=== PATIENT | female | born 1990 | race Caucasian/White ===

== ENCOUNTER 2019-05-23 12:28 | Emergency (ER) | payer OTHER, SELFPAY ==
[2019-05-23 12:31] VITALS: BP 105/66; PULSE 86; RESP 16; TEMP 36.7; O2SAT 98; BMI 24.0
--- NOTE | 2019-05-23 12:47 | ED.DCSUM_ITS ---
- ER Visit Summary Date of Service: 05/23/19 Chief Complaint: Psych eval History of Present Illness: The patient is a 28 F who was referred to the ED by her therapist. She has been having anxiety and depressed symptoms for several months. Her symptoms are primarily triggered by work stressors. Things seem to be getting worse. She has an appointment with a physician to possibly start medication for her mood, but has not been able to be seen so far. She saw her therapist yesterday who referred her to the emergency department if she has continued symptoms. She denies any suicidal or homicidal ideation. She has had thoughts in the past but currently has no thoughts of self-harm. No plans. No attempts. She feels safe at home and her agrees. She lives with her . She drinks 2 beers per day. Denies drug use. Denies any medical history. Denies any medical complaints. Physical Examination: Afebrile and vital signs unremarkable. Patient alert and oriented. No acute distress. Depressed mood. Forward thinking. No suicidal or homicidal thoughts. Heart regular. Lungs clear. Skin normal. Moves all extremities. Normal gait. Test Results: None indicated Emergency Department Course and Treatment: It does not sound like the patient needs inpatient care or involuntary hospitalization. I do not suspect an underlying medical cause. She drinks up to 2 beers a day, but does not use any drugs. I believe she could benefit from outpatient care, but that she needs to have her care expedited. I will have our social media editor evaluate her as well. We will try to arrange outpatient follow-up for her. TSH was normal. Patient was evaluated by social work as well as a behavioral counselor. They agree that she is appropriate for outpatient follow-up. Patient will be discharged. She has follow-up scheduled. She will return right away if she has thoughts of suicide or cannot function or has any other issues. Treatment Plan: As above Disposition: Discharge Impression: 1. Mood disorder NOS This note was generated with Stumpwiseation software. It may contain incorrect words, spelling, and punctuation that were not noted in review of the chart prior to signing ED Disposition - Plan for ED Patient: Referrals: NOT,DEFINED [NON-STAFF] -
--- NOTE | 2019-05-23 13:40 | CM.ED ---
SOCIAL WORK ASSESSMENT INFORMANT: DR. BOURGEOIS REASON FOR REFERRAL: MENTAL HEALTH CONSULT CHIEF COMPLIANT: INCREASED DEPRESSION AND ANXIETY MARITAL STATUS: LIVING SITUATION: HOME WITH INDU. SUPPORT/RESOURCES: PATIENT REPORTS GOOD SUPPORT FROM AND FAMILY. PATIENT STATES CURRENTLY FOLLOWING WITH [facility]. 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 PATIENT ADMITS TO PREVIOUS SUICIDAL IDEATION, HOWEVER, DENIES ANY CURRENT THOUGHTS, PLAN OR INTENT. PATIENT STATES HAS BEEN SELF HARMING BY PUNCHING HERSELF AND BANGING HEAD AGAINST WALL. PATIENT DENIES ANY HISTORY OF ABUSE-PHYSICAL, EMOTIONAL, OR SEXUAL. SUBSTANCE ABUSE HISTORY: PATIENT DENIES ANY SUBSTANCE ABUSE. MENTAL STATUS EXAM: PATIENT ALERT AND ORIENTED X4. MEMORY: GOOD APPEARANCE/GENERAL BEHAVIOR: CLEAN/APPROPRIATE MOOD/AFFECT: DEPRESSED, ANXIOUS COMMUNICATION PATTERN: RESPONDS TO QUESTIONS THOUGHT PROCESS: APPROPRIATE RISK TO SELF/OTHERS: PATIENT DENIES ANY CURRENT SUICIDAL OR HOMICIDAL IDEATION. ASSESSMENT: MET WITH PATIENT IN ROOM. INTRODUCED ROLE AND REASON FOR REFERRAL. PATIENT'S , INDU AT BEDSIDE AND GIVEN PERMISSION TO SPEAK OPENLY WITH PRESENT. PATIENT STATES HAS BEEN HAVING INCREASED ANXIETY AND DEPRESSION OVER THE LAST MONTH. PATIENT STATES HAS HAD THOUGHTS OF SUICIDE, BUT DENIES ANY PLAN OR INTENT. PATIENT DENIES ANY CURRENT SUICIDAL IDEATION. PATIENT FEELS SAFE IN THE HOME. PATIENT STATES IS FOLLOWING WITH [facility] AND WAS ADVISED TO COME TO THE EMERGENCY DEPARTMENT FOR ADDITIONAL SERVICES. DISCUSSED INPATIENT AND OUTPATIENT TREATMENT. PATIENT DOES NOT MEET CRITERIA FOR INPATIENT HOSPITALIZATION. PATIENT AND AGREE. DISCUSSED REFERRAL TO THE [facility]. PATIENT IN AGREEMENT WITH REFERRAL. THIS WORKER TO FOLLOW UP WITH [facility]. DISCUSSED WITH DR. BOURGEOIS WHO IS IN AGREEMENT WITH ASSESSMENT AND REFERRAL FOR OUTPATIENT SERVICES. PLAN: HOME WITH OUTPATIENT MENTAL HEALTH SERVICES REFERRAL. RICKIE HATFIELD, HYPERION ESSBASE DEVELOPER, HEAVY EQUIPMENT TECHNICIAN.
--- NOTE | 2019-05-23 13:50 | CM.ED ---
SOCIAL WORK CALL TO THE [facility]. REFERRAL MADE TO JORDAN. PER JORDAN, SOMEONE WILL BE OVER TO MEET WITH PATIENT TO DISCUSS PROGRAM. PATIENT AND UPDATED ON THE ABOVE. RICKIE HATFIELD MSW, PRINTING ESTIMATOR.
--- NOTE | 2019-05-23 14:10 | CM.ED ---
SOCIAL WORK HELLEN FROM [facility] HERE TO MEET WITH PATIENT.
--- NOTE | 2019-05-23 14:35 | CM.ED ---
SOCIAL WORK UPDATED BY HELLEN FROM [facility]. PATIENT WANTING TO THINK ABOUT OPTIONS AND PROGRAM OVER THE WEEKEND. HELLEN TO FOLLOW UP WITH PATIENT ON 05/26/19. DR. BOURGEOIS UPDATED. RICKIE HATFIELD, POLL CLERK, CLIENT ADVISOR.
[2019-05-23 14:50] LABS: Thyroid Stim Hormone (TSH) 0.93 uIU/mL (0.358-3.74)
--- NOTE | 2019-05-23 14:54 | ED.DEP ---
ED Disposition - Plan for ED Patient: Instructions: Depression Additional Instructions: follow up as directed
[2019-05-23 15:38] VITALS: RESP 16
== END 2019-05-23 15:39 | disposition home or self-care (01) ==
LOC: ED 13:18
PROVIDERS: Emergency Provider Emergency Medicine
DX: F39 Unspecified mood [affective] disorder (principal)
CPT/HCPCS: 84443; 99282

== ENCOUNTER 2019-05-28 09:00 | Outpatient (RCR) | payer OTHER, SELFPAY ==
--- NOTE | 2019-05-28 10:05 | BH.SGPN.GN ---
Behaviors/Verbalizations/Mental Status: [Client alert and oriented, neatly dressed and groomed. Eye contact good. Motor activity appropriate. Speech within normal limits. Affect congruent, mood anxious and euthymic. Thoughts linear, logical, no signs of hallucinations or delusions. ] Client Response/Progress/Benefit: [Client was an active participant in group discussion and activity. Engaged during discussion on the quote, sharing that ?change can be hard because sometimes it means we have to tell people things that may upset them.? Worked with the group to identify benefits to making changes in our lives which included: improving one?s mental health, increasing confidence, personal growth, and reducing unhealthy coping skills. Group identified barriers to change or what keeps us from making changes which included: it is easier to not change, lack of motivation, past negative experiences, lack of awareness as to how to make changes, limited support, negative thinking, and fear. Client participated along with group in activity where they identified and discussed the emotions related to change. Client was attentive during psychoeducation on the change process and provided input regarding different emotions that may be experienced throughout the process. Expressed relating to fear of failure when getting close to successful change. Pt benefited from increased awareness and understating of emotions, benefits, and barriers related to change. Progress noted as shown by client?s report of increased self-confidence and reduction of anxiety. Will continue IOP tx to promote gains and reinforce healthy coping skills] Narrative Note: []
--- NOTE | 2019-05-28 13:06 | BH.COMM_ITS ---
Communication Note - Communication with Client Communication Note: Met with patient to complete intial paperwork. Completed CSSR-screener which indicates moderate risk. She has been evaluated by [facility] ER and outpatient therapist in the past week with no concern for imminent danger. Denies active suicidal ideations, plan, or intent. Admits to thoughts of suicide and methods in the past month however never had any intent or plan. Protective factors. Future-oriented. Does not present as imminent risk or need for pink sli p. Seeking treatment through [facility]. No hx of attempts.
--- NOTE | 2019-05-28 13:21 | PCM.BH.PSYEV ---
Psychiatric Evaluation - Initial Evaluation Initial Evaluation: History of Present Illness: Patient is a 28-year-old female with a history of depression and anxiety who was sent to [facility] emergency room on May 23, 2019 by her counselor. The patient has had worsening mood and anxiety in the past 1 to 2 months. She currently lives in a house with her . They have no children. 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 Overall she likes her job although it is stressful. She states that recently due to all the stress she is under she has been thinking about suicide. She has had plans to drive her car off the road or obtain a gun. She does not have a gun and does not have access to one. She also has had thoughts of and that she wants to if she could do it in a painless way. She currently has been engaging in self-harm to help her deal with her anxiety. She slams her head into a wall and punches herself to get rid of her anxiety. She has been doing this for the past month. She has a history of cutting in high school but has not cut herself since high school. No other self-harm up to home a month ago when she will get in the punching. She has been calling off work due to all her symptoms and has been unable to function well at work. Her current stresses include marital issues for the past 2 years now. Her has been quite depressed in the past and he also did the [facility] IOP program. He improved but and but they twice during the past year. He moved out for the second time in January and then he came back and moved in with her in March. At first marriage was okay but then it got bad again about mid or early April. This has contributed to her symptoms. Her is not working and has not worked for the past 3 years. She feels he also does not do enough at home to help. They are still sexually active with last intercourse was about 1 week ago. She says that they both want to stay . She describes her mood is down and she cries and endorses hopelessness and worthlessness at times. She also has a lack of motivation to get anything done and is not enjoying anything lately. She has gained 5 pounds because she overeats when she is depressed. Her sleep she says is okay overall even though she wakes up at times with a similar feeling to a panic attack in the middle of the night. She calms herself down and is able to get back to sleep. She denies any symptoms of crow, homicidal ideation, hallucinations, OCD, eating disorders, PTSD or trauma. She also describes work as a big stressor and says she worries about work all the time. [] Current Psychiatric Medications: [None] Past Psychiatric History: [Has no psych admits and no suicide attempts ever. She currently has a counselor at [facility] and she has been going there for about 2 months for couples and then individual therapy. She has a history of anxiety occurring since 2012. As noted above she has a history of cutting in high school but none since then. She was first depressed in middle school and saw a counselor for this. She has never taken any psych medications for psychiatric reasons. She has never seen a psychiatric provider. She describes a history of being very worried as a child about her parents dying and about other existential fears.] Substance Use History: Non-smoker and has no marijuana use. She last used marijuana 2 months ago and uses it only sporadically. She denies any other drugs. Her used THC daily up to 3 weeks ago but he is trying to cut down now. She does drink 2 to 3 beers a day about 4 days a week. This is the most alcohol use she is ever done. She has been doing this much for about the past year. [] Allergies: [] No known allergies Current medications: None Past Medical History: [He has no medical problems and has not had any surgeries. She is a 1 para 1 Ab0 and had a baby 10 years ago which they gave up for adoption. It is an open adoption and he is a 10-year-old son and she feels good about this. She is on a Mirena IUD for control.] Family Psychiatric History: Mother is 64 and healthy and father is 75 years old and relatively healthy. There are no psychiatric issues known in the family. No suicides in the family. No history of substance issues known. [] Personal/Social History: Born and raised in [place]. She describes her childhood as good. Her parents were loving and . The patient is the youngest she has a sister 5 years older and as brother 2 years older than her. She is close especially to her sister. She denies any physical verbal or sexual abuse ever. Denies any abuse in her marriage. School was okay for her and she graduated high school and got a bachelor's degree in college in event planning. She has worked at her current job for 18 months and she has all had all event related jobs since college. She at age 22 and has been for 6 years. There has been marital discord for the past 2 years. Her has a history of depression and has not worked for 3 years. is 34 years old and he is supportive of her. They have no children. [] Legal History: [] Negative Review of Systems: Complete review of systems done and negative except as noted in present illness. [] Vital Signs: [] Reviewed in chart and stable. Mental Status Examination: Patient is a 28-year-old female who appears normal for stated age. She is casually dressed and groomed with good hygiene. She has good eye contact and is cooperative during the interview. She has no psychomotor agitation or retardation. Speech is normal rate and rhythm, fluent with no pressure. Mood is depressed. Affect is teary and constricted. Thought process is goal-directed and organized. Thought content: She does have thoughts that she wants to and she does have active suicidal ideation with a plan to drive her car off the road or obtain a gun. She has no evidence of homicidal ideation, hallucinations or delusions. Allergy testing is intact. Intelligence is average or above. Judgment is intact. Insight: Some present. Impulsivity low. Labs and testing [: TSH was normal in the emergency room. Summary: [] Diagnoses: [] [place] I: [] Major depressive disorder recurrent severe without psychosis, generalized anxiety disorder] [place] II: [] Cluster B traits [place] III: [Negative] [place] IV: Primary support (marital) issues and work stress Plan: [Patient will start the IOP program at [facility] as the support, education, structure, group and individual therapy will hopefully benefit the patient and prevent worsening of her symptoms which might require hospitalization. The risks options and possible complications of the medication she is on were discussed with the patient and she understands and accepts these. The patient felt safe during the interview and if it any time she does not feel safe she will call the IOP program or go to the emergency room. She will continue to follow-up with her outpatient providers. In addition the patient will agrees to start Lexapro 5 mg p.o. daily for 3 days and then 10 mg p.o. daily. In addition a vitamin D level will be ordered as it has not been checked yet. She will continue the Vistaril 25 mg 1-2 p.o. as needed for panic attack. She will decrease her caffeine use. I will see the patient in follow-up in 2 weeks.]
--- NOTE | 2019-05-28 13:35 | BH.DR.ITP ---
Initial Treatment Plan - Patient Information Visit Information: ADMISSION DATE: EXPECTED LOS: 4-6 weeks - Problems/Symptoms Problem #1:: Depression Symptom:: Sadness, anhedonia,suicidal ideation Problem #2:: Anxiety Symptom:: Worrying, panic attacks, rumination
--- NOTE | 2019-05-29 09:07 | BH.SGPN.GN ---
Behaviors/Verbalizations/Mental Status: [Eye contact is good. Motor activity is appropriate. Appearance is neat, casual. Speech is Appropriate rate and tone. Mood is anxious, dysthymic. Affect is congruent. Thoughts are linear and logical. No evidence of psychosis. Reviewed daily check in sheet and pt denies any active SI, plan, or intent. ] Client Response/Progress/Benefit: [Pt responded well to session, engaged throughout and open to processing with the group. Pt indicated current emotion as ?anxious? and discussed that this is due to feeling nervous about taking FMLA from work to do the IOP program. Appeared to connect with support from fellow participants and recognized importance of mental health stability in order to make progress professionally. Discussed that although this is a stressor, she is glad to be finally taking time for her own self-care and identified this as a mental health ?win?. Additional win as starting to more actively apply anxiety management skills outside treatment environment and is beginning to recognize sx improvement. Pt appearing to benefit from support and structure of group environment. Expressed connecting with fellow participants. She continues to make progress in practicing internal means for coping and is recommended continued IOP tx to prevent decompensation, decrease depression and anxiety, and promote ongoing application of healthy coping skills.] Narrative Note: []
--- NOTE | 2019-05-29 10:14 | BH.SGPN.GN ---
Behaviors/Verbalizations/Mental Status: []Client alert and oriented, neatly dressed and groomed. Eye contact good. Motor activity restless. Speech within normal limits. Affect congruent, mood anxious. Thoughts linear, logical, no signs of hallucinations or delusions. Client Response/Progress/Benefit: []Client responded well to session, attentive and participating in small group discussion. Group identified the benefits to setting boundaries as well as the consequences of not setting healthy boundaries. Benefits included: improved mental wellness, improved self-worth, self-love, less stress, less resentment, and avoid being taken advantage of. Group discussed the consequences of not setting boundaries which included: worsening mental health, lack of progress, and staying stuck in unhelpful situations. Client attentive during discussion of the different types of boundaries and engaged in the self-assessment activity. Client reported she often says yes to things when she really means no. Client stated this has led to client taking on more than she can handle. Client able to recognize her own mental health suffers when she does not set boundaries. Client seemed to benefit from increased awareness how poor boundaries can negatively impact mental health. Client to continue IOP level of care to reduce anxiety and improve daily functioning.
--- NOTE | 2019-05-30 08:48 | BH.NOTE ---
BH: Inpatient Note - Notes Behavioral Health Inpatient Note: Per written order from Dr. Barbosa, the following prescriptions were called into [facility] pharmacy in [place], [place]: Lexapro 10mg, take 0.5 tab (5mg) daily x3 days, then 1 tab (10mg) PO daily, #30, NO refills Vistaril 25mg, take 1-2 (25-50mg) PO daily PRN for panic/anxiety, #60, NO refills Edel Garcia MSN, RN
--- NOTE | 2019-05-30 11:20 | BH.SGPN.GN ---
Behaviors/Verbalizations/Mental Status: []Client alert and oriented, casual dress, hygiene tended to. Eye contact good. Motor activity appropriate. Speech within normal limits. Affect constricted, mood anxious. Thoughts linear, logical, no signs of hallucinations or delusions. Client Response/Progress/Benefit: []Pt responded well to session, active participant AEB providing input at times and taking notes throughout. Pt worked with group to further process the self-assessment activity. Pt participated in the discussion reviewing different boundary setting styles and reported connecting with the ?porous? boundary setting type with relation to not saying no to others and putting others needs ahead of her own. Pt reported she has rigid boundary setting type with not asking for help from others and avoiding new relationships because doesn't want to open up to others. Pt able to identify how having porous and rigid boundaries can negatively impact her mental health. She appeared to benefit from increasing awareness of personal boundary style and from learning ways to increase healthy boundaries. Pt to continue IOP level of care to decrease anxiety, challenge anxious thought patterns, and prevent decompensation. Narrative Note: []
--- NOTE | 2019-06-02 09:05 | BH.SGPN.GN ---
Behaviors/Verbalizations/Mental Status: [Eye contact is good. Motor activity is appropriate. Appearance is neat and casual. Speech is Appropriate rate and tone. Mood is euthymic. Affect is congruent. Thoughts are linear and logical. No evidence of psychosis. Reviewed daily check in sheet and pt denies any active SI, plan, or intent. ] Client Response/Progress/Benefit: [Pt responded well to session, engaged throughout and open to processing with the group. Pt indicated current emotion as ?optimistic? and discussed that this is due to beginning to see improvements in overall self-confidence and ability to make healthy personal choices. Pt did well to identify mental health wins which included using healthy coping and self-care skills to refrain from drinking alcohol or eating unhealthy foods. Additional win identified spending time outside walking with her dog. Current stressor is ongoing difficulties in her marriage as pt noted her has been struggling with his own mental health needs. Receptive of feedback provided by group and noted knowing she can be a support without trying to solve things for him. Pt appearing to benefit from support and structure of group environment. Pt continues to make progress in practicing more consistent use of coping skills and is recommended continued IOP tx to prevent decompensation, decrease depression/anxiety, and promote ongoing application of healthy coping skills.] Narrative Note: []
--- NOTE | 2019-06-02 10:15 | BH.SGPN.GN ---
Behaviors/Verbalizations/Mental Status: []Client alert and oriented, neatly dressed, hygiene tended to. Eye contact good. Motor activity restless AEB being fidgety with hands. Speech within normal limits. Affect constricted, mood anxious. Thoughts linear, logical, no signs of hallucinations or delusions. Client Response/Progress/Benefit: []Client passive participant as evidenced by client providing limited input throughout discussion, however did appear to listen attentively to others. Client agreed with others that she experiences automatic negative thoughts. Client connected with the discussion about how distorted thought patterns can reinforce mental health symptoms. Client reported that she struggles with creating scenarios in her brain of what might happen, which often is unrealistic and irrational. Client stated she could connect with catastrophizing distortion which she stated increases her anxiety further. Appeared to benefit from increasing awareness of cognitive distortions and how they can impact emotions and behaviors. Client to continue IOP to decrease anxiety, increase healthy coping skills, and prevent decompensation. Narrative Note: []
--- NOTE | 2019-06-02 11:15 | BH.SGPN.GN ---
Behaviors/Verbalizations/Mental Status: []Client alert and oriented, neatly dressed and groomed. Eye contact good. Motor activity appropriate. Speech within normal limits. Affect constricted, mood anxious. Thoughts linear, logical, no signs of hallucinations or delusions. Client Response/Progress/Benefit: []Client?engaged during session AEB client providing contributions throughout group session and engaging in activity. Client worked cooperatively with peers during group activity. Client acknowledged the importance of needing to have awareness and put forth the effort to challenge, reframe, and replace distorted thought patterns. Client reported she has had ?what if thoughts? for many years, so she acknowledges it will take time to change. Client worked cooperatively with group to challenge distorted thoughts and was attentive in learning strategies to combat distortions. Client reported she wants to focus on catching herself when she uses generalizations and jumping to conclusions. Client seemed to benefit from increased awareness of cognitive distortions and practicing reframing distorted thoughts. Client to continue IOP level of care to challenge negative thoughts that reinforce anxiety and difficulty setting boundaries.
== END 2019-06-02 23:59 ==
LOC: BHIOP 09:00
PROVIDERS: Referring Provider Psychiatry & Neurology Psychiatry; Visit Provider Psychiatry & Neurology Psychiatry
DX: F33.2 Major depressive disorder, recurrent severe without psychotic features (principal); F41.1 Generalized anxiety disorder; F12.90 Cannabis use, unspecified, uncomplicated
CPT/HCPCS: H0035; 90853

== ENCOUNTER 2019-06-03 09:00 | Outpatient (RCR) | payer OTHER, SELFPAY ==
--- NOTE | 2019-06-03 10:10 | BH.SGPN.GN ---
Behaviors/Verbalizations/Mental Status: []Client alert and oriented, neatly dressed and groomed. Eye contact good. Motor activity appropriate. Speech within normal limits. Affect congruent, mood anxious. Thoughts linear, logical, no signs of hallucinations or delusions Client Response/Progress/Benefit: []Client active participant in group AEB client contributing thoughts and ideas throughout session and listening attentively to peers. Group worked together to identify barriers to making changes or taking action in their lives which included: fear of the unknown, fear of losing control, the perception of others, fear of leaving one?s comfort zone, fear of success, and lack of motivation. When discussing challenges of taking action client stated she fears making the steps to prepare for change at times. Group also identified the benefits of change which included; improved relationships, improved mental wellness, increased confidence, and feelings of accomplishment. Client identified areas she would like to take back control over to include: racing thoughts, worrying about work, not knowing what she likes or wants, needing to people please, and fear of setting boundaries. Benefited from group through awareness of personal areas want to improve and benefits to taking action towards mental wellness. To continue IOP level of care to reduce anxiety and further improve daily functioning.
--- NOTE | 2019-06-03 11:18 | BH.SGPN.GN ---
Behaviors/Verbalizations/Mental Status: []Client alert and oriented, casual dress, hygiene tended to. Eye contact good. Motor activity appropriate. Speech within normal limits. Affect constricted, mood anxious. Thoughts linear, logical, no signs of hallucinations or delusions. Client Response/Progress/Benefit: []Pt mostly passive participant AEB pt providing limited input throughout session, however appeared to listen attentively to others. Pt worked with peers to identify the impact lack of action has on progress. Pt completed worksheet in which pt identified a problem area to focus on, a SMART goal to help work on problem area, and identify additional supports needed to be successful. Pt identified she wants to work on decreasing ?people pleasing?. Pt identified small goal is to do one thing that she enjoys for herself each day. Pt stated additional supports needed to be successful with goal include: communicating with her plan, making a list of why it?s important to care for herself, make a list of self-care activities, and incorporate self-care activities into her daily routine/schedule. Pt to continue IOP to prevent decompensation, increase healthy coping skills, and decrease anxiety. Narrative Note: []
--- NOTE | 2019-06-04 14:55 | BH.MTP_ITS ---
Master Treatment Plan - Patient Information Program Physician:: Dr. Baptiste Primary Therapist:: Jackie Guzman, [facility] - Psychiatric Diagnoses Psychiatric Diagnoses:: Major depressive disorder recurrent severe without psychosis, generalized anxiety disorder Diagnosis Code(s):: F33.2 - Estimated LOS Estimated LOS (in weeks):: 6 Problem/Goal #1 - Problem/Goal #1 Stated Goal:: Client will reduce depression, feelings of hopelessness, and suicidal ideation due to Major Depressive Disorder through the Intensive Outpatient Program. Description of Barriers: Potential treatment barriers include: negative thoughts, distorted thought patterns, difficulty making decisions, relationship discord, limited social supports and difficulty asking for help. Functional Impact: Pt's mental health symptoms impacting pt's ability to function at work AEB pt struggling with concentrating, having panic attacks at work and calling off work several times due to mental health symptoms. Pt's suicidal ideations have worsened in the past few weeks. Not functioning at baseline. Goal Relevant Strengths/Supports: Pt is intelligent, driven and reports motivation to get better. - Objectives Objective #1 Stated Objective: Client will identify and replace 2-3 negative thinking patterns that reinforce depressive symptoms. Interventions: Assist the client in identifying, challenging, and replacing dysfunctional thoughts with positive self-enhancing thoughts. Discharge Criteria: Client will have achieved this goal when can identify at least 2 negative thinking patterns, replace thoughts with rational thoughts, and combat suicidal ideation. Target Date: 07/09/19 Review Date: 06/25/19 Objective #2 Stated Objective: Pt will decrease depressive symptoms AEB pt?s score on the DSM 5 cross-cutting measure and improve pt?s daily functioning. Interventions: Through groups and individual therapy, pt will be provided with education on cognitive distortions, mistaken beliefs, and identifying and combating negative self-talk. Therapist will assist pt with getting back into the activities she once enjoyed as well as increasing healthy coping strategies. Discharge Criteria: Pt will have met this goal when pt?s score on the DSM 5 cross cutting measure for depression has been decreased and per pt?s report daily functioning has improved. Target Date: 07/09/19 Review Date: 06/25/19 Problem/Goal #2 - Problem/Goal #2 Stated Goal:: Reduce overall frequency, intensity, and duration of the anxiety so that daily functioning is not impaired. Description of Barriers: Potential treatment barriers include: negative thoughts, distorted thought patterns, difficulty making decisions, relationship discord, limited social supports and difficulty asking for help. Functional Impact: Pt's mental health symptoms impacting pt's ability to function at work AEB pt struggling with concentrating, having panic attacks at work and calling off work several times due to mental health symptoms. Pt's suicidal ideations have worsened in the past few weeks. Not functioning at baseline. Goal Relevant Strengths/Supports: Pt is intelligent, driven and reports motivation to get better. - Objectives Objective #1 Stated Objective: Client will identify 2-3 coping strategies to use to help manage anxious symptoms. Interventions: Therapist will help client process triggers to increased symptoms, and then identify ways to manage these feelings and thoughts. Therapist will also assist pt with understanding intrusive thoughts and learn strategies to manage intrusive thoughts. Discharge Criteria: Client will have met this goal when reports consistently applying at least 2 healthy coping strategies that successfully help manage anxious symptoms. Target Date: 07/09/19 Review Date: 06/25/19 Objective #2 Stated Objective: Pt will decrease anxious symptoms AEB pt?s score on the DSM 5 cross-cutting measure improve pt?s daily functioning. Interventions: Through groups and individual therapy, pt will be provided education about anxiety?s impact on body and common physiological reaction to anxiety. Therapist will teach pt appropriate breathing techniques and build healthy coping skills to manage daily anxieties. Discharge Criteria: Pt will have met this goal when pt?s score on the DSM 5 cross cutting measure for anxiety has been decreased and per pt?s report daily functioning has improved. Target Date: 07/09/19 Review Date: 06/25/19
--- NOTE | 2019-06-05 09:05 | BH.SGPN.GN ---
Behaviors/Verbalizations/Mental Status: [] Eye contact is good. Motor activity is appropriate. Appearance is casual. Speech is Appropriate. Mood is depressed. Affect is flat. Thoughts are linear and logical. No evidence of psychosis. Reviewed daily check in sheet and no reports of suicidal ideations or intent. Client Response/Progress/Benefit: [] Pt participated at times during group discussion. Emotion for today is calm. Reports that she struggles with her belief that I need to be doing something at all times. Feels that if she sits and watches TV she feels guilty and feels that she should be completing something more productive. Group challenged her on how nothing can sometimes be self-care and needed to recharge. Pt has difficulty with that perception. She also discussed some relationship conflict and is unsure what the future holds. She and often talk about the future however little action is taken and they often avoid. Benefited from group support, encouragement, and feedback. Will continue in IOP to maintain safety, prevent decompensation, and improve functioning to return to work. Narrative Note: []
--- NOTE | 2019-06-05 10:05 | BH.SGPN.GN ---
Behaviors/Verbalizations/Mental Status: []Client alert and oriented, casual dress, hygiene tended to. Eye contact good. Motor activity restless AEB fidgety with hands. Speech within normal limits. Affect constricted, mood anxious. Thoughts linear, logical, no signs of hallucinations or delusions. Client Response/Progress/Benefit: []Pt engaged in session as evidenced by pt listening to others and providing input throughout. Pt stated I run away from my problems all the time. Pt reported her negative and anxious thoughts can be a barrier to addressing her problems directly. Pt recognized ignoring her problems often makes her situation worse. Pt worked cooperatively with peers during problem solving activity, able to work through problem by using A,B,C,D,E problem solving method. Pt seemed to benefit from learning about problem solving method and rehearsing problem solving skills in the moment. Pt to continue IOP level of care to decrease anxiety, increase utilization of healthy coping, and prevent decompensation. Narrative Note: []
--- NOTE | 2019-06-05 11:05 | BH.SGPN.GN ---
Behaviors/Verbalizations/Mental Status: []Client alert and oriented, neatly dressed and groomed. Eye contact good. Motor activity appropriate. Speech within normal limits. Affect congruent, mood anxious. Thoughts linear, logical, no signs of hallucinations or delusions. Client Response/Progress/Benefit: []Client was an active participant in group activity and discussion. Client processed challenge activity with fellow participants and made connections with the barriers to problem solving encountered. Client completed a problem-solving worksheet in which she identified a current problem impacting mental health as avoiding relationships and developed a [id number] plan to address this problem. Client identified steps such as selecting dates she is free, contacting her son, and challenging expectations. Client identified barriers to include; fear of a real relationship with her son, low motivation, and safety in being alone. Client did well to brainstorm strategies for addressing this and was open to feedback from the group.? Benefited from creating a personalized plan which client identified barriers and steps to work on a mental health problem. Will continue in IOP tx to improve boundaries, reduce anxiety, and challenge distorted thoughts.?
--- NOTE | 2019-06-09 09:00 | BH.SGPN.GN ---
Behaviors/Verbalizations/Mental Status: [] Eye contact is good. Motor activity is appropriate. Appearance is casual. Speech is Appropriate. Mood is depressed. Affect is flat. Thoughts are linear and logical. No evidence of psychosis. Reviewed daily check in sheet and no reports of suicidal thoughts or intent. Client Response/Progress/Benefit: [] Pt was an active participant in group discussion on the benefits of anxiety, boundary setting, and radical acceptance. Emotion for today is complacent. She discussed that her mood has been less anxious and she has started to analyze the reasons. She is wondering if it is due to being off work i guess I didn't realize how much that impacted my anxiety. Shared some examples of how ruminating and obsessive over work tasks and responsibilities impacted her MH. Over the weekend she noticed that she was much improved on managing uncertainty. Gave examples of situations which in the past would have led to panic attacks however over the weekend they resulted in mild to moderate emotional distress. Changing her perspective on events which has improved her anxiety. Progress noted per pt report. Benefited from group support, encouragement, and feedback. Will continue in IOP to maintain safety and improve functioning to return to work. Narrative Note: []
--- NOTE | 2019-06-09 10:10 | BH.SGPN.GN ---
Behaviors/Verbalizations/Mental Status: []Client alert and oriented, casual appearance. Eye contact good. Motor activity appropriate. Speech within normal limits. Affect congruent, mood anxious. Thoughts linear, logical, no signs of hallucinations or delusions. Client Response/Progress/Benefit: []Pt was an active participant in group discussion. Processed quote of the day with peers. Group discussed the MH benefits to having open and clear communication with support and providers. Pt stated when don't use effective communication it often results in increased frustration and anger with the other person. Pt stated she recognizes now that she has used her behavior as a way to communicate to others how she is feeling versus directly communicating her thoughts. Pt reported she recognizes using behavior to communicate is often ineffective because requires the other person to make assumptions on how one feels. Group also discussed the barriers that tend to impact clear and open communication which include: fear, distorted thoughts, predicting the future, misinterpretations, non-verbal communication, and assumptions. Pt was attentive during psycho-education on communications styles (aggressive, passive, passive-aggressive, and assertive). Also provided input on the pros and cons to each communication style. Pt stated she could connect with being a passive communicator because often keeps in how she feels because doesn't want to hurt others. Pt seemed to benefit from increased insight on how the way she communicates impacts her mental health. Pt to continue IOP level of care to increase generalization of healthy coping skills, identify and challenge distorted thoughts and prevent decompensation. Narrative Note: []
--- NOTE | 2019-06-09 11:10 | BH.SGPN.GN ---
Behaviors/Verbalizations/Mental Status: []Client alert and oriented, casually dressed and groomed. Eye contact good. Motor activity appropriate. Speech within normal limits. Affect congruent, mood anxious. Thoughts linear, logical, no signs of hallucinations or delusions Client Response/Progress/Benefit: []Client active participant AEB providing input throughout and engaging in activity. Client reported she is a passive communicator which negatively impacts her mental health and relationships. Client reported being passive means ?other people make decisions for me.? Client stated it has been hard for her to find out who she is because she has been passive ?all my life.? client challenged herself to take an active role in the activity and able to connect how ineffective communication negatively impacts mental health and relationships. Client identified her communication goal which is to focus on asserting her needs more specially. Client seemed to benefit from increased insight into how her communication style impacts her mental health and relationships. Client progressing as shown by her increased engagement in sessions and report of reduced intensity of anxiety symptoms. Will continue IOP tx to promote application of healthy coping skills improve daily functioning.
--- NOTE | 2019-06-11 09:05 | BH.SGPN.GN ---
Behaviors/Verbalizations/Mental Status: [Client alert and oriented, casual and neat dress, hygiene tended to. Eye contact good. Motor activity appropriate. Speech within normal limits. Affect congruent, mood depressed. Thoughts linear, logical, no signs of hallucinations or delusions. Reviewed client?s symptom tracker, no signs of suicidal ideation, plan, or intent as of today. ] Client Response/Progress/Benefit: [Pt was an active participant AEB engagement in group discussion and openly processing with the group. Emotion for today is bland as pt indicated feeling more apathetic lately and has had difficulties in fighting the urge to isolate as a result. She shared spending most of the day in bed yesterday despite knowing the effects this would have on depression. Responded well to group support and appeared to benefit from brainstorming strategies to begin applying small opposite action related self-care skills she may engage in. Pt identified plans to create a daily self-care plan to prevent maintaining depression cycle as well as go home and spend some time coloring as a means of relaxation. Progress limited due to pt self-reported difficulties in applying healthy coping skills outside of tx environment. Continued IOP tx recommended to continue to promote application of healthy coping skills, decrease depression, and prevent decompensation.?] Narrative Note: []
--- NOTE | 2019-06-11 10:18 | BH.SGPN.GN ---
Behaviors/Verbalizations/Mental Status: []Client alert and oriented, neatly dressed and groomed. Eye contact good. Motor activity restless. Speech within normal limits. Affect congruent, mood anxious. Thoughts linear, logical, no signs of hallucinations or delusions. Client Response/Progress/Benefit: []Client active participant AEB client providing input throughout session, engaged in group activity and listened attentively to peers. Client reported some people may be ?more naturally? resilient, but it is possible to learn ways to become more resilient in life. Client discussed connections between activity and barriers/supports to development of a resilient lifestyle. Client benefitted from brainstorming benefits of being resilient which included: stronger than before, improving ability to cope, builds confidence and self-esteem, and being open-minded. Client participated in small group discussion of various factors that contribute to increasing resilience. Client reported one?s thinking impacts resilience as client shared viewing adverse situations as impossible causes inaction. Client progressing as shown by her report of reduced anxiety and application of coping skills outside of group setting. Will continue IOP tx to promote gains and further improve boundaries and daily functioning.
--- NOTE | 2019-06-11 12:23 | BH.NOTE ---
BH: Inpatient Note - Notes Behavioral Health Inpatient Note: This [employer] completed nursing assessment with client, who notes a overall positive response to the Lexapro that Dr. Barbosa started her on two weeks ago. Client has not been taking the Vistaril. Client is informed of her vitamin D level result and that Dr. Barbosa would like her to start supplementing. Client informed of dosing instructions and potential side effects, and she is agreeable to start. Client notes that she will be unable to come in next Sunday to see Dr. Barbosa, but will plan to be here two weeks from today for reevaluation; she may run out of Lexapro before then. Per verbal orders from Dr. Barbosa, the following prescriptions were called into [facility] pharmacy in [place], [place]: Vitamin D2 50,000IU PO weekly, #4, 2 refills Lexapro 10mg PO daily, #30, no refills Edel Garcia, MSN, RN
--- NOTE | 2019-06-11 12:23 | BH.NA ---
Physical Data - Height/Weight Height: 1.63 m Weight:: 68.039 kg Weight in Pounds: 150.0 lbs Current Medication Compliance - Medication Compliance Do you take your medication as prescribed?: Yes Do you need assistance with taking medication?: No Have you had side effects from medication?: No Nutritional History - Appetite Nutritional Instructions:: If client shows signs of a swallowing problem, weight change of 10 pounds or more in the last month, or is on a diabetic diet, the physician will review and request a dietitian consult, as appropriate. All unintentional weight loss will be referred to the physician for decision on need for dietitian consult. Describe your appetite:: Good Have you noticed a change in your eating habits lately?: Yes - increased emotional eating Functional Assessment - Sleep Pattern Describe any problems with sleeping: Client notes difficulty with staying asleep, which she links to back pain. She does have some difficulty with rumination at night as well. - Activities Motor Activity:: Functional Sensory/Communication Assess - Communication Problems Do you have difficulty understanding what people are saying?: No Do you have trouble putting your thoughts into words or expressing what you want to say?: No Do people ever have trouble understanding what you say?: No What is your primary language?: Maced[place] Learning Assessment - Learning Barriers Learning Barriers:: Ready to learn Medical Problems/History - Pain Assessment Do you have acute or chronic pain?: No - Female Reproductive Do you think you may be ?: No Number of pregnancies:: 0 Number of children:: 0 Have you reached menopause?: No Do you have any history of breast disease?: No Surgical History - Surgical History Have you had any surgeries? If so, list type and date:: No Substance Abuse - Substance Abuse Please describe substance abuse in the last 30 days:: Significant for ETOH use/abuse - until last week she was drinking 2-3 daily; last week only had 4 drinks total. Denies tobacco and illicit substance use. Mental Status Summary - Mental Status Significant Findings/Observations on Appearance and Mood:: Constance is A&Ox4, cooperative with interview, and makes good eye contact. Speech is clear and of normal rate and volume. Mild anxiety. Full affect. Logical associations. Normal process. No symptoms of delusions. Denies hallucincations and HI. Intermittent SI without plan or intent. Good attention and concentration. Suicide Assessment - Suicidal Ideation Are you currently or have you been suicidal in the past?: Yes Suicidal Intentional Rating Scale (SIRS): Suicidal thoughts (past), Current suicidal thoughts/No plan/Contracts for safety Physician Notification: If Active suicidal thoughts/Will not contract for safety is checked, contact physician and document in the Physician Notification section below. Assault History/Potential - History of Assault Do you have a history of assaulting someone?: No Physician Notification: If yes, notify physician and document notification date and time below. Past Psychiatric History - MH Treatment Hx ECT Therapy Details:: N/A Fall Risk Assessment - Age Age: Less than 60 - Mental Status Mental Status: Willing & able to ask for assistance when needed - Physical Status Physical Status: No problems - Impairments Impairments: None - Elimination Elimination: Continent AND independent - Gait or Balance Gait or Balance: Walks independently - Hx of Falls History of falls in the past 6 months: No known history - Medications/Substances Psychotropics:: Antidepressants, Anxiolytics (e.g. benzodiazepines) Medications/substances used within the past 24 hours or ordered to administer: 1-2 of the medications/substances listed above - Total Score Total Points:: 1 RN Summary of Impressions - Impressions Recommendations: Include psychiatric and medical issues, treatment planning recommendations, and discharge planning needs. Impressions: Psychiatric Issues: MDD, TREMAYNE, cluster B traits Impression: General Medical Conditions: N/A - Level of Care How do the client's current symptoms and functional deficits support need for this level of care?: Constance notes a decompensation in her mental health for the past 2 months. She endorses decreased concentration and inability to perform job duties, avoidance and isolative behaviors, and daily anxiety. Client is able to identify her job and marriage as major stressor, but there was not a single triggering event. She acknowledges misusing ETOH as a coping mechanism. Client has had intermittent SI without plan or intent. IOP will provide skills training and social support to prevent further decompensation and promote gains.
--- NOTE | 2019-06-12 09:10 | BH.SGPN.GN ---
Behaviors/Verbalizations/Mental Status: [] Eye contact is good. Motor activity is appropriate. Appearance is casual. Speech is Appropriate. Mood is euthymic. Affect is full. Thoughts are linear and logical. No evidence of psychosis. Reviewed daily check in sheet and no reports of suicidal ideations or intent. Client Response/Progress/Benefit: [] Pt was an active participant in group discussion. Emotion for today is happy. Shared that she had a good day yesterday in regards to mental health symptoms. Completed self-care and began to organize and accomplish tasks around the house. Discussed some stressors which in the past would have led to anxiety and panic however currently are mild worry. Not catastrophizing and challenging thoughts. Progress noted per pt report. Benefited from group support, encouragement, and praise. Will continue in IOP to maintain safety, prevent decompensation, and transition back to work. Narrative Note: []
--- NOTE | 2019-06-12 11:15 | BH.SGPN.GN ---
Behaviors/Verbalizations/Mental Status: [Client alert and oriented, casually and neatly dressed and appropriately groomed. Eye contact good. Motor activity appropriate. Speech within normal limits. Affect congruent, mood anxious, euthymic. Thoughts linear, logical, no signs of hallucinations or delusions. ] Client Response/Progress/Benefit: [Pt responded well to session, actively listening and willing participant in both discussion and worksheet activity. Worked with the group to further process the activity and discussion on the importance of self-care in management mental health and preventing burnout. Pt engaged in the discussion and self-assessment of the different areas of self-care, noting she has struggled with profession components of self-care and has previously taken on more responsibilities than she is capable of managing which has resulted in increased anxiety and self-doubt. Pt reports connecting with discussion on the mental health effects of not making self-care a priority. Pt set a goal to improve in the area of professional self-care by improving work/life balance and actually taking a lunch break when scheduled to rather than workig through it. Pt appeared to benefit from increasing awareness of how she can improve self-care balance. Pt progress noted in pt ability to identify impact current lack of self-care activities has had on mental health and maintaining negative self-talk and anxiety. Recommended continued IOP to continue to reduce depression and anxiety, improve boundary setting and self-care skills, and prevent decompensation.] Narrative Note: []
--- NOTE | 2019-06-12 15:23 | BH.MDN_ITS ---
Multi-Disciplinary Note - Note 60-min Individual Time Started:: 10:12 Date: 06/12/19 Purpose of session/treatment goals addressed:: Purpose of session was to assess pt's current symptoms and stressors. Other topics included reviewing treatment progress, increasing awareness of anxious thoughts, education about safety behaviors, and discussing return to work plan. Eye Contact:: Good Motor Activity:: Appropriate, Restless - became restless AEB wringing hands when talking about going back to work. Appearance:: Neat Speech:: Appropriate Mood:: Anxious, Other - tearful Affect:: Congruent Thoughts:: Linear, Logical, No evidence of hallucinations/delusions noted Staff Interventions:: Therapist used open ended questions to elicit pt's current symptoms and stressors. Therapist discussed pt's thoughts about treatment progress since started IOP. Therapist elicited pt's current anxious thoughts about returning to work. Therapist provided psychoeducation about how anxious thoughts result in a physiological response which results in safety behaviors. T herapist assisted pt with identifying the safety behaviors she most often utilizes to make her anxiety go away. Therapist helped pt understand negative impact of engaging in safety behavior. Therapist provided handouts to pt about strategies to help accept anxious thoughts versus avoiding or seeking reassurance. Education provided about diaphramic breathing vs chest breathing and the benefits of diaphramic breathing to decrrease anxiety. Therapist provided homework for pt to read information about strategies to help accept anxious thoughts and to practice provided relaxation skills. Client Response:: Pt reported she has been feeling less anxious over the past week. Pt stated she went away for the weekend with her and she had an enjoyable time. Pt noted progress within herself when she was able to manage her anxiety yesterday when her 's friend needed a place to stay for the night. Pt stated in the past she would fret for hours about needing her house to be spotless, but yesterday was able to be less rigid. Pt reported her is doing better emotionally as well which seems to be helping their relationship. Pt stated she recently bought a calendar to improve her organization and decrease avoidance of certain tasks that she tends to ignore. Pt stated she also has been trying more self-care activities like coloring. Pt reported in the past she wouldn't engage in self-care because felt like I should be doing something more productive right now. Pt stated she now recognizes the value and importance of self-care. Pt reported when she thinks about returning to work on Sunday she immediately starts to feel anxious. Pt stated she is worried she won't be able to get better and is starting to worry that maybe her current job is the problem. Pt admitted she just wants to avoid going back to work, but recognizes it will only make her anxiety worse. Pt open to learning about skills and strategies to help her accept her anxious thoughts versus engage in safety behaviors. Pt stated her most common safety behaviors are avoidance or seeking reassurance. Pt recognized neither safety behavior actually helps her feel less anxious. Pt also agreeable to practice provided relaxation skills. Risks/Concerns:: Pt denies current suicidal ideation, plan or intention to date. future focused. Progress Toward Goals/Plan:: Progress noted with pt reported decrease in anxious symptoms, increased engagement in self-care, and improved awareness of anxious and negative thought patterns. Plan is for pt to return to work next week in addition to attending IOP. Pt to continue IOP level of care to decrease anxiety, improve healthy coping, and prevent decompensation. Time Stopped:: 11:08
--- NOTE | 2019-06-16 09:10 | BH.SGPN.GN ---
Behaviors/Verbalizations/Mental Status: [] Eye contact is good. Motor activity is appropriate. Appearance is casual. Speech is Appropriate. Mood is anxious. Affect is congruent. Thoughts are linear and logical. No evidence of psychosis. Reviewed daily check in sheet and pt reports 3/5 for suicidal thoughts and 1/5 for intent. Therapist will meet with patient for risk assessment. Client Response/Progress/Benefit: [] Pt participated in group discussion. Emotion for today is anxious. Daily symptoms tracker shows 4/5 for anxiety and 3/5 for panic, agitation, and hopelessness. Tearful at times. Very anxious about returning to work this afternoon. Catastrophizing. Group provided support, encouragement, and some feedback. Reports that aside from today her weekend went well. She discussed that her communication with her has improved and she is utilizing some skills learned in IOP to improve their communication. Normalized her anxiety for returning to work. Will continue in IOP to maintain safety, increase healthy coping, and transition back to work. Narrative Note: []
--- NOTE | 2019-06-16 10:07 | BH.SGPN.GN ---
Behaviors/Verbalizations/Mental Status: []Client alert and oriented, neatly dressed and groomed. Eye contact good. Motor activity appropriate. Speech within normal limits. Affect constricted, mood anxious. Thoughts linear, logical, no signs of hallucinations or delusions. Client Response/Progress/Benefit: []Client active participant during group AEB client contributing to discussion and activity. Client reported it is important to have social supports, but one can have unrealistic expectations for their supports which can cause more distress and negative thinking. Client helped group brainstorm potential consequences of not having a support system. Group identified benefits of social support as building trust, less anxiety, less loneliness, different perspective, sense of purpose, resources, hope, and accountability. Client defined a social support as ?someone you also support? and shared it is important to ?not just take.? Client was engaged during the group activity and was providing positive encouragement. Appeared to benefit from gaining awareness of barriers that keep people from seeking social support as well as identifying the benefits of increasing support. Client progressing AEB client?s report of utilizing coping skills, but she continues to report high anxiety, especially regarding work. Will continue IOP tx to promote mood stability and further improve work-related functioning.
--- NOTE | 2019-06-16 11:08 | BH.SGPN.GN ---
Behaviors/Verbalizations/Mental Status: [Pt alert and oriented, eye contact good, casually and neatly dressed, motor activity appropriate, speech normal rate and tone, mood anxious, dysthymic, congruent affect, thoughts linear and intact, no evidence of delusions or hallucinations.] Client Response/Progress/Benefit: [Client active participant AEB client contributing to discussion, listened attentively to others, and taking notes. Client worked with the group to make connections between barriers faced in the challenge activity and strategies for managing these barriers with utilizing social supports in daily life. Client reflected that a personal barrier in using her current supports is willingness to ask for help. Client contributed to discussion about the different types of support and benefits different types of support can provide. Client worked with the group to identify strategies for improving development of new supports and better utilization of current supports. Client identified she would like to improve internal support by finding community gym or workout class to join because she would be able to decrease isolation and improve self-confidence as a result. Client seemed to benefit from identifying a type of support she would like to improve upon and creating actionable steps to promote follow-through. Client to continue IOP level of care to prevent decompensation, increase use of healthy supports and anxiety management skills.] Narrative Note: []
--- NOTE | 2019-06-16 15:56 | BH.MDN_ITS ---
Multi-Disciplinary Note - Note 45-min Individual Time Started:: 12:10 Date: 06/16/19 Purpose of session/treatment goals addressed:: Purpose of session was to assess pt's current symptoms and stressors impacting daily functioning and treatment progress. Other topics included addressing anxiety associated with return to work and discussing potential in the moment distress tolerance skills and self- coaching statements pt may utilize during times of increased stress/anxiety at work. Eye Contact:: Good, Other - tearful throughout Motor Activity:: Restless - rocking, wringing hangs, bouncing legs as she discussed triggers for anxiety Appearance:: Neat, Casual Speech:: Appropriate Mood:: Anxious Affect:: Full Thoughts:: Linear, Logical, Racing, No evidence of hallucinations/delusions noted Staff Interventions:: Therapist asked open-ended and furthering questions to elicit information regarding current symptoms, stressors, and tx goal progress. Provided supportive feedback and empathic responses as client discussed increased anxiety about return to work. Therapist guided pt through mindfulness exercises to reduce anxiety and return to baseline. Applied CO techniques to aide client in identifying strategies for reducing stress in the workplace and reviewed calming skills she may apply in times of increased anxiety. Client Response:: Pt receptive of session and willing to meet with this therapist as usual counselor is out of the office on this date. Pt actively engaged throughout discussion. She shared feeling really anxious and overwhelmed as this is her first day back to work after taking FMLA. Pt became tearful and breathing quickened. She expressed symptoms of panic. Willing to work with therapist on completing a grounding exercise and apply some breathing techniques. After several moments pt was able to return to baseline. Pt and therapist discussed concerns about her return to work and pt indicated fears of experiencing panic while in the workplace or becoming overwhelmed. She did well to work with therapist on identifying strategies for easing herself back into the flow of her work routine and means of preventing from becoming overwhelmed. Pt identified that discussing return to work expectations with her boss and setting a boundary of not taking on any new events would be helpful. Additionally, pt noted not actually taking her break when scheduled and often used to eat through lunch, shared that she could instead begin using those times to destress and engage in mindfulness. Pt and therapist discussed calming skills that she could utilize if she becomes overwhelmed or anxious. Pt indicated that she could take a break and go to the bathroom or an empty room to take a deep breath. Shared plans to use reframing techniques when finding herself in a negative headspace. Shared that she could look at her return to work as more of a trial and that if she finds she does not enjoy it she doesn't have ton stay in the position. Risks/Concerns:: No risks or concerns noted. Pt denies any active SI, plan, or intent as of this date. Progress Toward Goals/Plan:: Some regression as pt entered session in panic due to thoughts of returning to work on this date. She did however display progress in ability to use mindfulness skills to return to baseline and work with therapist on identifying an anxiety management plan for her first day back on the job. Pt shared that setting aside time for self-care at work would prevent burnout and aid in improving overall mood in the workplace. Additionally, pt did well to identify distress tolerance skills she may use which indicates increased insight. Pt recommended continued IOP tx to aid in managing anxiety during transition back to work, reduce anxiety, and prevent decompensation. Time Stopped:: 12:55
--- NOTE | 2019-06-17 10:10 | BH.SGPN.GN ---
Behaviors/Verbalizations/Mental Status: [] Eye contact is good. Motor activity is appropriate. Appearance is casual. Speech is Appropriate. Mood is anxious. Affect is congruent. Thoughts are linear and logical. No evidence of psychosis. Client Response/Progress/Benefit: [] Pt was an active participant in group activity and discussion. Provided insight on the quote of the day. Worked with peers to come up with a definition for coping which was how we deal with problems that we encounter. Group noted that coping skills can be healthy and unhealthy. Group worked together to identify unhealthy coping skills which included; substance abuse, avoiding, isolating, lashing out, self-harm, over-thinking, spending money, eating, and escaping reality through TV/games. Group began to identify ways to break the cycle of unhealthy coping skills which included; awareness, addressing issues, and learning healthy ways to cope. Pt was an active participant in her small group. Narrative Note: []
--- NOTE | 2019-06-17 11:15 | BH.SGPN.GN ---
Behaviors/Verbalizations/Mental Status: []Pt alert and oriented, eye contact good, casually dressed, motor activity appropriate, speech normal rate and tone, mood anxious, congruent affect, thoughts linear and intact, no evidence of delusions or hallucinations. Client Response/Progress/Benefit: []Client listened attentively to peers and contributed thoughts during discussion. Client appeared to connect with the activity from second group and helped the group identify benefits of having a strong foundation of internal and external coping skills. Client helped the group discuss the different categories of coping skills and provided examples. Client reported it's important to have balance of various coping skills because relying on one type of skill can be problematic if that skill stops working. Client created a coping skills ?menu? from the five categories of coping skills. Client selected physical activity, self-love, and thought challenge as her coping skills to try. Client appeared to benefit from increasing her repertoire of healthy coping skills. Progress noted in client?s ability to utilize healthy coping skills and challenge negative thought patterns. Will continue IOP to promote gains, continue use of healthy coping skills and prevent decompensation. Narrative Note: []
--- NOTE | 2019-06-17 15:25 | BH.MDN ---
Multi-Disciplinary Note - Note 45-min Individual Time Started:: 09:18 Date: 06/17/19 Purpose of session/treatment goals addressed:: Purpose of session was to assess pt's current symptoms and stressors. Other topics include: reviewed pt returning to work yesterday and identified positives. Eye Contact:: Fair Motor Activity:: Restless Appearance:: Neat Speech:: Appropriate Mood:: Anxious Affect:: Constricted Thoughts:: Linear, Logical, No evidence of hallucinations/delusions noted Staff Interventions:: Therapist used open ended questions to elicit pt's current symptoms and stressors. Therapist assisted pt with identfiying healthy skills utilized during work yesterday. Therapist reviewed skills that can help pt manage anxiety while at work. THerapist provided support by using active listening and validating emotions. Client Response:: Pt reported yesterday she was extremely anxious all day and had a panic attack on her way into [facility]. Pt stated she had another panic attack while here at [facility] yesterday because was worrying about having to go to work. Pt stated she made it to work and didn't have a panic attack when she went into the building. Pt shared it was nerve racking to go into work, but was okay. Pt stated she was able to get over 150 emails cleared from her inbox. Pt stated she stuck with the boundary set previously to leave work on time. Pt reported when she got home she cooked a meal at home, took her dog for a walk, and completed several things off of her to-do list. Pt stated although she was extremely anxious leading up to going to work she was able to make it through better then she expected. Pt identifying using positive self-talk, focusing on what's in her control, leaving work on time, and having activities to engage in after work are skills that can help her manage anxiety at work better. Risks/Concerns:: Denies suicidal ideation, plan or intention to date. future focused. Progress Toward Goals/Plan:: Progress noted with pt being able to return to work despite experiencing signficiant anxiety and panic attacks. Pt utilized positive self-talk, focusing on what's in her control, setting small goals and self-care to help her get through work day. Pt continuing to have marital problems and significant anxiety about work. Pt recommended to continue IOP to increase healthy coping, decrease panic attacks, and prevent decompensation. Time Stopped:: 09:57
--- NOTE | 2019-06-19 09:10 | BH.SGPN.GN ---
Behaviors/Verbalizations/Mental Status: [] Eye contact is good. Motor activity is appropriate. Appearance is casual. Speech is Appropriate. Mood is depressed. Affect is flat. Thoughts are linear and logical. No evidence of psychosis. Reviewed daily check in sheet and pt reports 1/5 for suicidal thoughts and 0/5 for intent. Client Response/Progress/Benefit: [] Pt participated at times during the group discussion. Emotion for today is nervous. Shared with the group that she made it through the work day yesterday with less anxiety. Noted that she used her lunch break to actually take a break from work. The concept of self-care at work she reports in foreign to her. Discussed the benefits to this and how it could have helped lower her stress and anxiety. She also reports that she joined a gym and discussed how this could help with MH wellness. Progress noted. Benefited from group support, encouragement, and feedback. Will continue in IOP to prevent decompensation, transition back to full-time work, and increase healthy coping skills. Narrative Note: []
--- NOTE | 2019-06-19 10:10 | BH.SGPN.GN ---
Behaviors/Verbalizations/Mental Status: []Client alert and oriented, neatly dressed and groomed. Eye contact good. Motor activity restless. Speech within normal limits. Affect congruent, mood anxious. Thoughts linear, logical, no signs of hallucinations or delusions. Client Response/Progress/Benefit: []Client responded well to session, attentive and contributing to discussion. Client connected with the group topic of crisis and did well to work with group to define crisis. Client identified examples of potential crisis to include emergencies, hardships, and . Connected with discussion on how coping with external crisis by using unhealthy coping skills could lead to personal crisis. Group identified unhealthy coping skills to include; substances, isolation, impulsive behaviors, yelling, and pushing people away. Client shared ?sometimes I throw things, but then I have to clean it up.? Group identified warning signs for crisis which included; increased sleep, irritability, decreased appetite, and negative thoughts. Client completed the personal warning signs worksheet and identified crisis warning signs to include; racing thoughts, uncontrollable worries, and lack of concentration. Benefited from group by increasing awareness of crisis and personal warning signs. Progress noted as client reports improving ability to manage her anxiety. Will continue IOP tx to promote use of healthy coping skills and to further decrease ruminations. Narrative Note: []
--- NOTE | 2019-06-19 11:11 | BH.SGPN.GN ---
Behaviors/Verbalizations/Mental Status: []Client alert and oriented, neatly dressed and groomed. Eye contact good. Motor activity appropriate. Speech within normal limits. Affect congruent, mood anxious. Thoughts linear, logical, no signs of hallucinations or delusions. Client Response/Progress/Benefit: []Client responded well to session as evidenced by client listening attentively to others and sharing when prompted. Client identified her warning signs for crisis and gained further awareness of her earliest warning signs. Client recognized that awareness of these warning signs can prevent further crisis and help client utilize healthy coping skills to break the cycle. Client created a crisis action plan to help client better manage earliest warning signs for crisis of racing thoughts, difficulty making decisions independently, and overeating/unhealthy eating. Client?s personal crisis prevention plan included coping skills such as: don't engage racing thoughts, practice grounding tools, focus on what is in her control, making manageable to-do lists, and prep meals for the week. Client appeared to benefit from creating a crisis action plan and increasing self-awareness. Client to continue IOP level of care to continue use of healthy coping, maintain gains, and prevent decompensation. Narrative Note: []
--- NOTE | 2019-06-24 09:00 | BH.SGPN.GN ---
Behaviors/Verbalizations/Mental Status: [] Eye contact is good. Motor activity is appropriate. Appearance is neat. Speech is Appropriate. Mood is depressed. Affect is flat. Thoughts are linear and logical. No evidence of psychosis. Reviewed daily check in sheet and reports 2/5 for suicidal thoughts and 1/5 for intent. Therapist informed and will complete indv session. Client Response/Progress/Benefit: [] Pt participated at times during group discussion. Emotion for today is worried. Notes increased stress and anxiety at work yesterday. Continues to struggle with obsessive irrational thoughts regarding her work tasks. She will check her emails several times throughout the day to ensure that she did everything correctly. States I know logically that I did it and re-checked it however I can't stop worrying. Discussed how this impacts her MH. Fearful of messing up something at work. Ruminating about why she does this which increases uncertainty and stress. Is completing self-care at times. Regression noted. Benefited from group support and encouragement. Will continue in IOP to maintain safety, prevent decompensation, and transition back to work full-time. Narrative Note: []
--- NOTE | 2019-06-24 10:08 | BH.SGPN.GN ---
Behaviors/Verbalizations/Mental Status: []Client alert and oriented, neatly dressed and groomed. Eye contact good. Motor activity restless. Speech within normal limits. Affect constricted, mood anxious/depressed. Thoughts linear, logical, no signs of hallucinations or delusions. Client Response/Progress/Benefit: []Client was mostly a passive participant during session until the activity. Client appeared to connect with the quote as shown by her nodding. Client listened as the group defined goals and identified the benefits of developing goals which included; improving self-confidence, gaining a sense of accomplishment, gaining a sense of purpose, increased motivated/productivity, and better mental health. Client nodded that she often has all or nothing thinking when it comes to goals, so when she hits a barrier she feels like she failed. Group also identified barriers to setting and accomplishing goals which include; fear, unrealistic expectations, lack of follow through, and not knowing where to start. Attentive during education on developing SMART goals. Benefited from increasing awareness of goal-setting methods and practicing goal setting. Client currently presents with increased anxiety, but she has been demonstrating progress with managing her symptoms. Will continue IOP tx to prevent further decompensation and promote maintenance.?
--- NOTE | 2019-06-24 11:13 | BH.SGPN.GN ---
Behaviors/Verbalizations/Mental Status: [Client alert and oriented, casually dressed and appropriately groomed. Eye contact fair to good. Motor activity appropriate. Speech within normal limits. Affect constricted, mood anxious and depressed. Thoughts linear, logical, no signs of hallucinations or delusions. ] Client Response/Progress/Benefit: [Pt attentive throughout, mostly quiet and at times appearing to be distracted by own thoughts. Pt did well however to redirect herself and remain present, nodded at times throughout discussion. Engaged in creating own mental health SMART goal. Pt identified goal as: ?Do more physical exercise via working out, walking D[place], or hiking 5 times this week?. Pt reported this goal will benefit her by increasing self-care and improving self-esteem. Pt identified potential barriers to accomplishing goal to include: bad weather, thinking that ?I don?t want to go?, lack of motivation, thinking that ?I don?t have the time?. Pt reported she will overcome barriers by ?doing yoga or other physical activities inside on days with bad weather?, ?using supports for encouragement?, ?writing down potential benefits as a reminder?, and setting a 10-30 minute timer for the activity?. Pt seemed to benefit from identifying a SMART goal and coming up with strategies to overcome potential barriers. Progress noted in pt ability to create a small relevant goal aimed at improving mental health symptoms and increasing self-esteem. Pt to continue IOP to increase healthy coping skills, decrease anxiety, and prevent decompensation.] Narrative Note: []
--- NOTE | 2019-06-25 07:04 | BH.COMM_ITS ---
Communication Note - Communication with Client Communication Note: Therapist checked in with client due to her symptom tracker scores for suicidal ideation this AM being higher than client?s baseline. Reports that she is feeling more depressed today due to interpersonal relationship issues. Client stated she is having thoughts that ? with would easier, but I won?t do anything.? Client denies any active suicidal ideations, plan, or intent as of 06/24/19. Client reports ability to maintain safety and was future oriented. Smiling during session and throughout the day in [facility]. Willing to plan for safety and able to identify coping skills she could use tonight such as cooking and creating small goals. Does not present as imminent danger to self-due to no active ideations, plan, or intent. Reports plan to attend [facility] tomorrow 06/25/19.
--- NOTE | 2019-06-25 09:10 | BH.SGPN.GN ---
Behaviors/Verbalizations/Mental Status: [] Eye contact is good. Motor activity is appropriate. Appearance is casual. Speech is Appropriate. Mood is depressed. Affect is flat. Thoughts are linear and logical. No evidence of psychosis. Reviewed daily check in sheet and no reports of suicidal ideations or intent. Client Response/Progress/Benefit: [] Pt participated at times during group discussion. Emotion for today is empowered. Shared with the group that she had discussion with her last night and they are going to get a divorce. Tearful. States that she feels relief from this decision and while sad she feels this will be better for her long-term. States that she gave herself permission to be sad, cry, and isolate yesterday however I'm not going to let it control me for a long time. She woke up this morning and walked the dog and came to group. Is going to try an stay active an engaged outside the house. Group provided support and encouragement which was beneficial. Feedback about grief. Will continue in IOP to maintain safety, provided support, increase healthy skills, and transition back to full-time work. Narrative Note: []
--- NOTE | 2019-06-25 10:20 | BH.SGPN.GN ---
Behaviors/Verbalizations/Mental Status: []Eye contact good. Motor activity is appropriate. Appearance is casual. Speech is appropriate rate and tone. Mood is anxious. Affect is congruent with mood. Thoughts are linear and logical. No evidence of psychosis. Client Response/Progress/Benefit: []Client was an active participant in group activity and discussion, providing insight throughout. Client connected with the topic and worked with group to identify common internal barriers that keep people stuck. Client identified her current reality is her getting over several stressors in her life, progressing forward, but still unsure and anxious about what her future is going to look like. Client shared her realistic, desired reality would be client feeling more connected with others, utilizing her skills, and feeling more confident. Benefited from group as client was able to identify current and desired mental health state. Will continue IOP to prevent decompensation and continue utilization of healthy coping skills. Narrative Note: []
--- NOTE | 2019-06-25 11:15 | BH.SGPN.GN ---
Behaviors/Verbalizations/Mental Status: [] Eye contact is good. Motor activity is appropriate. Appearance is casual. Speech is Appropriate. Mood is anxious. Affect is congruent. Thoughts are linear and logical. No evidence of psychosis. Client Response/Progress/Benefit: [] Pt was an active participant in group discussion and activity. Able to identify obstacles and challenges which are preventing her from achieving her desired reality which included; negative self-talk, low self-worth, and low self-doubt. Active during activity. Pt along with peers identified 7 obstacles during the activity and developed 3 strategies to overcome those 7 obstacles to wellness and desired reality. Group wrote down the strategies and added them to their program binder. Benefited from group by identifying obstacles and solutions to desired reality. Narrative Note: []
--- NOTE | 2019-06-27 09:05 | BH.SGPN.GN ---
Behaviors/Verbalizations/Mental Status: [Client alert and oriented, casual dress, hygiene tended to. Eye contact good. Motor activity appropriate. Speech within normal limits. Affect congruent, mood euthymic and positive. Thoughts linear, logical, no signs of hallucinations or delusions. Reviewed client?s symptom tracker, no signs of suicidal ideation, plan, or intent as of today. ] Client Response/Progress/Benefit: [Pt was receptive of session, actively listening throughout and providing input to the group. Emotion for today is ?happy?. She indicated that this was due to increased ability to challenge negativity and focus on the positives as well as recognize personal progress she has made in self-care and anxiety management since beginning IOP tx. Pt able to identify mental health wins contributing to progress levels. Wins identified as preventing herself from micromanaging at work and sitting with the uncomfortable. Additional win noted as continuing to stick with the SMART goal she set for herself to exercise regularly. Pt appeared to benefit from the supportive feedback and encouragement provided by the group. Pt progress noted in reported application of skills learned outside tx environment as well as self-report of decrease mental health sx. Recommended continued tx to prevent decompensation, continue to increase self-esteem and reduce anxiety, as well as promote healthy change behaviors.] Narrative Note: []
--- NOTE | 2019-06-27 10:30 | BH.SGPN.GN ---
Behaviors/Verbalizations/Mental Status: []Client alert and oriented, neatly dressed, hygiene tended to. Eye contact good. Motor activity appropriate. Speech within normal limits. Affect congruent, mood euthymic. Thoughts linear, logical, no signs of hallucinations or delusions. Client Response/Progress/Benefit: []Pt receptive to session, provided input and remained an active listener throughout discussion on stress. Able to brainstorm with the group positive and negative aspects of stress on physical and mental health. She participated in identifying current stressors impacting mental health. Pt's current stressors include: not being physically fit, lack of direction for her future, limited friendships, getting , financial concerns, and work. Appeared to benefit from gaining awareness of own current stressors and learning about the impact stress has on overall wellbeing. Progress noted in improved ability to identify impact of not dealing with stressors can negatively impact mental health and wellbeing. Recommend continued IOP tx to continue use of healthy coping skills, challenge distorted and negative thought patterns, and prevent decompensation. Narrative Note: []
--- NOTE | 2019-06-27 11:27 | BH.SGPN.GN ---
Behaviors/Verbalizations/Mental Status: []Client alert and oriented, neatly dressed and groomed. Eye contact good. Motor activity appropriate. Speech within normal limits. Affect congruent, mood euthymic. Thoughts linear, logical, no signs of hallucinations or delusions. Client Response/Progress/Benefit: []Client engaged in session as evidenced by client listening attentively to others, participating in activity, and providing some input throughout session. Client worked with the group to complete the challenge activity and did well to remain engaged while being challenged to manage in the moment stressors. Client was able to identify barriers encountered that may also impact managing stress in daily life. Client acknowledged that when she feels stressed, she avoids and client noticed she did this during the activity. Client actively listening during discussion about the 4 A's of managing stress. Expressed wanting to increase awareness of which strategies would be best for improving each of her identified stressors. Client seemed to benefit from increased awareness of the impact of stress on mental health and increasing repertoire of stress management strategies. Progress noted as client reports generalization of coping skills outside of IOP. Client will continue IOP tx as she can further decrease her anxiety symptoms to improve daily functioning. Narrative Note: []
--- NOTE | 2019-06-27 15:27 | BH.MDN ---
Multi-Disciplinary Note - Note 30-min Individual Time Started:: 12:50 Date: 06/27/19 Purpose of session/treatment goals addressed:: Purpose of session was to assess pt's current symptoms and stressors. Other topics included: reviewing returning back to work, increasing supports, and identifying weekend plans. Eye Contact:: Good Motor Activity:: Appropriate Appearance:: Neat Speech:: Appropriate Mood:: Euthymic Affect:: Congruent Thoughts:: Linear, Logical, No evidence of hallucinations/delusions noted Staff Interventions:: Therapist used open ended questions to elicit pt's current symptoms and stressors. Therapist discussed positives and stressors while at work. Problem solved activities pt can engage in after work and discussed ways to increase social connections. Discussed boundaries to set with since decision has been made to divorce. Created tentative plan for weekend. Client Response:: Pt stated she is feeling happy today which she attributed to a sense of relief after deciding to ask for a divorce. Pt reported part of her is sad, but at the same time realizes this is the best decision for her. Pt shared they haven't made decisions on when they will officially file for divorce or when her will move out of the house. Pt stated she knows they will need to make those choices soon, but doesn't want to guerrero into anything. Pt reported she has been doing much better at work the last couple of days. Pt shared there have been several situations at work that in the past would result in her ruminating and double checking her work, but she was able to sit with uncomfortable emotions. Pt reported she has been struggling with finding activities to engage in after she leaves work. Pt open to ideas to look into joining a group activity class that she finds interesting. Pt also open to building her social supports by reaching out to friends she hasn't seen in awhile and connecting with work friends. Pt identified this weekend plans to hand out candy for Halloween and go for a hike. Risks/Concerns:: denies current suicidal ideation, plan or intention to date. future focused. Progress Toward Goals/Plan:: Progress noted with pt reporting improved mood, increased use of coping skills, decreased anxiety at work, and taking decisive action within her marriage. Pt recommended to cotninue IOP to maintain gains, continue to challenge distorted thoughts, and prevent decompensation. Time Stopped:: 13:20
--- NOTE | 2019-06-30 09:02 | BH.SGPN.GN ---
Behaviors/Verbalizations/Mental Status: []Client alert and oriented, neatly dressed and groomed. Eye contact good. Motor activity restless. Speech within normal limits. Affect congruent, mood euthymic. Thoughts linear, logical, no signs of hallucinations or delusions. Reviewed client?s symptom tracker, no risk for suicidal ideation, plan, or intent as of 06/30/19. Client Response/Progress/Benefit: []Client responded well to session, providing encouragement and support to peers. Client reports feeling ?good as hell? today. Client shared she has been feeling more empowered and positive lately. Client?s mental health wins included going to work over the weekend and getting caught up which helps client feel less stressed. Client also shared she has been ?sticking to my smart goals? and she has been running. Client stated she ran yesterday while listening to empowering music. Client reported she continues to feel anxious about the future and the unknowns in life. However, client has a more optimistic perspective and recognizes that ?I?m the only one that can make things positive.? Appeared to benefit from reflecting on progress and connecting with peers. Will continue IOP tx to further promote mood stability and reinforce healthy coping skills to reduce anxiety. Narrative Note: []
--- NOTE | 2019-06-30 10:16 | BH.SGPN.GN ---
Behaviors/Verbalizations/Mental Status: []Client alert and oriented, neatly dressed and groomed. Eye contact good. Motor activity appropriate. Speech within normal limits. Affect congruent to topic being discussed, mood anxious. Thoughts linear, logical, no signs of hallucinations or delusions. Client Response/Progress/Benefit: []Pt responded well to session, attentive and providing input throughout. Pt connected with discussion on different types of anxiety, as well as the difference between ?normal? anxiety and anxiety disorders. Pt shared when face fear and anxiety it can open up opportunities instead of avoid new things. She helped the group identify examples of the various ways anxiety manifests and symptoms associated with thoughts, physical symptoms, and safety behaviors. Pt gained awareness of personal physical symptoms which included: difficulty breathing, muscle tension, biting inside of mouth, and clenching her jaw. Pt also identified eating junk food, drinking alcohol, and seeking reassurance as safety behaviors she has engaged in that provide short term relief but increase anxiety over time. Client appeared to benefit from gaining insight to safety behaviors and how anxiety manifests itself, as well as harmful impact of safety behaviors on mental health. Client appears to be progressing with increasing awareness of her symptoms and ability to use healthy coping skills in those moments. Will continue IOP to promote continued skill application, maintain gains, and prevent decompensation. Narrative Note: []
--- NOTE | 2019-06-30 11:22 | BH.SGPN.GN ---
Behaviors/Verbalizations/Mental Status: [Client alert and oriented, casual in appearance. Eye contact good. Motor activity appropriate. Speech within normal limits. Affect congruent, mood euthymic. Thoughts linear, logical, no signs of hallucinations or delusions.] Client Response/Progress/Benefit: [Pt an active and positive participant during discussion, providing input to discussion and appearing to make connections with feedback provided by peers. Pt able to connect with the discussion reviewing three categories of skills for managing anxiety which included mind-based, body-based, and self-soothing. Pt did well to brainstorm with the group various skills within the different categories. Pt completed worksheet identifying what relaxation skills she currently uses to manage anxiety and identified what skills she would be willing to begin trying to help manage anxious symptoms. Pt identified she is willing to try the following relaxation skills: turning off electronics, positive affirmations, spend time focusing on small positives throughout day, yoga, stretching, and going for a run. Pt seemed to benefit from increased awareness of healthy skills to manage anxious symptoms and identifying skills willing to practice outside treatment environment. Pt continues to make progress with consistent skill application outside tx environment. Recommended to continue IOP level of care to continue to promote use of healthy coping skills, increase self-confidence, and prevent decompensation.] Narrative Note: []
--- NOTE | 2019-07-01 09:00 | BH.SGPN.GN ---
Behaviors/Verbalizations/Mental Status: [] Eye contact is good. Motor activity is appropriate. Appearance is causal. Speech is Appropriate. Mood is depressed. Affect is flat. Thoughts are linear and logical. No evidence of psychosis. Reviewed daily check in sheet and no reports of suicidal ideations or intent. Client Response/Progress/Benefit: [] Pt participated at times during the group discussion. Emotion for today is mediocre Shared some mental health wins and discussed her current stressors. Recent decisions to divorce is primary stressor however she remarks that it has been beneficial to have made that decision. She is trying to stay busy with distractions. She did some yardwork recently however has noticed that she has increased her alcohol intake. She is unsure if this is to self-medication or to simply make things more fun. Insight and awareness of increase in use. Progress noted. Benefited from group support, encouragement, and feedback. Will continue in IOP to prevent decompensation, stabilize mood, and transition back to full-time work. Narrative Note: []
--- NOTE | 2019-07-01 10:02 | BH.SGPN.GN ---
Behaviors/Verbalizations/Mental Status: []Client alert and oriented, neatly dressed and groomed. Eye contact good. Motor activity appropriate. Speech within normal limits. Affect congruent, mood euthymic. Thoughts linear, logical, no signs of hallucinations or delusions. Client Response/Progress/Benefit: []Client was attentive and participating during discussion. Client participated in discussion of the quote and shared belief that people have a choice to change the path they are on in life. Client stated, ?sometimes this means doing what you don?t want to.? The group worked together to identify barriers that keep one from choosing a new and healthier path to mental wellness which included; unhealthy habits, fear of failure, stigma, lack of supports, and negative thinking. Attentive during psychoeducation on the chapters of life. Client was attentive during discussion, providing insight to distinguishing factors in each chapter. Client shared to choose a different path, one needs awareness and to ?not take the easy way out.? Benefited from increased awareness and education on barriers to choosing new wellness paths and chapters of life. Progress noted as client reports reduced anxiety and depressive symptoms, but she continues to struggle with managing anxiety in her relationship and at work. Will continue IOP tx to promote gains and further improve mood stability. Narrative Note: []
--- NOTE | 2019-07-01 11:10 | BH.SGPN.GN ---
Behaviors/Verbalizations/Mental Status: []Client alert and oriented, neatly dressed and groomed. Eye contact good. Motor activity appropriate. Speech within normal limits. Affect congruent to topic being discussed, mood euthymic. Thoughts linear, logical, no signs of hallucinations or delusions. Client Response/Progress/Benefit: []Client was an active participant in group discussion, contributing to discussion and listened attentively to others. Completed worksheet and willing to share with the group. Client reported belief she is between chapters 4 and 5? as client shared she is beginning a new part of her life and is ready to take a new path but hasn't taken the steps yet for a new path. Client reported she got out of the [place] I had been going around in my relationship. Client shared to get to the next chapter she will focus on her fears of living alone by calling or texting a friend at least 3 days a week to decrease isolation. Client stated she also will continue to set SMART goals weekly. Client identified things she is currently doing that will help her get to the next chapter include being aware of old habits, awareness of her stressors and continue to utilize her healthy coping skills. Benefited from group by identifying thoughts and behaviors that have kept her stuck and developing plan to promote progress. Will continue in IOP to promote gains, decrease anxiety and prevent decompensation. Narrative Note: []
--- NOTE | 2019-07-03 09:05 | BH.SGPN.GN ---
Behaviors/Verbalizations/Mental Status: [] Eye contact is good. Motor activity is appropriate. Appearance is neat. Speech is Appropriate. Mood is euthymic. Affect is full. Thoughts are linear and logical. No evidence of psychosis. Reviewed daily check in sheet and no reports of suicidal ideations or intent. Client Response/Progress/Benefit: [] Pt participated at times during group discussion. Emotion for today is positive. Completed goals set by her and her therapist. More active and engaging in yoga on a consistent basis. Assertive communication with her as they transition through divorce. She is voicing her thoughts and concerns rather than being passive and people-pleasing. More optimistic about the separation stating that she is looking forward to the holidays and decorating w/o her . Feels that she is adjusting well. Progress noted. Benefited from group feedback, support, and encouragement. Will continue in IOP to maintain gains and transition back to full-time work. Narrative Note: []
--- NOTE | 2019-07-03 10:10 | BH.SGPN.GN ---
Behaviors/Verbalizations/Mental Status: []Client alert and oriented, casually dressed and groomed. Eye contact fair. Motor activity appropriate. Speech within normal limits. Affect congruent to topic being discussed, mood euthymic, slightly anxious. Thoughts linear, logical, no signs of hallucinations or delusions. Client Response/Progress/Benefit: []Client responded well to session, actively contributing to discussion. Client appeared to connect with the topic of fear of failure. Client stated she defines failure as not accomplishing something. With assistance from therapist pt recognized her definition of failure has the potential for self-sabotage. Group identified the impacts of fear of failure on mental health which included: not trying, depending too much on others, avoidance, self-sabotage, and increased mental health symptoms. Client reported when she fails at something it can me her feel worthless. Client stated fear of failure has impacted her from trying new things. Client seemed to benefit from increased awareness of how fear of failure can impact mental health. Client to continue IOP level of care to challenge distorted thoughts, continue utilization of healthy coping skills, and prevent decompensation. Narrative Note: []
--- NOTE | 2019-07-03 11:14 | BH.SGPN.GN ---
Behaviors/Verbalizations/Mental Status: [Client alert and oriented, casually and neatly dressed and well groomed. Eye contact good. Motor activity appropriate. Speech within normal limits. Affect congruent, mood euthymic, anxious. Thoughts linear, logical, no signs of hallucinations or delusions.] Client Response/Progress/Benefit: [Client responded well to session, active participant. Client further processed the group activity and shared that communication and encouragement helped the group accomplish the activity. Client completed the fear of failure worksheet and reported that fear of failure is keeping her from doing things for herself and moving forward. Client reported her barriers for overcoming her fear of failure are anxiety, distorted thinking patterns,, difficulty communicating, and worrying that she will be judged by others. Client shared she has been able to bounce back from setbacks in the past and the positive thing she has learned from past failures is that failure can help you learn what not to do the next time you are faced with a similar situation. Client selected a goal to help her overcome her fear of failure. Client?s goal is to practice self-awareness strategies, so she can prevent escalating to point of panic. Client appeared to benefit from gaining awareness and setting a goal to reduce fear of failure. Client showing progress in utilizing healthy coping to skills to manage anxiety. Client recommended continued IOP tx to improve communication with supports, decrease anxiety, and prevent decompensation.] Narrative Note: []
--- NOTE | 2019-07-03 14:32 | BH.TPR ---
Treatment Plan Review Date of Admission:: 05/28/19 Date of Treatment Plan Review:: 07/03/19
--- NOTE | 2019-07-03 15:27 | BH.MDN_ITS ---
Multi-Disciplinary Note - Note 45-min Individual Time Started:: 12:13 Date: 07/03/19 Purpose of session/treatment goals addressed:: Purpose of session was to assess pt's current symptoms and stressors. Other topics included: discussing alcohol use and identifying healthy replacement coping skills. Eye Contact:: Good Motor Activity:: Appropriate Appearance:: Casual Speech:: Appropriate Mood:: Euthymic, Anxious Affect:: Congruent Thoughts:: Linear, Logical, No evidence of hallucinations/delusions noted Staff Interventions:: Therapist used open ended questions to elicit pt's current symptoms and stressors. Therapist processed pt's worries about drinking alcohol in excess. Assisted pt with identifying intention behind her drinking and potential consquences. Worked with pt to identify healthy replacement skills to decrease use of alcohol. Provided support by validating emotions. Client Response:: Pt reported she is feeling worried that she is using alcohol in excess. Pt stated about one year ago she started drinking alcohol more frequently. Pt reported over the year her drinking has gone from a couple beers over the weekend to having 2-3 beers every day during the week. Pt reported she has gone into work at least 2-3 times hungover. Pt reported she currently is drinking about 12-18 beers a week at 5-6% ABV. Pt stated she wants to cut back on her drinking, but not totally stop drinking. Pt reported the benefits of drinking alcohol are helping her feel better in the moment and feel relaxed. Pt stated the consequences of her drinking include: not feeling good the next day, weight gain, and scared she won't be able to stop drinking. Pt reported her goal is to not drink alcohol during the week when alone. Pt stated instead of drinking she will go running, yoga, or engage in another relaxing activity. Pt reported she will also not keep beer at her house to decrease the temptation to drink while cooking or doing chores, which pt stated has become habitual for her. 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 Pt agreed to contact her already established outpatient therapist to set an appointment up for when she discharges from [facility]. Risks/Concerns:: denies current suicidal ideation, plan or intention to date. future focused. Progress Toward Goals/Plan:: Progress noted with decreased anxiety throughout day and significant reduction of anxiety while at work. Pt's anxiety no longer impacting her functioning while at work. Regression noted with pt using alcohol as a way to calm down and relax in the evenings. Recommend continued IOP to maintain gains, decrease use of alcohol as a form of coping and prevent decompensation. Time Stopped:: 12:58
== END 2019-07-03 23:59 ==
LOC: BHIOP 09:00
PROVIDERS: Referring Provider Psychiatry & Neurology Psychiatry; Visit Provider Psychiatry & Neurology Psychiatry
DX: F33.2 Major depressive disorder, recurrent severe without psychotic features (principal); F41.1 Generalized anxiety disorder
CPT/HCPCS: H0035; 90832; 90834; 90837; 90853

== ENCOUNTER → 2019-06-05 08:40 | Outpatient (CLI) | payer OTHER, SELFPAY ==
[2019-05-23 12:31] VITALS: BMI 24.0
[2019-06-05 10:32] LABS: Vitamin D,25 Hydroxy 31.4 ng/mL (29.95-100.01)
== END ==
PROVIDERS: Referring Provider Psychiatry & Neurology Psychiatry; Visit Provider Psychiatry & Neurology Psychiatry
DX: E55.9 Vitamin D deficiency, unspecified (principal)
CPT/HCPCS: 36415; 82306

== ENCOUNTER 2019-07-07 09:00 | Outpatient (RCR) | payer OTHER, SELFPAY ==
--- NOTE | 2019-07-07 09:06 | BH.SGPN.GN ---
Behaviors/Verbalizations/Mental Status: [Client alert and oriented, casual dress, hygiene tended to. Eye contact good. Motor activity appropriate. Speech within normal limits. Affect congruent, mood euthymic. Thoughts linear, logical, no signs of hallucinations or delusions. Reviewed client?s symptom tracker, no signs of suicidal ideation, plan, or intent as of today.?] Client Response/Progress/Benefit: [Pt receptive of session, engaged in group discussion and willing to process with the group. Emotion for today is happy, as Pt explained she has been able to see the progress she is making and had a positive conversation with some of her supports. She went on to describe this as a mental health ?win? as she had challenged herself to tel her parents about being in the IOP program despite feeling anxious about doing so. Noted that they were supportive and encouraging. Pt shared additional win as continuing to stick with her SMART goal of spending time exercising daily. Pt reflected that this has had a major impact in improving overall mood. Noted she does not have a current stressor today as she has been taking steps to prevent stressors from escalating to point of negatively impacting mental health. Pt appeared to benefit from the support of the group. Pt recommended continued IOP tx to continue to promote change behaviors and prevent decompensation while finalizing aftercare plans.] Narrative Note: []
--- NOTE | 2019-07-07 10:20 | BH.SGPN.GN ---
Behaviors/Verbalizations/Mental Status: []Client alert and oriented, neatly dressed and groomed. Eye contact good. Motor activity appropriate. Speech within normal limits. Affect congruent, mood euthymic. Thoughts linear, logical, no signs of hallucinations or delusions. Client Response/Progress/Benefit: []Client was an active participant in group discussion and activity. Attentive during psychoeducation and commenting on the quote. Worked with the group to identify benefits to making changes in our lives which included: improving one?s mental health, increasing confidence, breaking out of one?s comfort zone, and reducing unhealthy coping skills. Group then identified barriers to change or what keeps us from making changes which included: it is easier to not change, lack of trust, lack of resources, lack of courage to change, negative thinking, and fear. Client participated along with group in activity where they identified and discussed the emotions related to change. Client was attentive during psychoeducation on the change process. Benefited from increased awareness and understating of emotions, benefits, and barriers related to change. Progress noted as shown by client?s improved mood and reduced avoidance behaviors. Will continue IOP tx this week to promote gains and reinforce coping skills. Narrative Note: []
--- NOTE | 2019-07-07 11:20 | BH.SGPN.GN ---
Behaviors/Verbalizations/Mental Status: []Client alert and oriented, casually dressed and groomed. Eye contact good. Motor activity appropriate. Speech within normal limits. Affect congruent, mood euthymic. Thoughts linear, logical, no signs of hallucinations or delusions. Client Response/Progress/Benefit: []Client engaged and active participant AEB pt listening attentively to others, providing input during discussion and engaging in group activity. Client participated in the activity and processed emotions and barriers associated with making change. Client appeared to connect with discussion on weighing the pros and cons associated with change and benefited from learning to do so through use of decisional balance sheet. Identified she is currently in maintenance stage of change. Pt stated she believes she is in maintenance stage because has made positive changes to improve her mental health and now is focusing on continuing to use her skills so she doesn't revert back to old skills. Progress noted in ability to identify which stage of change she is currently in and is applying skills to help her maintain progress and changes already made. Recommended continued IOP to promote gains, continue to identify and challenge distorted thoughts and prevent decompensation. Narrative Note: []
--- NOTE | 2019-07-08 09:07 | BH.SGPN.GN ---
Behaviors/Verbalizations/Mental Status: []Client alert and oriented, neatly dressed and groomed. Eye contact good. Motor activity appropriate. Speech within normal limits. Affect congruent-smiling and laughing, mood euthymic. Thoughts linear, logical, no signs of hallucinations or delusions. Reviewed client?s symptom tracker, no risk for suicidal ideation, plan, or intent as of 07/08/19. Client Response/Progress/Benefit: []Client responded well to session, attentive and providing encouragement to peers. Client reports feeling ?confident? today. Client shared she set a boundary and ?stood my ground? with her . Client recognized that it would have been easy to break her boundaries to please others, but she reminded herself of the reason she wanted to set the boundary in the first place. Client?s other mental health win today was that she has been doing ?a lot of things I don?t want to do, but need to do.? Client?s stressor today is that she has anxious thoughts about her future. Client reported having a lot of ?what if? thoughts that cause self-doubt about her boundaries and reinforce anxiety. Able to challenge these thoughts during session and client recognized that she has the coping skills to manage future stressors. Appeared to benefit from thought-challenging in the moment. Progress noted as shown by client?s reduced symptoms of depression and anxiety. Will continue IOP tx to reinforce healthy coping skills and promote gains. Narrative Note: []
--- NOTE | 2019-07-08 10:20 | BH.SGPN.GN ---
Behaviors/Verbalizations/Mental Status: []Client alert and oriented, neatly dressed and groomed. Eye contact good. Motor activity appropriate. Speech within normal limits. Affect congruent to topic being discussed, mood euthymic, positive. Thoughts linear, logical, no signs of hallucinations or delusions. Client Response/Progress/Benefit: []Pt engaged participant AEB pt providing input during discussion and listened attentively to peers. Pt appeared to connect with others comments about the negative impact of defining self by mental illness. Group identified social stigma can come from how the media, society, and upbringing portray mental illness. Group identified media and society portray mental health as: dangerous, negative, not good enough, abnormal, and romanticize it. Pt stated she uses humor about her mental illness sometimes which she recognizes reinforces mental health stigma. Pt reported using humor and sarcasm because it's easier for other people to digest. Pt seemed to benefit from increased awareness of how societal and internal mental health stigma can impact functioning. Pt progressing with reporting decreased anxiety, setting boundaries, and improved utilization of healthy coping skills outside treatment environment. Pt to continue IOP level of care to maintain gains and prevent decompensation. Narrative Note: []
--- NOTE | 2019-07-08 11:25 | BH.SGPN.GN ---
Behaviors/Verbalizations/Mental Status: [Client alert and oriented, neat and casually dressed and appropriately groomed. Eye contact good. Motor activity appropriate. Speech within normal limits. Affect congruent, mood euthymic. Thoughts linear, logical, no signs of hallucinations or delusions.] Client Response/Progress/Benefit: [Client responded well to session, engaged in activity, actively listening as well as providing input to discussion. Group identified the benefits of addressing stigma which included; increased self-confidence, decreased feelings of shame or unworthiness, improved relationships, and increased willingness to ask for help. Client helped the group identify thoughts and behaviors people engage in that reinforce stigma. Client discussed that lack of understanding of her own mental health sx as well as hearing how others have referred to mental health in the past have influenced her own opinion and reinforced stigma. Group brainstormed strategies to combat social and perceived stigma which included; changing personal language used, sharing positive mental health related media, communicating with supports, attending therapy, and increasing psychoeducation of self and others to reduce labeling behaviors. Client reported she will practice increasing her use of mental health friendly language rather than labeling or self-shaming tones. Appeared to benefit from increasing awareness of impact of stigma on mental health and identifying strategies for beginning to combat self and social stigma related to mental health. Client has made significant progress and is to discharge from IOP tx at this time. Recommended ongoing outpatient tx to increase consistent use of internal coping mechanisms, maintain gains made, and prevent decompensation.] Narrative Note: []
--- NOTE | 2019-07-09 09:05 | BH.SGPN.GN ---
Behaviors/Verbalizations/Mental Status: []Client alert and oriented, neatly dressed and groomed. Eye contact good. Motor activity appropriate. Speech within normal limits. Affect full, mood euthymic and slightly anxious. Thoughts linear, logical, no signs of hallucinations or delusions. Reviewed client?s symptom tracker, no risk for suicidal ideation, plan, or intent Client Response/Progress/Benefit: []Pt engaged in session as shown by pt openly expressing thoughts and emotions. Pt identified emotion for today as excited. Pt identified a mental health positive as following through with her goal of only getting items at the grocery store that are on her list. Pt stated she needs to be more focused on a budget now that she will be going through with divorce. 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 Pt reported she is also excited today is her last day in IOP. Pt noted she worked really hard to make her progress. Pt seemed to benefit from reflecting on the treatment progress she has made since starting IOP. Pt is to discharge from IOP today due to making significant progress on her treatment goals and no longer meeting medical necessity for IOP level of care. Narrative Note: []
--- NOTE | 2019-07-09 11:30 | BH.SGPN.GN ---
Behaviors/Verbalizations/Mental Status: [Client alert and oriented, casual and neat dress, hygiene tended to. Eye contact good. Motor activity appropriate. Speech within normal limits. Affect congruent, mood euthymic, anxious. Thoughts linear, logical, no signs of hallucinations or delusions.] Client Response/Progress/Benefit: [Pt remained an active participant throughout AEB engagement in both activity and discussion potions of session. Pt did well to challenge herself to complete the group activity and incorporate anger management/emotion regulation skills in order to do so. She did well to ask for what she needed in the moment and assert boundaries throughout. Pt worked with the group to identify the various barriers faced in the activity as well as skills used to successfully complete the task at hand without becoming dysregulated or overwhelmingly angry. Pt identified barriers impacting her ability to better manage anger related symptoms as: low self-confidence and difficulties in managing sx of anxiety, as well as lack of self-awareness or difficulties in recognizing ?what sets you off?. She appeared to benefit from discussion regarding potential benefits of anger and brainstorming with the group potential strategies for means of harnessing anger in healthy ways. Pt identified plans to begin using: a healthier outlet such as running/yoga/pump-up music as a means of coping with anger related sx. Recommended continued IPO txt to reduce mental health sx, promote emotion regulation, and prevent decompensation.] Narrative Note: []
--- NOTE | 2019-07-09 12:25 | PCM.BH.PN_ITS ---
Progress Note Progress Note: History of Present Illness/Interim History: [] She is a 28-year-old female with a history of depression and anxiety who is participating in the [facility] program. I last saw the patient 5 weeks ago and she is seen in follow-up. She states that she feels she is doing very well in the IOP program. Her mood and anxiety are much improved. She feels she has learned techniques to help her deal with the stresses in her life. She has made a decision to end her marriage and feels very good about this decision. She denies any suicidal thoughts. She has not not had any passive thoughts that she would not care if she . She is working now and is functioning well at work and at home. Discussions with staff and the patient confirmed that she may be discharged soon. Current Psychiatric Medications: [] Lexapro 10 mg p.o. daily (on this since May 29, 2019). Mental Status Examination: [] Patient is a 28-year-old female who appears normal for stated age. She is casually dressed and groomed with good hygiene. Her gait is normal. She has good eye contact and is cooperative and pleasant during the interview. Speech is normal rate and rhythm, fluent with no pressure. Mood is euthymic. Affect is full and normal. Thought process is goal-directed and organized. Thought content: No evidence of suicidal or homicidal ideation. No evidence of thoughts of . No evidence of hallucinations or delusions. Judgment is intact. Insight: Good. Impulsivity: Low. 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 If her improvement continues she will be discharged soon from the IOP program. She felt safe during the interview and if in any time she does not feel safe she will tell us at the IOP program or go to the emergency room and after she is done with IOP she will contact her outpatient psychiatric providers. She understands the risks, options, possible side effects and complications of the medication and accepts these. Vitamin D level was low and the patient was prescribed 50,000 IU p.o. weekly of vitamin D. She has been taking this for 1 month now. She will continue on her Lexapro 10 mg p.o. daily and a prescription for 30 days with 1 refill was given for this.
--- NOTE | 2019-07-09 14:29 | BH.DS_ITS ---
Discharge Summary - Demographics Date of Admission:: 05/28/19 Discharge Date: 07/09/19 Presenting Problems at Admission:: Patient was sent to [facility] emergency room on May 23, 2019 by her counselor. The patient had had worsening mood and anxiety in the past 1 to 2 months. At admission pt shared due to all the stress she was under she has been thinking about suicide. Pt had plans to drive her car off the road or obtain a gun. She does not have a gun and does not have access to one. She also has had thoughts of and that she wants to if she could do it in a painless way. At admission she had been engaging in self-harm to help her deal with her anxiety. She slams her head into a wall and punches herself to get rid of her anxiety. She had been doing this for a month. She has a history of cutting in high school but has not cut herself sin ce high school. She had been calling off work due to all her symptoms and has been unable to function well at work. Her stressor at admission included marital issues for the past 2 years. 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 - Treatment Progress During Treatment & Response: Per pt's self-report scores on the DSM 5 cross cutting measure she has a 71% reduction in depression and an 81% reduction in anxious symptoms when compared to pt's intake DSM 5 scores. Pt showed progress with increased awareness of anxious and depressed thought patterns. Pt showed improvement with applying healthy coping skills to manage her anxious and depressed symptoms. Pt responded well to both group and individual sessions as evidenced by pt attending IOP consistently, providing input during discussion, and completing homework. Issues Still to be Addressed:: ofPt could benefit from continued reinforcement of healthy coping skills, challenging negative thoughts, and labeling anxious thoughts. Pt also could benefit from managing stress related to pending divorce. Discharge Recommendations/Instructions:: 1. Follow up with Lauren Zelaya for individual counseling on 07/17/19. 2. Follow up with primary care doctor for medication management. Discharge Handout: Complete Discharge Handout with client on aftercare options and continuity of care.
--- NOTE | 2019-07-09 15:10 | BH.AFTERPLAN ---
Aftercare Plan - Demographics Treatment End Date:: 07/09/19 Psychiatrist:: Susan Barbosa Psychiatrist Office #:: [phone] [facility]/IOP Therapist:: Jackie Guzman Therapist Phone #:: [phone] - Medications Home Medications: Home Medications Escitalopram Oxalate [Lexapro] 10 mg PO DAILY 05/28/19 hydrOXYzine pamoate capsule [Vistaril pamoate capsule] 25 - 50 mg PO DAILY PRN 05/28/19 Ergocalciferol (Vitamin D2) [Vitamin D2] 50,000 unit PO QWEEK 06/11/19 Escitalopram Oxalate [Lexapro] 10 mg PO DAILY 30 Days #30 tab 07/09/19 - Plan Details Progress/Aftercare Plan Details:: Per pt's self-report scores on the DSM 5 cross cutting measure she has a 71% reduction in depression and an 81% reduction in anxious symptoms when compared to pt's intake DSM 5 scores. Pt showed progress with increased awareness of anxious and depressed thought patterns. Pt showed improvement with applying healthy coping skills to manage her anxious and depressed symptoms. Pt responded well to both group and individual sessions as evidenced by pt attending IOP consistently, providing input during discussion, and completing homework. Strategies for Success:: 1. Continue to challenge negative thought patterns. 2. Remember a thought is a thought not a fact. 3. Continue to utilize healthy coping skills. 4. Self-care is teresa! 5. Communicate needs to supports. 6. Remember to get out of the house to decrease isolative behaviors. - Appointments Appointments/Referrals to Other Services:: 1. Follow up with Lauren Zelaya for individual counseling on 07/17/19. 2. Follow up with primary care doctor for medication management.
--- NOTE | 2019-07-09 15:28 | BH.MDN ---
Multi-Disciplinary Note - Note 30-min Individual Time Started:: 11:00 Date: 07/09/19 Purpose of session/treatment goals addressed:: Purpose of session was to review treatment progress, identify strategies to help maintain treatment progress, and solidfy aftercare plans. Eye Contact:: Good Motor Activity:: Appropriate Appearance:: Neat Speech:: Appropriate Mood:: Euthymic Affect:: Congruent Thoughts:: Linear, Logical, No evidence of hallucinations/delusions noted Staff Interventions:: Therapist used open ended questions to elicit pt's thoughts about treatment progress since starting IOP level of care. Therapist collaborated with pt to identify strategies and skills that can help pt maintain treatment progress. Therapist solidfied aftercare plans post-discharge with pt. Client Response:: Client reported since starting IOP she has progressed with decrease in overall anxiety and hasn't experienced any panic attacks in over 4 weeks. Pt stated she is able to identify an anxious thought and challenge or reframe the thought. Pt reported she doesn't experience as many intrusive thoughts while at work. Pt stated she also notes progress with increased positivity and outlook on life. Pt reported I no longer want to . Pt stated she has increased excitement about engaging in various activities. Pt reported she has started to experience the feeling of katerine again. Pt shared she has also been able to decrease her alcohol consumption. Pt reported significant progress with gaining insight into how her relationship was impacting her mental health and making the decision to end her relationship. Pt identified strategies that can help her maintain progress to include: labeling the anxious thought, remembering a thought is a thought, positive self-talk, engaging in self-care, using her schedule, and joining social activities. Pt stated she plans to follow up with her outpatient therapist Shelly Zelaya on 07/17/19 and will schedule with her PCP for medication management when needed. Risks/Concerns:: Pt denies current suicidal ideation, plan or intention to date. Progress Toward Goals/Plan:: Pt has made signficiant treatment progress since starting IOP with reporting decrease in both anxious and depressed symptoms. Pt has improved awareness of anxious and distorted thought patterns with ability to challenge thoughts. Plan is for pt to discharge from IOP today and follow up with already established outpatient therapist and schedule with PCP for medication management. Time Stopped:: 11:26
== END 2019-07-09 13:00 | disposition home or self-care (01) ==
LOC: BHIOP 09:00
PROVIDERS: Referring Provider Psychiatry & Neurology Psychiatry; Visit Provider Psychiatry & Neurology Psychiatry
DX: F33.2 Major depressive disorder, recurrent severe without psychotic features (principal); F41.1 Generalized anxiety disorder
CPT/HCPCS: H0035; 90832; 90853

== ENCOUNTER 2025-06-22 07:12 | Inpatient (IN) | payer OTHER, SELFPAY ==
[2025-06-22] VITALS (24 sets, daily range): BP systolic 89–118; BP diastolic 51–74; PULSE 62–99; RESP 16–17; TEMP 36.1–36.9; O2SAT 94–98; BMI 31.0
--- OUTSIDE RECORDS SUMMARY | 2025-06-22 07:13 | XMS RPT_ITS | CCD ---
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 Hand Name Role Phone Alexander Ramirez MD Primary Care Provider ISAURO BECKETT MD Attending Unavailable DEBORAH PHELPS PA-C Primary Care Unavailab Alexander Ulrich MD Primary Care Provider Knoble REMITTANCE CLERK.GINA, Casi Unavailable Randy Phelps PA-Ce Unavailable Deborah Phelps PA-C Unavailable Knoble REMITTANCE CLERK.STABBER, Casi Unavailable Lenin SIERRA, Deborah Unavailable JOCELYN FRAZIER Referring Unavailable JAMES, ALEXANDER A Primary Care Unavailable Deborah Pettit Primary Care Unavailable Ramin, Harriet Referring Unavailable Ramin, Harriet Attending Unavailable Ramin, Karmon Admitting Unavailable JAMES, ALEXANDER A Primary Care Unavailable HARRIET FAUSTIN Attending Unavailable JAMES, ALEXANDER A Primary Care Unavailable MERLY DAVIS Attending Unavailable JAMES, ALEXANDER A Primary Care Unavailable NEIL, MALLORIE Referring Unavailable JAMES, ALEXANDER A Primary Care Unavailable NEIL, MALLORIE Referring Unavailable RAMIN, KARMON Attending Unavailable JAMES, ALEXANDER A Primary Care Unavailable NEIL, MALLORIE Referring Unavailable JAMES, ALEXANDER A Primary Care Unavailable RAMIN, KARJACEK Attending Unavailable JAMES, ALEXANDER A Primary Care Unavailable NEIL, MALLORIE Referring Unavailable JOCELYN FRAZIER Attending Unavailable JAMES, ALEXANDER A Primary Care Unavailable JOCELYN FRAZIER Attending Unavailable JAMES, ALEXANDER A Primary Care Unavailable RAMIN, HARRIET Attending Unavailable JAMES, ALEXANDER A Primary Care Unavailable SHYAM JENSEN Attending Unavailable JAMES, ALEXANDER A Primary Care Unavailable MERLY DAVIS Attending Unavailable JAMES, ALEXANDER A Primary Care Unavailable NEILMALLORIE MONTES Referring Unavailable JAMES, ALEXANDER A Primary Care Unavailable NEIL, MALLORIE Referring Unavailable JOCELYN FRAZIER Attending Unavailable JAMES, ALEXANDER A Primary Care Unavailable ROSALBA BALLARD Attending Unavailable JAMES, ALEXANDER A Primary Care Unavailable ZULEYKA VELÁSQUEZ Attending Unavailable JAMES, ALEXANDER A Primary Care Unavailable HARRIET FAUSTIN Attending Unavailable JAMES, ALEXANDER A Primary Care Unavailable MOUSTAPHA RAMIREZ Attending Unavailable JAMES, ALEXANDER A Primary Care Unavailable MOUSTAPHA RAMIREZ Referring Unavailable JAMES, ALEXANDER A Primary Care Unavailable ZULEYKA VELÁSQUEZ Attending Unavailable JAMES, ALEXANDER A Primary Care Unavailable JOCELYN FRAZIER Referring Unavailable JAMES, ALEXANDER A Primary Care Unavailable HARRIET FAUSTIN Referring Unavailable MALLORIE TREJO Attending Unavailable KIMBERLYN RAMIREZREY A Primary Care Unavailable HARRIET FAUSTIN Attending Unavailable MOUSTAPHA RAMIREZ Attending Unavailable KIMBERLYN RAMIREZREY A Primary Care Unavailable Medications Current Medications Medication Drug Class(es) Dates Sig (Normalized) Sig (Original) ampicillin 500 mg oral capsule (2 sources) Penicillin-class Antibacterial Start: 10-30-2024 End: 11-04-2024 take 1 capsule by mouth three times daily ampicillin (PRINCIPEN) 500 mg capsule Take 1 capsule by mouth three times a day for 5 days. 15 capsule 10/30/2024 11/04/2024 Active aspirin 81 mg delayed release oral tablet (20 sources) Platelet Aggregation Inhibitor, Nonsteroidal Anti-inflammatory Drug Start: 10-27-2024 take 1 tablet by mouth once daily aspirin, enteric coated (ECOTRIN LOW STRENGTH) 81 mg EC tablet Indications: 6 weeks gestation of (HCC) Take 1 tablet by mouth once daily. 90 tablet 3 10/27/2024 Active cholecalciferol, vitamin D3, (VITAMIN D3 ORAL) (20 sources) take 2000 [IU] by mouth once daily cholecalciferol, vitamin D3, (VITAMIN D3 ORAL) Take 2,000 Units by mouth once daily. Active cyanocobalamin, vitamin B-12, (VITAMIN B12 ORAL) (20 sources) cyanocobalamin, vitamin B-12, (VITAMIN B12 ORAL) Take by mouth as directed. Active cyanocobalamin, vitamin B-12, (VITAMIN B12 ORAL) Take by mouth as directed. 0 Active Comment on above: Take by mouth as dir ected. FERROUS SULFATE, BULK, MISC (14 sources) FERROUS SULFATE, BULK, MISC once daily. OTC 15 mg ferrous sulfate with vitamin C Active Multivitamin capsule (3 sources) End: take 1 capsule by mouth once daily Multivitamin capsule Take 1 capsule by mouth once daily. 0 04/03/2024 Discontinued take 1 capsule by mouth once ingrid ly Multivitamin capsule Take 1 capsule by mouth once daily. 0 Active Comment on above: Take 1 capsule by mo [facility] once daily. omega 9-crf-dyd-fish oil 1,000 mg (250 mg-750 mg)/5 mL liqd (20 sources) omega 3-dha-epa- fish oil 1,000 mg (250 mg-750 mg)/5 mL liqd Take by mouth. Active no115/iron/folic acid ( 19 ORAL) (20 sources) no115/i yasmin/folic acid ( 19 ORAL) Take by mouth. Active Completed/Discontinued Medications Medication Drug Class(es) Dates Sig (Normalized) Sig (Original) inositol-choline bitartrate 250-250 mg cap (10 sources) End: 01-30-2025 take 1 tablet by mouth once daily inositol-choline bitartrate 250-250 mg cap Take 1 tablet by mouth once daily. 01/30/2025 Discontinued (Course of therapy completed) take 1 tablet by mouth once derek y inositol-choline bitartrate 250-250 mg cap Take 1 tablet by mouth once daily. Active levonorgestrel 0.416946 mg/hr intrauterine system (6 sources) Progestin, Progestin-containing Intrauterine Device Start: 03-31-2021 End: 03-30-2027 levonorgestrel (MIRENA) 20 mcg/24 hours (6 yrs) 52 mg IUD 1 Each by INTRAUTERINE route as directed. 1 Each 03/31/2021 06/09/2024 Discontinued (Course of therapy completed) Comment on above: 1 Each by INTRAUTERI NE route as directed. Problems Active Problems Problem Classification Problem Date Documented Da te Episodic/Chronic Anxiety disorders (20 sources) Generalized anxiety disorder; Translations: [Generalized anxiety disorder] Onset: 07-29-2019 07-29-2019 Chronic Contraceptive and procreative management (2 sources) Social and personal history finding; Translations: [Encounter for procreative management, unspecified] 06-02-2024 Episodic Genitourinary symptoms and ill-defined conditions (20 sources) Bacteriuria; Translations: [Bacteriuria] Onset: 10-30-2024 10-30-2024 Episodic Immunizations and screening for infectious disease (4 sources) Vaccination needed; Translations: [Encounter for immunization] Onset: 12-11-2024 03-24-2025 Episodic Menstrual disorders (1 source) Missed period; Translations: [Irregular menstruation, unspecified] 10-14-2024 Chronic Mood disorders (20 sources) Recurrent major depression in remission; Translations: [Major depressive disorder, recurrent, in remission, unspecified] Onset: 07-29-2019 07-29-2019 Chronic Other complications of (20 sources) High risk ; Translations: [Supervision of elderly multigravida, unspecified trimester] Onset: 10-27-2024 10-27-2024 Episodic Other complications of (20 sources) Multigravida of advanced maternal age; Translations: [Supervision of elderly multigravida, first trimester] Onset: 02-03-2025 12-11-2024 Episodic Other complications of (13 sources) Complication occurring during ; Translations: [ complication before ] Onset: 02-25-2025 02-25-2025 Episodic Other complications of (1 source) Reduced movement; Translations: [Decreased movements, second trimester, not applicable or unspecified] 03-04-2025 Episodic Other complications of (1 source) Supervision of elderly multigravida, unspecified trimester; Translations: [Supervision of high-risk of elderly multigravida (HCC)] Onset: 05-21-2025 Episodic Other complications of (1 source) Supervision of elderly multigravida, third trimester; Translations: [AMA (advanced maternal age) multigravida 35+, third trimester ([facility])] Onset: 04-22-2025 Episodic Other complications of (1 source) Supervision of high risk , unspecified, third trimester; Translations: [Supervision of high risk in third trimester ([facility])] Onset: 04-22-2025 Episodic Other ear and sense organ disorders (1 source) Impacted cerumen of bilateral ears; Translations: [Impacted cerumen, bilateral] 04-30-2023 Episodic Other liver diseases (1 source) Hyperbilirubinemia; Translations: [Unspecified jaundice] 04-04-2023 Episodic Other screening for suspected conditions (not mental disorders or infectious disease) (13 sources) Patient encounter status; Translations: [Encounter for screening for lipoid disorders] Onset: 01-30-2025 04-03-2024 Episodic Residual codes; unclassified (4 sources) Gestation period, 6 weeks; Translations: [Less than 8 weeks gestation of ] 10-27-2024 Episodic Residual codes; unclassified (1 source) Gestation period, 8 weeks; Translations: [8 weeks gestation of ] 11-06-2024 Episodic Residual codes; unclassified (1 source) Gestation period, 13 weeks; Translations: [13 weeks gestation of ] 12-12-2024 Episodic Residual codes; unclassified (1 source) Gestation period, 20 weeks; Translations: [20 weeks gestation of ] 02-03-2025 Episodic Residual codes; unclassified (4 sources) Gestation period, 23 weeks; Translations: [23 weeks gestation of ] 02-25-2025 Episodic Residual codes; unclassified (1 source) Gestation period, 27 weeks; Translations: [27 weeks gestation of ] 03-24-2025 Episodic Residual codes; unclassified (2 sources) Gestation period, 31 weeks; Translations: [31 weeks gestation of ] 04-22-2025 Episodic Residual codes; unclassified (1 source) Gestation period, 33 weeks; Translations: [33 weeks gestation of ] 05-05-2025 Episodic Residual codes; unclassified (1 source) Gestation period, 34 weeks; Translations: [34 weeks gestation of ] 05-07-2025 Episodic Residual codes; unclassified (1 source) 40 weeks gestation of ; Translations: [40 weeks gestation of (HCC)] Onset: 06-18-2025 Episodic Residual codes; unclassified (1 source) 39 weeks gestation of ; Translations: [39 weeks gestation of (HCC)] Onset: 06-11-2025 Episodic Residual codes; unclassified (1 source) 38 weeks gestation of ; Translations: [38 weeks gestation of (HCC)] Onset: 06-04-2025 Episodic Residual codes; unclassified (1 source) 36 weeks gestation of ; Translations: [36 weeks gestation of (HCC)] Onset: 05-21-2025 Episodic Residual codes; unclassified (1 source) 34 weeks gestation of ; Translations: [34 weeks gestation of (HCC)] Onset: 05-07-2025 Episodic Residual codes; unclassified (1 source) 33 weeks gestation of ; Translations: [33 weeks gestation of (HCC)] Onset: 05-05-2025 Episodic Residual codes; unclassified (1 source) 31 weeks gestation of ; Translations: [31 weeks gestation of (HCC)] Onset: 04-22-2025 Episodic Residual codes; unclassified (1 source) 30 weeks gestation of ; Translations: [30 weeks gestation of (HCC)] Onset: 04-09-2025 Episodic Residual codes; unclassified (1 source) 27 weeks gestation of ; Translations: [27 weeks gestation of (HCC)] Onset: 03-24-2025 Episodic Unclassified (20 sources) [facility] Education - COMMON Onset: 10-27-2024 10-27-2024 Unclassified (20 sources) Education - [place] Onset: 10-27-2024 10-27-2024 Unclassified (1 source) complication before (HCC); Translations: [ complication before ([facility])] Onset: 05-06-2025 Viral infection (1 source) Verruca plantaris; Translations: [Plantar wart] 12-15-2024 Episodic Past or Other Problems Problem Classification Problem Date Documented Da te Episodic/Chronic Administrative/social admission (18 sources) Multiparous; Translations: [Problems related to multiparity] Onset: 01-30-2025 01-30-2025 Episodic Other complications of (3 sources) Supervision of elderly multigravida, second trimester; Translations: [Multigravida of advanced maternal age in second trimester ([facility])] Onset: 01-30-2025 Episodic Other complications of (1 source) Decreased movements, second trimester, not applicable or unspecified; Translations: [Decreased movements in second trimester, single or unspecified fetus ([facility])] Onset: 03-04-2025 Episodic Other and delivery including normal (2 sources) with uncertain dates; Translations: [Encounter for supervision of normal , unspecified, unspecified trimester] Onset: 10-27-2024 10-27-2024 Episodic Residual codes; unclassified (2 sources) 23 weeks gestation of ; Translations: [23 weeks gestation of (HCC)] Onset: 02-24-2025 Episodic Residual codes; unclassified (1 source) 15 weeks gestation of ; Translations: [15 weeks gestation of (HCC)] Onset: 12-29-2024 Episodic Residual codes; unclassified (1 source) Less than 8 weeks gestation of ; Translations: [6 weeks gestation of (HCC)] Onset: 12-11-2024 Episodic Results Test Name Value Interpretation Reference Range Facil ity CNPNon 05-25-2025 CNPN Telephone (OBGYWM) CONSTANCE DE SANTIAGO ([id number]) 1990 F Date Time Provider Department 05/25/25 MERLY DAVIS During your visit today, we recorded the following information about you: Janeth Goodrich MA 05/25/2025 8:29 AM Signed Received [facility] paperwork. Will work on completing for provider to sign. WAGNER Ball Reanna, MA 05/25/2025 8:46 AM Signed Paperwork has been completed, will set on CP desk for signature. WAGNER Ball Reanna, MA 05/25/2025 8:51 AM Signed Paperwork has been singed. Patient is picking up the copy that is needed for her employer at her next office visit. 05/29/2025. Will sent my chart message to inform patient that it has been completed. Janeth Goodrich MA Allergies As of Date: 05/25/2025 (No Known Allergies) Date Reviewed: 05/21/2025 Reviewed by: Stephanie Bernard LPN - Fully Assessed Reason for Visit: FMLA Paperwork [4185] Prescriptions as of 05/25/2025 - FERROUS SULFATE, BULK, MISC once daily. OTC 15 mg ferrous sulfate with vitamin C - aspirin, enteric coated (ECOTRIN LOW STRENGTH) 81 mg EC tablet Take 1 tablet by mouth once daily. - omega 1-ute-rrw-fish oil 1,000 mg (250 mg-750 mg)/5 mL liqd Take by mouth. - cholecalciferol, vitamin D3, (VITAMIN D3 ORAL) Take 2,000 Units by mouth once daily. - no115/iron/folic acid ( 19 ORAL) Take by mouth. - cyanocobalamin, vitamin B-12, (VITAMIN B12 ORAL) Take by mouth as directed. Problem List As Of Date 05/25/2025 Noted Resolved Recurrent major depressive disorder, in remissi*07/29/2019 Well adult exam [Z00.00] 07/29/2019 10/27/2024 TREMAYNE (generalized anxiety disorder) [F41.1] 07/29/2019 Encounter for routine gynecological examination* 3 10/27/2024 Supervision of high-risk of elderly m*10/27/2024 GBS bacteriuria [R82.71] 10/30/2024 Multiparous [Z64.1] 01/30/2025 Multigravida of advanced maternal age in second*02/03/2025 [facility]-Power [O99.891] 02/25/2025 Supervision of high risk in third tri*04/22/2025 AMA (advanced maternal age) multigravida 35+, t*04/22/2025 Encounter Status:Closed by JANETH GOODRICH on 05/25/25 Normal [facility] URINE OB DIP B/Oon 5 Glucose Ql (U) Negative Neg mg/dL [facility] Interpretation and review of laboratory results Normal [facility] Protein.monoclonal (U) [Mass/Vol] Negative Neg mg/dL [facility] Examination level ultrasound on 05-05-2025 [facility] Radiology Study observation (narrative) [facility] Salma 04-24-2025 [facility] Telephone (FV3L+D) CONSTANCE DE SANTIAGO ([id number]) 1990 F Date Time Provider Department 04/24/25 JESIKA FV OB JEAN PIERRED FV3L+D During your visit today, we recorded the following information about you: Allergies As of Date: 04/24/2025 (No Known Allergies) Date Reviewed: 04/22/2025 Reviewed by: Moustapha Ramirez MD - Fully Assessed Reason for Visit: Care Coordination [3491] Cmt: Carlie-Chidi Scheduling LM attempt # 2 Prescriptions as of 04/24/2025 - FERROUS SULFATE, BULK, MISC once daily. OTC 15 mg ferrous sulfate with vitamin C - aspirin, enteric coated (ECOTRIN LOW STRENGTH) 81 mg EC tablet Take 1 tablet by mouth once daily. - omega 4-wyg-wgy-fish oil 1,000 mg (250 mg-750 mg)/5 mL liqd Take by mouth. - cholecalciferol, vitamin D3, (VITAMIN D3 ORAL) Take 2,000 Units by mouth once daily. - no115/iron/folic acid ( 19 ORAL) Take by mouth. - cyanocobalamin, vitamin B-12, (VITAMIN B12 ORAL) Take by mouth as directed. Problem List As Of Date 04/24/2025 Noted Resolved Recurrent major depressive disorder, in remissi*07/29/2019 Well adult exam [Z00.00] 07/29/2019 10/27/2024 TREMAYNE (generalized anxiety disorder) [F41.1] 07/29/2019 Encounter for routine gynecological examination* 3 10/27/2024 Supervision of high-risk of elderly m*10/27/2024 GBS bacteriuria [R82.71] 10/30/2024 Multiparous [Z64.1] 01/30/2025 Multigravida of advanced maternal age in second*02/03/2025 [facility] [O99.891] 02/25/2025 Supervision of high risk in third tri*04/22/2025 AMA (advanced maternal age) multigravida 35+, t*04/22/2025 Encounter Status:Closed by MAYCOL ANDERSON on 04/24/25 [facility] Salma 04-17-2025 CNPN Telephone (FV3L+D) CONSTANCE DE SANTIAGO ([id number]) 1990 F Date Time Provider Department 04/17/25 MPOWER FV OB LANDD FV3L+D During your visit today, we recorded the following information about you: Allergies As of Date: 04/17/2025 (No Known Allergies) Date Reviewed: 04/09/2025 Reviewed by: Fátima Vaz MA - Fully Assessed Reason for Visit: Care Coordination [9861] Cmt: M-Power Scheduling LM attempt # 1 Prescriptions as of 04/17/2025 - FERROUS SULFATE, BULK, MISC once daily. OTC 15 mg ferrous sulfate with vitamin C - aspirin, enteric coated (ECOTRIN LOW STRENGTH) 81 mg EC tablet Take 1 tablet by mouth once daily. - omega 3-bra-oka-fish oil 1,000 mg (250 mg-750 mg)/5 mL liqd Take by mouth. - cholecalciferol, vitamin D3, (VITAMIN D3 ORAL) Take 2,000 Units by mouth once daily. - no115/iron/folic acid ( 19 ORAL) Take by mouth. - cyanocobalamin, vitamin B-12, (VITAMIN B12 ORAL) Take by mouth as directed. Problem List As Of Date 04/17/2025 Noted Resolved Recurrent major depressive disorder, in remissi*07/29/2019 Well adult exam [Z00.00] 07/29/2019 10/27/2024 TREMAYNE (generalized anxiety disorder) [F41.1] 07/29/2019 Encounter for routine gynecological examination* 3 10/27/2024 Supervision of high-risk of elderly m*10/27/2024 GBS bacteriuria [R82.71] 10/30/2024 Multiparous [Z64.1] 01/30/2025 Multigravida of advanced maternal age in second*02/03/2025 [facility] [O99.891] 02/25/2025 Encounter Status:Closed by MAYCOL ANDERSON on 04/17/25 Normal [facility] CBC W Auto Differential pane l (Bld)on 03-24-2025 Basophils (Bld) [#/Vol] 0.03 10*3/uL Normal <0.11 [facility] Comment on above: Order Comment: Speci men Type: BLOOD SPECIMENOrdering Facility: [facility] Address: [address] [place] [address] Performed By: #### 5 7021-8 ####[facility] LABCLIA [id number] [place] [address] [place] Basophils/100 WBC (Bld) 0.4 % Normal [facility] Comment on above: Order Comment: Speci men Type: BLOOD SPECIMENOrdering Facility: [facility] Address: [address] [place] [address] Performed By: #### 5 7021-8 ####[facility] LABCLIA [id number] [place] [address] [place] Differential cell count method Nom (Bld) Auto Normal [facility] Comment on above: Order Comment: Speci men Type: BLOOD SPECIMENOrdering Facility: [facility] Address: [address] [place] [address] Performed By: #### 5 7021-8 ####[facility] LABCLIA [id number] [place] [id number] [place] Eosinophils (Bld) [#/Vol] 0.09 10*3/uL Normal <0.46 [facility] Comment on above: Order Comment: Speci men Type: BLOOD SPECIMENOrdering Facility: [facility] Address: [address] [place] [address] Performed By: #### 5 7021-8 ####[facility] LABCLIA [id number] [place] [id number] [place] Eosinophils/100 WBC (Bld) 1.1 % Normal [facility] Comment on above: Order Comment: Speci men Type: BLOOD SPECIMENOrdering Facility: [facility] Address: [address] [place] [address] Performed By: #### 5 7021-8 ####[facility] LABCLIA [id number] [place] [address] [place] Erythrocyte distribution width (RBC) [Ratio] 13.1 % Normal 11.5-15.0 [facility] Comment on above: Order Comment: Speci men Type: BLOOD SPECIMENOrdering Facility: [facility] Address: [address] [place] [address] Performed By: #### 5 7021-8 ####[facility] LABCLIA [id number] [place] [address] [place] Hematocrit (Bld) [Volume fraction] 33.3 % Low 36.0-46.0 [facility] Comment on above: Order Comment: Speci men Type: BLOOD SPECIMENOrdering Facility: [facility] Address: [address] [place] [address] Performed By: #### 5 7021-8 ####[facility] LABCLIA [id number] [place] [address] [place] Hemoglobin (Bld) [Mass/Vol] 11.3 g/dL Low 11.5-15.5 [facility] Comment on above: Order Comment: Speci men Type: BLOOD SPECIMENOrdering Facility: [facility] Address: [address] [place] [address] Performed By: #### 5 7021-8 ####[facility] LABCLIA [id number] [place] [address] [place] Immature granulocytes (Bld) [#/Vol] 0.05 10*3/uL Normal <0.10 [facility] Comment on above: Order Comment: Speci men Type: BLOOD SPECIMENOrdering Facility: [facility] Address: [address] [place] [address] Performed By: #### 5 7021-8 ####[facility] LABCLIA [id number] [address] [place] [facility] Immature granulocytes/100 WBC (Bld) 0.6 % Normal [facility] Comment on above: Order Comment: Speci men Type: BLOOD SPECIMENOrdering Facility: [facility] Address: [address] [place] [address] Performed By: #### 5 7021-8 ####[facility] LABCLIA [id number] [place] [address] [place] Lymphocytes (Bld) [#/Vol] 1.61 10*3/uL Normal 1.00-4.00 [facility] Comment on above: Order Comment: Speci men Type: BLOOD SPECIMENOrdering Facility: [facility] Address: [address] [place] [address] Performed By: #### 5 7021-8 ####[facility] LABCLIA [id number] [address] [place] Lymphocytes/100 WBC (Bld) 19.0 % Normal [facility] Comment on above: Order Comment: Speci men Type: BLOOD SPECIMENOrdering Facility: [facility] Address: [address] [place] [address] Performed By: #### 5 7021-8 ####[facility] LABCLIA [id number] [place] [address] [place] MCH (RBC) [Entitic mass] 32.5 pg Normal 26.0-34.0 [facility] Comment on above: Order Comment: Speci men Type: BLOOD SPECIMENOrdering Facility: [facility] Address: [address] [place] [address] Performed By: #### 5 7021-8 ####[facility] LABCLIA [id number] [place] [id number] [place] MCHC (RBC) [Mass/Vol] 33.9 g/dL Normal 30.5-36.0 [facility] Comment on above: Order Comment: Speci men Type: BLOOD SPECIMENOrdering Facility: [facility] Address: [address] [place] [address] Performed By: #### 5 7021-8 ####[facility] LABIA [id number] [place] [address] [place] MCV (RBC) [Entitic vol] 95.7 fL Normal 80.0-100.0 [facility] Comment on above: Order Comment: Speci men Type: BLOOD SPECIMENOrdering Facility: [facility] Address: [address] [place] [address] Performed By: #### 5 7021-8 ####[facility] LABIA [id number] [place] [address] [place] Monocytes (Bld) [#/Vol] 0.64 10*3/uL Normal <0.87 [facility] Comment on above: Order Comment: Speci men Type: BLOOD SPECIMENOrdering Facility: [facility] Address: [address] [place] [address] Performed By: #### 5 7021-8 ####[facility] LABIA [id number] [place] [address] [place] Monocytes/100 WBC (Bld) 7.5 % Normal [facility] Comment on above: Order Comment: Speci men Type: BLOOD SPECIMENOrdering Facility: [facility] Address: [address] [place] [address] Performed By: #### 5 7021-8 ####[facility] LABCLIA [id number] [place] [id number] [place] Neutrophils (Bld) [#/Vol] 6.06 10*3/uL Normal 1.45-7.50 [facility] Comment on above: Order Comment: Speci men Type: BLOOD SPECIMENOrdering Facility: [facility] Address: [address] [place] [address] Performed By: #### 5 7021-8 ####[facility] LABCLIA [id number] [address] [place] Neutrophils/100 WBC (Bld) 71.4 % Normal [facility] Comment on above: Order Comment: Speci men Type: BLOOD SPECIMENOrdering Facility: [facility] Address: [address] [place] [address] Performed By: #### 5 7021-8 ####[facility] LABCLIA [id number] [place] [address] [place] Nucleated RBC (Bld) [#/Vol] 10*3/uL Normal <0.01 [facility] Comment on above: Order Comment: Speci men Type: BLOOD SPECIMENOrdering Facility: [facility] Address: [address] [place] [address] Performed By: #### 5 7021-8 ####[facility] LABCLIA [id number] [place] [address] [place] Nucleated RBC/100 WBC (Bld) [Ratio] 0.0 /100 WBC Normal [facility] Comment on above: Order Comment: Speci men Type: BLOOD SPECIMENOrdering Facility: [facility] Address: [address] [place] [address] Performed By: #### 5 7021-8 ####[facility] LABCLIA [id number] [place] [id number] [place] Platelet mean volume (Bld) [Entitic vol] 10.1 fL Normal 9.0-12.7 [facility] Comment on above: Order Comment: Speci men Type: BLOOD SPECIMENOrdering Facility: [facility] Address: [address] [place] [address] Performed By: #### 5 7021-8 ####[facility] LABCLIA [id number] [place] [address] [place] Platelets (Bld) [#/Vol] 305 10*3/uL Normal 150-400 [facility] Comment on above: Order Comment: Speci men Type: BLOOD SPECIMENOrdering Facility: [facility] Address: [address] [place] [address] Performed By: #### 5 7021-8 ####[facility] [id number] [place] [address] [place] RBC (Bld) [#/Vol] 3.48 10*6/uL Low 3.90-5.20 [facility] Comment on above: Order Comment: Speci men Type: BLOOD SPECIMENOrdering Facility: [facility] Address: [address] [place] [address] Performed By: #### 5 7021-8 ####[facility] [id number] [place] [address] [place] WBC (Bld) [#/Vol] 8.48 10*3/uL Normal 3.70-11.00 [facility] Comment on above: Order Comment: Speci men Type: BLOOD SPECIMENOrdering Facility: [facility] Address: [address] [place] [address] Performed By: #### 5 7021-8 ####[facility] [id number] [place] [address] [place] GESTATIONAL GLUCOSE SCREEN, 1-HOUR, 50 GRAM, NON-FASTINGon 03-24-2025 Glucose [Mass/Vol] 112 mg/dL Normal 74-134 [facility] Comment on above: Order Comment: Speci men Type: BLOOD SPECIMENOrdering Facility: [facility] Address: [address] [place] [address] Result Comment: [facility] Congress of Obstetricians and Gynecologists (Rohan/Mallorie) guidelines state a gestational diabetes mellitus positive screen is made, in women not previously diagnosed with overt diabetes, when the 1 hr plasma glucose level is equal to or above 140 mg/dL. The [facility] [employer]ifier and [facility] [employer] recommends a 135 mg/dL cutoff. Performed By: #### G LTGST ####[facility] LABIA [id number] [place] [id number] [place] Reagin and Treponema pallidu m IgG and IgM [Interp]on 03-24-2025 T. pallidum IgG+IgM IA Ql (S) Non-Reactive Normal Nonreactive [facility] Comment on above: Order Comment: Speci men Type: BLOOD SPECIMENOrdering Facility: [facility] Address: [address] [place] [address] Performed By: #### 7 3752-8 ####[facility] LABIA [id number] [place] [address] [place] Reagin+T pallidum IgG+IgM Se rPl-Impon 03-24-2025 Reagin and Treponema pallidum IgG and IgM [Interp] Cannot exclude recent Treponemal infection if specimen collected within 7-10 days after appearance of suspect lesions or 2-3 weeks after an exposure. Clinical correlation is required. Normal [facility] Comment on above: Order Comment: Speci men Type: BLOOD SPECIMENOrdering Facility: [facility] Address: [address] [place] [address] Performed By: #### 7 3752-8 ####[facility] [id number] [place] [id number] [place] Examination level ultrasound on 02-01-2025 Indication Detailed anatomic survey Advanced maternal age Impression REMOTE READ: The patient is referred for a detailed anatomic survey. - Single, live, intrauterine . - biometry is consistent with the established gestational age. - No malformations were visualized on a detailed anatomic survey, although some anatomical structures were suboptimally seen as detailed below. - The amniotic fluid volume is normal amount. - The placenta is anterior, fundal. - The Transabdominal cervical length measures 34.7 mm with no evidence of funneling or other dynamic changes. - Not all structural malformations can be detected by ultrasound examination. Recommendations - Completion of anatomy in 2-3 weeks - Additional follow up as clinically indicated. Maternal Assessment Height 163 cm Height (ft) 5 ft Height (in) 4 in Physical Exam Initial weight (lb) 155 lb Initial BMI 26.61 kg/m Maternal assessment other: 2 Para 1 REMOTE READ Method Transabdominal ultrasound examination. View: Adequate visualization [place] . Number of fetuses: 1 Dating LMP on: 09/03/2024 GA by LMP 21 w + 2 d ANGIE by LMP: 06/10/2025 GA by prior assessment 20 w + 1 d ANGIE by prior assessment: 06/18/2025 Ultrasound examination on: 01/30/2025 GA by U/S based upon: AC, BPD, Femur, HC GA by U/S 21 w + 0 d ANGIE by U/S: 06/12/2025 Assigned: based on stated ANGIE, selected on 01/30/2025 Assigned GA 20 w + 1 d Assigned ANGIE: 06/18/2025 General Evaluation Cardiac activity present. FHR 152 bpm. movements: present. Presentation: breech Placenta: Placental site: anterior, fundal. [id number] placental gregory Umbilical cord: Cord vessels: 3 vessel cord Amniotic fluid: Amount of AF: normal amount. MVP 4.8 cm Growth Overview Exam date GA BPD (mm) HC (mm) AC (mm) FL (mm) HL (mm) EFW (g) 12/11/2024 13w 0d 25.1 91% 94.8 68% 73.8 86% 13 74% 01/30/2025 20w 1d 47.2 55% 185.2 72% 170.5 93% 33.6 77% 33 85% 412 94% Biometry Standard BPD 47.2 mm 20w 2d 55% Hadlock OFD 67.3 mm 21w 1d 98% Nicolaides HC 185.2 mm 20w 6d 72% Fadia Cerebellum tr 22.0 mm 20w 4d 87% Hill Nuchal fold 4.7 mm AC 170.5 mm 22w 0d 93% Hadlock Femur 33.6 mm 20w 5d 77% Fadia Humerus 33.0 mm 21w 1d 85% Fadia EFW 412 g 21w 1d 94% Hadlock EFW (lb) 0 lb EFW (oz) 15 oz EFW by: Hadlock (HC-AC-FL) Extended Strategic Partnership Manager 6.9 mm CM 5.6 mm 70% Nicolaides Extremities / Bony Struc FL / HC 0.18 24% Hadlock Other Structures FHR 152 bpm Anatomy Cranium: normal Lateral ventricles: normal Choroid plexus: normal Midline falx: normal Cavum septi pellucidi: normal Cerebellum: normal Cisterna magna: normal Head / Neck Vermis: normal Neck: normal Nuchal fold: normal Lips: normal Profile: normal Nose: normal Face Maxilla: suboptimally visualized Mandible: suboptimally visualized Orbits: normal Lens: normal 4-chamber view: suboptimally visualized RVOT view: normal LVOT view: normal 3-vessel view: normal 3-dpccad-vfiuxzp view: normal Heart / Thorax Situs: situs solitus (normal) Aortic arch view: suboptimally visualized SVC: normal IVC: normal Cardiac axis: normal Rt lung: normal Lt lung: normal Diaphragm: normal Cord insertion: normal Stomach: normal Kidneys: normal Bladder: normal Genitals: normal Abdomen Abdom. wall: normal Cervical spine: normal Thoracic spine: normal Lumbar spine: normal Sacral spine: normal Arms: normal Legs: normal Rt upper arm: normal Rt forearm: normal Rt hand: normal Rt fingers: normal Lt upper arm: normal Lt forearm: normal Lt hand: normal Lt fingers: suboptimally visualized Rt upper leg: normal Rt lower leg: normal Rt foot: normal Lt upper leg: normal Lt lower leg: normal Lt foot: normal sex: male Wants to know sex: yes Maternal Structures Uterus / Cervix Uterus: Visualized Cervix: Visualized Approach: Transabdominal Cervical length 34.7 mm Other: Patient declined transvaginal ultrasound for cervical length. Ovaries / Tubes / Adnexa Rt ovary: Visualized Lt ovary: Visualized Performed By: Constance Forrester RDMS, RVT Read By: Kylee Beasley M.D. MATERNAL MEDICINE [facility] Examination level ultrasound on 01-30-2025 Radiology Study observation (narrative) [facility] Salma 12-22-2024 [facility] Telephone (OBGYWM) CONSTANCE DE SANTIAGO ([id number]) 1990 F Date Time Provider Department 12/22/24 HARRIET FAUSTIN During your visit today, we recorded the following information about you: Girma Garcia RN 12/22/2024 9:50 AM Signed Written order received from [employer] for electric breast pump and accessories. Placed in KJ inbox for signature. MICHELE Wooten Tara, RN 12/23/2024 9:01 AM Signed Faxed. Girma Garcia RN Allergies As of Date: 12/22/2024 (No Known Allergies) Date Reviewed: 12/15/2024 Reviewed by: Demetria Bourgeois MA - Fully Assessed Reason for Visit: Written order from [employer] for breast pump [Other] Prescriptions as of 12/23/2024 - aspirin, enteric coated (ECOTRIN LOW STRENGTH) 81 mg EC tablet Take 1 tablet by mouth once daily. - omega 0-aqb-hlg-fish oil 1,000 mg (250 mg-750 mg)/5 mL liqd Take by mouth. - cholecalciferol, vitamin D3, (VITAMIN D3 ORAL) Take 2,000 Units by mouth once daily. - inositol-choline bitartrate 250-250 mg cap Take 1 tablet by mouth once daily. - no115/iron/folic acid ( 19 ORAL) Take by mouth. - cyanocobalamin, vitamin B-12, (VITAMIN B12 ORAL) Take by mouth as directed. Problem List As Of Date 12/22/2024 Noted Resolved Recurrent major depressive disorder, in remissi*07/29/2019 Well adult exam [Z00.00] 07/29/2019 10/27/2024 TREMAYNE (generalized anxiety disorder) [F41.1] 07/29/2019 Encounter for routine gynecological examination* 3 10/27/2024 Supervision of high-risk of elderly m*10/27/2024 GBS bacteriuria [R82.71] 10/30/2024 Encounter Status:Closed by GIRMA GARCIA on 12/23/24 Normal [facility] CNOVon 12-15-2024 CNOV Office Visit (FAMPWS ) CONSTANCE DE SANTIAGO ([id number]) 1990 F Date Time Provider Department 12/15/24 5:40 PM [facility] your visit today, we recorded the following information about you: Pulse Respiration Blood pressure Weight 74/minute 16/minute 108/60 71.1 kg Shyam Jensen MD 12/15/2024 7:59 PM Signed Chief Complaint Patient presents with: Wart: Left foot HPI Constancejabari De Santiago is a 34 year old female who presents here today for wart. Pt would like to have wart treated on Left foot that she has had x 6 months. Is not changing in size, does bother her at times. Has tried treating OTC but has not fully resolved. She has never had warts before. Past medical history, appointments, medications, allergies reviewed. Previous Medical History PAST MEDICAL HISTORY Diagnosis Date TREMAYNE (generalized anxiety disorder) 07/29/2019 Recurrent major depressive disorder, in remission 07/29/2019 Previous Surgical History PAST SURGICAL HISTORY Procedure Laterality Date MIRENA IUD 02/10/2015 REMOVED 06/2024 Family History FAMILY HISTORY Problem Relation Age of Onset Thyroid Mother Hyperlipidemia Father Diabetes Father Hypertension Father Cancer Sister brain Stroke Maternal Grandmother Stroke Maternal Grandfather other (melanoma) Maternal Aunt Patient Allergies ALLERGIES No Known Allergies Current Medications Current Outpatient Medications on File Prior to Visit Medication Sig aspirin, enteric coated (ECOTRIN LOW STRENGTH) 81 mg EC tablet Take 1 tablet by mouth once daily. omega 2-hvn-iyl-fish oil 1,000 mg (250 mg-750 mg)/5 mL liqd Take by mouth. cholecalciferol, vitamin D3, (VITAMIN D3 ORAL) Take 2,000 Units by mouth once daily. inositol-choline bitartrate 250-250 mg cap Take 1 tablet by mouth once daily. no115/iron/folic acid ( 19 ORAL) Take by mouth. cyanocobalamin, vitamin B-12, (VITAMIN B12 ORAL) Take by mouth as directed. No current facility-administered medications on file prior to visit. Social History Social History Tobacco Use Smoking status: Never Smokeless tobacco: Never Vaping Use Vaping status: Never Used Substance Use Topics Alcohol use: Not Currently Alcohol/week: 21.0 standard drinks of alcohol Types: 21 Standard drinks or equivalent per week Comment: about 3 glasses of wine per day Drug use: No EXAM: BP 108/60 Pulse 74 Resp 16 Wt 71.1 kg (156 lb 12 oz) LMP 09/03/2024 BMI 26.53 kg/m? Skin: At at 4th metatarsal head left foot; treated with cryo times 2; tolerated well, instructed in wound care.. Health Maintenance List Influenza Vaccine(1) due on 05/04/2024 Covid-19 Vaccine( season) due on 05/04/2024 RSV Vaccine(1 - Risk 1-dose series) due on 05/04/2025 Cervical Cancer Screening due on 06/02/2027 DTaP,Tdap,Td Vaccine(2 - Td or Tdap) due on 03/30/2033 Hepatitis C Screening Completed HIV Screening Completed Hepatitis B Vaccine Discontinued Data reviewed none ASSESSMENT/PLAN: 1. Plantar wart - ICD9: 078.12, ICD10: B07.0 Treated with cryo Follow up 1-3 weeks if does not resolve with treatment I agree with the Chief Complaint, ROS, and Past Histories independently gathered by the clinical it support consultant and the remaining scribed note accurately describes my personal service to the patient. Medical Decision Making: Problems: Low: Acute, uncomplicated illness or injury Risk: Low: Low risk from testing/treatment Medical Decision Making Level: 3 - Low Shyam Jensen MD The documentation for this note was completed by Demetria Bourgeois MA acting as scribe for Shyam Jensen MD. December 15, 2024 5:37 PM. Demetria Bourgeois MA Allergies As of Date: 12/15/2024 (No Known Allergies) Date Reviewed: 12/15/2024 Reviewed by: Demetrai Bourgeois MA - Fully Assessed Reason for Visit: Wart [927] Cmt: Left foot Primary Visit Diagnosis:Plantar wart [B07.0] Prescriptions as of 12/15/2024 - aspirin, enteric coated (ECOTRIN LOW STRENGTH) 81 mg EC tablet Take 1 tablet by mouth once daily. - omega 8-nmr-qli-fish oil 1,000 mg (250 mg-750 mg)/5 mL liqd Take by mouth. - cholecalciferol, vitamin D3, (VITAMIN D3 ORAL) Take 2,000 Units by mouth once daily. - inositol-choline bitartrate 250-250 mg cap Take 1 tablet by mouth once daily. - no115/iron/folic acid ( 19 ORAL) Take by mouth. - cyanocobalamin, vitamin B-12, (VITAMIN B12 ORAL) Take by mouth as directed. Problem List As Of Date 12/15/2024 Noted Resolved Recurrent major depressive disorder, in remissi*07/29/2019 Well adult exam [Z00.00] 07/29/2019 10/27/2024 TREMAYNE (generalized anxiety disorder) [F41.1] 07/29/2019 Encounter for routine gynecological examination* 3 10/27/2024 Supervision of high-risk of elderly m*10/27/2024 GBS bacteriuria [R82.71] 10/30/2024 Di (more content not included)... Normal [facility] Examination level ultrasound on 12-12-2024 Indication First trimester anatomic survey Advanced maternal age Impression REMOTE READ The patient is referred for a first trimester anatomy scan including nuchal translucency measurement as clinically indicated. - Single, live, intrauterine . - Durbin rump length measurement is consistent with the established gestational age. - No malformations visualized on first trimester anatomic assessment. - The nuchal translucency measurement is 1.8 mm. - Not all structural malformations can be detected by ultrasound examination. Maternal Structures: Right Ovary: Size 30 mm x 25 mm x 23 mm Left Ovary: Size 30 mm x 16 mm x 17 mm Recommendations - A standard anatomic survey at 16 weeks can be offered and a detailed exam at 20 weeks is recommended for increased risk. Maternal Assessment Height 163 cm Height (ft) 5 ft Height (in) 4 in Physical Exam Initial weight (lb) 155 lb Initial BMI 26.61 kg/m Maternal assessment other: 2 Para 1 Method Transabdominal ultrasound examination [place] . Number of fetuses: 1 Dating LMP on: 09/03/2024 GA by LMP 14 w + 1 d ANIGE by LMP: 06/10/2025 GA by prior assessment 13 w + 0 d ANGIE by prior assessment: 06/18/2025 Ultrasound examination on: 12/11/2024 GA by U/S based upon: AC, BPD, CRL, Femur, HC GA by U/S 13 w + 6 d ANGIE by U/S: 06/12/2025 Assigned: based on stated ANGIE, selected on 12/11/2024 Assigned GA 13 w + 0 d Assigned ANGIE: 06/18/2025 General Evaluation Cardiac activity present Placenta: anterior Cord vessels: 3 vessel cord Amniotic fluid: normal amount Biometry Standard FHR 149 bpm CRL 82.5 mm 14w 1d 98% Hadlock NT 1.80 mm BPD 25.1 mm 14w 2d 91% Hadlock HC 94.8 mm 13w 4d 68% Fadia AC 73.8 mm 13w 6d 86% Hadlock Femur 13.0 mm 13w 4d 74% Fadia Extended OFD 33.3 mm -/- Nicolaides First Trimester Anatomy Calvarium: normal Falx cerebri: normal Choroid plexus: normal Profile: normal Nasal bone: normal Retronasal triangle: normal Maxilla: normal Mandible: normal Nuchal translucency: Unremarkable Situs: normal Cardiac position: normal Cardiac axis: normal 4-chamber view: normal 4-chamber view with color: normal 6-phywoh-heqvgpi view: normal Abdominal cord insertion: normal Stomach: normal Kidneys: normal Bladder: normal Color doppler of perivesical umbilical arteries: normal Vertebral alignment: normal Arms: normal Hands: normal Legs: normal Feet: normal Maternal Structures Uterus / Cervix Uterus: Visualized Uterus length 180 mm Uterus width 137 mm Uterus height 68 mm Uterus Vol 878.0 cm Ovaries / Tubes / Adnexa Rt ovary: Visualized Rt ovary D1 30 mm Rt ovary D2 25 mm Rt ovary D3 23 mm Rt ovary Vol 8.9 cm Lt ovary: Visualized Lt ovary D1 30 mm Lt ovary D2 16 mm Lt ovary D3 17 mm Lt ovary Vol 4.0 cm Performed By: Constance Forrester RDMS, RVT Read By: Radha Garber M.D. MATERNAL MEDICINE [facility] CBC W Auto Differential pane l (Bld)on 12-11-2024 Basophils (Bld) [#/Vol] 10*3/uL Normal <0.11 [facility] Comment on above: Order Comment: Speci men Type: BLOOD SPECIMENOrdering Facility: [facility] Address: [address] [place] [address] Performed By: #### 5 7021-8 ####[facility] LABCLIA [id number] [address] [place] [address] [place] Basophils/100 WBC (Bld) 0.3 % Normal [facility] Comment on above: Order Comment: Speci men Type: BLOOD SPECIMENOrdering Facility: [facility] Address: [address] [place] [address] Performed By: #### 5 7021-8 ####[facility] LABCLIA [id number] [address], [place] [address] [place] Differential cell count method Nom (Bld) Auto Normal [facility] Comment on above: Order Comment: Speci men Type: BLOOD SPECIMENOrdering Facility: [facility] Address: [address] [place] [address] Performed By: #### 5 7021-8 ####[facility] LABCLIA [id number] [address], [facility] [place] Eosinophils (Bld) [#/Vol] 0.11 10*3/uL Normal <0.46 [facility] Comment on above: Order Comment: Speci men Type: BLOOD SPECIMENOrdering Facility: [facility] Address: [address] [place] [address] Performed By: #### 5 7021-8 ####[facility] LABCLIA [id number] [facility] [address], [facility] [place] Eosinophils/100 WBC (Bld) 1.4 % Normal [facility] Comment on above: Order Comment: Speci men Type: BLOOD SPECIMENOrdering Facility: [facility] Address: [address] [place] [address] Performed By: #### 5 7021-8 ####[facility] LABCLIA [id number] [place] [address] [place] Erythrocyte distribution width (RBC) [Ratio] 12.5 % Normal 11.5-15.0 [facility] Comment on above: Order Comment: Speci men Type: BLOOD SPECIMENOrdering Facility: [facility] Address: [address] [place] [address] Performed By: #### 5 7021-8 ####[facility] LABCLIA [id number] [address], [place] [address] [place] Hematocrit (Bld) [Volume fraction] 34.0 % Low 36.0-46.0 [facility] Comment on above: Order Comment: Speci men Type: BLOOD SPECIMENOrdering Facility: [facility] Address: [address] [place] [address] Performed By: #### 5 7021-8 ####[facility] LABIA [id number] [place] [address] [place] Hemoglobin (Bld) [Mass/Vol] 11.6 g/dL Normal 11.5-15.5 [facility] Comment on above: Order Comment: Speci men Type: BLOOD SPECIMENOrdering Facility: [facility] Address: [address] [place] [address] Performed By: #### 5 7021-8 ####[facility] LABIA [id number] [place] [address] [place] Immature granulocytes (Bld) [#/Vol] 10*3/uL Normal <0.10 [facility] Comment on above: Order Comment: Speci men Type: BLOOD SPECIMENOrdering Facility: [facility] Address: [address] [place] [address] Performed By: #### 5 7021-8 ####[facility] LABCLIA [id number] [place] [address] [place] Immature granulocytes/100 WBC (Bld) 0.3 % Normal [facility] Comment on above: Order Comment: Speci men Type: BLOOD SPECIMENOrdering Facility: [facility] Address: [address] [place] [address] Performed By: #### 5 7021-8 ####[facility] LABCLIA [id number] [place] [address] [place] Lymphocytes (Bld) [#/Vol] 1.58 10*3/uL Normal 1.00-4.00 [facility] Comment on above: Order Comment: Speci men Type: BLOOD SPECIMENOrdering Facility: [facility] Address: [address] [place] [address] Performed By: #### 5 7021-8 ####[facility] LABCLIA [id number] [place] [address] [place] Lymphocytes/100 WBC (Bld) 19.9 % Normal [facility] Comment on above: Order Comment: Speci men Type: BLOOD SPECIMENOrdering Facility: [facility] Address: [address] [place] [address] Performed By: #### 5 7021-8 ####[facility] LABCLIA [id number] [place] [address] [place] MCH (RBC) [Entitic mass] 33.0 pg Normal 26.0-34.0 [facility] Comment on above: Order Comment: Speci men Type: BLOOD SPECIMENOrdering Facility: [facility] Address: [address] [place] [address] Performed By: #### 5 7021-8 ####[facility] LABCLIA [id number] [place] [address] [place] MCHC (RBC) [Mass/Vol] 34.1 g/dL Normal 30.5-36.0 [facility] Comment on above: Order Comment: Speci men Type: BLOOD SPECIMENOrdering Facility: [facility] Address: [address] [place] [address] Performed By: #### 5 7021-8 ####[facility] LABCLIA [id number] [address], [place] [address] [place] MCV (RBC) [Entitic vol] 96.9 fL Normal 80.0-100.0 [facility] Comment on above: Order Comment: Speci men Type: BLOOD SPECIMENOrdering Facility: [facility] Address: [address] [place] [address] Performed By: #### 5 7021-8 ####[facility] LABIA [id number] [address], [place] [address] [place] Monocytes (Bld) [#/Vol] 0.57 10*3/uL Normal <0.87 [facility] Comment on above: Order Comment: Speci men Type: BLOOD SPECIMENOrdering Facility: [facility] Address: [address] [place] [address] Performed By: #### 5 7021-8 ####[facility] LABIA [id number] [place] [address] [place] Monocytes/100 WBC (Bld) 7.2 % Normal [facility] Comment on above: Order Comment: Speci men Type: BLOOD SPECIMENOrdering Facility: [facility] Address: [address] [place] [address] Performed By: #### 5 7021-8 ####[facility] LABIA [id number] [place] [address] [place] Neutrophils (Bld) [#/Vol] 5.65 10*3/uL Normal 1.45-7.50 [facility] Comment on above: Order Comment: Speci men Type: BLOOD SPECIMENOrdering Facility: [facility] Address: [address] [place] [address] Performed By: #### 5 7021-8 ####[facility] LABIA [id number] [place] [address] [place] Neutrophils/100 WBC (Bld) 70.9 % Normal [facility] Comment on above: Order Comment: Speci men Type: BLOOD SPECIMENOrdering Facility: [facility] Address: [address] [place] [address] Performed By: #### 5 7021-8 ####[facility] LABCLIA [id number] [address] [place] [address] [place] Nucleated RBC (Bld) [#/Vol] 10*3/uL Normal <0.01 [facility] Comment on above: Order Comment: Speci men Type: BLOOD SPECIMENOrdering Facility: [facility] Address: [address] [place] [address] Performed By: #### 5 7021-8 ####[facility] LABCLIA [id number] [address], [facility] [place] Nucleated RBC/100 WBC (Bld) [Ratio] 0.0 /100 WBC Normal [facility] Comment on above: Order Comment: Speci men Type: BLOOD SPECIMENOrdering Facility: [facility] Address: [address] [place] [address] Performed By: #### 5 7021-8 ####[facility] LABIA [id number] [address] [place] [address] [place] Platelet mean volume (Bld) [Entitic vol] 10.8 fL Normal 9.0-12.7 [facility] Comment on above: Order Comment: Speci men Type: BLOOD SPECIMENOrdering Facility: [facility] Address: [address] [place] [address] Performed By: #### 5 7021-8 ####[facility] LABIA [id number] [address] [place] [address] [place] Platelets (Bld) [#/Vol] 293 10*3/uL Normal 150-400 [facility] Comment on above: Order Comment: Speci men Type: BLOOD SPECIMENOrdering Facility: [facility] Address: [address] [place] [address] Performed By: #### 5 7021-8 ####[facility] LABIA [id number] [place] [address] [place] RBC (Bld) [#/Vol] 3.51 10*6/uL Low 3.90-5.20 [facility] Comment on above: Order Comment: Speci men Type: BLOOD SPECIMENOrdering Facility: [facility] Address: [address] [place] [address] Performed By: #### 5 7021-8 ####[facility] LABIA [id number] [place] [address] [place] WBC (Bld) [#/Vol] 7.95 10*3/uL Normal 3.70-11.00 [facility] Comment on above: Order Comment: Speci men Type: BLOOD SPECIMENOrdering Facility: [facility] Address: [address] [place] [address] Performed By: #### 5 7021-8 ####[facility] [id number] [place] [address] [place] Examination level ultrasound on 12-11-2024 Radiology Study observation (narrative) [facility] HBV surface Ag Ser Qlon 12-02 HBV surface Ag Ql (S) Negative Normal Negative [facility] Comment on above: Order Comment: Speci men Type: BLOOD SPECIMENOrdering Facility: [facility] Address: [address] [place] [address] Performed By: #### 5 195-3, 55038-1, 70573-3 ####[facility] [id number] [address] [place] HCV Ab Ser Qlon 12-11-2024 HCV Ab Ql (S) Negative Normal Negative [facility] Comment on above: Order Comment: Speci men Type: BLOOD SPECIMENOrdering Facility: [facility] Address: [address] [place] [address] Result Comment: The result suggests no evidence of infection with Hepatitis C virus. Should recent infection be suspected, repeat testing may be considered 4-6 weeks after this draw. Performed By: #### 1 6128-1 ####[facility] LABIA [id number] [place] [address] [place] HIV 1+2 Ab IA Qlon 5 HIV 1 and 2 Ab IA.rapid Nom (S/P/Bld) Normal [facility] Comment on above: Order Comment: Speci men Type: BLOOD SPECIMENOrdering Facility: [facility] Address: [address] [place] [address] Result Comment: Test not indicated. Performed By: #### 5 195-3, 22999-4, 96641-3 ####[facility] LABIA [id number] [place] [address] [place] HIV 1+2 Ab+HIV1 p24 Ag IA Ql Non-Reactive Normal Nonreactive [facility] Comment on above: Order Comment: Speci men Type: BLOOD SPECIMENOrdering Facility: [facility] Address: [address] [place] [address] Performed By: #### 5 195-3, 60141-1, 04670-0 ####[facility] [id number] [address] [place] HIV immunoassay testing algorithm interpretation (S/P/Bld) [Interp] Normal [facility] Comment on above: Order Comment: Speci men Type: BLOOD SPECIMENOrdering Facility: [facility] Address: [address] [place] [address] Result Comment: No e vidence of HIV-1 or HIV-2 infection. Should recent infection be suspected, repeat testing may be considered 2-3 weeks after this draw. [place] Rev. Code 3701.243(E): This information has been disclosed to you from confidential records protected from disclosure by state law. ???You shall make no further disclosure of this information without the specific, written, and informed release of the individual to whom it pertains or as otherwise permitted by state law. A general authorization for the release of medical or other information is not sufficient for the purpose of the release of HIV test results or diagnoses. Performed By: #### 5 195-3, 69603-9, 96263-0 ####[facility] LABCLIA [id number] [address] OF [facility] HbA1c (Bld)on 12-11-2024 Average glucose Estimated from glycated hemoglobin (Bld) [Mass/Vol] 85 mg/dL Normal [facility] Comment on above: Order Comment: Speci men Type: BLOOD SPECIMENOrdering Facility: [facility] Address: [address] [place] [address] Result Comment: eAG: (Estimated average glucose) is a calculated value from HgbA1c and is public relations representative of the average blood glucose level in the last 2-3 month period. Performed By: #### 5 5454-3 ####[facility]IA [id number] [address] STATES OF [facility] HbA1c (Bld) [Mass fraction] 4.6 % Normal 4.3-5.6 [facility] Comment on above: Order Comment: Speci men Type: BLOOD SPECIMENOrdering Facility: [facility] Address: [address] [place] [address] Result Comment: Amer [place] Diabetes Association guidelines indicate that patients with HgbA1c in the range 5.7-6.4% are at increased risk for development of diabetes, and intervention by lifestyle modification may be beneficial. HgbA1c greater or equal to 6.5% is considered diagnostic of diabetes. Performed By: #### 5 5454-3 ####[facility]IA [id number] [address] [place] RUBELLA IGG ANTIBODYon 12-11 RUBELLA IGG AB, QUAL Positive Normal Positive [facility] Comment on above: Order Comment: Speci men Type: BLOOD SPECIMENOrdering Facility: [facility] Address: [address] [place] [address] Result Comment: The result suggests recent or past exposure to Rubella virus or history of Rubella vaccination. Positive result may also be seen due to presence of passively-transferred antibodies. Please correlate with patient's history. Performed By: #### R UBIGG ####[facility] LABCLIA [id number] [place] [address] [place] Reagin and Treponema pallidu m IgG and IgM [Interp]on 12-11-2024 T. pallidum IgG+IgM IA Ql (S) Non-Reactive Normal Nonreactive [facility] Comment on above: Order Comment: Speci men Type: BLOOD SPECIMENOrdering Facility: [facility] Address: [address] [place] [address] Performed By: #### 5 195-3, 71966-5, 80646-5 ####[facility]IA [id number] [place] [address] [place] Reagin+T pallidum IgG+IgM Se rPl-Impon 12-11-2024 Reagin and Treponema pallidum IgG and IgM [Interp] Cannot exclude recent Treponemal infection if specimen collected within 7-10 days after appearance of suspect lesions or 2-3 weeks after an exposure. Clinical correlation is required. Normal [facility] Comment on above: Order Comment: Speci men Type: BLOOD SPECIMENOrdering Facility: [facility] Address: [address] [place] [address] Performed By: #### 5 195-3, 11726-4, 99824-8 ####[facility] LABIA [id number] [place] [address] [place] TYPE + SCREEN PRENATALon ABO A Normal [facility] Comment on above: Order Comment: Speci men Type: BLOOD SPECIMENOrdering Facility: [facility] Address: [address] [place] [address] Performed By: #### T SPN ####[facility] BLOOD BANKCLIA [id number] [place] [address] [place] Rh Nom (Bld) Positive Normal [facility] Comment on above: Order Comment: Speci men Type: BLOOD SPECIMENOrdering Facility: [facility] Address: [address] [address] Performed By: #### T SPN ####[facility] BANKCLIA [id number] [address] TYPE AND SCREEN EXPIRATION 12/14/2024 23:59 Normal [facility] Comment on above: Order Comment: Speci men Type: BLOOD SPECIMENOrdering Facility: [facility] Address: [address] [place], [place] [address] [address] Performed By: #### T SPN ####[facility] BLOOD BANKCLIA [id number] [address] CNPNon 11-03-2024 CNPN Telephone (OBGYWM) CONSTANCE DE SANTIAGO ([id number]) 1990 F Date Time Provider Department 11/03/24 JOCELYN FRAZIER During your visit today, we recorded the following information about you: Rosalba Arellano RN 11/03/2024 12:24 PM Signed 7w4d Patient called with c/o dark red spotting and cramping. Spotting only when she wipes. Pain rate of 2. Pain and bleeding started yesterday. Patient had intercourse yesterday. Reassurance given. Advised to call the office if her spotting increases, pain worsens, or if it persists. Patient voiced agreement. Had POCUS on 10/27/24. Please advise. MICHELE Pollock Rebecca L, MD 11/03/2024 12:36 PM Signed Follow up this week w/ any provider who can do a brief US and check FHTs. MD Denise Argueta Trisha, RN 11/03/2024 12:54 PM Signed Patient notified. Requested 11/05 or 11/06. Appointment scheduled. Rocio Larios RN Allergies As of Date: 11/03/2024 (No Known Allergies) Date Reviewed: 10/27/2024 Reviewed by: Ashlyn Asencio LPN - Fully Assessed Reason for Visit: Early OB Bleeding [Other] Prescriptions as of 11/03/2024 - ampicillin (PRINCIPEN) 500 mg capsule Take 1 capsule by mouth three times a day for 5 days. - aspirin, enteric coated (ECOTRIN LOW STRENGTH) 81 mg EC tablet Take 1 tablet by mouth once daily. - omega 4-lcd-xtz-fish oil 1,000 mg (250 mg-750 mg)/5 mL liqd Take by mouth. - cholecalciferol, vitamin D3, (VITAMIN D3 ORAL) Take 2,000 Units by mouth once daily. - inositol-choline bitartrate 250-250 mg cap Take 1 tablet by mouth once daily. - no115/iron/folic acid ( 19 ORAL) Take by mouth. - cyanocobalamin, vitamin B-12, (VITAMIN B12 ORAL) Take by mouth as directed. Problem List As Of Date 11/03/2024 Noted Resolved Recurrent major depressive disorder, in remissi*07/29/2019 Well adult exam [Z00.00] 07/29/2019 10/27/2024 TREMAYNE (generalized anxiety disorder) [F41.1] 07/29/2019 Encounter for routine gynecological examination* 3 10/27/2024 Supervision of high-risk of elderly m*10/27/2024 GBS bacteriuria [R82.71] 10/30/2024 Encounter Status:Closed by ROCIO LARIOS on 11/03/24 [facility] 10-30-2024 [facility] Telephone (OBGYWM) ANYICONSTANCE Nidia ([id number]) 1990 F Date Time Provider Department 10/30/24 MALLORIE TREJO During your visit today, we recorded the following information about you: Rocio Larios RN 10/30/2024 9:42 AM Signed Mallorie Trejo APRN.STABBER 10/30/24 7:25 AM Note +GBS in urine, RX sent. Mallorie Trejo APRN.CNP Allergies As of Date: 10/30/2024 (No Known Allergies) Date Reviewed: 10/27/2024 Reviewed by: Ashlyn Asencio LPN - Fully Assessed Reason for Visit: Results [95] Prescriptions as of 10/30/2024 - ampicillin (PRINCIPEN) 500 mg capsule Take 1 capsule by mouth three times a day for 5 days. - aspirin, enteric coated (ECOTRIN LOW STRENGTH) 81 mg EC tablet Take 1 tablet by mouth once daily. - omega 9-ald-yzp-fish oil 1,000 mg (250 mg-750 mg)/5 mL liqd Take by mouth. - cholecalciferol, vitamin D3, (VITAMIN D3 ORAL) Take 2,000 Units by mouth once daily. - inositol-choline bitartrate 250-250 mg cap Take 1 tablet by mouth once daily. - no115/iron/folic acid ( 19 ORAL) Take by mouth. - cyanocobalamin, vitamin B-12, (VITAMIN B12 ORAL) Take by mouth as directed. Problem List As Of Date 10/30/2024 Noted Resolved Recurrent major depressive disorder, in remissi*07/29/2019 Well adult exam [Z00.00] 07/29/2019 10/27/2024 TREMAYNE (generalized anxiety disorder) [F41.1] 07/29/2019 Encounter for routine gynecological examination* 3 10/27/2024 Supervision of high-risk of elderly m*10/27/2024 GBS bacteriuria [R82.71] 10/30/2024 Encounter Status:Closed by ROCIO LARIOS on 10/30/24 Normal [facility] Bacteria Ur Culton 5 Bacteria identified Cx Nom (U) ORGANISM ID: 1 <10,000 CFU/ml Streptococcus agalactiae (group b streptococcus) Insignificant colony count. No further workup. Normal [facility] Comment on above: Performed By: #### 6 30-4 ####[facility] LABCLIA [id number] [place] [address] [place] C. trachomatis+N. gonorrhoea e DNA ANUEL+probe Ql (Unsp spec)on 10-27-2024 C. trachomatis rRNA ANUEL+probe Ql (Unsp spec) Not detected Normal Not detected [facility] Comment on above: Order Comment: Speci men Type: SWABOrdering Facility: [facility] Address: [address] [place] [address] Performed By: #### 3 6902-5, TRVAMP ####[facility] LABCLIA [id number] [address] [place] N. gonorrhoeae rRNA ANUEL+probe Ql (Unsp spec) Not detected Normal Not detected [facility] Comment on above: Order Comment: Speci men Type: SWABOrdering Facility: [facility] Address: [address] [place] [address] Performed By: #### 3 6902-5, TRVAMP ####[facility] LABCLIA [id number] [place] [address] [place] POC [employer] OFFICER ULTRASOUNDon 10-27-19 Indication Confirmation of intrauterine . Confirmation of cardiac activity. Estimation of gestational age Impression cardiac activity is visualized, CRL indicates discrepancy from clinical dates, ANGIE 06/18/25 based on today's ultrasound Recommendations Follow up for 1st Trimester Anatomy with Nuchal Translucency as clinically indicated if desired. Method Transvaginal ultrasound examination. View: Adequate visualization [place] . Number of embryos: 1 Dating LMP on: 09/03/2024 GA by LMP 7 w + 5 d NAGIE by LMP: 06/10/2025 Ultrasound examination on: 10/27/2024 GA by U/S based upon: CRL GA by U/S 6 w + 4 d ANGIE by U/S: 06/18/2025 Assigned: based on ultrasound (CRL), selected on 10/27/2024 Assigned GA 6 w + 4 d Assigned ANGIE: 06/18/2025 Biometry Standard FHR 143 bpm CRL 6.9 mm 6w 4d 66% Hadlock Assessment Gestational sac: visualized Location: intrauterine Yolk sac: visualized Embryo: visualized CRL 6.9 mm 6w 4d 66% Hadlock Cardiac activity: present FHR 143 bpm General Evaluation Cardiac activity present. FHR 143 bpm Performed By: Mallorie Trejo CNP Read By: Mallorie Trejo CNP MATERNAL MEDICINE [facility] Radiology Study observation (narrative) [facility] TRICHOMONAS VAGINALIS NAATon 10-27-2024 T. vaginalis DNA ANUEL+probe Ql (Unsp spec) Not detected Normal Not detected [facility] Comment on above: Order Comment: Speci men Type: SWABOrdering Facility: [facility] Address: [address] [place] [address] Performed By: #### 3 6902-5, TRANIRUDH ####[facility] LABCLIA [id number] [facility] [id number] OF [facility] CNOVon 10-14-2024 CNOV Office Visit (OBGYWM ) CONSTANCE DE SANTIAGO ([id number]) 1990 F Date Time Provider Department 10/14/24 4:20 PM HARRIET FAUSTIN OBGYWM During your visit today, we recorded the following information about you: Blood pressure Weight Last Period 104/72 68.5 kg 09/03/24 Harriet Faustin MD 10/14/2024 5:02 PM Signed Constance Jacob Eduardo is a 34 year old female who presents for problem visit. HPI: Patient presents with positive test. She was drinking alcohol but stopped with positive test. OB History Gravida1 Para1 Term0 Preterm0 AB0 Living1 SAB0 IAB0 Ectopic0 Multiple0 Live Births0 Comment: Open adoption Applied Psychology Chair History LMP: LMP Unknown, IUD Age at Menarche: Age at First : Age at Menopause: Applied Psychology Chair History Comments: Sexual Activity: Yes; Male Contraception: I.U.D. PAST MEDICAL HISTORY Diagnosis Date TREMAYNE (generalized anxiety disorder) 07/29/2019 Recurrent major depressive disorder, in remission (HCC) 07/29/2019 PAST SURGICAL HISTORY Procedure Laterality Date MIRENA IUD 02/10/2015 FAMILY HISTORY Problem Relation Age of Onset Thyroid Mother Hyperlipidemia Father Diabetes Father Hypertension Father Cancer Sister brain Stroke Maternal Grandmother Stroke Maternal Grandfather other (melanoma) Maternal Aunt Social History Tobacco Use Smoking status: Never Smokeless tobacco: Never Vaping Use Vaping status: Never Used Substance Use Topics Alcohol use: Yes Alcohol/week: 21.0 standard drinks of alcohol Types: 21 Standard drinks or equivalent per week Comment: about 3 glasses of wine per day Drug use: No Current Outpatient Medications Medication Sig no115/iron/folic acid ( 19 ORAL) Take by mouth. cyanocobalamin, vitamin B-12, (VITAMIN B12 ORAL) Take by mouth as directed. No current facility-administered medications for this visit. Allergies As of Date: 10/14/2024 (No Known Allergies) Fully Assessed 06/09/2024 Allergies and current medication updated:Yes SENSITIVE EXAM: Sensitive exam not performed. EXAM: There were no vitals taken for this visit. GENERAL: pleasant, female in no apparent distress ASSESSMENT AND PLAN: Assessment AND Plan Missed menses Orders: UA DIP,URINE HCG (POC) Patient reassured and all questions answered. Follow up for routine PNC. Medical Decision Making: Problems: Moderate: New problem with uncertain prognosis Data: Unique test(s) ordered: 1 Risk: Low: Low risk from testing/treatment Medical Decision Making Level: 3 - Low Harriet Faustin MD Allergies As of Date: 10/14/2024 (No Known Allergies) Date Reviewed: 10/14/2024 Reviewed by: Harriet Faustin MD - Fully Assessed Reason for Visit: Discussion [813] Primary Visit Diagnosis:Missed menses [N92.6] Order(s):UA DIP,URINE HCG (POC) [7090319] Order #: [id number]. #:[id number] Prescriptions as of 10/14/2024 - no115/iron/folic acid ( 19 ORAL) Take by mouth. - cyanocobalamin, vitamin B-12, (VITAMIN B12 ORAL) Take by mouth as directed. Problem List As Of Date 10/14/2024 Noted Resolved Recurrent major depressive disorder, in remissi*07/29/2019 Well adult exam [Z00.00] 07/29/2019 TREMAYNE (generalized anxiety disorder) [F41.1] 07/29/2019 Encounter for routine gynecological examination* 3 Encounter Status:Closed by HARRIET FAUSTIN on 10/14/24 [facility],URINE HCG (POC)on Beta HCG ( test) Ql (U) Positive Abnormal Negative [facility] Comment on above: Location:[facility] [address] , [place] [address] Interpretation and review of laboratory results Abnormal [facility] Mailer (POCT) Internal QC [facility] Location:[facility] [address] [facility], [address] POINT OF CARE [facility] PAP TESTOrdered By: Betsy Lopez on 06-05-2024 Case Report Gynecologic Cytology Report Case: [id number] Authorizing Provider: Zuleyka Velásquez MD Collected: 06/02/2024 02:48 PM Ordering Location: OB/Gynecology Received: 06/02/2024 05:01 PM First Screen: Betsy Lopez, CT, ASCP Specimen: Pap Test, ThinPrep, Cervix [facility] Clinical History Routine Exam [facility] HPV Reflex HPV if Atypical [facility] Interpretation Negative [facility] LMP 06/02/2024 Comment: IUD Mirena unknown [facility] Other Interpretation Predominance of coccobacilli consistent with shift in vaginal vahid [facility] Pap Disclaimer e9cytMZuUSBcc9rrVYEb b GFuZzEwMzNcZnRuYmpcdW MuMXdqyoJiXYamy3OvS1N yMjAwMFxhbnNpXGRlZmxh nhhgLRFnIZM8xjKnYGCdW DjoNNIjEGaoDe1suNMsqK afVsLqLVRea3tmkrFMksi xlEu0s6xbGACuGqK6yODu FKndU6oygcVyyPKlKVUdY Jx8mJ01KKPkgQ1cxCGvSJ hxhoMkAdI7HSpyMQGmCfZ 3YNPatCWpPJXbA6ybVUPv WQfpHDFwNHpxiUBoRBV1r Bjkr5J0sLVotEUuqZyuEh PvBuQnAaCLk0MsAOe7wWi vX4TbFJQgRoY8xLYeCLOh UVtyRSLoQCDxlzA3eN02C CxtfjL1aOGej6Hiy02ev8 57gX7wcTIeMTH0EAYvVGX zhKYkQLGeZEB5FWChjHDf V4fzKQNgJG9dissoAVziF PrbXYUxsAX8HEUkkCOqZ1 WoAIIuLVsdJENiyfy7WiJ jIy4qdLZrcFlxCZump6lj p9zpgCAcMgl0EWWdPsDrQ yugILrqt4Ocl4sbWKCzgq 8qVPX9gNXrmByyx9H3hZN xXGRudGJsbnNiZGJcZmV0 EWeeEA5ank18EWDuKUZ1r q4nbDTnfLfrmiJdnDBcAA luL8GfWQAtf110HBEhF4R jFPLsk2U4mbSqLfNgUISh qPB3paK5INNwSFl1tFGta cA2tzAqrZJtK7qfpK6xZQ HdKR7drysao6woLAplYPa mLYMzxAD1ycF2XJDxpEHi D2VzfL2wQDElKMryZBZfp rn2GuNeGe7ihWDacSvhLY xzYmtwYWdlXHBnbmNvbnR ccGduZGVjXHBsYWluXHBs YWluXGYwXGZzMjRccWxcc JireT4zYoGoVfHhCgdpXT 5cPOJeZ2cgoBPaDWAjUSO nG6opItHztR1iqGbyHRvc rlY0VVBvTRTGSWCcC88lM ECiaKAbLXInU6GiUV8ovd zhoNFecSOrr2DlA0Pjdsn rYKwgW9WgV5KrQhIzMdJy p8MrkpXtGXRpkdRokdJlq Yq8hgXfS2M2qcV2oIMoWS TqwOJvN5YaBX4tjmpnuGY flBRpCYEbuIwus5z4yF8x IHRoZSBuZWVkIGZvciByZ XNjcmVlbmluZyBhdCByZW WplR2htcJfUXWxwyRgtgR hbHMsIGFuZCBjbGluaWNh gAIak7WkLMxofHktch5lh MwssZ1xFzQpJdQlNpamEO 2hXMKvY9aoqWWhPJCjCXL uU4sjYtTlzC8wwKebRVso pyNzTHCntz68 [facility] Performing Lab x6xsrFJhMTLhi1yfRKTh b GFuZzEwMzNcZnRuYmpcdW MxIHtccnRmMVxhbnNpXGR vPrxiksccQUCgCDK0hmOd ZKMzKPT8BYM9SaMcg9B7E WQbYjXbIYMvVI1alOgbWT HjWI6fROUmB6aviC6lmxd 3HfOuXGPwGgB6TBLlogN7 Ses3UJSbVKyiw4elz2WgT LGoGMl8sYkdSgJhHPFjd1 lzcyBcZmNoYXJzZXQwIEF seFPuJ462g1uga0tgnfLn xBL2AXBrTQB6GEnchyLsm tA4CDcrlQRwIzM9ZRgday RvQJweamGgwyXePwa9PVH cU879GED0vBinj2hrVDE0 GJPyMHRoIlRhQl7boPKfU 709WYUiIQCYEHPdnTt8VM QbduHwebGihZJSz666S58 4e2eyDZMjvyJqtQsQkyud m2vaV071HIElzOJxumJnS uXmTBJieFYkdMD6XCTiCH 1hcmdsMTgwMFxtYXJncjE 2CTKduGCzR6GxTGXnAQ5q ssovPGY6QAbpSROqBCN8D vZsXUKts2Zzlkr5EkPsqw 5nyw99QJS2p5VcaFmhALQ 9DTZ1LpSeUc4qcCGpJUYn ZF5jOiAxhOQoWENjxg54q NfkRMtnmfYncJ6xDbFnSV WdfCWjBCLrUN2jmUDxGPU yfM3fkumtLPChYxGnxuhp FNCdoFvprmRnJw7ycZghZ OL2FBhbV4bqpG3gPrQ4PN mpU7fauH8dMWq6WJaygBS 4BLPivL2yBP0qnoyrb0nl CBgfDAtaQIKescU0twG1R DMigVVsJ4DxzH7tJPHvFC 3yqkdcp2deOZO9CNxuAWJ aFNI1UnPjFTWor3Cxqvh2 WeZrb4TquFQdOMxxU65xa 260PZOnquLjZ0rdqUBgyb musCRvqvtkZNghxkU0TFQ sXHBsYWluXGYxXGZzMjJc bGFuZzEwMzNcaGljaFxmM JfnDxZfPQPzYHveS7oxZp FcZnMyMiBUZWNobmljYWw qN31auN9uJW07NPAncXQl oYIshI9fhG5uiMI2XSEwy jVebbfaZbWkZKAvd6BjBS NbRHQxD8rjcvQoMG3yRWM goU4vDxqgRCCcLSRPcEWz yZUvHGGdNQOLoOB8TSxxx tYaI0wwYWTpZVKbIIGGCX aGIaQeCySiFuH9STw3UPO mwy41o1oahYRiONMcmTOh DwCnDQChZSZrn9fkTMNok GFuZzEwMzNcZnRuYmpcdW FwNNLdYmJuk1php385dKZ cf5ilTWPiBnM7nXEaDSFm xLYcB439IUSfRWofo4cvk 7KgUFGfzZDrr5G3VFCQmb oupIo1nWbcH42rv0A2Uko eW9ezZWLwKZKcZ2YhVP6z LUShRgp9LZR5RPV9JPIlY JAoG4McUB3hDUTfvUXeHB b7q9akxAmmXSTlOYD7h9v tAXiurgHpBB5lyr2pvSz3 y1kiutAkFCAaJBQpcAXIX ZDqZ7AasVppZw1ikZd2pP weQbgkHBJ7Buq8ZB2owj2 0exd3cXneOHReoohwIkW4 GWcgFWSqwwqyFDl3BYskU FAmsJL4IAAqvINhP7DwDT jjPS7esjw5RZT8CCudPGV jRjC1INFbpURaQLMfqDuk LAboo001KQN2JtBeYZ1hT 4Syp9Z4mI0fzODfKQQesB GcZbViGWQjam2lwAKgOQu cg4MvZJS0ftG7jHCbsDEl NHIoGZ45Ekrpz4MlVfafg 2NeN59etJB6KPrce1waXB 8aAmS0fvUlGNrtg5lcgW3 gOcS5SKsyUQ4gQK3zDPJz hX0msajlPIZnQkWsrkihY LPyiCzqucTfUx9ztGxhLS P8LZkaZ2chqX3oNeV3INw cF3pwgH8tXMe9DCrqmOP0 RLXufX1qIS2gjsggx2gnH TvmGKqcPIJqcyI2oiKkTD GxnRSjJ7ZafJ1xKYLaKG4 jgalnf0cdQRS5EKzjDOHo BKH1VmPbFBUyl1Rcuwm2D sSux4PzjQUmSCzrT92fm4 99IVThllHdM3yexORqafq tzLWmxczjPKwdidE4THEd XHBsYWluXGYxXGZzMjBcb GFuZzEwMzNcaGljaFxmMV pnBrXwZIYwINgjX9hvUpB sLwVfJCVDbUAirs3gaEef WJeuzEPdpRGkjKZ9dE4aJ HRdpzIsru8wZEHglEQIvG K5ZSsuhiDgZ0vxygjhQWB 6UGEsCXC4X9aaWVQIwgNm DMIzICVunAAwYYRBYFV9B IZ4UQNgUAEJWDBgEMV3SX Z5CJQqQXMqhGFqEXMjacr wYXJkXHBsYWluXGYwXGZz GjMkhCappW1sVfDrVmYxF VnoLC1eCYVgL4hzrUDfIN NrPJJdS3eaNeVtvL4rfMl mMVxjZjJcZnMyMFxsdHJj kEWNBBDevjD8v3V2IWulo GFpblxmMVxmczIwXGxhbm znMPZsONkoP0xxWmRhKAA gmQrlUJbjn2HmWFNvKAHp UgFnKKomTFJ5l1Q8GVota LXzgeMIKtPJQG4zgBAovr tyND7DWerxaEOfrxenFXl mczIyXGxhbmcxMDMzXGhp U8bdKuUxLLSnjBzjNHluz 2NoXGYxXGZzMjJccGFyfX 0= [facility] Specimen Adequacy Satisfactory for interpretation. [facility] XR ANKLE MINIMUM 3 VIEWS LEF Ton 06-10-2023 XR ANKLE MINIMUM 3 VIEWS LEFT ORIGINAL EXAMINATION: THREE XRAY VIEWS OF THE LEFT ANKLE06/10/2023 9:47 am COMPARISON: None HISTORY: ORDERING SYSTEM PROVIDED HISTORY: Reason for Exam: lateral malleolus pain/swelling s/p fall last night pain FINDINGS: There is a transverse nondisplaced fracture of the lateral malleolus with adjacent soft tissue swelling. Ankle mortise alignment is normal. No other fracture or dislocation is seen. IMPRESSION: Nondisplaced fracture of the lateral malleolus. Interpreted by: Cole Snell MD Preliminary Report By: Cole Snell MD Electronically signed By Cole Snell MD Dictated Date: 06/10/2023 10:07:09 AM Prelim Date: 06/10/2023 10:07:37 AM Sign Date: 06/10/2023 10:07:37 AM Ordering Provider: ISAURO BECKETT [facility] ([place]) Vital Signs Date Time Vital Sign Value Performing Clinician Trevor meza 05-07-2025 16:18-0400 Body mass index (BMI) [Ratio] 30.2 kg/m2 Zuleyka Velásquez MD Work Phone: [facility] 05-07-2025 16:18-0400 Body weight 80.92 kg Zuleyka Velásquez MD Work Phone: [facility] 05-07-2025 16:18-0400 Diastolic blood pressure 64 mm[Hg] Zuleyka Velásquez MD Work Phone: [facility] 05-07-2025 16:18-0400 Systolic blood pressure 110 mm[Hg] Zuleyka Velásquez MD Work Phone: [facility] 05-05-2025 15:24-0400 Diastolic blood pressure 69 mm[Hg] [facility] 05-05-2025 15:24-0400 Systolic blood pressure 122 mm[Hg] [facility] 04-22-2025 08:29-0400 Body mass index (BMI) [Ratio] 29.28 kg/m2 Moustapha Ramirez MD Work Phone: [facility] 04-22-2025 08:29-0400 Body weight 78.47 kg Moustapha Ramirez MD Work Phone: [facility] 04-22-2025 08:29-0400 Diastolic blood pressure 60 mm[Hg] Moustapha Ramirez MD Work Phone: [facility] 04-22-2025 08:29-0400 Systolic blood pressure 104 mm[Hg] Moustapha Ramirez MD Work Phone: [facility] 03-24-2025 15:44-0400 Body mass index (BMI) [Ratio] 28.61 kg/m2 Harriet Faustin MD Work Phone: [facility] 03-24-2025 15:44-0400 Body weight 76.66 kg Harriet Faustin MD Work Phone: [facility] 03-24-2025 15:44-0400 Diastolic blood pressure 62 mm[Hg] Harriet Faustin MD Work Phone: [facility] 03-24-2025 15:44-0400 Systolic blood pressure 100 mm[Hg] Harriet Faustin MD Work Phone: [facility] 03-04-2025 14:29-0400 Body mass index (BMI) [Ratio] 28.1 kg/m2 Jocelyn Freddie BORDENN.CNM Work Phone: [facility] 03-04-2025 14:29-0400 Body weight 75.3 kg Jocelyn Frazier REMITTANCE CLERK.CNM Work Phone: [facility] 03-04-2025 14:29-0400 Diastolic blood pressure 62 mm[Hg] Jocelyn Frazier REMITTANCE CLERK.CNM Work Phone: [facility] 03-04-2025 14:29-0400 Systolic blood pressure 108 mm[Hg] Jocelyn Frazier REMITTANCE CLERK.CNM Work Phone: [facility] 02-24-2025 16:20-0400 Body mass index (BMI) [Ratio] 28.1 kg/m2 Jocelyn Frazier REMITTANCE CLERK.CNM Work Phone: [facility] 02-24-2025 16:20-0400 Body weight 75.3 kg Jocelyn Freddie REMITTANCE CLERK.CNM Work Phone: [facility] 02-24-2025 16:20-0400 Diastolic blood pressure 64 mm[Hg] Jocelyn Frazier REMITTANCE CLERK.CNM Work Phone: [facility] 02-24-2025 16:20-0400 Systolic blood pressure 110 mm[Hg] Jocelyn Freddie REMITTANCE CLERK.CNM Work Phone: [facility] 01-30-2025 15:19-0400 Body mass index (BMI) [Ratio] 27.42 kg/m2 Jocelynkevin Frazier REMITTANCE CLERK.CNM Work Phone: [facility] 01-30-2025 15:19-0400 Body weight 73.48 kg Jocelyn Freddie REMITTANCE CLERK.CNM Work Phone: [facility] 01-30-2025 15:19-0400 Diastolic blood pressure 64 mm[Hg] Jocelyn Freddie REMITTANCE CLERK.CNM Work Phone: [facility] 01-30-2025 15:19-0400 Systolic blood pressure 100 mm[Hg] Jocelyn Freddie REMITTANCE CLERK.CNM Work Phone: [facility] 12-15-2024 17:35-0400 Body mass index (BMI) [Ratio] 26.53 kg/m2 Shyam Jensen MD Work Phone: [facility] 12-15-2024 17:35-0400 Body weight 71.1 kg Shyam Jensen MD Work Phone: [facility] 12-15-2024 17:35-0400 Diastolic blood pressure 60 mm[Hg] Shyam Jensen MD Work Phone: [facility] 12-15-2024 17:35-0400 Heart rate 74 /min Shyam Jensen MD Work Phone: [facility] 12-15-2024 17:35-0400 Respiratory rate 16 /min Shyam Jensen MD Work Phone: [facility] 12-15-2024 17:35-0400 Systolic blood pressure 108 mm[Hg] Shyam Jensen MD Work Phone: [facility] 12-11-2024 14:18-0400 Body mass index (BMI) [Ratio] 26.07 kg/m2 Harriet Faustin MD Work Phone: [facility] 12-11-2024 14:18-0400 Body weight 69.85 kg Harriet Faustin MD Work Phone: [facility] 12-11-2024 14:18-0400 Diastolic blood pressure 60 mm[Hg] Harriet Faustin MD Work Phone: [facility] 12-11-2024 14:18-0400 Systolic blood pressure 106 mm[Hg] Harriet Faustin MD Work Phone: [facility] 11-06-2024 09:00-0500 Body mass index (BMI) [Ratio] 26.24 kg/m2 Harriet Faustin MD Work Phone: [facility] 11-06-2024 09:00-0500 Body weight 70.31 kg Harriet Faustin MD Work Phone: [facility] 11-06-2024 09:00-0500 Diastolic blood pressure 62 mm[Hg] Harriet Faustin MD Work Phone: [facility] 11-06-2024 09:00-0500 Systolic blood pressure 100 mm[Hg] Harriet Faustin MD Work Phone: [facility] 10-27-2024 14:48-0500 Body mass index (BMI) [Ratio] 26.17 kg/m2 Mallorie Neil REMITTANCE CLERK.STABBER Work Phone: [facility] 10-27-2024 14:48-0500 Body weight 70.[address] REMITTANCE CLERK.STABBER Work Phone: [facility] 10-27-2024 14:48-0500 Diastolic blood pressure 62 mm[Hg] Mallorie Neil REMITTANCE CLERK.STABBER Work Phone: [facility] 10-27-2024 14:48-0500 Systolic blood pressure 112 mm[Hg] Mallorie Neil REMITTANCE CLERK.STABBER Work Phone: [facility] 10-14-2024 16:20-0500 Body mass index (BMI) [Ratio] 25.56 kg/m2 Harriet Faustin MD Work Phone: [facility] 10-14-2024 16:20-0500 Body weight 68.49 kg Harriet Faustin MD Work Phone: [facility] 10-14-2024 16:20-0500 Diastolic blood pressure 72 mm[Hg] Harriet Faustin MD Work Phone: [facility] 10-14-2024 16:20-0500 Systolic blood pressure 104 mm[Hg] Harriet Faustin MD Work Phone: [facility] 06-09-2024 13:06-0400 Body mass index (BMI) [Ratio] 25.73 kg/m2 Mallorie Plaza REMITTANCE CLERK.STABBER Work Phone: [facility] 06-09-2024 13:06-0400 Body weight 68.95 kg Mallorie Neil REMITTANCE CLERK.STABBER Work Phone: [facility] 06-09-2024 13:06-0400 Diastolic blood pressure 74 mm[Hg] Mallorie Plaza REMITTANCE CLERK.STABBER Work Phone: [facility] 06-09-2024 13:06-0400 Systolic blood pressure 120 mm[Hg] Mallorie Neil REMITTANCE CLERK.STABBER Work Phone: [facility] 06-02-2024 13:51-0400 Body height 163.7 cm Zuleyka Velásquez MD Work Phone: [facility] 06-02-2024 13:51-0400 Body mass index (BMI) [Ratio] 25.42 kg/m2 Zuleyka Velásquez MD Work Phone: [facility] 06-02-2024 13:51-0400 Body weight 68.13 kg Zuleyka Velásquez MD Work Phone: [facility] 06-02-2024 13:51-0400 Diastolic blood pressure 62 mm[Hg] Zuleyka Velásquez MD Work Phone: [facility] 06-02-2024 13:51-0400 Systolic blood pressure 98 mm[Hg] Zuleyka Velásquez MD Work Phone: [facility] 08-01-2024 06:59-0400 Body height 165 cm Deborah Phelps PA-C Work Phone: [facility] 04-03-2024 06:59-0400 Body mass index (BMI) [Ratio] 24.49 kg/m2 Deborah Phelps PA-C Work Phone: [facility] 04-03-2024 06:59-0400 Body temperature 97.81 [degF] Deborah Phelps PA-C Work Phone: [facility] 04-03-2024 06:59-0400 Body weight 66.68 kg Deborah Phelps PA-C Work Phone: [facility] 04-03-2024 06:59-0400 Diastolic blood pressure 80 mm[Hg] Deborah Phelps PA-C Work Phone: [facility] 04-03-2024 06:59-0400 Heart rate 75 /min Deborah Phelps PA-C Work Phone: [facility] 04-03-2024 06:59-0400 SaO2% (BldA) [Mass fraction] 99 % Deborah Phelps PA-C Work Phone: [facility] 04-03-2024 06:59-0400 Systolic blood pressure 102 mm[Hg] Deborah Phelps PA-C Work Phone: [facility] 04-30-2023 06:56-0400 Body temperature 97.39 [degF] Deborah Phelps PA-C Work Phone: [facility] 04-30-2023 06:56-0400 Body weight 66.22 kg Deborah Phelps PA-C Work Phone: [facility] 04-30-2023 06:56-0400 Diastolic blood pressure 72 mm[Hg] Deborah Phelps PA-C Work Phone: [facility] 04-30-2023 06:56-0400 Heart rate 65 /min Deborah Phelps PA-C Work Phone: [facility] 04-30-2023 06:56-0400 Respiratory rate 16 /min Deborah Phelps PA-C Work Phone: [facility] 04-30-2023 06:56-0400 Systolic blood pressure 92 mm[Hg] Deborah Phelps PA-C Work Phone: [facility] Encounters Encounter Date Encounter Type Care Provider Facility Start: 06-18-2025 End: 06-18-2025 ambulatory Deborah TORREZ Facility:[facility] Start: 06-11-2025 End: 06-11-2025 ambulatory ALEXANDER RAMIREZ Facility:[facility] Start: 06-04-2025 End: 06-04-2025 ambulatory MOUSTAPHA RAMIREZ Facility:[facility] Start: 05-29-2025 End: 05-29-2025 ambulatory ALEXANDER RAMIREZ Facility:[facility] Start: 05-21-2025 End: 05-21-2025 ambulatory ALEXANDER RAMIREZ Facility:[facility] Start: 05-07-2025 End: 05-07-2025 Patient encounter procedure Zuleyka Velásquez MD Work Phone: OB/Gynecology Comment on above: Multigravida of adva nced maternal age in second trimester (HCC) (Primary Dx); 34 weeks gestation of (HCC); GBS bacteriuria; AMA (advanced maternal age) multigravida 35+, third trimester (HCC) Start: 05-07-2025 End: 05-07-2025 ambulatory ALEXANDER RAMIREZ Facility:[facility] Start: 05-06-2025 End: 05-06-2025 ambulatory JOCELYN FRAZIER Facility:[facility] Start: 05-06-2025 End: 05-06-2025 Subsequent hospital visit by physician Jesika Mckay Ob L&D Work Phone: OB/Gynecology Comment on above: TREMAYNE (generalized anx iety disorder) [F41.1] Start: 05-05-2025 End: 05-05-2025 Patient encounter procedure 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 Tech 2 Product Marketing Specialist [facility] Comment on above: screening for malformation using ultrasonics (HCC) (Primary Dx); AMA (advanced maternal age) multigravida 35+, third trimester (HCC); 33 weeks gestation of (HCC) Start: 05-05-2025 End: 05-05-2025 ambulatory [facility] Facility:[facility] Start: 04-24-2025 End: 04-24-2025 ambulatory Harriet Faustin MD Work Phone: OB/Gynecology Comment on above: Yellow discharge Start: 04-24-2025 End: 04-24-2025 Telephone encounter [facility] Work Phone: [facility] 3 L&D Comment on above: Care Coordination (M -Power Scheduling/LM attempt # 2) Start: 04-22-2025 End: 04-22-2025 Patient encounter procedure Moustapha Ramirez MD Work Phone: OB/Gynecology Comment on above: AMA (advanced matern al age) multigravida 35+, third trimester (HCC) (Primary Dx); 31 weeks gestation of ([facility]); Supervision of high risk in third trimester ([facility]); Supervision of high-risk of elderly multigravida ([facility]) Start: 04-22-2025 End: 04-22-2025 [facility] Facility:[facility] Start: 04-17-2025 End: 04-17-2025 Telephone encounter [facility] Work Phone: [facility] 3 L&D Comment on above: Care Coordination (M -[employer] Scheduling/LM attempt # 1) Start: 04-16-2025 End: 04-16-2025 ambulatory [facility] Work Phone: [facility] Comment on above: [facility] Time to Sche josee Start: 04-16-2025 End: 04-16-2025 E-mail encounter from caregiver [facility] Work Phone: [facility] Start: 04-09-2025 End: 04-09-2025 ambulatory [facility] Facility:[facility] Start: 03-24-2025 End: 03-24-2025 Patient encounter procedure Harriet Faustin MD Work Phone: OB/Gynecology Comment on above: GBS bacteriuria (Linnea michael Dx); Multigravida of advanced maternal age in second trimester (HCC); 27 weeks gestation of (HCC); Need for vaccination Start: 03-24-2025 End: 03-24-2025 ambulatory ALEXANDER JAMES Facility:[facility] Start: 03-04-2025 End: 03-04-2025 Patient encounter procedure Jocelyn Frazier APRN.CNM Work Phone: OB/Gynecology Comment on above: Decreased move ments in second trimester, single or unspecified fetus (HCC) (Primary Dx) Start: 03-04-2025 End: 03-04-2025 ambulatory ALEXANDER RAMIREZ Facility:[facility] Start: 02-25-2025 End: 02-25-2025 E-mail encounter from caregiver Jesika Mckay Ob L&D Work Phone: [facility] Start: 02-25-2025 End: 02-25-2025 Patient encounter procedure Jesika Mckay Ob L&D Work Phone: [facility] Comment on above: M-[facility] Referral Start: 02-24-2025 End: 02-24-2025 Patient encounter procedure Jocelyn Frazier APRN.CNM Work Phone: OB/Gynecology Comment on above: Screening for diabet es mellitus (Primary Dx); Supervision of high-risk of elderly multigravida (HCC); Multigravida of advanced maternal age in second trimester (HCC); GBS bacteriuria; TREMAYNE (generalized anxiety disorder); Recurrent major depressive disorder, in remission; 23 weeks gestation of (HCC); Multiparous Start: 02-24-2025 End: 02-24-2025 ambulatory ALEXANDER RAMIREZ Facility:[facility] Start: 01-30-2025 End: 01-30-2025 [facility] Facility:[facility] Start: 01-30-2025 End: 02-03-2025 Patient encounter procedure Whi Tech 1 Product Marketing Specialist [facility] Comment on above: AMA (advanced matern al age) multigravida 35+, second trimester (HCC) (Primary Dx); 6 weeks gestation of (HCC); Encounter for anatomic survey (HCC) Supervision of high- risk of elderly multigravida (HCC) (Primary Dx); Multigravida of advanced maternal age in second trimester (HCC); 20 weeks gestation of (HCC); GBS bacteriuria; Recurrent major depressive disorder, in remission; TREMAYNE (generalized anxiety disorder) Start: 12-29-2024 End: 12-29-2024 ambulatory ALEXANDER RAMIREZ Facility:[facility] Start: 12-22-2024 End: 12-23-2024 Telephone encounter Harriet Faustin MD Work Phone: OB/Gynecology Comment on above: Written order from Apurva hines for breast pump Start: 12-15-2024 End: 12-15-2024 ambulatory ALEXANDER RAMIREZ Facility:[facility] Start: 12-15-2024 End: 12-15-2024 Patient encounter procedure Shyam Jensen MD Work Phone: [facility] Comment on above: Plantar wart (Primar y Dx) Start: 12-11-2024 End: 12-11-2024 Patient encounter procedure Harriet Faustin MD Work Phone: OB/Gynecology Comment on above: Multigravida of adva nced maternal age in first trimester (HCC) (Primary Dx); GBS bacteriuria Encounter for antena betty screening for malformation using ultrasound ([facility]) (Primary Dx); 13 weeks gestation of ([facility]); Encounter for (NT) nuchal translucency scan ([facility]) Start: 12-11-2024 End: 12-11-2024 ambulatory ALEXANDER RAMIREZ Facility:[facility] Start: 12-01-2024 End: 12-01-2024 ambulatory Harriet Faustin MD Work Phone: OB/Gynecology Comment on above: Blood work Start: 11-06-2024 End: 11-06-2024 ambulatory ALEXANDER RAMIREZ Facility:[facility] Start: 11-06-2024 End: 11-06-2024 Patient encounter procedure Harriet Faustin MD Work Phone: OB/Gynecology Comment on above: Supervision of high- risk of elderly multigravida (Primary Dx); 8 weeks gestation of Start: 11-03-2024 End: 11-03-2024 Telephone encounter Jocelynkevin Frazier APRN.CNM Work Phone: OB/Gynecology Comment on above: Early OB Bleeding Start: 10-30-2024 End: 10-30-2024 Telephone encounter Mallorie Trejo APRN.CNP Work Phone: OB/Gynecology Comment on above: Results Start: 10-27-2024 End: 10-27-2024 ambulatory [facility] Facility:[facility] Start: 10-27-2024 End: 10-27-2024 Patient encounter procedure Mallorie Trejo APRN.STABBER Work Phone: OB/Gynecology Comment on above: Supervision of high- risk of elderly multigravida (Primary Dx); with uncertain dates, antepartum; Screen for STD (sexually transmitted disease); 6 weeks gestation of Start: 10-14-2024 End: 10-14-2024 [facility] Facility:[facility] Start: 10-14-2024 End: 10-14-2024 Patient encounter procedure Harriet Faustin MD Work Phone: OB/Gynecology Comment on above: Missed menses (Prima ry Dx) Start: 06-09-2024 End: 06-09-2024 Patient encounter procedure Mallorie Trejo APRN.STABBER Work Phone: OB/Gynecology Comment on above: Encounter for IUD re moval (Primary Dx) Start: 06-02-2024 End: 06-02-2024 Patient encounter procedure Zuleyka Velásquez MD Work Phone: OB/Gynecology Comment on above: Encounter for gyneco logical examination (general) (routine) without abnormal findings (Primary Dx); Screening for cervical cancer; Desire for ; IUD (intrauterine device) in place Start: 06-02-2024 End: 06-02-2024 Patient encounter status Zuleyka Velásquez MD Work Phone: [facility] Start: 04-04-2024 Telephone encounter Deborah cobb PA-C Work Phone: [facility] Comment on above: Results Start: 04-03-2024 End: 04-03-2024 Patient encounter procedure Deborah ARCEC Work Phone: [facility] [place] Comment on above: Well adult exam (Linnea michael Dx); TREMAYNE (generalized anxiety disorder); Recurrent major depressive disorder, in remission (HCC); Encounter for lipid screening for cardiovascular disease; Screening for diabetes mellitus Start: 04-03-2024 End: 04-03-2024 Patient encounter status Deborah Phelps PA-C Work Phone: [facility] Work Phone: Start: 06-10-2023 End: 06-10-2023 Emergency department patient visit ISAURO BECKETT MD Facility:A Start: 04-30-2023 End: 04-30-2023 Patient encounter procedure Deborah Phelps PA-C Work Phone: [facility] [place] Comment on above: Bilateral impacted c erumen (Primary Dx) Start: 04-02-2023 ambulatory Deborah TORREZ-C Work Phone: [facility] [place] Comment on above: Question regarding C OMP METABOLIC PANEL Start: 03-30-2023 End: 10-27-2024 Patient encounter status Deborah Phelps PA-C Work Phone: [facility] Work Phone: Start: 07-29-2019 End: 10-27-2024 Patient encounter status Mallorie Trejo APRN.STABBER Work Phone: [facility] Procedures Date Procedure Procedure Detail Performing Clinician Start: 05-07-2025 Urnls dip stick/tabl et rgnt non-auto w/o micrscp Zuleyka Velásquez MD Work Phone: Start: 05-05-2025 Us preg uterus after 1st trimest / gestation Moustapha Ramirez MD Work Phone: Start: 01-30-2025 Us preg uterus after 1st trimest / gestation Mallorie Trejo REMITTANCE CLERK.STABBER Work Phone: Start: 12-11-2024 Us preg uterus after 1st trimest 1/ gestation Mallorie Trejo REMITTANCE CLERK.STABBER Work Phone: Start: 12-11-2024 Antibody screen ALEXANDER RAMIREZ Comment on above: Order Comment: Speci men Type: BLOOD SPECIMENOrdering Facility: [facility] Address: [address] [place] [address] [place] [address] Performed By: #### T SPN ####CC MAIN BLOOD BANKCLIA [id number] [place] [address] [place] Start: 10-27-2024 Us uterus l imited / fetuses Mallorie Trejo APRN.STABBER Work Phone: Start: 10-14-2024 UA DIP,URINE HCG (POC) Harriet Faustin MD Work Phone: Start: 06-02-2024 Cytp cerv/vag auto t hin layer prep mnl screen Zuleyka Velásquez MD Work Phone: Plan of Treatment Date Care Activity Detail Author Start: 03-24-2035 Urine microalbumin profile DTaP,Tdap,Td Vaccine (3 - Td or Tdap) [facility] Start: 03-30-2033 Urine microalbumin profile [facility] Start: 06-02-2027 Screening for malign ant neoplasm of cervix Cervical Cancer Screening [facility] Start: 06-18-2025 End: 06-18-2025 Patient encounter procedure 06/18/2025 3:15 PM EDT Routine Office Visit OB/Gynecology [address] [place], [place] [id number] Merly Davis APRN.CN [address] [place] [address] OB OB/Gynecology Comment on above: OB Start: 06-11-2025 End: 06-11-2025 Patient encounter procedure 06/11/2025 1:10 PM EDT Routine Office Visit OB/Gynecology [address] [place], [place] [id number] Harriet Faustin MD [address] [place] [address] Obb OB/Gynecology Comment on above: Obb Start: 06-04-2025 End: 06-04-2025 Patient encounter procedure OB/Gynecology Comment on above: Annual Ob Start: 05-28-2025 End: 05-28-2025 Patient encounter procedure 05/28/2025 11:40 AM EDT Routine Office Visit OB/Gynecology [address] [place] [address] Harriet Faustin MD [address] [place] [address] ob OB/Gynecology Comment on above: ob Start: 05-21-2025 End: 05-21-2025 Patient encounter procedure 05/21/2025 4:30 PM EDT Routine Office Visit OB/Gynecology [address] [place] [address] Merly Davis APRN.CN [address] [place] [address] OB OB/Gynecology Comment on above: OB Start: 05-07-2025 End: 05-07-2025 Patient encounter procedure 05/07/2025 4:20 PM EDT Routine Office Visit OB/Gynecology [address] [place] [address] Zuleyka Velásquez MD [address] [place] [address] OB OB/Gynecology Comment on above: OB Start: 05-06-2025 End: 05-06-2025 Patient encounter procedure 05/06/2025 12:00 PM EDT Appointment OB/Gynecology [address] [place] [address] L&D, [facility] [place] [place] [address] [place] [address] [facility] phone consult OB/Gynecology Comment on above: [facility] phone consul t Start: 05-05-2025 End: 05-05-2025 Patient encounter procedure 05/05/2025 3:00 PM EDT Routine Office Visit Maternal Medicine [address] [place] [address] Growth [facility] Comment on above: Growth Start: 05-04-2025 Influenza vaccination [facility] Start: 05-04-2025 RSV Vaccine (1 - Ris k 1-dose series) RSV Vaccine (1 - Risk 1-dose series) [facility] Start: 04-22-2025 End: 04-22-2026 OBSTETRIC ULTRASOUND WHI OBSTETRIC ULTRASOUND [facility]I Anc Imaging Routine AMA (advanced maternal age) multigravida 35+, third trimester (HCC) 31 weeks gestation of (HCC) Expected: 04/22/2025, Expires: 04/22/2026 [facility] Work Phone: Comment on above: Expected: 04/22/2025 , Expires: 04/22/2026 Start: 04-22-2025 End: 04-22-2025 Patient encounter procedure 04/22/2025 8:30 AM EDT Routine Office Visit OB/Gynecology [address] [place] [address] Moustapha Ramirez MD [address] [place] [address] OB OB/Gynecology Comment on above: OB Start: 04-09-2025 End: 04-09-2025 Patient encounter procedure [facility] [place] Comment on above: physical OB Start: 03-24-2025 End: 03-24-2025 Patient encounter procedure 03/24/2025 3:50 PM EDT Routine Office Visit OB/Gynecology [address] [place] [address] Harriet Faustin MD [address] [place] [address] OB OB/Gynecology Comment on above: OB Start: 03-24-2025 End: 03-24-2025 ambulatory 03/24/2025 3:45 PM EDT Results Only Lisandra Sandhu [facility] [address] [place] [address] [facility] Comment on above: Glucose Start: 02-24-2025 End: 02-24-2025 Patient encounter procedure 02/24/2025 4:30 PM EDT Routine Office Visit OB/Gynecology [address] [place] [address] Jocelyn Frazier APRN.CNM [address] [place] [address] OB OB/Gynecology Comment on above: OB Start: 02-24-2025 End: 05-26-2025 ANEMIA REFLEX PANEL ANEMIA REFLEX PANEL Lab Routine Supervision of high-risk of elderly multigravida (HCC) 23 weeks gestation of (HCC) Expected: 02/24/2025, Expires: 05/26/2025 [facility] Comment on above: Expected: 02/24/2025 , Expires: 05/26/2025 Start: 02-24-2025 End: 02-24-2026 GESTATIONAL GLUCOSE SCREEN, 1-HOUR, 50 GRAM, NON-FASTING GESTATIONAL GLUCOSE SCREEN, 1-HOUR, 50 GRAM, NON-FASTING Lab Routine Screening for diabetes mellitus Supervision of high-risk of elderly multigravida (HCC) 23 weeks gestation of (HCC) Expected: 02/24/2025, Expires: 02/24/2026 [facility] Work Phone: Comment on above: Expected: 02/24/2025 , Expires: 02/24/2026 Start: 02-24-2025 End: 02-24-2026 SYPHILIS TREPONEMAL W/REFLEX SYPHILIS TREPONEMAL W/REFLEX Lab Routine Supervision of high-risk of elderly multigravida (HCC) 23 weeks gestation of (HCC) Expected: 02/24/2025, Expires: 02/24/2026 [facility] Comment on above: Expected: 02/24/2025 , Expires: 02/24/2026 Start: 01-30-2025 End: 01-30-2025 Patient encounter procedure Maternal Medicine Comment on above: Anatomy/OB OB Start: 01-02-2025 End: 01-02-2025 Patient encounter procedure OB/Gynecology Comment on above: OB Start: 12-29-2024 End: 12-29-2024 Patient encounter procedure 12/29/2024 11:10 AM EDT Routine Office Visit OB/Gynecology [address] [place] [address] Rosalba Ballard MD [address] [place] [address] OB OB/Gynecology Comment on above: OB Start: 12-15-2024 End: 12-15-2024 Patient encounter procedure 12/15/2024 5:40 PM EDT Office Visit [facility] [place] [address] [place] [address] Shyam Jensen MD [address] [place] [address] wart removal [facility] Comment on above: wart removal Start: 12-11-2024 End: 12-11-2024 Patient encounter procedure Maternal Medicine Comment on above: Nuchal Nuchal /OB Start: 11-06-2024 End: 11-06-2024 Patient encounter procedure 11/06/2024 9:00 AM EST Routine Office Visit OB/Gynecology [address] [place] [address] Harriet Faustin MD [address] [place] [address] early OB spotting - see 11/03 phone note OB/Gynecology Comment on above: early OB spotting - see 11/03 phone note Start: 10-29-2024 End: 10-29-2024 Patient encounter procedure 10/29/2024 1:00 PM EST Initial Office Visit OB/Gynecology [address] [place] [address] Jocelyn Frazier APRN.CN [address] [place] [address] New 1st OB OB/Gynecology Comment on above: New 1st OB Start: 10-27-2024 End: 01-26-2025 ANEMIA REFLEX PANEL ANEMIA REFLEX PANEL Lab Routine 6 weeks gestation of Expected: 10/27/2024, Expires: 01/26/2025 [facility] Work Phone: Comment on above: Expected: 10/27/2024 , Expires: 01/26/2025 Start: 10-27-2024 End: 01-26-2025 Hemoglobin A1c in Blood HEMOGLOBIN A1C Lab Routine 6 weeks gestation of Expected: 10/27/2024, Expires: 01/26/2025 [facility] Comment on above: Expected: 10/27/2024 , Expires: 01/26/2025 Start: 10-27-2024 End: 01-26-2025 Hepatitis B virus surface Ag [Presence] in Serum HEPATITIS B SURFACE ANTIGEN Lab Routine Screen for STD (sexually transmitted disease) 6 weeks gestation of Expected: 10/27/2024, Expires: 01/26/2025 [facility] Comment on above: Expected: 10/27/2024 , Expires: 01/26/2025 Start: 10-27-2024 End: 01-26-2025 Hepatitis C virus Ab [Presence] in Serum HEPATITIS C ANTIBODY IA WITH CONFIRMATION Lab Routine Screen for STD (sexually transmitted disease) 6 weeks gestation of Expected: 10/27/2024, Expires: 01/26/2025 [facility] Comment on above: Expected: 10/27/2024 , Expires: 01/26/2025 Start: 10-27-2024 End: 01-26-2025 HIV 1+2 Ab [Presence] in Serum or Plasma by Immunoassay HIV 1/2 COMBO WITH REFLEX TO DIFFERENTIATION Lab Routine Screen for STD (sexually transmitted disease) 6 weeks gestation of Expected: 10/27/2024, Expires: 01/26/2025 [facility] Comment on above: Expected: 10/27/2024 , Expires: 01/26/2025 Start: 10-27-2024 End: 10-27-2025 OBSTETRIC ULTRASOUND WHI OBSTETRIC ULTRASOUND WHI Anc Imaging Routine 6 weeks gestation of Expected: 10/27/2024, Expires: 10/27/2025 [facility] Comment on above: Expected: 10/27/2024 , Expires: 10/27/2025 Start: 10-27-2024 End: 01-26-2025 RUBELLA IGG ANTIBODY RUBELLA IGG ANTIBODY Lab Routine Screen for STD (sexually transmitted disease) 6 weeks gestation of Expected: 10/27/2024, Expires: 01/26/2025 [facility] Comment on above: Expected: 10/27/2024 , Expires: 01/26/2025 Start: 10-27-2024 End: 01-26-2025 SYPHILIS TREPONEMAL W/REFLEX SYPHILIS TREPONEMAL W/REFLEX Lab Routine Screen for STD (sexually transmitted disease) 6 weeks gestation of Expected: 10/27/2024, Expires: 01/26/2025 [facility] Comment on above: Expected: 10/27/2024 , Expires: 01/26/2025 Start: 10-27-2024 End: 01-26-2025 TYPE + SCREEN TYPE + SCREEN Blood Bank Routine 6 weeks gestation of Expected: 10/27/2024, Expires: 01/26/2025 [facility] Comment on above: Expected: 10/27/2024 , Expires: 01/26/2025 Start: 06-09-2024 End: 06-09-2024 Patient encounter procedure 06/09/2024 1:00 PM EDT Office Visit OB/Gynecology [address] [place] [address] Mallorie Trejo APRN.CNP [address] [place] [address] REMOVE INTRAUTERINE DEVICE OB/Gynecology Comment on above: REMOVE INTRAUTERINE DEVICE Start: 06-02-2024 End: 06-02-2024 Patient encounter procedure 06/02/2024 1:40 PM EDT Office Visit OB/Gynecology [address] [place] [address] Zuleyka Velásquez MD [address] [place] [address] Due for a Pap and TBD may want to remove IUD OB/Gynecology Comment on above: Due for a Pap and TB D may want to remove IUD Start: 05-04-2024 Covid-19 Vaccine () Covid-19 Vaccine () [facility] Start: 05-04-2024 Influenza vaccination Influenza Vacc ine (#1) [facility] Start: 04-03-2024 End: 07-03-2024 Comprehensive metabolic 2000 panel - Serum or Plasma [facility] Comment on above: Expected: 04/03/2024 , Expires: 07/03/2024 Start: 04-03-2024 End: 07-03-2024 Hemoglobin A1c in Blood [facility] Work Phone: Comment on above: Expected: 04/03/2024 , Expires: 07/03/2024 Start: 04-03-2024 End: 07-03-2024 LIPID PANEL, NONFASTING [facility] Comment on above: Expected: 04/03/2024 , Expires: 07/03/2024 Start: 03-30-2024 COVID-19 VACCINE (4 - Moderna series) COVID-19 VACCINE (4 - Moderna series) [facility] Comment on above: Postponed from 09/12 (Declined at this time) Start: 07-04-2023 PAP TESTING PAP TESTING [facility] Start: 05-05-2023 End: 07-05-2023 Hepatic function 2000 panel - Serum or Plasma HEPATIC FUNCTION PNL Lab Routine Serum total bilirubin elevated Expected: 05/05/2023, Expires: 07/05/2023 [facility] Work Phone: Comment on above: Expected: 05/05/2023 , Expires: 07/05/2023 Start: 05-04-2023 Covid-19 Vaccine () Covid-19 Vaccine () [facility] Start: 05-04-2023 Influenza vaccination INFLUENZA (#1) [facility] Start: 07-04-2021 Screening for malign ant neoplasm of cervix Cervical Cancer Screening [facility] Start: 2019 HPV TESTING HPV TESTING [facility] Start: 2016 HPV Vaccine (1 - 3-d ose SCDM series) HPV Vaccine (1 - 3-dose SCDM series) [facility] Bacteria identified in Urine by Culture BACTERIAL CULTURE, URINE Microbiology Routine 6 weeks gestation of 10/27/2024 3:33 PM EST [facility] Chlamydia trachomatis+Neisseria gonorrhoeae DNA [Presence] in Unspecified specimen by ANUEL with probe detection GONORRHEA/CHLAMYDIA NAAT Lab Routine Screen for STD (sexually transmitted disease) 6 weeks gestation of 10/27/2024 3:33 PM EST [facility] Removal intrauterine device iud REMOVE INTRAUTERINE DEVICE Procedures Routine Desire for IUD (intrauterine device) in place Ordered: 06/02/2024 [facility] Work Phone: Comment on above: Ordered: 06/02/2024 TRICHOMONAS VAGINALI S NAAT TRICHOMONAS VAGINALIS NAAT Lab Routine Screen for STD (sexually transmitted disease) 6 weeks gestation of 10/27/2024 3:33 PM [facility] Immunizations Immunization Date Immunization Notes [facility] tetanus toxoid, redu genny diphtheria toxoid, and acellular pertussis vaccine, adsorbed Harriet Faustin MD Work Phone: [facility] 03-30-2023 tetanus toxoid, redu genny diphtheria toxoid, and acellular pertussis vaccine, adsorbed Deborah Phelps PA-C Work Phone: [facility] 07-18-2021 influenza virus vacc ine, unspecified formulation Deborah Phelps PA-C Work Phone: [facility] 01-18-1999 hepatitis B vaccine, pediatric or pediatric/adolescent dosage Deborah Phelps PA-C Work Phone: [facility] 04-20-1998 hepatitis B vaccine, pediatric or pediatric/adolescent dosage Deborah Phelps PA-C Work Phone: [facility] 03-23-1998 hepatitis B vaccine, pediatric or pediatric/adolescent dosage Deborah Phelps PA-C Work Phone: [facility] Payers Date Payer Category Payer Self-pay 2024 Unknown [id number] 2023 Private Health Insurance [id number] 2022 Private Health Insurance [id number] 1989 Unknown [id number] Unknown [id number] Social History Date Type Detail Facility Start: [facility]-30-[facility]23 [facility] Start: 03-30-2023 Tobacco use and exposure Smoke less tobacco non-user [facility] Start: 03-30-2023 End: 06-09-2024 Alcohol intake Current drinker of alcohol (finding) [facility] Start: 03-30-2023 End: 10-14-2024 Alcohol intake [facility] Start: 08-17-2021 End: 10-14-2024 Social connection and isolation panel [facility] Do you belong to any clubs or organizations such as shinto groups, unions, fraternal or athletic groups, or school groups? Yes [facility] Are you now , , , , never or living with a partner? [facility] How often to you hav e a drink containing alcohol? 4 or more times a week [facility] How many standard dr inks containing alcohol do you have on a typical day? 3 or 4 [facility] How often do you hav e 6 or more drinks on 1 occasion? Monthly [facility] How hard is it for y ou to pay for the very basics like food, housing, medical care, and heating Not very hard [facility] Start: 12-04-2016 Adult Depression Scr eening Assessment 2 [facility] Do you feel stress - tense, restless, nervous, or anxious, or unable to sleep at night because your mind is troubled all the time - these days [OSQ] Only a little [facility] (I/We) worried wheth er (my/our) food would run out before (I/we) got money to buy more. Never true [facility] In the past 12 month s, was there a time when you were not able to pay the mortgage or rent on time? No [facility] Start: 1990 Sex Assigned At Female [facility] Start: 10-04-2020 Gender identity Identifies as female gender (finding) [facility] Start: 05-17-2020 Sexual orientation Heterosexual (estrada collier) [facility] How often do you hav e 6 or more drinks on 1 occasion? Monthly [facility] Do you feel stress - tense, restless, nervous, or anxious, or unable to sleep at night because your mind is troubled all the time - these days [OSQ] Not at all [facility] Start: 04-03-2024 Alcohol Comment about 3 glasse s of wine per day [facility] Start: 10-14-2024 End: 05-07-2025 Alcoholic beverage intake Ex-drinker (finding) [facility] Start: 10-23-2024 Education 17 [facility] Start: 09-25-2024 [facility] Goals Date Patient Goal Desired Activity /State Personal health goal Clinical Notes 04-04-2023 to 06-09-2025 Quick Notes - Zuleyka Velásquez MD - 05/07/2025 4:26 PM EDTPrenatal Quick Notes - Zuleyka Velásquez MD - 05/07/2025 4:26 PM EDTPatient InstructionsPatient InstructionsPatient Instructions Note Date & Type Note Facility 06-09-2025 Note HNO ID: [id number] Author: FÁTIMA MIKE MA Service: ? Author Type: [employer] Type: Progress Notes Filed: 06/09/2025 11:02 Note Text: POPULATION HEALTH NAVIGATION OUTREACH Action/FYI Title Insurance Agent updated per response. Reason for Outreach Medicaid OB/Peds Care Gaps due: N/A Patient Contacted: Spoke to patient/parent/or legal guardian Patient identified by name and : Yes Medicaid OB/Peds actions taken: /Title Insurance Agent added Navigation Signature: Fátima Cota MA June 09, 2025 11:01 AM [facility] 06-08-2025 Note HNO ID: [id number] Author: FÁTIMA MIKE MA Service: ? Author Type: [employer] Type: Progress Notes Filed: 06/08/2025 08:55 Note Text: POPULATION HEALTH NAVIGATION OUTREACH Action/FYI Pt left VM. Called and left another message. Reason for Outreach Medicaid OB/Peds Care Gaps due: N/A Patient Contacted: Unable or unnecessary to reach patient: Unable to reach patient Left message Navigation Signature: Fátima Cota MA June 08, 2025 8:54 AM [facility] 06-05-2025 Note HNO ID: [id number] Author: FÁTIMA MIKE MA Service: ? 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 MC message sent. 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 MC message sent. Reason for Outreach Medicaid OB/Peds Care Gaps due: N/A Patient Contacted: Unable or unnecessary to reach patient: Unable to reach patient Left message MyChart message sent Navigation Signature: Fátima Cota MA June 05, 2025 12:52 PM Fátima Mike MA 06/08/2025 8:55 AM Signed POPULATION HEALTH NAVIGATION OUTREACH Action/ Pt left VM. Called and left another message. Reason for Outreach Medicaid OB/Peds Care Gaps due: N/A Patient Contacted: Unable or unnecessary to reach patient: Unable to reach patient Left message Navigation Signature: Fátima Cota MA June 08, 2025 8:54 AM Fátima Mike MA 06/09/2025 11:02 AM Signed POPULATION HEALTH NAVIGATION OUTREACH Action/FYI Title Insurance Agent updated per response. Reason for Outreach Medicaid OB/Peds Care Gaps due: N/A Patient Contacted: Spoke to patient/parent/or legal guardian Patient identified by name and : Yes Medicaid OB/Peds actions taken: /Title Insurance Agent added Navigation Signature: Fátima Cota MA June 09, 2025 11:01 AM Allergies As of Date: 06/05/2025 (No Known Allergies) Date Reviewed: 06/04/2025 Reviewed by: Fátima Vaz MA - Fully Assessed Reason for Visit: Population Health Navigation Outreach [3910] Cmt: to PCP/OB Prescriptions as of 06/09/2025 - FERROUS SULFATE, BULK, MISC once daily. OTC 15 mg ferrous sulfate with vitamin C - aspirin, enteric coated (ECOTRIN LOW STRENGTH) 81 mg EC tablet Take 1 tablet by mouth once daily. - omega 2-ibv-spy-fish oil 1,000 mg (250 mg-750 mg)/5 mL liqd Take by mouth. - cholecalciferol, vitamin D3, (VITAMIN D3 ORAL) Take 2,000 Units by mouth once daily. - no115/iron/folic acid ( 19 ORAL) Take by mouth. - cyanocobalamin, vitamin B-12, (VITAMIN B12 ORAL) Take by mouth as directed. Problem List As Of Date 06/05/2025 Noted Resolved Recurrent major depressive disorder, in remissi*07/29/2019 Well adult exam [Z00.00] 07/29/2019 10/27/2024 TREMAYNE (generalized anxiety disorder) [F41.1] 07/29/2019 Encounter for routine gynecological examination*03/30/2023 10/27/2024 Supervision of high-risk of elderly m*10/27/2024 GBS bacteriuria [R82.71] 10/30/2024 Multiparous [Z64.1] 01/30/2025 Multigravida of advanced maternal age in second*02/03/2025 M-Power [O99.891] 02/25/2025 Supervision of high risk in third tri*04/22/2025 AMA (advanced maternal age) multigravida 35+, t*04/22/2025 Encounter Status:Closed by FÁTIMA MIKE on 06/05/25 [facility] 05-07-2025 Progress note Formatting of t his note might be different from the original. SW- No ctx, vb, lof. Good FM PE: Gen- NAD, well appearing Abd- Soft, gravid, NT See flowsheet A/p 34 wk gestation - Recent ultrasound reviewed - plan sheet reviewed - Discussed upcoming expectations - RTO 2 wks for GBS and US Zuleyka Velásquez DO [facility] 05-07-2025 Miscellaneous Notes SW- No ctx, vb, lof. Good FM PE: Gen- NAD, well appearing Abd- Soft, gravid, NT See flowsheet A/p 34 wk gestation - Recent ultrasound reviewed - plan sheet reviewed - Discussed upcoming expectations - RTO 2 wks for GBS and US Zuleyka Velásquez DO documented in this encounter [facility] 05-07-2025 Instructions Fátima Vaz MA - 05/07/2025 4:14 PM EDT SEQUENTIAL SCREENINGS The [facility] offers sequential screenings for women who are interested in screenings for chromosomal abnormalities and certain defects during a . The sequential screen combines ultrasound and blood tests to determine the risk of chromosomal abnormalities, including Down's Syndrome (Trisomy 21) and Trisomy 18, as well as open neural tube defects including spina bifida. Ultrasound examination is performed between 11 weeks and 13 weeks gestational age. Blood tests are drawn after the ultrasound and again later in the between 15 and 21 weeks gestational age. Please let your physician know if you are interested in this testing. It will require an appointment with our missile tracking technician. This is not an ultrasound performed by a physician in our office during a routine visit. SIGNS AND SYMPTOMS OF LABOR 1. Contractions every 10 minutes or more often 2. Clear, pink, or brownish fluid (water) leaking from vagina 3. Feeling that baby is pushing down, pressure 4. Low, dull backache 5. Cramps that feel like a period 6. Cramps with or without diarrhea If you notice any of the above symptoms, contact our office at [phone] and ask to speak with a nurse. After hours, you can call doctors registry at [phone] OR call [facility] at [phone] and ask to have the doctor director internal communications paged. If you consider this an emergency, dial 05-04- or go to your nearest emergency department. NEED HELP? Are you dealing with a violent or abusive relationship? Are you a victim of rape or sexual assult? Call [facility] ([place]) 24 hour Crisis Hotline: 365.940.6599 or 695-319-0554. MANUAL Your Guide to a Healthy manual is now on-line. Visit [email or web address] Suzy to download your free copy documented in this encounter [facility] 05-06-2025 Miscellaneous Notes Summary: M-RES Software Consult M-RES Software Lining Sewer Note Hospital Name: [place] Completed by: Maycol Anderson RN Date: May 06, 2025 [employer] Software Resource Time: 2 hours Consult Code:E Consult Type: Phone Safety Concerns: No Constance De Santiago [phone] Preferred Name: Constance OB Provider: Rosalba Ballard Estimated Date of Delivery: 06/18/25 Designated Support People: Jeremi () Labor Plan at time of Consult: Vaginal, Un-medicated, Breast milk Primary Themes During Consult: Fear of unknown Primary Triggers: Sex of baby Relationship with Doctor or Interior Decorator Behavior of staff toward you Holding baby Primary Concern: Constance and Jeremi are excited to welcome their first baby together. Constance anticipates having complicated feelings during the experience. Labor & Strategies: Constance plans for an unmedicated . She reports that she does not have any hard stops for labor and delivery. Please don't weigh in on personal feelings about adoption (don't say that this was a good or the right choice). Constance is open to talking about her first , a boy named Alistair who is now 16. This was an open adoption. Please try to match the energy of the room. Constance and Jeremi might feel quieter and would prefer their team match this. Concerns: Holding baby boy for the first time and bonding with him might be bittersweet or evoke complicated feelings. Try not to assume that Constance is feeling one way or another. Feeding Plan Details: . Safety/Support/Social Work: Has connection with therapist and support group. documented in this encounter [facility] 05-06-2025 Progress note Summary: Ariana fountain Consult RES Software Lining Sewer Note Hospital Name: [place] Completed by: Maycol Anderson RN Date: May 06, 2025 Skipo Resource Time: 2 hours Consult Code:E Consult Type: Phone Safety Concerns: No Constance De Santiago [phone] Preferred Name: Constance OB Provider: Rosalba Ballard Estimated Date of Delivery: 06/18/25 Designated Support People: Jeremi () Labor Plan at time of Consult: Vaginal, Un-medicated, Breast milk Primary Themes During Consult: Fear of unknown Primary Triggers: Sex of baby Relationship with Doctor or Interior Decorator Behavior of staff toward you Holding baby Primary Concern: Constance and Jeremi are excited to welcome their first baby together. Constance anticipates having complicated feelings during the experience. Labor & Strategies: Constance plans for an unmedicated . She reports that she does not have any hard stops for labor and delivery. Please don't weigh in on personal feelings about adoption (don't say that this was a good or the right choice). Constance is open to talking about her first , a boy named Alistair who is now 16. This was an open adoption. Please try to match the energy of the room. Constance and Jeremi might feel quieter and would prefer their team match this. Concerns: Holding baby boy for the first time and bonding with him might be bittersweet or evoke complicated feelings. Try not to assume that Constance is feeling one way or another. Feeding Plan Details: . Safety/Support/Social Work: Has connection with therapist and support group. [facility] 05-05-2025 Note Indication Evaluation of growth, Advanced maternal age, Follow-up evaluation to complete anatomic survey Impression remote read The patient is referred for completion of the anatomic survey. - Single, live, intrauterine . - No malformations were visualized on a follow-up anatomic survey. - Anatomic survey was completed today. - The EFW is 2395 g, at the 60%. AC is at the 61%. - The amniotic fluid volume is normal amount. - The placenta is anterior, posterior, fundal. - Not all structural malformations can be detected by ultrasound examination. Recommendations Additional follow-up as clinically indicated. Maternal Assessment Height 163 cm Height (ft) 5 ft Height (in) 4 in Physical Exam Initial weight (lb) 155 lb Initial BMI 26.61 kg/m Method Transabdominal ultrasound examination [place] . Number of fetuses: 1 Dating LMP on: 09/03/2024 GA by LMP 34 w + 6 d ANGIE by LMP: 06/10/2025 GA by prior assessment 33 w + 5 d ANGIE by prior assessment: 06/18/2025 Ultrasound examination on: 05/05/2025 GA by U/S based upon: AC, BPD, Femur, HC GA by U/S 34 w + 3 d ANGIE by U/S: 06/13/2025 Assigned: based on stated ANGIE, selected on 01/30/2025 Assigned GA 33 w + 5 d Assigned ANGIE: 06/18/2025 General Evaluation Cardiac activity present. FHR 146 bpm. movements: present. Presentation: breech, oblique Placenta: Placental site: anterior, posterior, fundal Umbilical cord: Cord vessels: 3 vessel cord. Insertion site: normal insertion Amniotic fluid: Amount of AF: normal amount. MVP 5.1 cm. NENA 14.3 cm. Q1 2.5 cm, Q2 4.1 cm, Q3 5.1 cm, Q4 2.7 cm Growth Overview Exam date GA BPD (mm) HC (mm) AC (mm) FL (mm) HL (mm) EFW (g) 12/11/2024 13w 0d 25.1 91% 94.8 68% 73.8 86% 13 74% 01/30/2025 20w 1d 47.2 55% 185.2 72% 170.5 93% 33.6 77% 33 85% 412 94% 05/05/2025 33w 5d 85.6 70% 325.3 85% 300 61% 65 59% 2395 60% Biometry Standard BPD 85.6 mm 34w 4d 70% Hadlock OFD 118.3 mm -/- 93% Nicolaides HC 325.3 mm 36w 0d 85% Fadia AC 300.0 mm 34w 0d 61% Hadlock Femur 65.0 mm 33w 2d 59% Fadia EFW 2,395 g 34w 1d 60% Hadlock EFW (lb) 5 lb EFW (oz) 4 oz EFW by: Hadlock (HC-AC-FL) Extended Strategic Partnership Manager 5.5 mm Extremities / Bony Struc FL / HC 0.20 Other Structures FHR 146 bpm Anatomy Lateral ventricles: normal Cavum septi pellucidi: normal Cerebellum: normal Cisterna magna: normal Profile: normal Face Maxilla: normal Mandible: normal 4-chamber view: normal RVOT view: normal LVOT view: normal 3-vessel view: normal Heart / Thorax Situs: situs solitus (normal) Aortic arch view: normal Diaphragm: normal Stomach: normal Kidneys: normal Bladder: normal Rt hand: normal Rt fingers: normal Lt hand: normal Lt fingers: normal Wants to know sex: yes Performed By: Aliya Aleman RDMS Read By: Aram Beltrán M.D. [facility] 04-24-2025 Telephone encounter Note Agree with nursing! Increased discharge is very common in and shouldn't be a concern unless other symptoms are present! Merly Davis APRN.CNM [facility] Work Phone: 04-24-2025 Miscellaneous Notes Agree with nursing! Increased discharge is very common in and shouldn't be a concern unless other symptoms are present! Merly Davis APRN.CNM 32w1d Mychart message response was sent to patient. Please add any further recommendations if needed. Rocio Larios RN documented in this encounter [facility] 04-24-2025 Telephone encounter Note 32w1d [email or web address] message response was sent to patient. Please add any further recommendations if needed. Rocio Larios RN [facility] 04-22-2025 Progress note Formatting of t his note might be different from the original. RR- VB No. LOF No. CTXS No. Movement: present. Other c/o: No. Medication list reviewed. SENSITIVE EXAM: Sensitive exam not performed. Physical Exam See Flow Sheet Abd: soft, nontender, gravid A/P 31w6d Estimated Date of Delivery: 06/18/25 ASSESSMENT/PLAN: 1. AMA (advanced maternal age) multigravida 35+, third trimester ([facility]) - ICD9: 659.63, ICD10: O09.523 (primary diagnosis) grwoth scan ordered, was to get follow up anatomy in past and wasn't done cont. PNV and ASA - OBSTETRIC ULTRASOUND WHI 2. 31 weeks gestation of ([facility]) - ICD9: V22.2, ICD10: Z3A.31 - OBSTETRIC ULTRASOUND WHI 3. Supervision of high risk in third trimester ([facility]) - ICD9: V23.9, ICD10: O09.93 Moustapha Ramirez MD [facility] 04-22-2025 Miscellaneous Notes RR- VB No. LOF No. CTXS No. Movement: present. Other c/o: No. Medication list reviewed. SENSITIVE EXAM: Sensitive exam not performed. Physical Exam See Flow Sheet Abd: soft, nontender, gravid A/P 31w6d Estimated Date of Delivery: 06/18/25 ASSESSMENT/PLAN: 1. AMA (advanced maternal age) multigravida 35+, third trimester ([facility]) - ICD9: 659.63, ICD10: O09.523 (primary diagnosis) grwoth scan ordered, was to get follow up anatomy in past and wasn't done cont. PNV and ASA - OBSTETRIC ULTRASOUND WHI 2. 31 weeks gestation of ([facility]) - ICD9: V22.2, ICD10: Z3A.31 - OBSTETRIC ULTRASOUND WHI 3. Supervision of high risk in third trimester ([facility]) - ICD9: V23.9, ICD10: O09.93 Moustapha Ramirez MD documented in this encounter [facility] 03-24-2025 Progress note Formatting of t his note might be different from the original. KJ - S: Constance denies LOF, contractions or vaginal bleeding. O: 27w5d, see flow sheet SENSITIVE EXAM: Sensitive exam not performed. A/P: Assessment & Plan GBS bacteriuria Multigravida of advanced maternal age in second trimester ([facility]) 27 weeks gestation of ([facility]) 28wk labs today Need for vaccination Tdap today Patient discussed adopting out her first baby and emotional support provided. All questions answered. Reviewed PTL & FM precautions. Harriet Faustin MD [facility] 03-24-2025 Miscellaneous Notes KJ - S: Constance denies LOF, contractions or vaginal bleeding. O: 27w5d, see flow sheet SENSITIVE EXAM: Sensitive exam not performed. A/P: Assessment & Plan GBS bacteriuria Multigravida of advanced maternal age in second trimester ([facility]) 27 weeks gestation of ([facility]) 28wk labs today Need for vaccination Tdap today Patient discussed adopting out her first baby and emotional support provided. All questions answered. Reviewed PTL & FM precautions. Harriet Faustin MD documented in this encounter [facility] 03-24-2025 Instructions Susy Mcgregor MA - 03/24/2025 3:42 PM EDT SEQUENTIAL SCREENINGS The [facility] offers sequential screenings for women who are interested in screenings for chromosomal abnormalities and certain defects during a . The sequential screen combines ultrasound and blood tests to determine the risk of chromosomal abnormalities, including Down's Syndrome (Trisomy 21) and Trisomy 18, as well as open neural tube defects including spina bifida. Ultrasound examination is performed between 11 weeks and 13 weeks gestational age. Blood tests are drawn after the ultrasound and again later in the between 15 and 21 weeks gestational age. Please let your physician know if you are interested in this testing. It will require an appointment with our missile tracking technician. This is not an ultrasound performed by a physician in our office during a routine visit. SIGNS AND SYMPTOMS OF LABOR 1. Contractions every 10 minutes or more often 2. Clear, pink, or brownish fluid (water) leaking from vagina 3. Feeling that baby is pushing down, pressure 4. Low, dull backache 5. Cramps that feel like a period 6. Cramps with or without diarrhea If you notice any of the above symptoms, contact our office at [phone] and ask to speak with a nurse. After hours, you can call doctors registry at [phone] OR call [facility] at [phone] and ask to have the doctor director internal communications paged. If you consider this an emergency, dial 3-6-2 or go to your nearest emergency department. NEED HELP? Are you dealing with a violent or abusive relationship? Are you a victim of rape or sexual assult? Call [facility] [place] ([facility] 24 hour Crisis Hotline: 360.603.8676 or 565-435-7660. MANUAL Your Guide to a Healthy manual is now on-line. Visit [email or web address] to download your free copy documented in this encounter [facility] 03-24-2025 Note HNO ID: [id number] Author: SUSY MCGREGOR MA Service: ? Author Type: Assembler Fishing Floats Type: Progress Notes Filed: 03/24/2025 16:24 Note Text: Patient identified by name and date of . Constance De Santiago presents today for a vaccination of Tdap. Patient denies an allergy to latex: yes Patient denies a severe (life-threatening) allergy to a previous dose of Tdap, DTP, DTaP, DT or Td vaccine. Yes Patient denies history of epilepsy or neurological problems: Yes Patient is afebrile and denies being moderately or severely ill: Yes Patient denies history of Guillain-[place] Syndrome (a severe paralytic illness): Yes Tdap Adacel injection was given without incident. See immunizations for details of immunizations administered today. VIS sheet provided: Yes Provider Ramin was present in office at time of injection. Susy Mcgregor MA [facility] 03-24-2025 History of Presen t illness Narrative Patient identified by name and date of . Constance De Santiago presents today for a vaccination of Tdap. Patient denies an allergy to latex: yes Patient denies a severe (life-threatening) allergy to a previous dose of Tdap, DTP, DTaP, DT or Td vaccine. Yes Patient denies history of epilepsy or neurological problems: Yes Patient is afebrile and denies being moderately or severely ill: Yes Patient denies history of Guillain-[place] Syndrome (a severe paralytic illness): Yes Tdap Adacel injection was given without incident. See immunizations for details of immunizations administered today. VIS sheet provided: Yes Provider Ramin was present in office at time of injection. Susy Mcgregor MA documented in this encounter [facility] 03-04-2025 Note HNO ID: [id number] Author: JOCELYN FRAZIER APRN.CNM Service: ? Author Type: Interior Decorator Type: Progress Notes Filed: 03/04/2025 14:43 Note Text: GAURAV-S: Constance De Santiago is a 34 year old female who presents at 24w6d with ANGIE:06/18/2025, by Ultrasound for a routine visit. Denies headache, visual changes, chest pain, shortness of breath, vaginal bleeding, leakage of fluid, or dysuria. [place] limited movement yesterday and has not felt any movement today. Very anxious and wanted to make sure everything was ok. O: See flow sheet Gen: No apparent distress Abd: Gravid, nontender ASSESSMENT/PLAN: 1. Supervision of high-risk of elderly multigravida -Continue PNV 2. Multigravida of advanced maternal age in second trimester -34 at delivery, no testing 3. 24 weeks gestation of -Good heart rate. Reviewed kick counts start at 28 wk. PTL precautions reviewed and when to call RTO as scheduled for routine OB Jocelyn Frazier APRN.CNM [facility] 03-04-2025 History of Presen t illness Narrative GAURAV-S: Constance De Santiago is a 34 year old female who presents at 24w6d with ANGIE:06/18/2025, by Ultrasound for a routine visit. Denies headache, visual changes, chest pain, shortness of breath, vaginal bleeding, leakage of fluid, or dysuria. [place] limited movement yesterday and has not felt any movement today. Very anxious and wanted to make sure everything was ok. O: See flow sheet Gen: No apparent distress Abd: Gravid, nontender ASSESSMENT/PLAN: 1. Supervision of high-risk of elderly multigravida -Continue PNV 2. Multigravida of advanced maternal age in second trimester -34 at delivery, no testing 3. 24 weeks gestation of -Good heart rate. Reviewed kick counts start at 28 wk. PTL precautions reviewed and when to call RTO as scheduled for routine OB Jocelyn Frazier APRN.CNM documented in this encounter [facility] 03-04-2025 Instructions Delfin Manuel MA - 03/04/2025 2:27 PM EDT SEQUENTIAL SCREENINGS The [facility] offers sequential screenings for women who are interested in screenings for chromosomal abnormalities and certain defects during a . The sequential screen combines ultrasound and blood tests to determine the risk of chromosomal abnormalities, including Down's Syndrome (Trisomy 21) and Trisomy 18, as well as open neural tube defects including spina bifida. Ultrasound examination is performed between 11 weeks and 13 weeks gestational age. Blood tests are drawn after the ultrasound and again later in the between 15 and 21 weeks gestational age. Please let your physician know if you are interested in this testing. It will require an appointment with our missile tracking technician. This is not an ultrasound performed by a physician in our office during a routine visit. SIGNS AND SYMPTOMS OF LABOR 1. Contractions every 10 minutes or more often 2. Clear, pink, or brownish fluid (water) leaking from vagina 3. Feeling that baby is pushing down, pressure 4. Low, dull backache 5. Cramps that feel like a period 6. Cramps with or without diarrhea If you notice any of the above symptoms, contact our office at [phone] and ask to speak with a nurse. After hours, you can call doctors registry at [phone] OR call [facility] at [phone] and ask to have the doctor director internal communications paged. If you consider this an emergency, dial 9-1-9 or go to your nearest emergency department. NEED HELP? Are you dealing with a violent or abusive relationship? Are you a victim of rape or sexual assult? Call [facility] ([place]) 24 hour Crisis Hotline: 460.774.1371 or 472-230-2209. MANUAL Your Guide to a Healthy manual is now on-line. Visit [email or web address] to download your free copy documented in this encounter [facility] 02-24-2025 Progress note Formatting of t his note is different from the original. GAURAV-S: Constance De Santiago is a 34 year old female who presents at 23w5d with ANGIE:06/18/2025, by Ultrasound for a routine visit. Denies headache, visual changes, chest pain, shortness of breath, vaginal bleeding, leakage of fluid, or dysuria. Feeling well, no complaints. O: See flow sheet Gen: No apparent distress Abd: Gravid, nontender ASSESSMENT/PLAN: 1. Supervision of high-risk of elderly multigravida -Continue PNV -1hr GCT, CBC, and RPR next visit 2. Multigravida of advanced maternal age in second trimester -34 at delivery, no testing 3. 23 weeks gestation of 4. GBS bacteriuria -GBS prophylaxis during labor 5. Recurrent major depressive disorder, in remission -coping well, no medication at this time. 6. TREMAYNE (generalized anxiety disorder) -coping well, no medication at this time. PTL precautions reviewed and when to call RTO in 4 weeks Jocelyn Frazier APRN.CNM [facility] 02-24-2025 Miscellaneous Notes GAURAV-S: Constance De Santiago is a 34 year old female who presents at 23w5d with ANGIE:06/18/2025, by Ultrasound for a routine visit. Denies headache, visual changes, chest pain, shortness of breath, vaginal bleeding, leakage of fluid, or dysuria. Feeling well, no complaints. O: See flow sheet Gen: No apparent distress Abd: Gravid, nontender ASSESSMENT/PLAN: 1. Supervision of high-risk of elderly multigravida -Continue PNV -1hr GCT, CBC, and RPR next visit 2. Multigravida of advanced maternal age in second trimester -34 at delivery, no testing 3. 23 weeks gestation of 4. GBS bacteriuria -GBS prophylaxis during labor 5. Recurrent major depressive disorder, in remission -coping well, no medication at this time. 6. TREMAYNE (generalized anxiety disorder) -coping well, no medication at this time. PTL precautions reviewed and when to call RTO in 4 weeks Jocelyn Frazier APRN.CNM documented in this encounter [facility] 02-24-2025 Instructions Jocelyn Frazier APRN.CNM - 02/24/2025 4:17 PM EDT Magnesium 400mg by mouth at bedtime and Vitamin B6 50mg by mouth twice daily Carpal Tunnel Syndrome What is carpal tunnel syndrome? Carpal tunnel syndrome is a common condition that causes pain, numbness, and weakness in the hands and wrist. It occurs when there is increased pressure on a nerve called the median nerve. This nerve provides sensation to the thumb, index and middle fingers, and to half of the ring finger. The small finger (the pinky ) is typically not affected. The median nerve also provides strength to some of the muscles at the base of the thumb. What is the carpal tunnel? The carpal tunnel is a narrow canal in the wrist. The bottom and sides of the tunnel are formed by a semi[place] of bones called carpal bones. A strong tissue, called a ligament, forms the top of the tunnel. The median nerve and tendons pass through this narrow space. (The tendons are rope-like structures that connect muscles in the forearm to bones in the hand.) Tendons allow the fingers and thumb to bend and straighten. Conditions that further narrow the carpal tunnel or cause the tendons that pass through this tunnel to swell cause carpal tunnel syndrome by compressing the median nerve. What are the symptoms of carpal tunnel syndrome? Symptoms usually begin slowly and can occur at any time. Early symptoms include numbness at night, tingling, and/or pain in the fingers (especially the thumb, index, and middle fingers). In fact, because some people sleep with their wrists curled, nighttime symptoms are common and can awake people from sleep. These nighttime symptoms are often the first reported symptoms. Shaking the hands helps relieve symptoms in the early stage of the condition. Common daytime symptoms are tingling and decreased feeling in the fingertips. Patients also report difficulty handling small objects, grasping a steering wheel to drive, holding a book to read, writing, and using a computer keyboard. As carpal tunnel syndrome worsens, symptoms become more constant. Weakness in the hand, inability to perform tasks that require delicate motions (such as buttoning a shirt), and dropping objects begin to occur. In the most severe condition, the muscles at the base of the thumb visibly shrink in size. Who is most like to get carpal tunnel syndrome? People most at risk are those with jobs or activities that involve repetitive finger use, especially those associated with high force, long-term use, extreme wrist motions, and vibration. Other things that contribute to the development of carpal tunnel syndrome include: Heredity (smaller carpal tunnels can run in families) Hemodialysis Wrist fracture and dislocation Hand or wrist deformity Arthritic diseases such as rheumatoid arthritis and gout Thyroid gland hormone imbalance (hypothyroidism) Diabetes Alcoholism A mass (tumor) in the carpal tunnel Older age How is carpal tunnel syndrome diagnosed? First, your doctor will discuss your symptoms and medical history and examine you. Next, tests are performed, which may include: Tinel s sign. In this test, the physician taps over the median nerve at the wrist to see if it produces a tingling sensation in the fingers. Wrist flexion test (or Phalen test). In this test, the patient rests his or her elbows on a table and allows the wrist to fall forward freely. Individuals with carpal tunnel syndrome will experience numbness and tingling in the fingers within 60 seconds. The more quickly symptoms appear, the more severe the carpal tunnel syndrome. X-rays. X-rays of the wrist may be ordered if there is limited wrist motion, or evidence of arthritis or trauma. Electromyography (EMG) and nerve conduction studies. These studies determine how well the median nerve itself is working and how well it controls muscle movement. How is carpal tunnel syndrome treated? Non-surgical treatments. Non-surgical treatments are usually tried first. In addition, changes to the work station can be made. Examples include raising or lowering the chair or the computer keyboard to bring the patient into proper alignment. Changes in the hand/wrist positions used in jobs and other activities can also be tried, along with activity modification. How can carpal tunnel syndrome be prevented? Because of its many causes, carpal tunnel syndrome is difficult to prevent. Workstation changes, such as proper lighting and seating and hand/wrist placement, can help decrease some factors that can lead to carpal tunnel syndrome. Other preventive methods include: Sleeping with your wrists held straight Keeping your wrists straight when using tools Avoiding flexing (curling) and extending your wrists repeatedly Decreasing repetitive/strong grasping with the wrist in a flexed position Taking frequent rest breaks from repetitive activities Performing conditioning and stretching exercises before and after activities Oral Glucose Tolerance Test During Your provider has ordered an oral glucose tolerance test. For more information: My [facility] Oral Glucose Tolerance Test How do I prepare for my one-hour glucose test? You don t need to prepare for your one-hour glucose screening. Most care providers recommend avoiding foods high in sugar for breakfast. For example, pancakes, donuts or juice. If you re testing later in the day, be aware that eating large amounts of sugar for lunch may affect your results. Can you eat before a glucose screening test? Yes, you can eat normally before your glucose screening test. What can I expect on the day of the glucose screening? On the day of your glucose screening, follow instructions given to you by your care provider or the lab (if applicable). Be sure to know exactly where to go for the screening and if you need an appointment. Safe Sleep for [place] For more information: [email or web address] Safe Sleep Healthy babies are safest when sleeping on their backs at nighttime and during naps. Side sleeping is not as safe as back sleeping and is not advised. SEQUENTIAL SCREENINGS The [facility] offers sequential screenings for women who are interested in screenings for chromosomal abnormalities and certain defects during a . The sequential screen combines ultrasound and blood tests to determine the risk of chromosomal abnormalities, including Down's Syndrome (Trisomy 21) and Trisomy 18, as well as open neural tube defects including spina bifida. Ultrasound examination is performed between 11 weeks and 13 weeks gestational age. Blood tests are drawn after the ultrasound and again later in the between 15 and 21 weeks gestational age. Please let your physician know if you are interested in this testing. It will require an appointment with our missile tracking technician. This is not an ultrasound performed by a physician in our office during a routine visit. SIGNS AND SYMPTOMS OF LABOR 1. Contractions every 10 minutes or more often 2. Clear, pink, or brownish fluid (water) leaking from vagina 3. Feeling that baby is pushing down, pressure 4. Low, dull backache 5. Cramps that feel like a period 6. Cramps with or without diarrhea If you notice any of the above symptoms, contact our office at [phone] and ask to speak with a nurse. After hours, you can call doctors registry at [phone] OR call [facility] at [phone] and ask to have the doctor director internal communications paged. If you consider this an emergency, dial [phone] or go to your nearest emergency department. NEED HELP? Are you dealing with a violent or abusive relationship? Are you a victim of rape or sexual assult? Call [facility] ([place]) 24 hour Crisis Hotline: 227.853.7014 or 922-895-0152. MANUAL Your Guide to a Healthy manual is now on-line. Visit [email or web address] to download your free copy documented in this encounter [facility] 02-03-2025 Progress note Formatting of t his note might be different from the original. GAURAV-S: Constance De Santiago is a 34 year old female who presents at 20w1d with ANGIE:06/18/2025, by Ultrasound for a routine visit. Denies headache, visual changes, chest pain, shortness of breath, vaginal bleeding, leakage of fluid, or dysuria. Feeling well, no complaints. Anatomy US today. O: See flow sheet Gen: No apparent distress Abd: Gravid, nontender ASSESSMENT/PLAN: 1. Supervision of high-risk of elderly multigravida -Continue PNV 2. Multigravida of advanced maternal age in second trimester 3. 20 weeks gestation of 4. GBS bacteriuria -GBS prophylaxis during labor 5. Recurrent major depressive disorder, in remission -coping well, no medication at this time. 6. TREMAYNE (generalized anxiety disorder) -coping well, no medication at this time. PTL precautions reviewed and when to call RTO in 4 weeks Jocelyn Frazier APRN.CNM [facility] 02-03-2025 Miscellaneous Notes GAURAV-S: Constance De Santiago is a 34 year old female who presents at 20w1d with ANGIE:06/18/2025, by Ultrasound for a routine visit. Denies headache, visual changes, chest pain, shortness of breath, vaginal bleeding, leakage of fluid, or dysuria. Feeling well, no complaints. Anatomy US today. O: See flow sheet Gen: No apparent distress Abd: Gravid, nontender ASSESSMENT/PLAN: 1. Supervision of high-risk of elderly multigravida -Continue PNV 2. Multigravida of advanced maternal age in second trimester 3. 20 weeks gestation of 4. GBS bacteriuria -GBS prophylaxis during labor 5. Recurrent major depressive disorder, in remission -coping well, no medication at this time. 6. TREMAYNE (generalized anxiety disorder) -coping well, no medication at this time. PTL precautions reviewed and when to call RTO in 4 weeks Jocelyn Frazier APRN.CNM documented in this encounter [facility] 12-23-2024 Telephone encounter Note Faxed. Girma Garcia RN [facility] 12-23-2024 Miscellaneous Notes Faxed. Girma Garcia RN Written order received from [employer] for electric breast pump and accessories. Placed in [employer] inbox for signature. Girma Garcia RN documented in this encounter [facility] 12-22-2024 Telephone encounter Note Written order received from [employer] for electric breast pump and accessories. Placed in [employer] inbox for signature. Girma Garcia RN [facility] 12-15-2024 History of Presen t illness Narrative Chief Complaint Patient presents with: Wart: Left foot HPI Constance De Santiago is a 34 year old female who presents here today for wart. Pt would like to have wart treated on Left foot that she has had x 6 months. Is not changing in size, does bother her at times. Has tried treating OTC but has not fully resolved. She has never had warts before. Past medical history, appointments, medications, allergies reviewed. Previous Medical History PAST MEDICAL HISTORY Diagnosis Date TREMAYNE (generalized anxiety disorder) 07/29/2019 Recurrent major depressive disorder, in remission 07/29/2019 Previous Surgical History PAST SURGICAL HISTORY Procedure Laterality Date MIRENA IUD 02/10/2015 REMOVED 06/2024 Family History FAMILY HISTORY Problem Relation Age of Onset Thyroid Mother Hyperlipidemia Father Diabetes Father Hypertension Father Cancer Sister brain Stroke Maternal Grandmother Stroke Maternal Grandfather other (melanoma) Maternal Aunt Patient Allergies ALLERGIES No Known Allergies Current Medications Current Outpatient Medications on File Prior to Visit Medication Sig aspirin, enteric coated (ECOTRIN LOW STRENGTH) 81 mg EC tablet Take 1 tablet by mouth once daily. omega 2-rvw-cyy-fish oil 1,000 mg (250 mg-750 mg)/5 mL liqd Take by mouth. cholecalciferol, vitamin D3, (VITAMIN D3 ORAL) Take 2,000 Units by mouth once daily. inositol-choline bitartrate 250-250 mg cap Take 1 tablet by mouth once daily. no115/iron/folic acid ( 19 ORAL) Take by mouth. cyanocobalamin, vitamin B-12, (VITAMIN B12 ORAL) Take by mouth as directed. No current facility-administered medications on file prior to visit. Social History Social History Tobacco Use Smoking status: Never Smokeless tobacco: Never Vaping Use Vaping status: Never Used Substance Use Topics Alcohol use: Not Currently Alcohol/week: 21.0 standard drinks of alcohol Types: 21 Standard drinks or equivalent per week Comment: about 3 glasses of wine per day Drug use: No EXAM: BP 108/60 Pulse 74 Resp 16 Wt 71.1 kg (156 lb 12 oz) LMP 09/03/2024 BMI 26.53 kg/m Skin: At at 4th metatarsal head left foot; treated with cryo times 2; tolerated well, instructed in wound care.. Health Maintenance List Influenza Vaccine(1) due on 05/04/2024 Covid-19 Vaccine( season) due on 05/04/2024 RSV Vaccine(1 - Risk 1-dose series) due on 05/04/2025 Cervical Cancer Screening due on 06/02/2027 DTaP,Tdap,Td Vaccine(2 - Td or Tdap) due on 03/30/2033 Hepatitis C Screening Completed HIV Screening Completed Hepatitis B Vaccine Discontinued Data reviewed none ASSESSMENT/PLAN: 1. Plantar wart - ICD9: 078.12, ICD10: B07.0 Treated with cryo Follow up 1-3 weeks if does not resolve with treatment I agree with the Chief Complaint, ROS, and Past Histories independently gathered by the clinical it support consultant and the remaining scribed note accurately describes my personal service to the patient. Medical Decision Making: Problems: Low: Acute, uncomplicated illness or injury Risk: Low: Low risk from testing/treatment Medical Decision Making Level: 3 - Low Shyam Jensen MD The documentation for this note was completed by Demetria Bourgeois MA acting as scribe for Shyam Jensen MD. December 15, 2024 5:37 PM. Demetria Bourgeois MA documented in this encounter [facility] 12-15-2024 Note HNO ID: [id number] Author: SHYAM JENSEN MD Service: ? Author Type: Physician Type: Progress Notes Filed: 12/15/2024 19:59 Note Text: Chief Complaint Patient presents with: Wart: Left foot HPI Constance De Santiago is a 34 year old female who presents here today for wart. Pt would like to have wart treated on Left foot that she has had x 6 months. Is not changing in size, does bother her at times. Has tried treating OTC but has not fully resolved. She has never had warts before. Past medical history, appointments, medications, allergies reviewed. Previous Medical History PAST MEDICAL HISTORY Diagnosis Date TREMAYNE (generalized anxiety disorder) 07/29/2019 Recurrent major depressive disorder, in remission 07/29/2019 Previous Surgical History PAST SURGICAL HISTORY Procedure Laterality Date MIRENA IUD 02/10/2015 REMOVED 06/2024 Family History FAMILY HISTORY Problem Relation Age of Onset Thyroid Mother Hyperlipidemia Father Diabetes Father Hypertension Father Cancer Sister brain Stroke Maternal Grandmother Stroke Maternal Grandfather other (melanoma) Maternal Aunt Patient Allergies ALLERGIES No Known Allergies Current Medications Current Outpatient Medications on File Prior to Visit Medication Sig aspirin, enteric coated (ECOTRIN LOW STRENGTH) 81 mg EC tablet Take 1 tablet by mouth once daily. omega 7-nfz-ikc-fish oil 1,000 mg (250 mg-750 mg)/5 mL liqd Take by mouth. cholecalciferol, vitamin D3, (VITAMIN D3 ORAL) Take 2,000 Units by mouth once daily. inositol-choline bitartrate 250-250 mg cap Take 1 tablet by mouth once daily. no115/iron/folic acid ( 19 ORAL) Take by mouth. cyanocobalamin, vitamin B-12, (VITAMIN B12 ORAL) Take by mouth as directed. No current facility-administered medications on file prior to visit. Social History Social History Tobacco Use Smoking status: Never Smokeless tobacco: Never Vaping Use Vaping status: Never Used Substance Use Topics Alcohol use: Not Currently Alcohol/week: 21.0 standard drinks of alcohol Types: 21 Standard drinks or equivalent per week Comment: about 3 glasses of wine per day Drug use: No EXAM: BP 108/60 Pulse 74 Resp 16 Wt 71.1 kg (156 lb 12 oz) LMP 09/03/2024 BMI 26.53 kg/m? Skin: At at 4th metatarsal head left foot; treated with cryo times 2; tolerated well, instructed in wound care.. Health Maintenance List Influenza Vaccine(1) due on 05/04/2024 Covid-19 Vaccine( season) due on 05/04/2024 RSV Vaccine(1 - Risk 1-dose series) due on 05/04/2025 Cervical Cancer Screening due on 06/02/2027 DTaP,Tdap,Td Vaccine(2 - Td or Tdap) due on 03/30/2033 Hepatitis C Screening Completed HIV Screening Completed Hepatitis B Vaccine Discontinued Data reviewed none ASSESSMENT/PLAN: 1. Plantar wart - ICD9: 078.12, ICD10: B07.0 Treated with cryo Follow up 1-3 weeks if does not resolve with treatment I agree with the Chief Complaint, ROS, and Past Histories independently gathered by the clinical it support consultant and the remaining scribed note accurately describes my personal service to the patient. Medical Decision Making: Problems: Low: Acute, uncomplicated illness or injury Risk: Low: Low risk from testing/treatment Medical Decision Making Level: 3 - Low Shyam Jensen MD The documentation for this note was completed by Demetria Bourgeois MA acting as scribe for Shyam Jensen MD. December 15, 2024 5:37 PM. Demetria Bourgeois MA [facility] 12-11-2024 Progress note Formatting of t his note might be different from the original. KJ - S: Constance denies LOF, contractions or vaginal bleeding. O: 13w0d, see flow sheet SENSITIVE EXAM: The sensitive examination was discussed with the Patient or Patient's Authorized Valve Mechanic. As applicable, any other physician, advance practice provider, medical student, or other health professional student that will be observing or involved in the sensitive examination for educational or training purposes was discussed with the Patient or Authorized Valve Mechanic. The Patient or Authorized Valve Mechanic has agreed to proceed with the sensitive examination. (Sensitive examination includes inspection and/or palpation of the breasts, pelvis, prostate and anorectal regions). A/P: Assessment & Plan Multigravida of advanced maternal age in first trimester (HCC) 13wk US today Declines NIPT GBS bacteriuria Anatomy US scheduled Harriet Faustin MD [facility] 12-11-2024 Miscellaneous Notes KJ - S: Constance denies LOF, contractions or vaginal bleeding. O: 13w0d, see flow sheet SENSITIVE EXAM: The sensitive examination was discussed with the Patient or Patient's Authorized Valve Mechanic. As applicable, any other physician, advance practice provider, medical student, or other health professional student that will be observing or involved in the sensitive examination for educational or training purposes was discussed with the Patient or Authorized Valve Mechanic. The Patient or Authorized Valve Mechanic has agreed to proceed with the sensitive examination. (Sensitive examination includes inspection and/or palpation of the breasts, pelvis, prostate and anorectal regions). A/P: Assessment & Plan Multigravida of advanced maternal age in first trimester (HCC) 13wk US today Declines NIPT GBS bacteriuria Anatomy US scheduled Harriet Faustin MD documented in this encounter [facility] 12-11-2024 Instructions Janeth Goodrich MA - 12/11/2024 2:17 PM EDT SEQUENTIAL SCREENINGS The [facility] offers sequential screenings for women who are interested in screenings for chromosomal abnormalities and certain defects during a . The sequential screen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 vitals taken for this visit. GENERAL: pleasant, female in no apparent distress ASSESSMENT AND PLAN: Assessment & Plan Missed menses Orders: UA DIP,URINE HCG (POC) Patient reassured and all questions answered. Follow up for routine PNC. Medical Decision Making: Problems: Moderate: New problem with uncertain prognosis Data: Unique test(s) ordered: 1 Risk: Low: Low risk from testing/treatment Medical Decision Making Level: 3 - Low Harriet Faustin MD documented in this encounter [facility] 06-09-2024 History of Presen t illness Narrative Slab Polisher offered: Patient declines. Constance presents for removal of IUD due to desire for . UNIVERSAL PROTOCOL / SAFETY CHECKLIST Procedure to be Performed: Mirena removal Sign In: A Moment of CARE was completed. Personnel directly involved with the procedure wore the appropriate PPE (Personal Protective Equipment). Patient/Surrogate Stated/Verified: PATIENT VERIFIED(optional for EMERGENT procedures): Patient name, Date of , Relevant allergies, and The intended procedure Time Out Communication: Intended patient and procedure match the source documents. Consent documented and matches the intended procedure. Sign Out: SIGN OUT (optional for EMERGENT procedures): No specimen collected. No instruments, equipment or retained foreign bodies applicable. Post-procedure follow-up management communicated and Plan of Care Visit completed when applicable. PROCEDURE: Speculum placed in vagina, IUD string visualized and grasped with ring forceps. ASSESSMENT/PLAN: IUD removed without difficulty, intact, and patient tolerated procedure well. Contraception plans: none Reviewed pre-conception guidelines including folic acid supplementation, optimal timing of intercourse, avoidance of smoking, alcohol, exposure to environmental chemicals and need for evaluation if not within 12 months. Mallorie Trejo APRN.STABBER documented in this encounter [facility] 06-05-2024 Instructions Zuleyka Velásquez MD - 06/05/2024 4:44 PM EDT Gardasil Gardasil is a vaccine to protect against Human Papillomavirus (HPV) types 6, 11, 16, 18, 31,33,45, 52, 58. These viruses cause cancer and precancerous lesions on the cervix (opening between vagina and uterus), in the vagina and on the vulva (skin around the outside of the vagina) as well as genital warts. The vaccine cannot cause these diseases and cannot treat them if already present. Gardasil works best if given before contact with HPV. Most people are exposed to HPV soon after starting sexual activity. The vaccine is recommended between the ages of 9 and 45. Gardasil does not protect against all strains of HPV. Women who receive the vaccine still need to have regular pelvic exams and cervical cancer screening with the pap smear. You should ask your doctor if Gardasil is right for you if you have a weakened immune system, a bleeding disorder, plan to become soon or have a current illness causing fever. Gardasil is not recommended for women. You should be sure your doctor is aware of any allergies you have and all medications and herbal supplements you take. Gardasil is given to those ages 9-14 in 2 doses at 0 and 8 months. In ages 15-45, three injections are given at 0,2,6 months. Common side effects include pain, redness, itching and swelling at the injection site, nausea, fever, dizziness and fainting. Rare but potentially serious reactions have been reported. These include allergic reaction, swollen glands, joint and muscle pain, weakness and Guillain-[place] syndrome. documented in this encounter [facility] 06-02-2024 History of Presen t illness Narrative Patient declined enrollment nurse. Constance is a 33 year old who presents for an annual gynecologic exam without complaints. Menses: No menses - Mirena IUD. Contraception: IUD HPV vaccine: Yes Last Pap: 07/12/2018 normal HPV: N/A History of abnormal pap: No Last mammogram: never Sexually active: Yes OB History T0 L1 SAB0 IAB0 Ectopic0 Multiple0 Live Births0 Comment: Open adoption Applied Psychology Chair History LMP: LMP Unknown, IUD Age at Menarche: Age at First : Age at Menopause: Applied Psychology Chair History Comments: Sexual Activity: Yes; Male Contraception: I.U.D. PAST MEDICAL HISTORY Diagnosis Date TREMAYNE (generalized anxiety disorder) 07/29/2019 Recurrent major depressive disorder, in remission (HCC) 07/29/2019 PAST SURGICAL HISTORY Procedure Laterality Date MIRENA IUD 02/10/2015 FAMILY HISTORY Problem Relation Age of Onset Thyroid Mother Hyperlipidemia Father Diabetes Father Hypertension Father Cancer Sister brain Stroke Maternal Grandmother Stroke Maternal Grandfather other (melanoma) Maternal Aunt SOCIAL HISTORY Social History Tobacco Use Smoking status: Never Smokeless tobacco: Never Vaping Use Vaping status: Never Used Substance Use Topics Alcohol use: Yes Alcohol/week: 21.0 standard drinks of alcohol Types: 21 Standard drinks or equivalent per week Comment: about 3 glasses of wine per day Drug use: No REVIEW OF SYSTEMS Abdomen: No abdominal pain, nausea, vomiting, diarrhea, or constipation. No bloating, early satiety, indigestion, or increased flatulence. Bladder: No dysuria, gross hematuria, urinary frequency, urinary urgency, or incontinence. Breast: No breast lumps, nipple d/c, overlying skin changes, redness or skin retraction. Allergies and current medication updated:Yes SENSITIVE EXAM: The sensitive examination was discussed with the Patient or Patient's Authorized Valve Mechanic. As applicable, any other physician, advance practice provider, medical student, or other health professional student that will be observing or involved in the sensitive examination for educational or training purposes was discussed with the Patient or Authorized Valve Mechanic. The Patient or Authorized Valve Mechanic has agreed to proceed with the sensitive examination. (Sensitive examination includes inspection and/or palpation of the breasts, pelvis, prostate and anorectal regions). EXAM: BP 98/62 Ht 5' 4.449 (1.64m) Wt 150 lb 3.2 oz (68.1kg) BMI 25.42 kg/(m^2). GENERAL: pleasant, female in no apparent distress HEENT: Normocephalic and atraumatic NECK: full range of motion DERMATOLOGY: Normal, without lesions, non-icteric, and non-hirsute BREAST: soft, non-tender, symmetric, no dominant mass, normal nipple-areolar complex, no lymphadenopathy, and no nipple discharge CHEST: Normal inspiratory effort ABDOMEN: soft, non-tender, and no masses PELVIC: external genitalia normal, normal Bartholin's glands, urethra, Dundas's glands, no vulvar lesions, no cervical lesions, good vaginal support, physiologic discharge present, normal appearing perineal body and perianal region BIMANUAL: uterus normal size, shape and consistency, no adnexal masses, and non-tender RECTOVAGINAL: deferred. NEURO: exam grossly non-focal EXTREMITIES: normal ASSESSMENT/PLAN: 1) Health maintenance: Pap done with reflex HPV. Nutrition, exercise and routine health maintenance exams reviewed. HPV vaccine: Information given Order placed for IUD removal. Pre conception counseling completed today 2) Contraception: IUD. Contraceptive options reviewed and information provided. 3) STD screening: Declined STD check. 4) Follow up one year or sooner as needed Zuleyka Velásquez DO documented in this encounter [facility] 04-04-2024 Telephone encounter Note Pt notified of same. Javier Iyer LPN [facility] 04-04-2024 Miscellaneous Notes Pt notified of same. Javier Iyer LPN Labs are all normal. Deborah Phelps PA-C documented in this encounter [facility] 04-04-2024 Telephone encounter Note Labs are all normal. Deborah Phelps PA-C [facility] 04-03-2024 History of Presen t illness Narrative Chief Complaint Patient presents with: Physical HPI Constance Clark is a 33 year old female who presents here today for physical. Patient with hx of TREMAYNE, depression but otherwise healthy. Has not had any issues with anxiety or depression. Not medicated. No concerns today. Planning to start trying to get early 2024. Past medical history, appointments, medications, allergies reviewed. Previous Medical History PAST MEDICAL HISTORY 07/29/2019: TREMAYNE (generalized anxiety disorder) 07/29/2019: Recurrent major depressive disorder, in remission (HCC) Previous Surgical History PAST SURGICAL HISTORY 02/10/2015: MIRENA IUD Family History FAMILY HISTORY Problem Relation Age of Onset Thyroid Mother Hyperlipidemia Father Diabetes Father Hypertension Father Cancer Sister brain Stroke Maternal Grandmother Stroke Maternal Grandfather other (melanoma) Maternal Aunt Patient Allergies ALLERGIES No Known Allergies Current Medications Current Outpatient Medications on File Prior to Visit Medication Sig cyanocobalamin, vitamin B-12, (VITAMIN B12 ORAL) Take by mouth as directed. levonorgestrel (MIRENA) 20 mcg/24 hours (6 yrs) 52 mg IUD 1 Each by INTRAUTERINE route as directed. Multivitamin capsule Take 1 capsule by mouth once daily. (Patient not taking: Reported on 04/30/2023) No current facility-administered medications on file prior to visit. Social History Social History Tobacco Use Smoking status: Never Smokeless tobacco: Never Vaping Use Vaping Use: Never used Substance Use Topics Alcohol use: Yes Alcohol/week: 8.0 standard drinks of alcohol Types: 8 Standard drinks or equivalent per week Drug use: No Review of Symptoms REVIEW OF SYSTEMS GENERAL: No weight loss, malaise or fevers HEENT: Negative for frequent or significant headaches, No changes in hearing or vision, no nose bleeds or other nasal problems NECK: Negative for lumps, goiter, pain and significant neck swelling RESPIRATORY: Negative for cough, hemoptysis, wheezing, COPD, dyspnea or shortness of breath CARDIOVASCULAR: Negative for chest pain, leg swelling, hypertension, CHF or palpitations GI: Negative for abdominal discomfort, blood in stools or black stools, change in bowel habit, heart burn, nausea, vomiting : No history of dysuria, frequency or incontinence MUSCULOSKELETAL: Negative for joint pain or swelling, back pain or muscle pain SKIN: Negative for lesions, rash, and itching PSYCH: Negative for sleep disturbance, mood disorder and recent psychosocial stressors HEMATOLOGY/LYMPHOLOGY: Negative for prolonged bleeding, bruising easily or swollen nodes ENDOCRINE: Negative for cold or heat intolerance, polyuria, polydipsia and goiter NEURO: No history of headaches, syncope, paralysis, seizures or tremors EXAM: BP 102/80 (BP Site: Left Arm, BP Position: Sitting, BP Cuff Size: Regular Adult) Pulse 75 Temp 36.6 C (97.8 F) Ht 165 cm (5' 4.96) Wt 66.7 kg (147 lb) SpO2 99% BMI 24.49 kg/m General Appearance: Well appearing, alert, in no acute distress, well-hydrated, well nourished.. Skin: Skin color, texture, turgor normal, no suspicious rashes or lesions. Head: Normocephalic, no masses, lesions, tenderness or abnormalities. Eyes: Anicteric sclera. Pupils are equally round and reactive to light. Extraocular movements are intact. . Ears: External ears normal, canals clear. Nose/Sinuses: Nares normal, septum midline, mucosa normal, no drainage or sinus tenderness. Neck: Supple, no adenopathy; thyroid symmetric, normal size, no bruits. Lungs: Lungs clear to auscultation. No wheezing, rhonchi, rales.. Heart: RRR without murmur, gallop, or rubs. No ectopy. Abdomen: Normal abdominal exam, Abdomen soft, non-tender. Bowel sounds normal. No masses, organomegaly. Extremities: No deformities, edema, skin discoloration, clubbing or cyanosis. Good capillary refill. . Peripheral Pulses: Normal. Neurologic: Gait normal. Reflexes normal and symmetric. Sensation grossly intact.. Health Maintenance List Cervical Cancer Screening due on 07/04/2021 Covid-19 Vaccine( - season) due on 05/04/2023 Influenza Vaccine(1) due on 05/04/2024 DTaP,Tdap,Td Vaccine(2 - Td or Tdap) due on 03/30/2033 Hepatitis C Screening Completed HIV Screening Completed HPV Vaccine Aged Out Hepatitis B Vaccine Discontinued Data reviewed ASSESSMENT/PLAN: 1. Well adult exam - ICD9: V70.0, ICD10: Z00.00 (primary diagnosis) - Counseled on healthy diet and regular exercise - discussed decreasing alcohol consumption. - If trying to get , recommend vitamin 2. TREMAYNE (generalized anxiety disorder) - ICD9: 300.02, ICD10: F41.1 Stable without treatment - COMPREHENSIVE METABOLIC PANEL 3. Recurrent major depressive disorder, in remission (HCC) - ICD9: 296.35, ICD10: F33.40 Stable without treatment - COMPREHENSIVE METABOLIC PANEL 4. Encounter for lipid screening for cardiovascular disease - ICD9: V77.91, V81.2, ICD10: Z13.220, Z13.6 - LIPID PANEL, NONFASTING 5. Screening for diabetes mellitus - ICD9: V77.1, ICD10: Z13.1 - HEMOGLOBIN A1C - COMPREHENSIVE METABOLIC PANEL Deborah Phelps PA-C documented in this encounter [facility] 04-30-2023 History of Presen t illness Narrative Chief Complaint No chief complaint on file. HPI Constance Clark is a 32 year old female who presents here today for ear wax. Patient states that starting this past week has noted some ear wax issues. Tried OTC treatment without benefit. Past medical history, appointments, medications, allergies reviewed. Previous Medical History PAST MEDICAL HISTORY Diagnosis Date TREMAYNE (generalized anxiety disorder) 07/29/2019 Recurrent major depressive disorder, in remission (HCC) 07/29/2019 Previous Surgical History PAST SURGICAL HISTORY Procedure Laterality Date MIRENA IUD 02/10/2015 Family History FAMILY HISTORY Problem Relation Age of Onset Thyroid Mother Hyperlipidemia Father Diabetes Father Hypertension Father Cancer Sister brain Stroke Maternal Grandmother Stroke Maternal Grandfather other (melanoma) Maternal Aunt Patient Allergies ALLERGIES No Known Allergies Current Medications Current Outpatient Medications on File Prior to Visit Medication Sig levonorgestrel (MIRENA) 20 mcg/24 hours (6 yrs) 52 mg IUD 1 Each by INTRAUTERINE route as directed. cyanocobalamin, vitamin B-12, (VITAMIN B12 ORAL) Take by mouth as directed. Multivitamin capsule Take 1 capsule by mouth once daily. (Patient not taking: Reported on 04/30/2023) No current facility-administered medications on file prior to visit. Social History Social History Tobacco Use Smoking status: Never Smokeless tobacco: Never Vaping Use Vaping Use: Never used Substance Use Topics Alcohol use: Yes Alcohol/week: 8.0 standard drinks of alcohol Types: 8 Standard drinks or equivalent per week Drug use: No Review of Symptoms REVIEW OF SYSTEMS See hpi EXAM: BP 92/72 (BP Site: Left Arm, BP Position: Sitting, BP Cuff Size: Regular Adult) Pulse 65 Temp 36.3 C (97.4 F) Resp 16 Wt 66.2 kg (146 lb) BMI 25.06 kg/m General Appearance: Well appearing, alert, in no acute distress, well-hydrated, well nourished.. Ears: Positive findings: cerumen bilaterally, amount Large. Health Maintenance List HPV TESTING Never done PAP TESTING due on 07/04/2023 COVID-19 VACCINE(4 - Moderna series) due on 03/30/2024 INFLUENZA(1) due on 05/04/2023 DTAP,TDAP,TD(2 - Td or Tdap) due on 03/30/2033 HEPATITIS C SCREENING Completed HIV SCREENING Completed HPV VACCINE Aged Out HEPATITIS B Discontinued Data reviewed ASSESSMENT/PLAN: 1. Bilateral impacted cerumen - ICD9: 380.4, ICD10: H61.23 - Discussed ear irrigation with warm water and verbal consent given. B/l Ears irrigated with warm water per nursing for removal of wax. Patient tolerated well. On recheck b/l canals clear. No erythema and patient reports improved hearing. Follow up prn Deborah Phelps PA-C Ambulatory Ear Lavage Pre-treatment: Carbamide Peroxide (i.e. Debrox) by patient at home Treatment: Both ears Equipment and Irrigation solution and Volume used: Single use syringe with single use irrigation tip Water Return flow appearance: Brown Patient tolerated procedure: yes Tympanic membrane assessment: Tympanic membrane assessed by LIP pre and post procedure documented in this encounter [facility] 04-04-2023 Miscellaneous Notes Patient notified of provider's message below. Shey Olsen RN Let patient know for the most part all her labs were ok. The only marker I want to f/u on is the elevated bilirubin. I placed an order to get LFT's in a month. Pt asking about labs she completed on 03/30/23. Please review labs and advise. Annabella Bob Ma documented in this encounter [facility] Evaluation note Diagnosis Serum total bilirubin elevated- Primary Jaundice, unspecified, not of [facility] Diagnosis Bilateral impacted cerumen- Primary Impacted cerumen [facility] Diagnosis Well adult exam- Primary Routine general medical examination at a health care facility TREMAYNE (generalized anxiety disorder) Generalized anxiety disorder Recurrent major depressive disorder, in remission (HCC) Encounter for lipid screening for cardiovascular disease Screening for lipoid disorders Screening for diabetes mellitus [facility] Encounter for gynecological examination (general) (routine) without abnormal findings- Primary Screening for cervical cancer Screening for malignant neoplasm of the cervix Desire for Unspecified procreative management IUD (intrauterine device) in place Presence of intrauterine contraceptive device [facility] Diagnosis Encounter for IUD removal- Primary Encounter for removal of intrauterine contraceptive device [facility] Diagnosis Missed menses- Primary Absence of menstruation [facility] Diagnosis Supervision of high-risk of elderly multigravida- Primary with uncertain dates, antepartum state, incidental Screen for STD (sexually transmitted disease) Screening examination for venereal disease 6 weeks gestation of state, incidental [facility] Diagnosis Supervision of high-risk of elderly multigravida- Primary 8 weeks gestation of state, incidental * Assessment & Plan Note - Harriet Faustin MD - 11/06/2024 9:21 AM ESTAssociated Problem(s): Supervision of high-risk of elderly multigravida [facility] Diagnosis Supervision of high-risk of elderly multigravida (HCC)- Primary Supervision of high-risk of elderly multigravida 8 weeks gestation of (HCC) state, incidental Multigravida of advanced maternal age in first trimester (HCC)- Primary GBS bacteriuria * Assessment & Plan Note - Harriet Faustin MD - 12/11/2024 2:44 PM EDTAssociated Problem(s): GBS bacteriuria [facility] Diagnosis Supervision of high-risk of elderly multigravida ([facility])- Primary Supervision of high-risk of elderly multigravida 8 weeks gestation of ([facility]) state, incidental Encounter for screening for malformation using ultrasound ([facility])- Primary 13 weeks gestation of ([facility]) state, incidental Encounter for (NT) nuchal translucency scan ([facility]) Other specified screening Multigravida of advanced maternal age in first trimester ([facility])- Primary GBS bacteriuria [facility] Diagnosis Supervision of high-risk of elderly multigravida ([facility])- Primary Supervision of high-risk of elderly multigravida 8 weeks gestation of ([facility]) state, incidental Multigravida of advanced maternal age in first trimester ([facility])- Primary GBS bacteriuria Plantar wart- Primary [facility]* Diagnosis Supervision of high-risk of elderly multigravida ([facility])- Primary Supervision of high-risk of elderly multigravida 8 weeks gestation of ([facility]) state, incidental Multigravida of advanced maternal age in first trimester ([facility])- Primary GBS bacteriuria AMA (advanced maternal age) multigravida 35+, second trimester ([facility])- Primary 6 weeks gestation of ([facility]) state, incidental Encounter for anatomic survey ([facility]) Encounter for anatomic survey [facility] Diagnosis Supervision of high-risk of elderly multigravida ([facility])- Primary Supervision of high-risk of elderly multigravida 8 weeks gestation of ([facility]) state, incidental Multigravida of advanced maternal age in first trimester ([facility])- Primary GBS bacteriuria Supervision of high-risk of elderly multigravida ([facility])- Primary Supervision of high-risk of elderly multigravida Multigravida of advanced maternal age in second trimester ([facility]) 20 weeks gestation of ([facility]) state, incidental GBS bacteriuria Recurrent major depressive disorder, in remission TREMAYNE (generalized anxiety disorder) Generalized anxiety disorder [facility] Diagnosis Supervision of high-risk of elderly multigravida ([facility])- Primary Supervision of high-risk of elderly multigravida 8 weeks gestation of ([facility]) state, incidental Multigravida of advanced maternal age in first trimester ([facility])- Primary GBS bacteriuria Screening for diabetes mellitus- Primary Supervision of high-risk of elderly multigravida ([facility]) Supervision of high-risk of elderly multigravida Multigravida of advanced maternal age in second trimester ([facility]) GBS bacteriuria TREMAYNE (generalized anxiety disorder) Generalized anxiety disorder Recurrent major depressive disorder, in remission 23 weeks gestation of ([facility]) state, incidental Multiparous Multiparity [facility]* Diagnosis Supervision of high-risk of elderly multigravida ([facility])- Primary Supervision of high-risk of elderly multigravida 8 weeks gestation of ([facility]) state, incidental Multigravida of advanced maternal age in first trimester ([facility])- Primary GBS bacteriuria Decreased movements in second trimester, single or unspecified fetus ([facility])- Primary [facility]* Diagnosis Supervision of high-risk of elderly multigravida ([facility])- Primary Supervision of high-risk of elderly multigravida 8 weeks gestation of ([facility]) state, incidental Multigravida of advanced maternal age in first trimester ([facility])- Primary GBS bacteriuria GBS bacteriuria- Primary Multigravida of advanced maternal age in second trimester ([facility]) 27 weeks gestation of ([facility]) state, incidental Need for vaccination Need for prophylactic vaccination and inoculation against unspecified single disease * Assessment & Plan Note - Harriet Faustin MD - 03/24/2025 3:57 PM EDTAssociated Problem(s): Supervision of high-risk of elderly multigravida ([facility]) * Assessment & Plan Note - Harriet Faustin MD - 03/24/2025 3:57 PM EDTAssociated Problem(s): Multigravida of advanced maternal age in second trimester ([facility]) [facility]* Diagnosis Supervision of high-risk of elderly multigravida ([facility])- Primary Supervision of high-risk of elderly multigravida 8 weeks gestation of ([facility]) state, incidental Multigravida of advanced maternal age in first trimester ([facility])- Primary GBS bacteriuria GBS bacteriuria- Primary Multigravida of advanced maternal age in second trimester ([facility]) 27 weeks gestation of ([facility]) state, incidental Need for vaccination Need for prophylactic vaccination and inoculation against unspecified single disease AMA (advanced maternal age) multigravida 35+, third trimester ([facility])- Primary 31 weeks gestation of ([facility]) state, incidental Supervision of high risk in third trimester ([facility]) Unspecified high-risk Supervision of high-risk of elderly multigravida ([facility]) Supervision of high-risk of elderly multigravida [facility] Supervision of high-risk of elderly multigravida ([facility])- Primary Supervision of high-risk of elderly multigravida 8 weeks gestation of ([facility]) state, incidental Multigravida of advanced maternal age in first trimester ([facility])- Primary GBS bacteriuria GBS bacteriuria- Primary Multigravida of advanced maternal age in second trimester ([facility]) 27 weeks gestation of ([facility]) state, incidental Need for vaccination Need for prophylactic vaccination and inoculation against unspecified single disease screening for malformation using ultrasonics ([facility])- Primary Encounter for routine screening for malformation using ultrasonics AMA (advanced maternal age) multigravida 35+, third trimester ([facility]) 33 weeks gestation of ([facility]) state, incidental [facility]* Diagnosis Supervision of high-risk of elderly multigravida ([facility])- Primary Supervision of high-risk of elderly multigravida 8 weeks gestation of ([facility]) state, incidental Multigravida of advanced maternal age in first trimester ([facility])- Primary GBS bacteriuria GBS bacteriuria- Primary Multigravida of advanced maternal age in second trimester ([facility]) 27 weeks gestation of ([facility]) state, incidental Need for vaccination Need for prophylactic vaccination and inoculation against unspecified single disease GBS bacteriuria- Primary TREMAYNE (generalized anxiety disorder) Generalized anxiety disorder Recurrent major depressive disorder, in remission 23 weeks gestation of ([facility]) state, incidental Multiparous Multiparity Multigravida of advanced maternal age in second trimester ([facility]) [employer] Other specified complication, antepartum [facility] Diagnosis Supervision of high-risk of elderly multigravida ([facility])- Primary Supervision of high-risk of elderly multigravida 8 weeks gestation of ([facility]) state, incidental Multigravida of advanced maternal age in first trimester ([facility])- Primary GBS bacteriuria GBS bacteriuria- Primary Multigravida of advanced maternal age in second trimester ([facility]) 27 weeks gestation of ([facility]) state, incidental Need for vaccination Need for prophylactic vaccination and inoculation against unspecified single disease Multigravida of advanced maternal age in second trimester ([facility])- Primary 34 weeks gestation of ([facility]) state, incidental GBS bacteriuria AMA (advanced maternal age) multigravida 35+, third trimester ([facility]) documented in this encounter [facility] for referral (narrative)* Outpatient Procedure (Routine) - Authorized Specialty Diagnoses / Procedures Referred By Capo hatch Referred To Contact [facility] Diagnoses Desire for IUD (intrauterine device) in place Procedures REMOVE INTRAUTERINE DEVICE REMOVE INTRAUTERINE DEVICE Zuleyka Velásquez MD [address] [facility] [place] [address] [id number] [place] [address] Referral ID Status Reason Start Date Expiration Date Visits Requested Visits Authorized [id number] Authorized Auto-Generat ed Referral 06/02/2024 06/02/2025 1 1 [facility] for visit Narrative* Diagnostic Procedure Only (Routine) - Authorized Specialty Diagnoses / Procedures Referred By Capo t Referred To Contact [facility] Diagnoses 6 weeks gestation of ([facility]) Encounter for supervision of normal , unspecified, unspecified trimester Procedures OBSTETRIC ULTRASOUND WHI US PREG UTERUS AFTER 1ST TRIMEST GESTATION Mallorie Trejo APRN.GINA [address] [place] [address] Phone: tel: fax: [facility] [address] [place] [address] Referral ID Status Reason Start Date Expiration Date Visits Requested Visits Authorized [id number] Authorized Auto-Generate d Referral Patient Cleared - INN Insurance Found 11/18/2024 09/02/2025 20 20 [facility] for visit Narrative* Consult, Test, Treat (Routine) - Closed Specialty Diagnoses / Procedures Referred By Contac t Referred To Contact [facility] Diagnoses TREMAYNE (generalized anxiety disorder) Recurrent major depressive disorder, in remission 23 weeks gestation of (HCC) Procedures OFFICE/OUTPATIENT [facility] 60 MINUTES Jocelyn Frazier APRN.CN [address] [place] [address] Phone: tel: fax: Referral ID Status Reason Start Date Expiration Date V isits Requested Visits Authorized [id number] Closed PCP Requested Referral 02/24/2025 02/24/2026 1 1 [facility] Summary Purpose Family History No Family History Records FoundNo Family History Records FoundNo Family History Records FoundNo Family History Records Found Advance Directives No Advanced Directives Records FoundNo Advanced Directives Records FoundNo Advanced Directives Records FoundNo Advanced Directives Records Found Additional Source Comments Source Comments (unrecognize d section and content) In the event this informatio n is protected by the Federal Confidentiality of Alcohol and Drug Abuse Patient Records regulations: The Federal rules restrict any use of the information to criminally investigate or prosecute any alcohol or drug abuse patient.[facility] the event this information is protected by the Federal Confidentiality of Alcohol and Drug Abuse Patient Records regulations: The Federal rules restrict any use of the information to criminally investigate or prosecute any alcohol or drug abuse patient.[facility] the event this information is protected by the Federal Confidentiality of Alcohol and Drug Abuse Patient Records regulations: The Federal rules restrict any use of the information to criminally investigate or prosecute any alcohol or drug abuse patient.[facility] the event this information is protected by the Federal Confidentiality of Alcohol and Drug Abuse Patient Records regulations: The Federal rules restrict any use of the information to criminally investigate or prosecute any alcohol or drug abuse patient.[facility] the event this information is protected by the Federal Confidentiality of Alcohol and Drug Abuse Patient Records regulations: The Federal rules restrict any use of the information to criminally investigate or prosecute any alcohol or drug abuse patient.[facility] the event this information is protected by the Federal Confidentiality of Alcohol and Drug Abuse Patient Records regulations: The Federal rules restrict any use of the information to criminally investigate or prosecute any alcohol or drug abuse patient.[facility] the event this information is protected by the Federal Confidentiality of Alcohol and Drug Abuse Patient Records regulations: The Federal rules restrict any use of the information to criminally investigate or prosecute any alcohol or drug abuse patient.[facility] the event this information is protected by the Federal Confidentiality of Alcohol and Drug Abuse Patient Records regulations: The Federal rules restrict any use of the information to criminally investigate or prosecute any alcohol or drug abuse patient.[facility] the event this information is protected by the Federal Confidentiality of Alcohol and Drug Abuse Patient Records regulations: The Federal rules restrict any use of the information to criminally investigate or prosecute any alcohol or drug abuse patient.[facility] the event this information is protected by the Federal Confidentiality of Alcohol and Drug Abuse Patient Records regulations: The Federal rules restrict any use of the information to criminally investigate or prosecute any alcohol or drug abuse patient.[facility] the event this information is protected by the Federal Confidentiality of Alcohol and Drug Abuse Patient Records regulations: The Federal rules restrict any use of the information to criminally investigate or prosecute any alcohol or drug abuse patient.[facility] the event this information is protected by the Federal Confidentiality of Alcohol and Drug Abuse Patient Records regulations: The Federal rules restrict any use of the information to criminally investigate or prosecute any alcohol or drug abuse patient.[facility] the event this information is protected by the Federal Confidentiality of Alcohol and Drug Abuse Patient Records regulations: The Federal rules restrict any use of the information to criminally investigate or prosecute any alcohol or drug abuse patient.[facility] the event this information is protected by the Federal Confidentiality of Alcohol and Drug Abuse Patient Records regulations: The Federal rules restrict any use of the information to criminally investigate or prosecute any alcohol or drug abuse patient.[facility] the event this information is protected by the Federal Confidentiality of Alcohol and Drug Abuse Patient Records regulations: The Federal rules restrict any use of the information to criminally investigate or prosecute any alcohol or drug abuse patient.[facility] the event this information is protected by the Federal Confidentiality of Alcohol and Drug Abuse Patient Records regulations: The Federal rules restrict any use of the information to criminally investigate or prosecute any alcohol or drug abuse patient.[facility] the event this information is protected by the Federal Confidentiality of Alcohol and Drug Abuse Patient Records regulations: The Federal rules restrict any use of the information to criminally investigate or prosecute any alcohol or drug abuse patient.[facility] the event this information is protected by the Federal Confidentiality of Alcohol and Drug Abuse Patient Records regulations: The Federal rules restrict any use of the information to criminally investigate or prosecute any alcohol or drug abuse patient.[facility] the event this information is protected by the Federal Confidentiality of Alcohol and Drug Abuse Patient Records regulations: The Federal rules restrict any use of the information to criminally investigate or prosecute any alcohol or drug abuse patient.[facility] the event this information is protected by the Federal Confidentiality of Alcohol and Drug Abuse Patient Records regulations: The Federal rules restrict any use of the information to criminally investigate or prosecute any alcohol or drug abuse patient.[facility] the event this information is protected by the Federal Confidentiality of Alcohol and Drug Abuse Patient Records regulations: The Federal rules restrict any use of the information to criminally investigate or prosecute any alcohol or drug abuse patient.[facility] the event this information is protected by the Federal Confidentiality of Alcohol and Drug Abuse Patient Records regulations: The Federal rules restrict any use of the information to criminally investigate or prosecute any alcohol or drug abuse patient.[facility]In the event this information is protected by the Federal Confidentiality of Alcohol and Drug Abuse Patient Records regulations: The Federal rules restrict any use of the information to criminally investigate or prosecute any alcohol or drug abuse patient.[facility] the event this information is protected by the Federal Confidentiality of Alcohol and Drug Abuse Patient Records regulations: The Federal rules restrict any use of the information to criminally investigate or prosecute any alcohol or drug abuse patient.[facility] the event this information is protected by the Federal Confidentiality of Alcohol and Drug Abuse Patient Records regulations: The Federal rules restrict any use of the information to criminally investigate or prosecute any alcohol or drug abuse patient.[facility] the event this information is protected by the Federal Confidentiality of Alcohol and Drug Abuse Patient Records regulations: The Federal rules restrict any use of the information to criminally investigate or prosecute any alcohol or drug abuse patient.[facility] the event this information is protected by the Federal Confidentiality of Alcohol and Drug Abuse Patient Records regulations: The Federal rules restrict any use of the information to criminally investigate or prosecute any alcohol or drug abuse patient.[facility] the event this information is protected by the Federal Confidentiality of Alcohol and Drug Abuse Patient Records regulations: The Federal rules restrict any use of the information to criminally investigate or prosecute any alcohol or drug abuse patient.[facility] the event this information is protected by the Federal Confidentiality of Alcohol and Drug Abuse Patient Records regulations: The Federal rules restrict any use of the information to criminally investigate or prosecute any alcohol or drug abuse patient.[facility] the event this information is protected by the Federal Confidentiality of Alcohol and Drug Abuse Patient Records regulations: The Federal rules restrict any use of the information to criminally investigate or prosecute any alcohol or drug abuse patient.[facility] Care Teams (unrecognized sec tion and content) Tile Molder Hand Relationship Specialty Start Date End Date Alexander Ramirez MD [address] [place] [address] PCP - General Family Medicine 02/12/20 Tile Molder Hand Relationship Specialty Start Date End Date Alexander Ramirez MD [address] [place], [place] [address] [phone] PCP - General Family Medicine 02/12/20 Tile Molder Hand Relationship Specialty Start Date End Date Alexander Ramirez MD [address] [place] [address] PCP - General Family Medicine 02/12/20 Tile Molder Hand Relationship Specialty Start Date End Date Alexander Ramirez MD [address] [place], [place] [address] [phone] PCP - General Family Medicine 02/12/20 Tile Molder Hand Relationship Specialty Start Date End Date Alexander Ramirez MD [address] [place] [address] PCP - General Family Medicine 02/12/20 Tile Molder Hand Relationship Specialty Start Date End Date Alexander Ramirez MD [address] [place] [address] PCP - General Family Medicine 02/12/20 Casi Hobson, MURPHY.STABBER [address] [facility] [place] [address] [facility] Family Medicine 08/09/24 Deborah Phelps PA-C [address] [place] [address] [facility] Family Medicine 08/09/24 Tile Molder Hand Relationship Specialty Start Date End Date Alexander Ramirez MD [address] [place] [address] PCP - General Family Medicine 02/12/20 Casi Hobson, REMITTANCE CLERK.STABBER [address] [facility] [place] [address] [facility] Family Medicine 08/09/24 Deborah Phelps PA-C [address] [place] [address] [facility] Family Medicine 08/09/24 Tile Molder Hand Relationship Specialty Start Date End Date Alexander Ramirez MD [address] [place] [address] PCP - General Family Medicine 02/12/20 Casi Hobson, REMITTANCE CLERK.STABBER [address] [facility] [place] [address] [facility] Family Medicine 08/09/24 Deborah Phelps PA-C [address] [place] [address] [facility] Family Medicine 08/09/24 Tile Molder Hand Relationship Specialty Start Date End Date Alexander Ramirez MD [address] [place] [address] PCP - General Family Medicine 02/12/20 Casi Hobson, MURPHY.STABBER [address] [place] [address] [facility] Family Medicine 08/09/24 Deborah Phelps PA-C [address] [place] [address] [facility] Family Medicine 08/09/24 Tile Molder Hand Relationship Specialty Start Date End Date Alexander Ramirez MD [address] [place] [address] PCP - General Family Medicine 02/12/20 Casi Hobson APRN.STABBER [address] [place] [address] [facility] Family Medicine 08/09/24 Deborah Phelps PA-C [address] [place] [address] [facility] Family Medicine 08/09/24 Tile Molder Hand Relationship Specialty Start Date End Date Alexander Ramirez MD [address] [place] [address] PCP - General Family Medicine 02/12/20 Casi Hobson, REMITTANCE CLERK.STABBER [address] [place] [address] [facility] Family Medicine 08/09/24 Deborah Phelps PA-C [address] [place] [address] [facility] Family Medicine 08/09/24 Tile Molder Hand Relationship Specialty Start Date End Date Alexander Ramirez MD [address] [place] [address] PCP - General Family Medicine 02/12/20 Casi Hobson, REMITTANCE CLERK.STABBER [address] [place] [address] [facility] Family Medicine 08/09/24 Deborah Phelps PA-C [address] [place] [address] [facility] Family Medicine 08/09/24 Tile Molder Hand Relationship Specialty Start Date End Date Alxeander Ramirez MD [address] [place] [address] PCP - General Family Medicine 02/12/20 Casi Hobson, REMITTANCE CLERK.STABBER [address] [place] [address] [facility] Family Medicine 08/09/24 Deborah Phelps PA-C [address] [place] [address] [facility] Family Medicine 08/09/24 Tile Molder Hand Relationship Specialty Start Date End Date Alexander Ramirez MD [address] [place] [address] PCP - General Family Medicine 02/12/20 Deborah Phelps PA-C [address] [place] [address] [facility] Family Medicine 08/09/24 Tile Molder Hand Relationship Specialty Start Date End Date Alexander Ramirez MD [address] [place] [address] PCP - General Family Medicine 02/12/20 Deborah Phelps PA-C [address] [place] [address] [facility] Family Medicine 08/09/24 02/01/25 Casi Hobson APRN.STABBER [address] [place] [address] [facility] Family Medicine 02/02/25 Deboarh Phelps PA-C [address] [place] [address] [facility] Family Medicine 02/02/25 Tile Molder Hand Relationship Specialty Start Date End Date Alexander Ramirez MD [address] [place] [address] PCP - General Family Medicine 02/12/20 Casi Hobson APRN.STABBER [address] [place] [address] [facility] Family Medicine 02/02/25 Deborah Phelps PA-C [address] [place] [address] [facility] Family Medicine 02/02/25 Tile Molder Hand Relationship Specialty Start Date End Date Alexander Ramirez MD [address] [place] [address] PCP - General Family Medicine 02/12/20 Casi Hobson APRN.STABBER [address] [place] [address] [facility] Family Medicine 02/02/25 Deborah Phelps PA-C [address] [place] [address] [facility] Family Medicine 02/02/25 Tile Molder Hand Relationship Specialty Start Date End Date Alexander Ramirez MD [address] [place] [address] PCP - General Family Medicine 02/12/20 Casi Hobson APRN.STABBER [address] [place] [address] [facility] Family Medicine 02/02/25 Deborah Phelps PA-C [address] [place] [address] [facility] Family Medicine 02/02/25 Tile Molder Hand Relationship Specialty Start Date End Date Alexander Ramirez MD [address] [place] [address] PCP - General Family Medicine 02/12/20 Casi Hobson, REMITTANCE CLERK.STABBER [address] [place] [address] [facility] Family Medicine 02/02/25 Deborah Phelps PA-C [address] [place] [address] [facility] Family Medicine 02/02/25 Tile Molder Hand Relationship Specialty Start Date End Date Alexander Ramirez MD [address] [place] [address] PCP - General Family Medicine 02/12/20 Casi Hobson, MURPHY.STABBER [address] [facility] [place] [address] [facility] Family Medicine 02/02/25 Deborah Phelps PA-C [address] [place] [address] [facility] Family Medicine 02/02/25 Tile Molder Hand Relationship Specialty Start Date End Date Alexander Ramirez MD [address] [place] [address] PCP - General Family Medicine 02/12/20 Casi Hobson, MURPHY.STABBER [address] [facility] [place] [address] [facility] Family Medicine 02/02/25 Deborah Phelps PA-C [address] [place] [address] [facility] Family Medicine 02/02/25 Tile Molder Hand Relationship Specialty Start Date End Date Alexander Ramirez MD [address] [place] [address] PCP - General Family Medicine 02/12/20 Casi Hobson REMITTANCE CLERK.STABBER [address] [facility] [place] [address] [facility] Family Medicine 02/02/25 Deborah Phelps PA-C [address] [place] [address] [facility] Family Medicine 02/02/25 Tile Molder Hand Relationship Specialty Start Date End Date Alexander Ramirez MD [address] [place] [address] PCP - General Family Medicine 02/12/20 Casi Hobson APRN.STABBER [address] [place] [address] [facility] Family Medicine 02/02/25 Deborah Phelps PA-C [address] [place] [address] [facility] Family Medicine 02/02/25 Tile Molder Hand Relationship Specialty Start Date End Date Alexander Ramirez MD [address] [place] [address] PCP - General Family Medicine 02/12/20 Casi Hobson APRN.STABBER [address] [place] [address] [facility] Family Medicine 02/02/25 Deborah Phelps PA-C [address] [place] [address] [facility] Family Medicine 02/02/25 Tile Molder Hand Relationship Specialty Start Date End Date Alexander Ramirez MD [address] [place] [address] PCP - General Family Medicine 02/12/20 Casi Hobson, MURPHY.STABBER [address] [place] [address] [facility] Family Medicine 02/02/25 Deborah Phelps PA-C [address] [place], [place] [address] [facility] Family Medicine 02/02/25 Tile Molder Hand Relationship Specialty Start Date End Date Alexander Ramirez MD [address] [place], [place] [id number] PCP - General Family Medicine 02/12/20 Casi Hobson APRN.STABBER [address] [place], [place] [id number] [facility] 02/02/25 Deborah Phelps PA-C [address] [place], [place] [id number] [facility] Family [facility] 02/02/25 INFORMATION SOURCE (unrecogn ized section and content) DATE CREATED AUTHOR 07/04/2023 [facility] DATE CREATED AUTHOR AUTHOR'S ORGANIZ ATION 05/08/2025 [facility] DATE CREATED AUTHOR AUTHOR'S ORGANIZ ATION 06/11/2025 [facility] DATE CREATED AUTHOR AUTHOR'S ORGANIZ ATION 06/20/2025 [facility] Reason for Visit (unrecogniz ed section and content) Reason Comments Physical Reason Comments Results Reason Comments Well Woman Reason Onset Date Comments IUD Removal 06/09/2024 Specialty Diagnoses / Procedures Referred By Capo t Referred To Contact [facility] Diagnoses Desire for IUD (intrauterine device) in place Procedures REMOVE INTRAUTERINE DEVICE REMOVE INTRAUTERINE DEVICE Zuleyka Velásquez MD [address] [place] [address] [facility] [address] [place] [address] Referral ID Status Reason Start Date Expiration Date V isits Requested Visits Authorized [id number] Closed Auto-Generate d Referral 06/02/2024 06/02/2025 1 1 Reason Comments Discussion Reason Comments Initial OB Visit Reason Comments Early OB Bleeding Reason Onset Date Comments Care 11/06/2024 Reason Onset Date Comments Care 12/11/2024 Reason Comments Wart Left foot Reason Comments Written order from Babylist for breast p ump Reason Comments US Specialty Diagnoses / Procedures Referred By Contac t Referred To Contact [facility] Diagnoses 6 weeks gestation of (HCC) Procedures OBSTETRIC ULTRASOUND WHI US PREG UTERUS AFTER 1ST TRIMEST GESTATION Mallorie Trejo APRN.CNP [address] [place] [address] Phone: tel: fax: [address] [address] Referral ID Status Reason Start Date Expiration Date V isits Requested Visits Authorized [id number] Closed Auto-Generate d Referral 01/16/2025 09/02/2025 1 1 Reason Onset Date Comments Care 02/24/2025 Reason Onset Date Comments Care 03/04/2025 Reason Onset Date Comments Care 03/24/2025 Reason Comments Care Coordination M-Power SchedulingLM attempt # 1 Reason Comments Care Coordination M-Power SchedulingLM attempt # 2 Specialty Diagnoses / Procedures Referred By Contac t Referred To Contact [facility] Diagnoses AMA (advanced maternal age) multigravida 35+, third trimester (HCC) 31 weeks gestation of (HCC) Procedures OBSTETRIC ULTRASOUND WHI US PREG UTERUS AFTER 1ST TRIMEST GESTATION Moustapha Ramirez MD [address] [place] [address] Phone: tel: fax: [address] [phone] Referral ID Status Reason Start Date Expiration Date V isits Requested Visits Authorized [id number] Closed Auto-Generate d Referral 04/22/2025 04/22/2026 1 1 Reason Onset Date Comments Care 05/07/2025 FOR RECORDS PERTAINING TO PATIENTS WHO ARE OR HAVE BEEN ENROLLED IN A CHEMICAL DEPENDENCY/SUBSTANCEABUSE PROGRAM, SOME INFORMATION MAY BE OMITTED. This clinical summary was aggregated from multiple sources. Caution should be exercised in using it in the provision of clinical care. This summary normalizes information from multiple sources, and as a consequence, information in this document may materially change the coding, format and clinical context of patient data. In addition, data may be omitted in some cases. CLINICAL DECISIONS SHOULD BE BASED ON THE PRIMARY CLINICAL RECORDS. [employer] [facility]. provides no warranty or guarantee of the accuracy or completeness of information in this document.
--- OUTSIDE RECORDS SUMMARY | 2025-06-22 07:41 | XMS RPT_ITS | CCD ---
Author Organization [facility] Care Team Providers Care Forensic Photographer Name Role Phone Alexander Ramirez MD Primary Care Provider ISAURO BECKETT MD Attending Unavailable DEBORAH PHELPS PA-C Primary Care Unavailab Alexander Ulrich MD Primary Care Provider Knoble HULL MOLDER.GINA, Casi Unavailable Randy Phelps PA-Ce Unavailable Deborah Phelps PA-C Unavailable Knoble HULL MOLDER.AUTO BUMPER STRAIGHTENER, Casi Unavailable Lenin SIERRA, Deborah Unavailable JOCELYN [...] on above: Take 1 capsule by mo [facility] once daily. omega 0-dnd-njw-fish oil 1,000 mg (250 mg-750 mg)/5 mL [...] tablet by mouth once daily. Active levonorgestrel 0.446372 mg/hr intrauterine system (6 sources) Progestin, Progestin-containing [...] (advanced maternal age) multigravida 35+, third trimester ([facility])] Onset: 04-22-2025 Episodic Other complications of (1 source) Supervision of high risk , unspecified, third trimester; Translations: [Supervision of high risk in third trimester ([facility])] Onset: 04-22-2025 Episodic Other ear [...] complication before (HCC); Translations: [ complication before ([facility])] Onset: 05-06-2025 Viral infection (1 source) Verruca plantaris; Translations: [Plantar wart] 12-15-2024 Episodic Past or Other Problems Problem Classification Problem Date Documented Da te Episodic/Chronic Administrative/social admission (18 sources) Multiparous; Translations: [Problems related to multiparity] Onset: 01-30-2025 01-30-2025 Episodic Other complications of (3 sources) Supervision of elderly multigravida, second trimester; Translations: [Multigravida of advanced maternal age in second trimester ([facility])] Onset: 01-30-2025 Episodic Other complications of (1 source) Decreased movements, second trimester, not applicable or unspecified; Translations: [Decreased movements in second trimester, single or unspecified fetus ([facility])] Onset: 03-04-2025 Episodic Other and [...] 05-25-2025 CNPN Telephone (OBGYWM) CONSTANCE DE SANTIAGO ([id number]) 1990 F Date Time Provider Department 05/25/25 MERLY DAVIS During your visit today, we recorded the following information about you: Janeth Goodrich MA 05/25/2025 8:29 AM Signed Received [facility] paperwork. Will work on completing for [...] tablet by mouth once daily. - omega 2-idm-afi-fish oil 1,000 mg (250 mg-750 mg)/5 mL [...] Status:Closed by JANETH GOODRICH on 05/25/25 Normal [facility] URINE OB DIP B/Oon 5 Glucose Ql (U) Negative Neg mg/dL [facility] Interpretation and review of laboratory results Normal [facility] Protein.monoclonal (U) [Mass/Vol] Negative Neg mg/dL [facility] Examination level ultrasound on 05-05-[address] [facility] Radiology Study observation (narrative) [facility] Salma 04-24-2025 [facility] Telephone (FV3L+D) CONSTANCE DE SANTIAGO ([id number]) 1990 F Date Time Provider Department 04/24/25 [...] tablet by mouth once daily. - omega 1-wxf-kfo-fish oil 1,000 mg (250 mg-750 mg)/5 mL [...] Encounter Status:Closed by MAYCOL ANDERSON on 04/24/25 [facility] Salma 04-17-2025 CNPN Telephone (FV3L+D) CONSTANCE DE SANTIAGO ([id number]) 1990 F Date Time Provider Department 04/17/25 MPOWER FV OB LANDD FV3L+D During your visit today, we recorded the following information about you: Allergies As of Date: 04/17/2025 (No Known Allergies) Date Reviewed: 04/09/2025 Reviewed by: Fátima Vaz MA - Fully Assessed Reason for Visit: Care Coordination [2141] Cmt: M-Power Scheduling LM attempt # 1 Prescriptions as of 04/17/2025 - FERROUS SULFATE, BULK, MISC once daily. OTC 15 mg ferrous sulfate with vitamin C - aspirin, enteric coated (ECOTRIN LOW STRENGTH) 81 mg EC tablet Take 1 tablet by mouth once daily. - omega 1-cct-dlf-fish oil 1,000 mg (250 mg-750 mg)/5 mL [...] Status:Closed by MAYCOL ANDERSON on 04/17/25 Normal [facility] CBC W Auto Differential pane l (Bld)on 03-24-2025 Basophils (Bld) [#/Vol] 0.03 10*3/uL Normal <0.11 [facility] Comment on above: Order Comment: Speci men Type: BLOOD SPECIMENOrdering Facility: [facility] Address: [address] [place] [address] Performed By: #### 5 7021-8 ####[facility] LABCLIA [id number] [place] [address] [place] Basophils/100 WBC (Bld) 0.4 % Normal [facility] Comment on above: Order Comment: Speci men Type: BLOOD SPECIMENOrdering Facility: [facility] Address: [address] [place] [address] Performed By: #### 5 7021-8 ####[facility] LABCLIA [id number] [place] [address] [place] Differential cell count method Nom (Bld) Auto Normal [facility] Comment on above: Order Comment: Speci men Type: BLOOD SPECIMENOrdering Facility: [facility] Address: [address] [place] [address] Performed By: #### 5 7021-8 ####[facility] LABCLIA [id number] [place] [id number] [place] Eosinophils (Bld) [#/Vol] 0.09 10*3/uL Normal <0.46 [facility] Comment on above: Order Comment: Speci men Type: BLOOD SPECIMENOrdering Facility: [facility] Address: [address] [place] [address] Performed By: #### 5 7021-8 ####[facility] LABCLIA [id number] [place] [id number] [place] Eosinophils/100 WBC (Bld) 1.1 % Normal [facility] Comment on above: Order Comment: Speci men Type: BLOOD SPECIMENOrdering Facility: [facility] Address: [address] [place] [address] Performed By: #### 5 7021-8 ####[facility] LABCLIA [id number] [place] [address] [place] Erythrocyte distribution width (RBC) [Ratio] 13.1 % Normal 11.5-15.0 [facility] Comment on above: Order Comment: Speci men Type: BLOOD SPECIMENOrdering Facility: [facility] Address: [address] [place] [address] Performed By: #### 5 7021-8 ####[facility] LABCLIA [id number] [place] [address] [place] Hematocrit (Bld) [Volume fraction] 33.3 % Low 36.0-46.0 [facility] Comment on above: Order Comment: Speci men Type: BLOOD SPECIMENOrdering Facility: [facility] Address: [address] [place] [address] Performed By: #### 5 7021-8 ####[facility] LABCLIA [id number] [place] [address] [place] Hemoglobin (Bld) [Mass/Vol] 11.3 g/dL Low 11.5-15.5 [facility] Comment on above: Order Comment: Speci men Type: BLOOD SPECIMENOrdering Facility: [facility] Address: [address] [place] [address] Performed By: #### 5 7021-8 ####[facility] LABCLIA [id number] [place] [address] [place] Immature granulocytes (Bld) [#/Vol] 0.05 10*3/uL Normal <0.10 [facility] Comment on above: Order Comment: Speci men Type: BLOOD SPECIMENOrdering Facility: [facility] Address: [address] [place] [address] Performed By: #### 5 7021-8 ####[facility] LABCLIA [id number] [address] STATES [facility] Immature granulocytes/100 WBC (Bld) 0.6 % Normal [facility] Comment on above: Order Comment: Speci men Type: BLOOD SPECIMENOrdering Facility: [facility] Address: [address] [place] [address] Performed By: #### 5 7021-8 ####[facility] LABCLIA [id number] [place] [address] [place] Lymphocytes (Bld) [#/Vol] 1.61 10*3/uL Normal 1.00-4.00 [facility] Comment on above: Order Comment: Speci men Type: BLOOD SPECIMENOrdering Facility: [facility] Address: [address] [place] [address] Performed By: #### 5 7021-8 ####[facility] LABCLIA [id number] [address] [place] Lymphocytes/100 WBC (Bld) 19.0 % Normal [facility] Comment on above: Order Comment: Speci men Type: BLOOD SPECIMENOrdering Facility: [facility] Address: [address] [place] [address] Performed By: #### 5 7021-8 ####[facility] LABCLIA [id number] [place] [address] [place] MCH (RBC) [Entitic mass] 32.5 pg Normal 26.0-34.0 [facility] Comment on above: Order Comment: Speci men Type: BLOOD SPECIMENOrdering Facility: [facility] Address: [address] [place] [address] Performed By: #### 5 7021-8 ####[facility] LABCLIA [id number] [place] [id number] [place] MCHC (RBC) [Mass/Vol] 33.9 g/dL Normal 30.5-36.0 [facility] Comment on above: Order Comment: Speci men Type: BLOOD SPECIMENOrdering Facility: [facility] Address: [address] [place] [address] Performed By: #### 5 7021-8 ####[facility] LABIA [id number] [place] [address] [place] MCV (RBC) [Entitic vol] 95.7 fL Normal 80.0-100.0 [facility] Comment on above: Order Comment: Speci men Type: BLOOD SPECIMENOrdering Facility: [facility] Address: [address] [place] [address] Performed By: #### 5 7021-8 ####[facility] LABIA [id number] [place] [address] [place] Monocytes (Bld) [#/Vol] 0.64 10*3/uL Normal <0.87 [facility] Comment on above: Order Comment: Speci men Type: BLOOD SPECIMENOrdering Facility: [facility] Address: [address] [place] [address] Performed By: #### 5 7021-8 ####[facility] LABIA [id number] [place] [address] [place] Monocytes/100 WBC (Bld) 7.5 % Normal [facility] Comment on above: Order Comment: Speci men Type: BLOOD SPECIMENOrdering Facility: [facility] Address: [address] [place] [address] Performed By: #### 5 7021-8 ####[facility] LABCLIA [id number] [place] [id number] [place] Neutrophils (Bld) [#/Vol] 6.06 10*3/uL Normal 1.45-7.50 [facility] Comment on above: Order Comment: Speci men Type: BLOOD SPECIMENOrdering Facility: [facility] Address: [address] [place] [address] Performed By: #### 5 7021-8 ####[facility] LABCLIA [id number] [address] [place] Neutrophils/100 WBC (Bld) 71.4 % Normal [facility] Comment on above: Order Comment: Speci men Type: BLOOD SPECIMENOrdering Facility: [facility] Address: [address] [place] [address] Performed By: #### 5 7021-8 ####[facility] LABCLIA [id number] [place] [address] [place] Nucleated RBC (Bld) [#/Vol] 10*3/uL Normal <0.01 [facility] Comment on above: Order Comment: Speci men Type: BLOOD SPECIMENOrdering Facility: [facility] Address: [address] [place] [address] Performed By: #### 5 7021-8 ####[facility] LABCLIA [id number] [place] [address] [place] Nucleated RBC/100 WBC (Bld) [Ratio] 0.0 /100 WBC Normal [facility] Comment on above: Order Comment: Speci men Type: BLOOD SPECIMENOrdering Facility: [facility] Address: [address] [place] [address] Performed By: #### 5 7021-8 ####[facility] LABCLIA [id number] [place] [id number] [place] Platelet mean volume (Bld) [Entitic vol] 10.1 fL Normal 9.0-12.7 [facility] Comment on above: Order Comment: Speci men Type: BLOOD SPECIMENOrdering Facility: [facility] Address: [address] [place] [address] Performed By: #### 5 7021-8 ####[facility] LABCLIA [id number] [place] [address] [place] Platelets (Bld) [#/Vol] 305 10*3/uL Normal 150-400 [facility] Comment on above: Order Comment: Speci men Type: BLOOD SPECIMENOrdering Facility: [facility] Address: [address] [place] [address] Performed By: #### 5 7021-8 ####[facility] [id number] [place] [address] [place] RBC (Bld) [#/Vol] 3.48 10*6/uL Low 3.90-5.20 [facility] Comment on above: Order Comment: Speci men Type: BLOOD SPECIMENOrdering Facility: [facility] Address: [address] [place] [address] Performed By: #### 5 7021-8 ####[facility] [id number] [place] [address] [place] WBC (Bld) [#/Vol] 8.48 10*3/uL Normal 3.70-11.00 [facility] Comment on above: Order Comment: Speci men Type: BLOOD SPECIMENOrdering Facility: [facility] Address: [address] [place] [address] Performed By: #### 5 7021-8 ####[facility] [id number] [place] [address] [place] GESTATIONAL GLUCOSE SCREEN, 1-HOUR, 50 GRAM, NON-FASTINGon 03-24-2025 Glucose [Mass/Vol] 112 mg/dL Normal 74-134 [facility] Comment on above: Order Comment: Speci men Type: BLOOD SPECIMENOrdering Facility: [facility] Address: [address] [place] [address] Result Comment: [facility] Congress of Obstetricians and Gynecologists (Rohan/Mallorie) guidelines state a gestational diabetes mellitus positive screen is made, in women not previously diagnosed with overt diabetes, when the 1 hr plasma glucose level is equal to or above 140 mg/dL. The [facility] [place] [facility] [place] recommends a 135 mg/dL cutoff. Performed By: #### G LTGST ####[facility] LABIA [id number] [place] [id number] [place] Reagin and Treponema pallidu m IgG and IgM [Interp]on 03-24-2025 T. pallidum IgG+IgM IA Ql (S) Non-Reactive Normal Nonreactive [facility] Comment on above: Order Comment: Speci men Type: BLOOD SPECIMENOrdering Facility: [facility] Address: [address] [place] [address] Performed By: #### 7 3752-8 ####[facility] LABIA [id number] [place] [address] [place] Reagin+T pallidum IgG+IgM Se rPl-Impon 03-24-2025 Reagin and Treponema pallidum IgG and IgM [Interp] Cannot exclude recent Treponemal infection if specimen collected within 7-10 days after appearance of suspect lesions or 2-3 weeks after an exposure. Clinical correlation is required. Normal [facility] Comment on above: Order Comment: Speci men Type: BLOOD SPECIMENOrdering Facility: [facility] Address: [address] [place] [address] Performed By: #### 7 3752-8 ####[facility] [id number] [place] [id number] [place] Examination level ultrasound [...] Presentation: breech Placenta: Placental site: anterior, fundal. [id number] placental gregory Umbilical cord: Cord vessels: 3 [...] 15 oz EFW by: [place]lock (HC-AC-FL) [employer] Manager 6.9 mm CM 5.6 mm 70% [...] normal LVOT view: normal 3-vessel view: normal 5-hokwyk-hnwlebh view: normal Heart / Thorax Situs: situs [...] Read By: Kylee Beasley M.D. MATERNAL MEDICINE [facility] Examination level ultrasound on 01-30-2025 Radiology Study observation (narrative) [facility] Salma 12-22-2024 [facility] Telephone (OBGYWM) CONSTANCE DE SANTIAGO ([id number]) 1990 F Date Time Provider Department 12/22/24 HARRIET FAUSTIN During your visit today, we recorded the following information about you: Girma Garcia RN 12/22/2024 9:50 AM Signed Written order received from [employer] for electric breast pump and accessories. Placed in KJ inbox for signature. MICHELE Wooten Tara, RN 12/23/2024 9:01 AM Signed Faxed. Girma Garcia RN Allergies As of Date: 12/22/2024 (No Known Allergies) Date Reviewed: 12/15/2024 Reviewed by: Demetria Bourgeois MA - Fully Assessed Reason for Visit: Written order from [employer] for breast pump [Other] Prescriptions as of 12/23/2024 - aspirin, enteric coated (ECOTRIN LOW STRENGTH) 81 mg EC tablet Take 1 tablet by mouth once daily. - omega 3-sal-itc-fish oil 1,000 mg (250 mg-750 mg)/5 mL [...] Status:Closed by GIRMA GARCIA on 12/23/24 Normal [facility] CNOVon 12-15-2024 CNOV Office Visit (FAMPWS ) CONSTANCE DE SANTIAGO ([id number]) 1990 F Date Time Provider Department 12/15/24 5:40 PM [facility] visit today, we recorded [...] 1 tablet by mouth once daily. omega 0-hcl-kbs-fish oil 1,000 mg (250 mg-750 mg)/5 mL [...] Past Histories independently gathered by the clinical clerical support and the remaining scribed note accurately describes [...] Known Allergies) Date Reviewed: 12/15/2024 Reviewed by: Demetira Bourgeois MA - Fully Assessed Reason for Visit: Wart [927] Cmt: Left foot Primary Visit Diagnosis:Plantar wart [B07.0] Prescriptions as of 12/15/2024 - aspirin, enteric coated (ECOTRIN LOW STRENGTH) 81 mg EC tablet Take 1 tablet by mouth once daily. - omega 1-nlv-eyy-fish oil 1,000 mg (250 mg-750 mg)/5 mL [...] 10/30/2024 Di (more content not included)... Normal [facility] Examination level ultrasound on 12-12-2024 Indication First trimester anatomic survey Advanced maternal age Impression REMOTE READ The patient is referred for a first trimester anatomy scan including nuchal translucency measurement as clinically indicated. - Single, live, intrauterine . - Edna rump length measurement is consistent with the [...] by LMP 14 w + 1 d ANGIE by LMP: 06/10/2025 GA by [...] view: normal 4-chamber view with color: normal 4-qfnpev-khvqhwf view: normal Abdominal cord insertion: normal Stomach: [...] Read By: Radha Garber M.D. MATERNAL MEDICINE [facility] CBC W Auto Differential pane l (Bld)on 12-11-2024 Basophils (Bld) [#/Vol] 10*3/uL Normal <0.11 [facility] Comment on above: Order Comment: Speci men Type: BLOOD SPECIMENOrdering Facility: [facility] Address: [address] [place] [address] Performed By: #### 5 7021-8 ####[facility] LABCLIA [id number] [address] [place] [address] [place] Basophils/100 WBC (Bld) 0.3 % Normal [facility] Comment on above: Order Comment: Speci men Type: BLOOD SPECIMENOrdering Facility: [facility] Address: [address] [place] [address] Performed By: #### 5 7021-8 ####[facility] LABCLIA [id number] [address], [place] [address] [place] Differential cell count method Nom (Bld) Auto Normal [facility] Comment on above: Order Comment: Speci men Type: BLOOD SPECIMENOrdering Facility: [facility] Address: [address] [place] [address] Performed By: #### 5 7021-8 ####[facility] LABCLIA [id number] [address], [facility] [place] Eosinophils (Bld) [#/Vol] 0.11 10*3/uL Normal <0.46 [facility] Comment on above: Order Comment: Speci men Type: BLOOD SPECIMENOrdering Facility: [facility] Address: [address] [place] [address] Performed By: #### 5 7021-8 ####[facility] LABCLIA [id number] [facility] [address], [facility] [place] Eosinophils/100 WBC (Bld) 1.4 % Normal [facility] Comment on above: Order Comment: Speci men Type: BLOOD SPECIMENOrdering Facility: [facility] Address: [address] [place] [address] Performed By: #### 5 7021-8 ####[facility] LABCLIA [id number] [place] [address] [place] Erythrocyte distribution width (RBC) [Ratio] 12.5 % Normal 11.5-15.0 [facility] Comment on above: Order Comment: Speci men Type: BLOOD SPECIMENOrdering Facility: [facility] Address: [address] [place] [address] Performed By: #### 5 7021-8 ####[facility] LABCLIA [id number] [address], [place] [address] [place] Hematocrit (Bld) [Volume fraction] 34.0 % Low 36.0-46.0 [facility] Comment on above: Order Comment: Speci men Type: BLOOD SPECIMENOrdering Facility: [facility] Address: [address] [place] [address] Performed By: #### 5 7021-8 ####[facility] LABIA [id number] [place] [address] [place] Hemoglobin (Bld) [Mass/Vol] 11.6 g/dL Normal 11.5-15.5 [facility] Comment on above: Order Comment: Speci men Type: BLOOD SPECIMENOrdering Facility: [facility] Address: [address] [place] [address] Performed By: #### 5 7021-8 ####[facility] LABIA [id number] [place] [address] [place] Immature granulocytes (Bld) [#/Vol] 10*3/uL Normal <0.10 [facility] Comment on above: Order Comment: Speci men Type: BLOOD SPECIMENOrdering Facility: [facility] Address: [address] [place] [address] Performed By: #### 5 7021-8 ####[facility] LABCLIA [id number] [place] [address] [place] Immature granulocytes/100 WBC (Bld) 0.3 % Normal [facility] Comment on above: Order Comment: Speci men Type: BLOOD SPECIMENOrdering Facility: [facility] Address: [address] [place] [address] Performed By: #### 5 7021-8 ####[facility] LABCLIA [id number] [place] [address] [place] Lymphocytes (Bld) [#/Vol] 1.58 10*3/uL Normal 1.00-4.00 [facility] Comment on above: Order Comment: Speci men Type: BLOOD SPECIMENOrdering Facility: [facility] Address: [address] [place] [address] Performed By: #### 5 7021-8 ####[facility] LABCLIA [id number] [place] [address] [place] Lymphocytes/100 WBC (Bld) 19.9 % Normal [facility] Comment on above: Order Comment: Speci men Type: BLOOD SPECIMENOrdering Facility: [facility] Address: [address] [place] [address] Performed By: #### 5 7021-8 ####[facility] LABCLIA [id number] [place] [address] [place] MCH (RBC) [Entitic mass] 33.0 pg Normal 26.0-34.0 [facility] Comment on above: Order Comment: Speci men Type: BLOOD SPECIMENOrdering Facility: [facility] Address: [address] [place] [address] Performed By: #### 5 7021-8 ####[facility] LABCLIA [id number] [place] [address] [place] MCHC (RBC) [Mass/Vol] 34.1 g/dL Normal 30.5-36.0 [facility] Comment on above: Order Comment: Speci men Type: BLOOD SPECIMENOrdering Facility: [facility] [facility] Address: [address] [place] [address] Performed By: #### 5 7021-8 ####[facility] LABCLIA [id number] [address], [place] [address] [place] MCV (RBC) [Entitic vol] 96.9 fL Normal 80.0-100.0 [facility] Comment on above: Order Comment: Speci men Type: BLOOD SPECIMENOrdering Facility: [facility] Address: [address] [place] [address] Performed By: #### 5 7021-8 ####[facility] LABIA [id number] [address], [place] [address] [place] Monocytes (Bld) [#/Vol] 0.57 10*3/uL Normal <0.87 [facility] Comment on above: Order Comment: Speci men Type: BLOOD SPECIMENOrdering Facility: [facility] Address: [address] [place] [address] Performed By: #### 5 7021-8 ####[facility] LABIA [id number] [place] [address] [place] Monocytes/100 WBC (Bld) 7.2 % Normal [facility] Comment on above: Order Comment: Speci men Type: BLOOD SPECIMENOrdering Facility: [facility] Address: [address] [place] [address] Performed By: #### 5 7021-8 ####[facility] LABIA [id number] [place] [address] [place] Neutrophils (Bld) [#/Vol] 5.65 10*3/uL Normal 1.45-7.50 [facility] Comment on above: Order Comment: Speci men Type: BLOOD SPECIMENOrdering Facility: [facility] Address: [address] [place] [address] Performed By: #### 5 7021-8 ####[facility] LABIA [id number] [place] [address] [place] Neutrophils/100 WBC (Bld) 70.9 % Normal [facility] Comment on above: Order Comment: Speci men Type: BLOOD SPECIMENOrdering Facility: [facility] Address: [address] [place] [address] Performed By: #### 5 7021-8 ####[facility] LABCLIA [id number] [address] [place] [address] [place] Nucleated RBC (Bld) [#/Vol] 10*3/uL Normal <0.01 [facility] Comment on above: Order Comment: Speci men Type: BLOOD SPECIMENOrdering Facility: [facility] Address: [address] [place] [address] Performed By: #### 5 7021-8 ####[facility]CLIA [id number] [address], [facility] [place] Nucleated RBC/100 WBC (Bld) [Ratio] 0.0 /100 WBC Normal [facility] Comment on above: Order Comment: Speci men Type: BLOOD SPECIMENOrdering Facility: [facility] Address: [address] [place] [address] Performed By: #### 5 7021-8 ####[facility] LABIA [id number] [address] [place] [address] [place] Platelet mean volume (Bld) [Entitic vol] 10.8 fL Normal 9.0-12.7 [facility] Comment on above: Order Comment: Speci men Type: BLOOD SPECIMENOrdering Facility: [facility] Address: [address] [place] [address] Performed By: #### 5 7021-8 ####[facility] LABIA [id number] [address] [place] [address] [place] Platelets (Bld) [#/Vol] 293 10*3/uL Normal 150-400 [facility] Comment on above: Order Comment: Speci men Type: BLOOD SPECIMENOrdering Facility: [facility] Address: [address] [place] [address] Performed By: #### 5 7021-8 ####[facility] LABIA [id number] [place] [address] [place] RBC (Bld) [#/Vol] 3.51 10*6/uL Low 3.90-5.20 [facility] Comment on above: Order Comment: Speci men Type: BLOOD SPECIMENOrdering Facility: [facility] Address: [address] [place] [address] Performed By: #### 5 7021-8 ####[facility] LABIA [id number] [place] [address] [place] WBC (Bld) [#/Vol] 7.95 10*3/uL Normal 3.70-11.00 [facility] Comment on above: Order Comment: Speci men Type: BLOOD SPECIMENOrdering Facility: [facility] Address: [address] [place] [address] Performed By: #### 5 7021-8 ####[facility] [id number] [place] [address] [place] Examination level ultrasound on 12-11-2024 Radiology Study observation (narrative) [facility] HBV surface Ag Ser Qlon 12-02 HBV surface Ag Ql (S) Negative Normal Negative [facility] Comment on above: Order Comment: Speci men Type: BLOOD SPECIMENOrdering Facility: [facility] Address: [address] [place] [address] Performed By: #### 5 195-3, 30184-6, 65013-1 ####[facility] [id number] [address] [place] HCV Ab Ser Qlon 12-11-2024 HCV Ab Ql (S) Negative Normal Negative [facility] Comment on above: Order Comment: Speci men Type: BLOOD SPECIMENOrdering Facility: [facility] Address: [address] [place] [address] Result Comment: The result suggests no evidence of infection with Hepatitis C virus. Should recent infection be suspected, repeat testing may be considered 4-6 weeks after this draw. Performed By: #### 1 6128-1 ####[facility] LABIA [id number] [place] [address] [place] HIV 1+2 Ab IA Qlon 5 HIV 1 and 2 Ab IA.rapid Nom (S/P/Bld) Normal [facility] Comment on above: Order Comment: Speci men Type: BLOOD SPECIMENOrdering Facility: [facility] Address: [address] [place] [address] Result Comment: Test not indicated. Performed By: #### 5 195-3, 12779-4, 89421-7 ####[facility] LABIA [id number] [place] [address] [place] HIV 1+2 Ab+HIV1 p24 Ag IA Ql Non-Reactive Normal Nonreactive [facility] Comment on above: Order Comment: Speci men Type: BLOOD SPECIMENOrdering Facility: [facility] Address: [address] [place] [address] Performed By: #### 5 195-3, 58112-4, 04185-5 ####[facility] [id number] [address] [place] HIV immunoassay testing algorithm interpretation (S/P/Bld) [Interp] Normal [facility] Comment on above: Order Comment: Speci men Type: BLOOD SPECIMENOrdering Facility: [facility] Address: [address] [place] [address] Result Comment: No e vidence of HIV-1 or HIV-2 infection. Should recent infection be suspected, repeat testing may be considered 2-3 weeks after this draw. [place] Rev. Code 3701.243(E): This information has been [...] or diagnoses. Performed By: #### 5 195-3, 62161-2, 03790-7 ####[facility] LABCLIA [id number] [address] OF [facility] HbA1c (Bld)on 12-11-2024 Average glucose Estimated from glycated hemoglobin (Bld) [Mass/Vol] 85 mg/dL Normal [facility] Comment on above: Order Comment: Speci men Type: BLOOD SPECIMENOrdering Facility: [facility] Address: [address] [place] [address] Result Comment: eAG: (Estimated average glucose) is a calculated value from HgbA1c and is account retention representative of the average blood glucose level in the last 2-3 month period. Performed By: #### 5 5454-3 ####[facility] LABIA [id number] [address] STATES OF [facility] HbA1c (Bld) [Mass fraction] 4.6 % Normal 4.3-5.6 [facility] Comment on above: Order Comment: Speci men Type: BLOOD SPECIMENOrdering Facility: [facility] Address: [address] [place] [address] Result Comment: [place] Diabetes Association guidelines indicate that patients with HgbA1c in the range 5.7-6.4% are at increased risk for development of diabetes, and intervention by lifestyle modification may be beneficial. HgbA1c greater or equal to 6.5% is considered diagnostic of diabetes. Performed By: #### 5 5454-3 ####[facility] LABIA [id number] [address] [place] RUBELLA IGG ANTIBODYon 12-11 RUBELLA IGG AB, QUAL Positive Normal Positive [facility] Comment on above: Order Comment: Speci men Type: BLOOD SPECIMENOrdering Facility: [facility] Address: [address] [place] [address] Result Comment: The result suggests recent or past exposure to Rubella virus or history of Rubella vaccination. Positive result may also be seen due to presence of passively-transferred antibodies. Please correlate with patient's history. Performed By: #### R UBIGG ####[facility]CL[facility] [id number] [place] [address] [place] Reagin and Treponema pallidu m IgG and IgM [Interp]on 12-11-2024 T. pallidum IgG+IgM IA Ql (S) Non-Reactive Normal Nonreactive [facility] Comment on above: Order Comment: Speci men Type: BLOOD SPECIMENOrdering Facility: [facility] Address: [address] [place] [address] Performed By: #### 5 195-3, 51510-4, 11985-9 ####[facility] LABIA [id number] [place] [address] [place] Reagin+T pallidum IgG+IgM Se rPl-Impon 12-11-2024 Reagin and Treponema pallidum IgG and IgM [Interp] Cannot exclude recent Treponemal infection if specimen collected within 7-10 days after appearance of suspect lesions or 2-3 weeks after an exposure. Clinical correlation is required. Normal [facility] Comment on above: Order Comment: Speci men Type: BLOOD SPECIMENOrdering Facility: [facility] Address: [address] [place] [address] Performed By: #### 5 195-3, 58412-6, 32469-8 ####[facility] LABIA [id number] [place] [address] [place] TYPE + SCREEN PRENATALon ABO A Normal [facility] Comment on above: Order Comment: Speci men Type: BLOOD SPECIMENOrdering Facility: [facility] Address: [address] [place] [address] Performed By: #### T SPN ####CC [facility] BLOOD BANKCLIA [id number] [place] [address] [place] Rh Nom (Bld) Positive Normal [facility] Comment on above: Order Comment: Speci men Type: BLOOD SPECIMENOrdering Facility: [facility] Address: [address] [place] [address] Performed By: #### T SPN ####[facility] B[facility] BANKCLIA [id number] [address] TYPE AND SCREEN EXPIRATION 12/14/2024 23:59 Normal [facility] Comment on above: Order Comment: Speci men Type: BLOOD SPECIMENOrdering Facility: [facility] Address: [address] [place], [place] [address] [address] Performed By: #### T SPN ####[facility] BANKCLIA [id number] [address] CNPNon 11-03-2024 CNPN Telephone (OBGYWM) CONSTANCE DE SANTIAGO ([id number]) 1990 F Date Time Provider Department 11/03/24 [...] tablet by mouth once daily. - omega 9-fcg-poj-fish oil 1,000 mg (250 mg-750 mg)/5 mL [...] Encounter Status:Closed by ROCIO LARIOS on 11/03/24 [facility] 10-30-2024 [facility] Telephone (OBGYWM) ANYICONSTANCE Nidia ([id number]) 1990 F Date Time Provider Department 10/30/24 MALLORIE TREJO During your visit today, we recorded the following information about you: Rocio Larios RN 10/30/2024 9:42 AM Signed Mallorie Trejo APRN.AUTO BUMPER STRAIGHTENER 10/30/24 7:25 AM Note +GBS in urine, [...] tablet by mouth once daily. - omega 8-hit-qaz-fish oil 1,000 mg (250 mg-750 mg)/5 mL [...] Status:Closed by ROCIO LARIOS on 10/30/24 Normal [facility] Bacteria Ur Culton 5 Bacteria identified Cx Nom (U) ORGANISM ID: 1 <10,000 CFU/ml Streptococcus agalactiae (group b streptococcus) Insignificant colony count. No further workup. Normal [facility] Comment on above: Performed By: #### 6 30-4 ####[facility] LABCLIA [id number] [place] [address] [place] C. trachomatis+N. gonorrhoea e DNA ANUEL+probe Ql (Unsp spec)on 10-27-2024 C. trachomatis rRNA ANUEL+probe Ql (Unsp spec) Not detected Normal Not detected [facility] Comment on above: Order Comment: Speci men Type: SWABOrdering Facility: [facility] Address: [address] [place] [address] Performed By: #### 3 6902-5, TRVAMP ####[facility] LABCLIA [id number] [address] [place] N. gonorrhoeae rRNA ANUEL+probe Ql (Unsp spec) Not detected Normal Not detected [facility] Comment on above: Order Comment: Speci men Type: SWABOrdering Facility: [facility] Address: [address] [place] [address] Performed By: #### 3 6902-5, TRVAMP ####[facility] LABCLIA [id number] [place] [address] [place] POC APPLICATION INTEGRATION ENGINEER ULTRASOUNDon 10-27-19 Indication Confirmation of intrauterine . [...] by LMP 7 w + 5 d ANGIE by LMP: 06/10/2025 Ultrasound examination on: 10/27/2024 [...] Read By: Mallorie Trejo CNP MATERNAL MEDICINE [facility] Radiology Study observation (narrative) [facility] TRICHOMONAS VAGINALIS NAATon 10-27-2024 T. vaginalis DNA ANUEL+probe Ql (Unsp spec) Not detected Normal Not detected [facility] Comment on above: Order Comment: Speci men Type: SWABOrdering Facility: [facility] Address: [address] [place] [address] Performed By: #### 3 6902-5, TRANIRUDH ####[facility] LABCLIA [id number] [facility] [id number] OF [facility] CNOVon 10-14-2024 CNOV Office Visit (OBGYWM ) CONSTANCE DE SANTIAGO ([id number]) 1990 F Date Time Provider Department 10/14/24 [...] Ectopic0 Multiple0 Live Births0 Comment: Open adoption [employer] History LMP: LMP Unknown, IUD Age at Menarche: Age at First : Age at Menopause: [employer] History Comments: Sexual Activity: Yes; Male Contraception: [...] Diagnosis:Missed menses [N92.6] Order(s):UA DIP,URINE HCG (POC) [[id number]] Order #: [id number]. #:[id number] Prescriptions as of 10/14/2024 - no115/iron/folic acid [...] Status:Closed by HARRIET FAUSTIN on 10/14/24 [facility]IP,URINE HCG (POC)on Beta HCG ( test) Ql (U) Positive Abnormal Negative [facility] Comment on above: Location:[facility] [address] , [place] [address] Interpretation and review of laboratory results Abnormal [facility] Applications Trainer (POCT) Internal QC [facility] Location:[facility], [address] POINT OF CARE [facility] PAP TESTOrdered By: Betsy Lopez on 06-05-2024 Case Report Gynecologic Cytology Report Case: [id number] Authorizing Provider: Zuleyka Velásquez MD Collected: 06/02/2024 02:48 PM Ordering Location: OB/Gynecology Received: 06/02/2024 05:01 PM First Screen: Betsy Lopez, [place], ASCP Specimen: Pap Test, ThinPrep, Cervix [facility] Clinical History Routine Exam [facility] HPV Reflex HPV if Atypical [facility] Interpretation Negative [facility] LMP 06/02/2024 Comment: IUD Mirena unknown [facility] Other Interpretation Predominance of coccobacilli consistent with shift in vaginal vahid [facility] Pap Disclaimer p8ydoZHiHRVdb6pqBWOi b GFuZzEwMzNcZnRuYmpcdW QuFBvblkOcOCfqx3OwY4F yMjAwMFxhbnNpXGRlZmxh sobwFICqOSW1flFoCTKwY NvrMYMhQNifIq3wuZWkpU suIeVbARGyr4dyauCEddy evKu8i2ocANScVyU9zGQw FGjsY4rzedPibFYzLUTpG Hw8eR27SIYuhZ1sxBGlIU mczoEwZjS9HVrvKLBwXmA 1AHOhrSHmMFTqG1hlIPBi RGkgLPHgZUgdkFZmPXI2q Mrmy8R4dERhvHWonXluNf SkOzZsYeWYn8SkLQn8nMi yG2EyTDKlAjT7aRTkHIAw IHxtFGSmUGSwmxG0mN09T ZrsabO5gGPpd9Scu17lc3 17lG6koQXpEIS1UFJpPHB vnLCwZRPwWWB7WKLegZId U1xiHLDtCA0hbtddGEjbE MvtKTIxpSP3SMOdlPMyD8 MzMLLrZBtnKHJbman8IyU lSj7lgFRzpEyyJAvqh8jd f8mmtCTiJgh1LWOvZyHcN iazZBxzk9Gdk4kqCXObec 8mRIR0aUUnmXgrr5B4nHW xXGRudGJsbnNiZGJcZmV0 KMkzIL2xsr20FYAhKJU5a u3ykKDwbIiktuKetFMwMR ifM0FrOTFmq607WUWxT7Z hSUZnw4A1eiXiSjFgMXPj mOG7ktR7IBDsOFs8lMNgk vG2xiRwjUKgK4lakX6fZK DjZK4hxfovv5nrKFlvIYv rVQJbjZO0qoG8XZVngHLn N9BevK9iVGNeUWexQMXrq ci4RjXkYx9ezAZygDiwRK xzYmtwYWdlXHBnbmNvbnR ccGduZGVjXHBsYWluXHBs YWluXGYwXGZzMjRccWxcc ZkukV6gWiZcNpZqWuvpEB 9mENQfD6asbUVqKXVvMWZ lE7zvVrSjxT3xuNgrJJiv urQ8XNVxUNRQRHGqO27rJ HGdmZOrOTMgB8ZlCJ5xcp shbEQhfEFeb1LfK7Fxogg aZUwuL3PsD7TaYyYaLkTd h3UsvbHyNHMorqNycqEvn Rz6neKdZ8P2rtO2wPIbAB VpgZPjP1RwDW8uxbunaCO lnAWlBVUiyFora3c8aE9m IHRoZSBuZWVkIGZvciByZ XNjcmVlbmluZyBhdCByZW KogW4sanZuGBXhzqSfyhG hbHMsIGFuZCBjbGluaWNh hZTjn6TlWKjxsQwtav1jq HvvoZ4gLgNqDiMyUutkUN 5yWGMhO7uqrCZvQKToRYV hU3uvXuTtoG3hdGeoNMpm mqTvLGLycs[address] [facility] Performing Lab b0rayWBoLPRpz1hyCTPs b GFuZzEwMzNcZnRuYmpcdW MxIHtccnRmMVxhbnNpXGR uYxpkuozjLJCrBIF0ktPc WXOyKME7CFM7JbDho2M2V RDrRsBkHQVvIY5zbRqlXT IjIC0tYJWlI1ywjQ3vwfb 5DiYtTBVcPlU1OJAbiwA0 Bco5KCFzTXtxg2dlj7ExF JAxBDu8wKyeTuJoGQSod9 lzcyBcZmNoYXJzZXQwIEF kjPOhD300m3ktn1saymKh tZR0BGEaRFL4CTxdioApz nD3DEqupYKuDqP3QYprlj YjHRfphqDhjyThMem4NJG iM224PQK4lVgbj8iqKAW2 YNLmVTKwQzVrSi3jpBDaC 640ESSzXVMWUBGsdTc1IV YlfvOvczJkrOTWs510C17 5t7lzCCOpckYmiEgYdyiq j3rwV873NATmoWGyvoUaB yEiCVNyaDTqlMT2VYChNV 1hcmdsMTgwMFxtYXJncjE 6KBPchDEfO8LcFFVlTU2s clwcZAR3YYioUFUqCCM7V rTjMURec4Vnlwu3HaDepa 9ndz61MTW6e3HwcCmjLKV 0YJL1IdThXq5qpGNoXZAk TE9zOiQnnXIqGABdje77h UzhFNskkbHidZ5iWqMiTQ RwjXPtSKBiQG2tpMZqQKL frM0hgrznRWYnRkMhamkl EOAwyEcyraAgJb4qfDjeP MC4SGchQ9dgvK2zGyO4SM tuK4zjoA3eNCn4PRhdtDE 1RQRblT6eVB1wztqen2dv ITczBXtoMGFcaiA0kiM8I UHjxZGxH5MbtN6hAAIqPN 8eeyheh4svXZT6LEwbWJQ gKUL7DbZsEYUqw3Lufqa8 MiWek7YsmFItTZozQ10ks 923ECRabsVdJ9lfhRVhvg ikyEQuhzhqKZayrnX4BGE sXHBsYWluXGYxXGZzMjJc bGFuZzEwMzNcaGljaFxmM LiiZmKgRYTcZNbdO8gbVf FcZnMyMiBUZWNobmljYWw bR63unK0tJN41XCZnnFYu bACjwJ4wjG4lpDZ4TGOnj wAldnwmHcYkGEBni9ScSA PiVFWtU0ygpvSyPY7sBZK lvY3jCbraELSqKQHCxNHw oXMyJVNoGIDQkCN9BUioa nNoS2lkNZGmJGUdPMZQIL jYCsUoXlKzKtC2BXh2KQP qum09y4zobNOaGMUvtBGi PgHfTRGmPTYqq6zmFBEep GFuZzEwMzNcZnRuYmpcdW DqTXNvMeTco0iyu357aLK qe6saJIMfFuN6kMPoWEDz lUJrV264ZXNhKDhkn3ike 1UrMUPblOCkn7Z0KUANmh oagWj6lWsmB73tz6F1Mmr xH4mxSWTtSPXhS1AyQQ9y LIUiUyw1HCP6JHP4PAMmG RLrK7QnQO3oFPEnqCPiAS k3c7atxWjwVGSqNJQ3q4k wDWbowfOqSD0tab3ftJr2 q6enxyUfZMEuQZOcmHMGM CVbQ5TiqTmqAp0zzDq9xP yaGgbrULD5Uce0KO5vtk6 9jxq5eZgwFOAscyduHzQ1 PPdpKSGnbqgdNMa5FDjfP AGaqMY0VFSviFEiH9IvWL zrAY2gees9FUD9CIhaFAD fWcW9NSIqwVFkFLGzgUrr FSmhp049RMM9IyTdHE5tH 3Ebg9L6tI8syNMrEHVqpD IiUaPcSUXpxk4mqNTpGBk gi6FmWHV4geW7aVPfrIGt KSPlHO04Vnfkt7GkSubml 0MkJ30ztDY5RYcbq3auKE 0vWoW4xaSpPFtvp1sveI9 hKrL9XTbaGO5sSX7dRCEe tG2jmlazKPOyDhSahvibR WDesSaepfDoVr6baAkaGU Q9QFynU0akzA0iVzF0OSf yT0zdoK3kHNw2SUepjUQ7 EIGdvW5yEO2tdnpvg3cpG LlkQNyhSPEdevF0ttMnTE YwzHHbU9HsqF3rRBAxFG2 mnedba9rzYLM3SMxsWTOv PFZ2DlSeKGDjq3Bfjay6I gEhl7XatXLgUZurG98fv4 04JCNmgxRbK8fnvLIxmwx qyUMjuphaKRdvowC5ZHEp XHBsYWluXGYxXGZzMjBcb GFuZzEwMzNcaGljaFxmMV jqIhHfTNXfTJkpM8wkCxB qGoRjCCEKhMCrqh7hhLvo HSdumYNmpZZjeZI9vV8sF GCxfjXiib3eFCEzeULAlD H4YPgxteZnT6malzbdLCU 6YXTjOOR7B9yeCPELntKb SLRoTTHveBUaGRFBXYV2S HU8TRHnSEXAFKCdMTQ2US D1SWOoLTHrpXUdSPHfkax wYXJkXHBsYWluXGYwXGZz NhItoMjnsK9uEkCbZrVvJ RuoVH2jAUHfB8skiXVbGK AeQTInR5kaAuEicR1obSw mMVxjZjJcZnMyMFxsdHJj qBCCZJCqsaA7w2D9VYkhs GFpblxmMVxmczIwXGxhbm iyIDHnIYzqP9riNsBgXBI xxBclCLucw3JwXSEmQOOu YnJhCSlvZRZ6s2P2LBjut PSqclDOJhDHJN2oyVBftj qeLK4YQfyysUFxpwkfGRk mczIyXGxhbmcxMDMzXGhp S4jxYuRyVTMnaCccKDwfg 2NoXGYxXGZzMjJccGFyfX 0= [facility] Specimen Adequacy Satisfactory for interpretation. [facility] XR ANKLE MINIMUM 3 VIEWS LEF Ton [...] 06/10/2023 10:07:37 AM Ordering Provider: ISAURO BECKETT [facility] ([place]) Vital Signs Date Time Vital Sign Value Performing Clinician Trevor meza 05-07-2025 16:18-0400 Body mass index (BMI) [Ratio] 30.2 kg/m2 Zuleyka Velásquez MD Work Phone: [facility] 05-07-2025 16:18-0400 Body weight 80.92 kg Zuleyka Velásquez MD Work Phone: [facility] 05-07-2025 16:18-0400 Diastolic blood pressure 64 mm[Hg] Zuleyka Velásquez MD Work Phone: [facility] 05-07-2025 16:18-0400 Systolic blood pressure 110 mm[Hg] Zuleyka Velásquez MD Work Phone: [facility] 05-05-2025 15:24-0400 Diastolic blood pressure 69 mm[Hg] [facility] 05-05-2025 15:24-0400 Systolic blood pressure 122 mm[Hg] [facility] 04-22-2025 08:29-0400 Body mass index (BMI) [Ratio] 29.28 kg/m2 Moustapha Ramirez MD Work Phone: [facility] 04-22-2025 08:29-0400 Body weight 78.47 kg Moustapha Ramirez MD Work Phone: [facility] 04-22-2025 08:29-0400 Diastolic blood pressure 60 mm[Hg] Moustapha Ramirez MD Work Phone: [facility] 04-22-2025 08:29-0400 Systolic blood pressure 104 mm[Hg] Moustapha Ramirez MD Work Phone: [facility] 03-24-2025 15:44-0400 Body mass index (BMI) [Ratio] 28.61 kg/m2 Harriet Faustin MD Work Phone: [facility] 03-24-2025 15:44-0400 Body weight 76.66 kg Harriet Faustin MD Work Phone: [facility] 03-24-2025 15:44-0400 Diastolic blood pressure 62 mm[Hg] Harriet Faustni MD Work Phone: [facility] 03-24-2025 15:44-0400 Systolic blood pressure 100 mm[Hg] Harriet Faustin MD Work Phone: [facility] 03-04-2025 14:29-0400 Body mass index (BMI) [Ratio] 28.1 kg/m2 Jocelyn Freddie [employer] Work Phone: [facility] 03-04-2025 14:29-0400 Body weight 75.3 kg Jocelyn Frazier [employer] Work Phone: [facility] 03-04-2025 14:29-0400 Diastolic blood pressure 62 mm[Hg] Jocelyn Frazier [employer] Work Phone: [facility] 03-04-2025 14:29-0400 Systolic blood pressure 108 mm[Hg] Jocelyn Frazier [employer] Work Phone: [facility] 02-24-2025 16:20-0400 Body mass index (BMI) [Ratio] 28.1 kg/m2 Jocelyn Frazier [employer] Work Phone: [facility] 02-24-2025 16:20-0400 Body weight 75.3 kg Jocelyn Freddie [employer] Work Phone: [facility] 02-24-2025 16:20-0400 Diastolic blood pressure 64 mm[Hg] Jocelyn Frazier [employer] Work Phone: [facility] 02-24-2025 16:20-0400 Systolic blood pressure 110 mm[Hg] Jocelyn Freddie [employer] Work Phone: [facility] 01-30-2025 15:19-0400 Body mass index (BMI) [Ratio] 27.42 kg/m2 Jocelynkevin Frazier [employer] Work Phone: [facility] 01-30-2025 15:19-0400 Body weight 73.48 kg Jocelyn Freddie [employer] Work Phone: [facility] 01-30-2025 15:19-0400 Diastolic blood pressure 64 mm[Hg] Jocelyn Freddie [employer] Work Phone: [facility] 01-30-2025 15:19-0400 Systolic blood pressure 100 mm[Hg] Jocelyn Freddie [employer] Work Phone: [facility] [facility] 12-15-2024 17:35-0400 Body mass index (BMI) [Ratio] 26.53 kg/m2 Shyam Jensen MD Work Phone: [facility] 12-15-2024 17:35-0400 Body weight 71.1 kg Shyam Jensen MD Work Phone: [facility] 12-15-2024 17:35-0400 Diastolic blood pressure 60 mm[Hg] Shyam Jensen MD Work Phone: [facility] 12-15-2024 17:35-0400 Heart rate 74 /min Shyam Jensen MD Work Phone: [facility] 12-15-2024 17:35-0400 Respiratory rate 16 /min Shyam Jensen MD Work Phone: [facility] 12-15-2024 17:35-0400 Systolic blood pressure 108 mm[Hg] Shyam Jensen MD Work Phone: [facility] 12-11-2024 14:18-0400 Body mass index (BMI) [Ratio] 26.07 kg/m2 Harriet Faustin MD Work Phone: [facility] 12-11-2024 14:18-0400 Body weight 69.85 kg Harriet Faustin MD Work Phone: [facility] 12-11-2024 14:18-0400 Diastolic blood pressure 60 mm[Hg] Harriet Faustin MD Work Phone: [facility] 12-11-2024 14:18-0400 Systolic blood pressure 106 mm[Hg] Harriet Faustin MD Work Phone: [facility] 11-06-2024 09:00-0500 Body mass index (BMI) [Ratio] 26.24 kg/m2 Harriet Faustin MD Work Phone: [facility] 11-06-2024 09:00-0500 Body weight 70.31 kg Harriet Faustin MD Work Phone: [facility] 11-06-2024 09:00-0500 Diastolic blood pressure 62 mm[Hg] Harriet Faustin MD Work Phone: [facility] 11-06-2024 09:00-0500 Systolic blood pressure 100 mm[Hg] Harriet Faustin MD Work Phone: [facility] 10-27-2024 14:48-0500 Body mass index (BMI) [Ratio] 26.17 kg/m2 Mallorie Neil HULL MOLDER.AUTO BUMPER STRAIGHTENER Work Phone: [facility] 10-27-2024 14:48-0500 Body weight 70.13 kg Mallorie Madera HULL MOLDER.AUTO BUMPER STRAIGHTENER Work Phone: [facility] 10-27-2024 14:48-0500 Diastolic blood pressure 62 mm[Hg] Mallorie Neil HULL MOLDER.AUTO BUMPER STRAIGHTENER Work Phone: [facility] 10-27-2024 14:48-0500 Systolic blood pressure 112 mm[Hg] Mallorie Neil HULL MOLDER.AUTO BUMPER STRAIGHTENER Work Phone: [facility] 10-14-2024 16:20-0500 Body mass index (BMI) [Ratio] 25.56 kg/m2 Harriet Faustin MD Work Phone: [facility] 10-14-2024 16:20-0500 Body weight 68.49 kg Harriet Faustin MD Work Phone: [facility] 10-14-2024 16:20-0500 Diastolic blood pressure 72 mm[Hg] Harriet Faustin MD Work Phone: [facility] 10-14-2024 16:20-0500 Systolic blood pressure 104 mm[Hg] Harriet Faustin MD Work Phone: [facility] 06-09-2024 13:06-0400 Body mass index (BMI) [Ratio] 25.73 kg/m2 Mallorie Madera HULL MOLDER.AUTO BUMPER STRAIGHTENER Work Phone: [facility] 06-09-2024 13:06-0400 Body weight 68.95 kg Mallorie Neil HULL MOLDER.AUTO BUMPER STRAIGHTENER Work Phone: [facility] 06-09-2024 13:06-0400 Diastolic blood pressure 74 mm[Hg] Mallorie Madera HULL MOLDER.AUTO BUMPER STRAIGHTENER Work Phone: [facility] 06-09-2024 13:06-0400 Systolic blood pressure 120 mm[Hg] Mallorie Neil HULL MOLDER.AUTO BUMPER STRAIGHTENER Work Phone: [facility] 06-02-2024 13:51-0400 Body height 163.7 cm Zuleyka Velásquez MD Work Phone: [facility] 06-02-2024 13:51-0400 Body mass index (BMI) [Ratio] 25.42 kg/m2 Zuleyka Velásquez MD Work Phone: [facility] 06-02-2024 13:51-0400 Body weight 68.13 kg Zuleyka Velásquez MD Work Phone: [facility] 06-02-2024 13:51-0400 Diastolic blood pressure 62 mm[Hg] Zuleyka Velásquez MD Work Phone: [facility] 06-02-2024 13:51-0400 Systolic blood pressure 98 mm[Hg] Zuleyka Velásquez MD Work Phone: [facility] 08-01-2024 06:59-0400 Body height 165 cm Deborah Phelps PA-C Work Phone: [facility] 04-03-2024 06:59-0400 Body mass index (BMI) [Ratio] 24.49 kg/m2 Deborah Phelps PA-C Work Phone: [facility] 04-03-2024 06:59-0400 Body temperature 97.81 [degF] Deborah Phelps PA-C Work Phone: [facility] 04-03-2024 06:59-0400 Body weight 66.68 kg Deborah Phelps PA-C Work Phone: [facility] 04-03-2024 06:59-0400 Diastolic blood pressure 80 mm[Hg] Deborah Phelps PA-C Work Phone: [facility] 04-03-2024 06:59-0400 Heart rate 75 /min Deborah Phelps PA-C Work Phone: [facility] 04-03-2024 06:59-0400 SaO2% (BldA) [Mass fraction] 99 % Deborah Phelps PA-C Work Phone: [facility] 04-03-2024 06:59-0400 Systolic blood pressure 102 mm[Hg] Deborah Phelps PA-C Work Phone: [facility] 04-30-2023 06:56-0400 Body temperature 97.39 [degF] Deborah Phelps PA-C Work Phone: [facility] 04-30-2023 06:56-0400 Body weight 66.22 kg Deborah Phelps PA-C Work Phone: [facility] 04-30-2023 06:56-0400 Diastolic blood pressure 72 mm[Hg] Deborah Phelps PA-C Work Phone: [facility] 04-30-2023 06:56-0400 Heart rate 65 /min Deborah Phelps PA-C Work Phone: [facility] 04-30-2023 06:56-0400 Respiratory rate 16 /min eDborah Phelps PA-C Work Phone: [facility] 04-30-2023 06:56-0400 Systolic blood pressure 92 mm[Hg] Deborah Phelps PA-C Work Phone: [facility] Encounters Encounter Date Encounter Type Care Provider Facility Start: 06-18-2025 End: 06-18-2025 ambulatory Deborah TORREZ Facility:[facility] Start: 06-11-2025 End: 06-11-2025 ambulatory ALEXANDER RAMIREZ Facility:[facility] Start: 06-04-2025 End: 06-04-2025 ambulatory MOUSTAPHA RAMIREZ Facility:[facility] Start: 05-29-2025 End: 05-29-2025 ambulatory ALEXANDER RAMIREZ Facility:[facility] Start: 05-21-2025 End: 05-21-2025 ambulatory ALEXANDER RAMIREZ Facility:[facility] Start: 05-07-2025 End: 05-07-2025 Patient encounter procedure Zuleyka Velásquez MD Work Phone: OB/Gynecology Comment on above: Multigravida of adva nced maternal age in second trimester (HCC) (Primary Dx); 34 weeks gestation of (HCC); GBS bacteriuria; AMA (advanced maternal age) multigravida 35+, third trimester (HCC) Start: 05-07-2025 End: 05-07-2025 ambulatory ALEXANDER RAMIREZ Facility:[facility] Start: 05-06-2025 End: 05-06-2025 ambulatory JOCELYN FRAZIER Facility:[facility] Start: 05-06-2025 End: 05-06-2025 Subsequent hospital visit by physician Jesika Mckay Ob L&D Work Phone: OB/Gynecology Comment on above: TREMAYNE (generalized anx iety disorder) [F41.1] Start: 05-05-2025 End: 05-05-2025 Patient encounter procedure [employer]i [employer] [facility] Comment on above: screening for malformation using ultrasonics (HCC) (Primary Dx); AMA (advanced maternal age) multigravida 35+, third trimester (HCC); 33 weeks gestation of (HCC) Start: 05-05-2025 End: 05-05-2025 ambulatory [facility] Start: 04-24-2025 End: 04-24-2025 ambulatory Harriet Faustin MD Work Phone: OB/Gynecology Comment on above: Yellow discharge Start: 04-24-2025 End: 04-24-2025 Telephone encounter [facility] Work Phone: [facility] 3 L&D Comment on above: Care Coordination (M -[employer] Scheduling/LM attempt # 2) Start: 04-22-2025 End: 04-22-2025 Patient encounter procedure Moustapha Ramirez MD Work Phone: OB/Gynecology Comment on above: AMA (advanced matern al age) multigravida 35+, third trimester (HCC) (Primary Dx); 31 weeks gestation of ([facility]); Supervision of high risk in third trimester ([facility]); Supervision of high-risk of elderly multigravida ([facility]) Start: 04-22-2025 End: 04-22-2025 [facility] Start: 04-17-2025 End: 04-17-2025 Telephone encounter [facility] Work Phone: [facility] 3 L&D Comment on above: Care Coordination ([employer] Scheduling/LM attempt # 1) Start: 04-16-2025 End: 04-16-2025 ambulatory [facility] Work Phone: [place] Comment on above: [employer] Time to Sche josee Start: 04-16-2025 End: 04-16-2025 E-mail encounter from caregiver [facility] Work Phone: [place] [place] Start: 04-09-2025 End: 04-09-2025 ambulatory [facility] Start: 03-24-2025 End: 03-24-2025 Patient encounter procedure Harriet Faustin MD Work Phone: OB/Gynecology Comment on above: GBS bacteriuria (Linnea michael Dx); Multigravida of advanced maternal age in second trimester (HCC); 27 weeks gestation of (HCC); Need for vaccination Start: 03-24-2025 End: 03-24-2025 ambulatory ALEXANDER JAMES Facility:[facility] Start: 03-04-2025 End: 03-04-2025 Patient encounter procedure Jocelyn Frazier APRN.CNM Work Phone: OB/Gynecology Comment on above: Decreased move ments in second trimester, single or unspecified fetus (HCC) (Primary Dx) Start: 03-04-2025 End: 03-04-2025 ambulatory ALEXANDER RAMIREZ Facility:[facility] Start: 02-25-2025 End: 02-25-2025 E-mail encounter from caregiver Jesika Mckay Ob L&D Work Phone: [facility] Start: 02-25-2025 End: 02-25-2025 Patient encounter procedure Jesika Mckay Ob L&D Work Phone: [facility] Comment on above: M-[employer] Referral [...] Start: 02-24-2025 End: 02-24-2025 ambulatory ALEXANDER RAMIREZ Facility:[facility] Start: 01-30-2025 End: 01-30-2025 [facility] Start: 01-30-2025 End: 02-03-2025 Patient encounter procedure 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 [facility] Comment on [...] Start: 12-29-2024 End: 12-29-2024 ambulatory ALEXANDER RAMIREZ Facility:[facility] Start: 12-22-2024 End: 12-23-2024 Telephone encounter Harriet Faustin MD Work Phone: OB/Gynecology Comment on above: Written order from Apurva hines for breast pump Start: 12-15-2024 End: 12-15-2024 ambulatory ALEXANDER RAMIREZ Facility:[facility] Start: 12-15-2024 End: 12-15-2024 Patient encounter procedure Shyam Jensen MD Work Phone: [facility] Comment on above: Plantar wart (Primar y Dx) Start: 12-11-2024 End: 12-11-2024 Patient encounter procedure Harriet Faustin MD Work Phone: OB/Gynecology Comment on above: Multigravida of adva nced maternal age in first trimester (HCC) (Primary Dx); GBS bacteriuria Encounter for antena betty screening for malformation using ultrasound ([facility]) (Primary Dx); 13 weeks gestation of ([facility]); Encounter for (NT) nuchal translucency scan ([facility]) Start: 12-11-2024 End: 12-11-2024 ambulatory ALEXANDER RAMIREZ Facility:[facility] Start: 12-01-2024 End: 12-01-2024 ambulatory Harriet Faustin MD Work Phone: OB/Gynecology Comment on above: Blood work Start: 11-06-2024 End: 11-06-2024 ambulatory ALEXANDER RAMRIEZ Facility:[facility] Start: 11-06-2024 End: 11-06-2024 Patient encounter [...] above: Results Start: 10-27-2024 End: 10-27-2024 ambulatory [facility] Start: 10-27-2024 End: 10-27-2024 Patient encounter procedure Mallorie Trejo APRN.AUTO BUMPER STRAIGHTENER Work Phone: OB/Gynecology Comment on above: Supervision of high- risk of elderly multigravida (Primary Dx); with uncertain dates, antepartum; Screen for STD (sexually transmitted disease); 6 weeks gestation of Start: 10-14-2024 End: 10-14-2024 [facility] Start: 10-14-2024 End: 10-14-2024 Patient encounter procedure Harriet Faustin MD Work Phone: OB/Gynecology Comment on above: Missed menses (Prima ry Dx) Start: 06-09-2024 End: 06-09-2024 Patient encounter procedure Mallorie Trejo APRN.AUTO BUMPER STRAIGHTENER Work Phone: OB/Gynecology Comment on above: Encounter [...] encounter status Zuleyka Velásquez MD Work Phone: [facility] Start: 04-04-2024 Telephone encounter Deborah cobb PA-C Work Phone: [facility] Comment on above: Results Start: 04-03-2024 End: 04-03-2024 Patient encounter procedure Deborah ARCEC Work Phone: [facility] [place] Comment on above: Well adult exam (Linnea michael Dx); TREMAYNE (generalized anxiety disorder); Recurrent major depressive disorder, in remission (HCC); Encounter for lipid screening for cardiovascular disease; Screening for diabetes mellitus Start: 04-03-2024 End: 04-03-2024 Patient encounter status Deborah Phelps PA-C Work Phone: [facility] Work Phone: Start: 06-10-2023 End: 06-10-2023 Emergency department patient visit ISAURO BECKETT MD Facility:A Start: 04-30-2023 End: 04-30-2023 Patient encounter procedure Deborah Phelps PA-C Work Phone: [facility] [place] Comment on above: Bilateral impacted c erumen (Primary Dx) Start: 04-02-2023 ambulatory Deborah TORREZ-C Work Phone: [facility] [place] Comment on above: Question regarding C OMP METABOLIC PANEL Start: 03-30-2023 End: 10-27-2024 Patient encounter status Deborah Phelps PA-C Work Phone: [facility] Work Phone: Start: 07-29-2019 End: 10-27-2024 Patient encounter status Mallorie Trejo APRN.AUTO BUMPER STRAIGHTENER Work Phone: [facility] Procedures Date Procedure Procedure Detail Performing Clinician Start: 05-07-2025 Urnls dip stick/tabl et rgnt non-auto w/o micrscp Zuleyka Velásquez MD Work Phone: Start: 05-05-2025 Us preg uterus after 1st trimest / gestation Moustapha Ramirez MD Work Phone: Start: 01-30-2025 Us preg uterus after 1st trimest / gestation Mallorie Trejo HULL MOLDER.AUTO BUMPER STRAIGHTENER Work Phone: Start: 12-11-2024 Us preg uterus after 1st trimest 1/ gestation Mallorie Trejo HULL MOLDER.AUTO BUMPER STRAIGHTENER Work Phone: Start: 12-11-2024 Antibody screen ALEXANDER RAMIREZ Comment on above: Order Comment: Speci men Type: BLOOD SPECIMENOrdering Facility: [facility] Address: [address] [place] [address] [place] [address] Performed By: #### T SPN ####CC MAIN BLOOD BANKCLIA [id number] [place] [address] [place] Start: 10-27-2024 Us uterus l imited / fetuses Mallorie Trejo APRN.AUTO BUMPER STRAIGHTENER Work Phone: Start: 10-14-2024 UA DIP,URINE HCG (POC) Harriet Faustin MD Work Phone: Start: 06-02-2024 Cytp cerv/vag auto t hin layer prep mnl screen Zuleyka Velásquez MD Work Phone: Plan of Treatment Date Care Activity Detail Author Start: 03-24-2035 Urine microalbumin profile DTaP,Tdap,Td Vaccine (3 - Td or Tdap) [facility] Start: 03-30-2033 Urine microalbumin profile [facility] Start: 06-02-2027 Screening for malign ant neoplasm of cervix Cervical Cancer Screening [facility] Start: 06-18-2025 End: 06-18-2025 Patient encounter procedure 06/18/2025 3:15 PM EDT Routine Office Visit OB/Gynecology [address] [place], [place] [id number] Merly Davis APRN.CN [address] [place] [address] OB OB/Gynecology Comment on above: OB Start: 06-11-2025 End: 06-11-2025 Patient encounter procedure 06/11/2025 1:10 PM EDT Routine Office Visit OB/Gynecology [address] [place], [place] [id number] Harriet Faustin MD [address] [place] [address] Obb OB/Gynecology Comment on above: Obb Start: 06-04-2025 End: 06-04-2025 Patient encounter procedure OB/Gynecology Comment on above: Annual Ob Start: 05-28-2025 End: 05-28-2025 Patient encounter procedure 05/28/2025 11:40 AM EDT Routine Office Visit OB/Gynecology [address] [place] [address] Harriet Faustin MD [address] [place] [address] ob OB/Gynecology Comment on above: ob Start: 05-21-2025 End: 05-21-2025 Patient encounter procedure 05/21/2025 4:30 PM EDT Routine Office Visit OB/Gynecology [address] [place] [address] Merly Davis APRN.CN [address] [place] [address] OB OB/Gynecology Comment on above: OB Start: 05-07-2025 End: 05-07-2025 Patient encounter procedure 05/07/2025 4:20 PM EDT Routine Office Visit OB/Gynecology [address] [place] [address] Zuleyka Velásquez MD [address] [place] [address] OB OB/Gynecology Comment on above: OB Start: 05-06-2025 End: 05-06-2025 Patient encounter procedure 05/06/2025 12:00 PM EDT Appointment OB/Gynecology [address] [place] [address] L&D, [place] [address] [place] [address] [employer] phone consult OB/Gynecology Comment on above: M-Power phone consul t Start: 05-05-2025 End: 05-05-2025 Patient encounter procedure 05/05/2025 3:00 PM EDT Routine Office Visit Maternal Medicine [address] [place] [address] Growth Maternal Medicine Comment on above: Growth Start: 05-04-2025 Influenza vaccination [facility] Start: 05-04-2025 RSV Vaccine (1 - Ris k 1-dose series) RSV Vaccine (1 - Risk 1-dose series) [facility] Start: 04-22-2025 End: 04-22-2026 OBSTETRIC ULTRASOUND WHI OBSTETRIC ULTRASOUND WHI Anc Imaging Routine AMA (advanced maternal age) multigravida 35+, third trimester (HCC) 31 weeks gestation of (HCC) Expected: 04/22/2025, Expires: 04/22/2026 [facility] Work Phone: Comment on above: Expected: 04/22/2025 , Expires: 04/22/2026 Start: 04-22-2025 End: 04-22-2025 Patient encounter procedure 04/22/2025 8:30 AM EDT Routine Office Visit OB/Gynecology [address] [place] [address] Moustapha Ramirez MD [address] [place] [address] OB OB/Gynecology Comment on above: OB Start: 04-09-2025 End: 04-09-2025 Patient encounter procedure [facility] [place] Comment on above: physical OB Start: 03-24-2025 End: 03-24-2025 Patient encounter procedure 03/24/2025 3:50 PM EDT Routine Office Visit OB/Gynecology [address] [place] [address] Harriet Faustin MD [address] [place] [address] OB OB/Gynecology Comment on above: OB Start: 03-24-2025 End: 03-24-2025 ambulatory 03/24/2025 3:45 PM EDT Results Only [place] [facility] Laboratory [address] [place] [address] Glucose [place] [facility] Comment on above: Glucose Start: 02-24-2025 End: 02-24-2025 Patient encounter procedure 02/24/2025 4:30 PM EDT Routine Office Visit OB/Gynecology [address] [place] [address] Jocelyn Frazier APRN.CNM [address] [place] [address] OB OB/Gynecology Comment on above: OB Start: 02-24-2025 End: 05-26-2025 ANEMIA REFLEX PANEL ANEMIA REFLEX PANEL Lab Routine Supervision of high-risk of elderly multigravida (HCC) 23 weeks gestation of (HCC) Expected: 02/24/2025, Expires: 05/26/[address] [facility] Comment on above: Expected: 02/24/2025 , Expires: 05/26/2025 Start: 02-24-2025 End: 02-24-2026 GESTATIONAL GLUCOSE SCREEN, 1-HOUR, 50 GRAM, NON-FASTING GESTATIONAL GLUCOSE SCREEN, 1-HOUR, 50 GRAM, NON-FASTING Lab Routine Screening for diabetes mellitus Supervision of high-risk of elderly multigravida (HCC) 23 weeks gestation of (HCC) Expected: 02/24/2025, Expires: 02/24/2026 [facility] Work Phone: Comment on above: Expected: 02/24/2025 , Expires: 02/24/2026 Start: 02-24-2025 End: 02-24-2026 SYPHILIS TREPONEMAL W/REFLEX SYPHILIS TREPONEMAL W/REFLEX Lab Routine Supervision of high-risk of elderly multigravida (HCC) 23 weeks gestation of (HCC) Expected: 02/24/2025, Expires: 02/24/[address] [facility] Comment on above: Expected: 02/24/2025 , Expires: 02/24/2026 Start: 01-30-2025 End: 01-30-2025 Patient encounter procedure Maternal Medicine Comment on above: Anatomy/OB OB Start: 01-02-2025 End: 01-02-2025 Patient encounter procedure OB/Gynecology Comment on above: OB Start: 12-29-2024 End: 12-29-2024 Patient encounter procedure 12/29/2024 11:10 AM EDT Routine Office Visit OB/Gynecology [address] [place] [address] Rosalba Ballard MD [address] [place] [address] OB OB/Gynecology Comment on above: OB Start: 12-15-2024 End: 12-15-2024 Patient encounter procedure 12/15/2024 5:40 PM EDT Office Visit [facility] [place] [address] [place] [address] Shyam Jensen MD [address] [place] [address] wart removal [facility] [place] Comment on above: wart removal Start: 12-11-2024 End: 12-11-2024 Patient encounter procedure Maternal Medicine Comment on above: Nuchal Nuchal /OB Start: 11-06-2024 End: 11-06-2024 Patient encounter procedure 11/06/2024 9:00 AM EST Routine Office Visit OB/Gynecology [address] [place] [address] Harriet Faustin MD [address] [place] [address] early OB spotting - see 11/03 phone note OB/Gynecology Comment on above: early OB spotting - see 11/03 phone note Start: 10-29-2024 End: 10-29-2024 Patient encounter procedure 10/29/2024 1:00 PM EST Initial Office Visit OB/Gynecology [address] [place] [address] Jocelyn Frazier APRN.CN [address] [place] [address] New 1st OB OB/Gynecology Comment on above: New 1st OB Start: 10-27-2024 End: 01-26-2025 ANEMIA REFLEX PANEL ANEMIA REFLEX PANEL Lab Routine 6 weeks gestation of Expected: 10/27/2024, Expires: 01/26/2025 [facility] Work Phone: Comment on above: Expected: 10/27/2024 , Expires: 01/26/2025 Start: 10-27-2024 End: 01-26-2025 Hemoglobin A1c in Blood HEMOGLOBIN A1C Lab Routine 6 weeks gestation of Expected: 10/27/2024, Expires: 01/26/[address] [facility] Comment on above: Expected: 10/27/2024 , Expires: 01/26/2025 Start: 10-27-2024 End: 01-26-2025 Hepatitis B virus surface Ag [Presence] in Serum HEPATITIS B SURFACE ANTIGEN Lab Routine Screen for STD (sexually transmitted disease) 6 weeks gestation of Expected: 10/27/2024, Expires: 01/26/[address] [facility] Comment on above: Expected: 10/27/2024 , Expires: 01/26/2025 Start: 10-27-2024 End: 01-26-2025 Hepatitis C virus Ab [Presence] in Serum HEPATITIS C ANTIBODY IA WITH CONFIRMATION Lab Routine Screen for STD (sexually transmitted disease) 6 weeks gestation of Expected: 10/27/2024, Expires: 01/26/[address] [facility] Comment on above: Expected: 10/27/2024 , Expires: 01/26/2025 Start: 10-27-2024 End: 01-26-2025 HIV 1+2 Ab [Presence] in Serum or Plasma by Immunoassay HIV 1/2 COMBO WITH REFLEX TO DIFFERENTIATION Lab Routine Screen for STD (sexually transmitted disease) 6 weeks gestation of Expected: 10/27/2024, Expires: 01/26/[address] [facility] Comment on above: Expected: 10/27/2024 , Expires: 01/26/2025 Start: 10-27-2024 End: 10-27-2025 OBSTETRIC ULTRASOUND WHI OBSTETRIC ULTRASOUND WHI Anc Imaging Routine 6 weeks gestation of Expected: 10/27/2024, Expires: 10/27/[address] [facility] Comment on above: Expected: 10/27/2024 , Expires: 10/27/2025 Start: 10-27-2024 End: 01-26-2025 RUBELLA IGG ANTIBODY RUBELLA IGG ANTIBODY Lab Routine Screen for STD (sexually transmitted disease) 6 weeks gestation of Expected: 10/27/2024, Expires: 01/26/[address] [facility] Comment on above: Expected: 10/27/2024 , Expires: 01/26/2025 Start: 10-27-2024 End: 01-26-2025 SYPHILIS TREPONEMAL W/REFLEX SYPHILIS TREPONEMAL W/REFLEX Lab Routine Screen for STD (sexually transmitted disease) 6 weeks gestation of Expected: 10/27/2024, Expires: 01/26/[address] [facility] Comment on above: Expected: 10/27/2024 , Expires: 01/26/2025 Start: 10-27-2024 End: 01-26-2025 TYPE + SCREEN TYPE + SCREEN Blood Bank Routine 6 weeks gestation of Expected: 10/27/2024, Expires: 01/26/[address] [facility] Comment on above: Expected: 10/27/2024 , Expires: 01/26/2025 Start: 06-09-2024 End: 06-09-2024 Patient encounter procedure 06/09/2024 1:00 PM EDT Office Visit OB/Gynecology [address] [place] [address] Mallorie Trejo APRN.CNP [address] [place] [address] REMOVE INTRAUTERINE DEVICE OB/Gynecology Comment on above: REMOVE INTRAUTERINE DEVICE Start: 06-02-2024 End: 06-02-2024 Patient encounter procedure 06/02/2024 1:40 PM EDT Office Visit OB/Gynecology [address] [place] [address] Zuleyka Velásquez MD [address] [place] [address] Due for a Pap and TBD may want to remove IUD OB/Gynecology Comment on above: Due for a Pap and TB D may want to remove IUD Start: 05-04-2024 Covid-19 Vaccine () Covid-19 Vaccine () [facility] Start: 05-04-2024 Influenza vaccination Influenza Vacc ine (#1) [facility] Start: 04-03-2024 End: 07-03-2024 Comprehensive metabolic 2000 panel - Serum or Plasma [facility] Comment on above: Expected: 04/03/2024 , Expires: 07/03/2024 Start: 04-03-2024 End: 07-03-2024 Hemoglobin A1c in Blood [facility] Work Phone: Comment on above: Expected: 04/03/2024 , Expires: 07/03/2024 Start: 04-03-2024 End: 07-03-2024 LIPID PANEL, NONFASTING [facility] Comment on above: Expected: 04/03/2024 , Expires: 07/03/2024 Start: 03-30-2024 COVID-19 VACCINE (4 - Moderna series) COVID-19 VACCINE (4 - Moderna series) [facility] Comment on above: Postponed from 09/12 (Declined at this time) Start: 07-04-2023 PAP TESTING PAP TESTING [facility] Start: 05-05-2023 End: 07-05-2023 Hepatic function 2000 panel - Serum or Plasma HEPATIC FUNCTION PNL Lab Routine Serum total bilirubin elevated Expected: 05/05/2023, Expires: 07/05/2023 [facility] Work Phone: Comment on above: Expected: 05/05/2023 , Expires: 07/05/2023 Start: 05-04-2023 Covid-19 Vaccine () Covid-19 Vaccine () [facility] Start: 05-04-2023 Influenza vaccination INFLUENZA (#1) [facility] Start: 07-04-2021 Screening for malign ant neoplasm of cervix Cervical Cancer Screening [facility] Start: 2019 HPV TESTING HPV TESTING [facility] Start: 2016 HPV Vaccine (1 - 3-d ose SCDM series) HPV Vaccine (1 - 3-dose SCDM series) [facility] Bacteria identified in Urine by Culture BACTERIAL CULTURE, URINE Microbiology Routine 6 weeks gestation of 10/27/2024 3:33 PM EST [facility] Chlamydia trachomatis+Neisseria gonorrhoeae DNA [Presence] in Unspecified specimen by ANUEL with probe detection GONORRHEA/CHLAMYDIA NAAT Lab Routine Screen for STD (sexually transmitted disease) 6 weeks gestation of 10/27/2024 3:33 PM EST [facility] Removal intrauterine device iud REMOVE INTRAUTERINE DEVICE Procedures Routine Desire for IUD (intrauterine device) in place Ordered: 06/02/2024 [facility] Work Phone: Comment on above: Ordered: 06/02/2024 TRICHOMONAS VAGINALI S NAAT TRICHOMONAS VAGINALIS NAAT Lab Routine Screen for STD (sexually transmitted disease) 6 weeks gestation of 10/27/2024 3:33 PM [facility] Immunizations Immunization Date Immunization Notes Care Provider [facility] 03-24-2025 tetanus toxoid, redu genny diphtheria toxoid, and acellular pertussis vaccine, adsorbed Harriet Faustin MD Work Phone: [facility] 03-30-2023 tetanus toxoid, redu genny diphtheria toxoid, and acellular pertussis vaccine, adsorbed Deborah Phelps PA-C Work Phone: [facility] 07-18-2021 influenza virus vacc ine, unspecified formulation Deborah Phelps PA-C Work Phone: [facility] 01-18-1999 hepatitis B vaccine, pediatric or pediatric/adolescent dosage Deborah Phelps PA-C Work Phone: [facility] 04-20-1998 hepatitis B vaccine, pediatric or pediatric/adolescent dosage Deborah Phelps PA-C Work Phone: [facility] 03-23-1998 hepatitis B vaccine, pediatric or pediatric/adolescent dosage Deborah Phelps PA-C Work Phone: [facility] Payers Date Payer Category Payer Self-pay 2024 Unknown [id number] 2023 Private Health Insurance [id number] 2022 Private Health Insurance [id number] 1989 Unknown [id number] Unknown [id number] Social History Date Type Detail Facility Start: 03[facility]30-2023 [facility] Start: 03-30-2023 Tobacco use and exposure Smoke less tobacco non-user [facility] Start: 03-30-2023 End: 06-09-2024 Alcohol intake Current drinker of alcohol (finding) [facility] Start: 03-30-2023 End: 10-14-2024 Alcohol intake [facility] Start: 08-17-2021 End: 10-14-2024 Social connection and isolation panel [facility] Do you belong to any clubs or organizations such as hoahaoism groups, unions, fraternal or athletic groups, or school groups? Yes [facility] Are you now , , , , never or living with a partner? [facility] How often to you hav e a drink containing alcohol? 4 or more times a week [facility] How many standard dr inks containing alcohol do you have on a typical day? 3 or [address] [facility] How often do you hav e 6 or more drinks on 1 occasion? Monthly [facility] How hard is it for y ou to pay for the very basics like food, housing, medical care, and heating Not very hard [facility] Start: 12-04-2016 Adult Depression Scr eening Assessment [address] [facility] Do you feel stress - tense, restless, nervous, or anxious, or unable to sleep at night because your mind is troubled all the time - these days [OSQ] Only a little [facility] (I/We) worried wheth er (my/our) food would run out before (I/we) got money to buy more. Never true [facility] In the past 12 month s, was there a time when you were not able to pay the mortgage or rent on time? No [facility] Start: 1990 Sex Assigned At Female [facility] Start: 10-04-2020 Gender identity Identifies as female gender (finding) [facility] Start: 05-17-2020 Sexual orientation Heterosexual (estrada collier) [facility] How often do you hav e 6 or more drinks on 1 occasion? Monthly [facility] Do you feel stress - tense, restless, nervous, or anxious, or unable to sleep at night because your mind is troubled all the time - these days [OSQ] Not at all [facility] Start: 04-03-2024 Alcohol Comment about 3 glasse s of wine per day [facility] Start: 10-14-2024 End: 05-07-2025 Alcoholic beverage intake Ex-drinker (finding) [place] [facility] Start: 10-23-2024 Education [address] [facility] Start: 09-25-[address] [facility] Goals Date Patient Goal Desired Activity /State Personal health goal Clinical Notes 04-04-2023 to 06-09-2025 Quick Notes - Zuleyka Velásquez MD - 05/07/2025 4:26 PM EDTPrenatal Quick Notes - Zuleyka Velásquez MD - 05/07/2025 4:26 PM EDTPatient InstructionsPatient InstructionsPatient Instructions Note Date & Type Note Facility 06-09-2025 Note HNO ID: [id number] Author: FÁTIMA MIKE MA Service: ? Author Type: Blocking Machine Operator Second Type: Progress Notes Filed: 06/09/2025 11:02 Note Text: POPULATION HEALTH NAVIGATION OUTREACH Action/FYI Mixer Operator Hot Metal updated per response. Reason for Outreach Medicaid OB/Peds Care Gaps due: N/A Patient Contacted: Spoke to patient/parent/or legal guardian Patient identified by name and : Yes Medicaid OB/Peds actions taken: /Mixer Operator Hot Metal added Navigation Signature: Fátima Cota MA June 09, 2025 11:01 AM [facility] 06-08-2025 Note HNO ID: [id number] Author: FÁTIMA MIKE MA Service: ? Author Type: Blocking Machine Operator Second Type: Progress Notes Filed: 06/08/2025 08:55 Note Text: POPULATION HEALTH NAVIGATION OUTREACH Action/FYI Pt left VM. Called and left another message. Reason for Outreach Medicaid OB/Peds Care Gaps due: N/A Patient Contacted: Unable or unnecessary to reach patient: Unable to reach patient Left message Navigation Signature: Fátima Cota MA June 08, 2025 8:54 AM [facility] 06-05-2025 Note HNO ID: [id number] Author: FÁTIMA MIKE MA Service: ? Author Type: Blocking Machine Operator Second Type: Progress Notes Filed: 06/05/2025 13:04 Note Text: POPULATION HEALTH NAVIGATION OUTREACH Action/ 1st attempt: Called and left message to call back to discuss report specialist. MC message sent. Reason for Outreach Medicaid OB/Peds Care Gaps due: N/A Patient Contacted: Unable or unnecessary to reach patient: Unable to reach patient Left message MyChart message sent Navigation Signature: Fátima Cota MA June 05, 2025 12:52 PM [facility] 06-05-2025 Note Patient Outreach (NE TNAV) CONSTANCE DE SANTIAGO ([id number]) 1990 F Date Time Provider Department 06/05/25 FÁTIMA MIKE During your visit today, we recorded the following information about you: Fátima Mike MA 06/05/2025 1:04 PM Signed POPULATION HEALTH NAVIGATION OUTREACH Action/ 1st attempt: Called and left message to call back to discuss report specialist. MC message sent. Reason for Outreach Medicaid [...] AM Signed POPULATION HEALTH NAVIGATION OUTREACH Action/FYI Mixer Operator Hot [employer] updated per response. Reason for Outreach Medicaid OB/Peds Care Gaps due: N/A Patient Contacted: Spoke to patient/parent/or legal guardian Patient identified by name and : Yes Medicaid OB/Peds actions taken: /Mixer Operator Hot Metal added Navigation Signature: Fátima Cota MA June [...] tablet by mouth once daily. - omega 7-bvh-xte-fish oil 1,000 mg (250 mg-750 mg)/5 mL [...] Encounter Status:Closed by FÁTIMA MIKE on 06/05/25 [facility] 05-07-2025 Progress note Formatting of t his note might be different from the original. SW- No ctx, vb, lof. Good FM PE: Gen- NAD, well appearing Abd- Soft, gravid, NT See flowsheet A/p 34 wk gestation - Recent ultrasound reviewed - plan sheet reviewed - Discussed upcoming expectations - RTO 2 wks for GBS and US Zuleyka Velásquez DO [facility] 05-07-2025 Miscellaneous Notes SW- No ctx, vb, lof. Good FM PE: Gen- NAD, well appearing Abd- Soft, gravid, NT See flowsheet A/p 34 wk gestation - Recent ultrasound reviewed - plan sheet reviewed - Discussed upcoming expectations - RTO 2 wks for GBS and US Zuleyka Velásquez DO documented in this encounter [facility] 05-07-2025 Instructions Fátima Vaz MA - 05/07/2025 4:14 PM EDT SEQUENTIAL SCREENINGS The [facility] offers sequential screenings for women who [...] It will require an appointment with our control technician. This is not an ultrasound performed [...] the above symptoms, contact our office at [phone] and ask to speak with a nurse. After hours, you can call doctors registry at [phone] OR call [facility] at [phone] and ask to have the doctor pulmonologist paged. If you consider this an emergency, dial 05-04- or go to your nearest emergency department. NEED HELP? Are you dealing with a violent or abusive relationship? Are you a victim of rape or sexual assult? Call [facility] ([place]) 24 hour Crisis Hotline: 464.933.3547 or 470-276-8397. MANUAL Your Guide to a Healthy manual is now on-line. Visit [email or web address] Suzy to download your free copy documented in this encounter [facility] 05-06-2025 Miscellaneous Notes Summary: M-Innolume Consult M-Innolume Cream Dipper Note Hospital Name: [place] Completed by: Maycol Anderson RN Date: May 06, 2025 120 [employer] Resource Time: 2 hours Consult Code:E Consult Type: Phone Safety Concerns: No Constance De Santiago [id number] Preferred Name: Constance OB Provider: Rosalba Ballard Estimated Date of Delivery: 06/18/25 Designated Support People: Jeremi () Labor Plan at time of Consult: Vaginal, Un-medicated, Breast milk Primary Themes During Consult: Fear of unknown Primary Triggers: Sex of baby Relationship with Doctor or Certified Anesthesiologist Assistant Behavior of staff toward you Holding baby [...] and support group. documented in this encounter [facility] 05-06-2025 Progress note Summary: Ariana fountain Consult Innolume Cream Dipper Note Hospital Name: [place] Completed by: Maycol Anderson RN Date: May 06, 2025 [employer] Resource Time: 2 hours Consult Code:E Consult Type: Phone Safety Concerns: No Constance De Santiago [id number] Preferred Name: Constance OB Provider: Rosalba Ballard Estimated Date of Delivery: 06/18/25 Designated Support People: Jeremi () Labor Plan at time of Consult: Vaginal, Un-medicated, Breast milk Primary Themes During Consult: Fear of unknown Primary Triggers: Sex of baby Relationship with Doctor or Certified Anesthesiologist Assistant Behavior of staff toward you Holding baby [...] Has connection with therapist and support group. [facility] 05-05-2025 Note Indication Evaluation of growth, [...] 4 oz EFW by: Hadlock (HC-AC-FL) Extended [employer] [address] Manager 5.5 mm Extremities / Bony Struc [...] other symptoms are present! Merly Davis APRN.CNM [facility] Work Phone: 04-24-2025 Miscellaneous Notes Agree with nursing! Increased discharge is very common in and shouldn't be a concern unless other symptoms are present! Merly Davis APRN.CNM 32w1d Mychart message response was sent to patient. Please add any further recommendations if needed. Rocio Larios RN documented in this encounter [facility] 04-24-2025 Telephone encounter Note 32w1d Netas[employer] message response was sent to patient. Please add any further recommendations if needed. Rocio Larios RN [facility] 04-22-2025 Progress note Formatting of t his note might be different from the original. RR- VB No. LOF No. CTXS No. Movement: present. Other c/o: No. Medication list reviewed. SENSITIVE EXAM: Sensitive exam not performed. Physical Exam See Flow Sheet Abd: soft, nontender, gravid A/P 31w6d Estimated Date of Delivery: 06/18/25 ASSESSMENT/PLAN: 1. AMA (advanced maternal age) multigravida 35+, third trimester ([facility]) - ICD9: 659.63, ICD10: O09.523 (primary diagnosis) grwoth scan ordered, was to get follow up anatomy in past and wasn't done cont. PNV and ASA - OBSTETRIC ULTRASOUND WHI 2. 31 weeks gestation of ([facility]) - ICD9: V22.2, ICD10: Z3A.31 - OBSTETRIC ULTRASOUND WHI 3. Supervision of high risk in third trimester ([facility]) - ICD9: V23.9, ICD10: O09.93 Moustapha Ramirez MD [facility] 04-22-2025 Miscellaneous Notes RR- VB No. LOF No. CTXS No. Movement: present. Other c/o: No. Medication list reviewed. SENSITIVE EXAM: Sensitive exam not performed. Physical Exam See Flow Sheet Abd: soft, nontender, gravid A/P 31w6d Estimated Date of Delivery: 06/18/25 ASSESSMENT/PLAN: 1. AMA (advanced maternal age) multigravida 35+, third trimester ([facility]) - ICD9: 659.63, ICD10: O09.523 (primary diagnosis) grwoth scan ordered, was to get follow up anatomy in past and wasn't done cont. PNV and ASA - OBSTETRIC ULTRASOUND WHI 2. 31 weeks gestation of ([facility]) - ICD9: V22.2, ICD10: Z3A.31 - OBSTETRIC ULTRASOUND WHI 3. Supervision of high risk in third trimester ([facility]) - ICD9: V23.9, ICD10: O09.93 Moustapha Ramirez MD documented in this encounter [facility] 03-24-2025 Progress note Formatting of t his note might be different from the original. KJ - S: Constance denies LOF, contractions or vaginal bleeding. O: 27w5d, see flow sheet SENSITIVE EXAM: Sensitive exam not performed. A/P: Assessment & Plan GBS bacteriuria Multigravida of advanced maternal age in second trimester ([facility]) 27 weeks gestation of ([facility]) 28wk labs today Need for vaccination Tdap today Patient discussed adopting out her first baby and emotional support provided. All questions answered. Reviewed PTL & FM precautions. Harriet Faustin MD [facility] 03-24-2025 Miscellaneous Notes KJ - S: Constance denies LOF, contractions or vaginal bleeding. O: 27w5d, see flow sheet SENSITIVE EXAM: Sensitive exam not performed. A/P: Assessment & Plan GBS bacteriuria Multigravida of advanced maternal age in second trimester ([facility]) 27 weeks gestation of ([facility]) 28wk labs today Need for vaccination Tdap today Patient discussed adopting out her first baby and emotional support provided. All questions answered. Reviewed PTL & FM precautions. Harriet Faustin MD documented in this encounter [facility] 03-24-2025 Instructions Susy Mcgregor MA - 03/24/2025 3:42 PM EDT SEQUENTIAL SCREENINGS The [facility] offers sequential screenings for women who [...] It will require an appointment with our control technician. This is not an ultrasound performed [...] the above symptoms, contact our office at [phone] and ask to speak with a nurse. After hours, you can call doctors registry at [phone] OR call [facility] at [phone] and ask to have the doctor pulmonologist paged. If you consider this an emergency, dial 2-2-2 or go to your nearest emergency department. NEED HELP? Are you dealing with a violent or abusive relationship? Are you a victim of rape or sexual assult? Call [facility] 24 hour Crisis Hotline: 752.884.3241 or 406-929-4295. MANUAL Your Guide to a Healthy manual is now on-line. Visit [email or web address] [email or web address] to download your free copy documented in this encounter [facility] 03-24-2025 Note HNO ID: [id number] Author: SUSY MCGREGOR MA Service: ? Author Type: Blocking Machine Operator Second Type: Progress Notes Filed: 03/24/2025 16:24 Note [...] severely ill: Yes Patient denies history of Guillain-Sheyenne Syndrome (a severe paralytic illness): Yes Tdap Adacel injection was given without incident. See immunizations for details of immunizations administered today. VIS sheet provided: Yes Provider Ramin was present in office at time of injection. Susy Mcgregor MA [facility] 03-24-2025 History of Presen t illness [...] severely ill: Yes Patient denies history of Guillain-Sheyenne Syndrome (a severe paralytic illness): Yes Tdap Adacel injection was given without incident. See immunizations for details of immunizations administered today. VIS sheet provided: Yes Provider Ramin was present in office at time of injection. Susy Mcgregor MA documented in this encounter [facility] 03-04-2025 Note HNO ID: [id number] Author: JOCELYN FRAZIER APRN.CNM Service: ? Author Type: Certified Anesthesiologist Assistant Type: Progress Notes Filed: 03/04/2025 14:43 Note Text: GAURAV-S: Constance De Santiago is a 34 year old female who presents at 24w6d with ANGIE:06/18/2025, by Ultrasound for a routine visit. Denies headache, visual changes, chest pain, shortness of breath, vaginal bleeding, leakage of fluid, or dysuria. [place] limited movement yesterday and has not felt [...] scheduled for routine OB Jocelyn Frazier APRN.CNM [facility] 03-04-2025 History of Presen t illness Narrative GAURAV-S: Constance De Santiago is a 34 year old female who presents at 24w6d with ANGIE:06/18/2025, by Ultrasound for a routine visit. Denies headache, visual changes, chest pain, shortness of breath, vaginal bleeding, leakage of fluid, or dysuria. [place] limited movement yesterday and has not felt [...] Jocelyn Frazier APRN.CNM documented in this encounter [facility] 03-04-2025 Instructions Delfin Manuel MA - 03/04/2025 2:27 PM EDT SEQUENTIAL SCREENINGS The [facility] offers sequential screenings for women who [...] It will require an appointment with our control technician. This is not an ultrasound performed [...] the above symptoms, contact our office at [phone] and ask to speak with a nurse. After hours, you can call doctors registry at [phone] OR call [facility] at [phone] and ask to have the doctor pulmonologist paged. If you consider this an emergency, dial 9-1-5 or go to your nearest emergency department. NEED HELP? Are you dealing with a violent or abusive relationship? Are you a victim of rape or sexual assult? Call [facility] ([place]) 24 hour Crisis Hotline: 311.922.2923 or 764-755-5140. MANUAL Your Guide to a Healthy manual is now on-line. Visit [email or web address] Suzy to download your free copy documented in this encounter [facility] 02-24-2025 Progress note Formatting of t [...] RTO in 4 weeks Jocelyn Frazier APRN.CNM [facility] 02-24-2025 Miscellaneous Notes GAURAV-S: Constance De [...] Jocelyn Frazier APRN.CNM documented in this encounter [facility] 02-24-2025 Instructions Jocelyn Frazier APRN.CNM - [...] of the tunnel are formed by a semi-gakona of bones called carpal bones. A strong [...] glucose tolerance test. For more information: My [facility] Oral Glucose Tolerance Test How do [...] you need an appointment. Safe Sleep for [place] For more information: [email or web address] Safe Sleep Healthy babies are safest when sleeping on their backs at nighttime and during naps. Side sleeping is not as safe as back sleeping and is not advised. SEQUENTIAL SCREENINGS The [facility] offers sequential screenings for women who [...] It will require an appointment with our control technician. This is not an ultrasound performed [...] the above symptoms, contact our office at [phone] and ask to speak with a nurse. After hours, you can call doctors registry at [phone] OR call [facility] at [phone] and ask to have the doctor pulmonologist paged. If you consider this an emergency, dial 05-04-4 or go to your nearest emergency department. NEED HELP? Are you dealing with a violent or abusive relationship? Are you a victim of rape or sexual assult? Call [facility] ([place]) 24 hour Crisis Hotline: 146.528.5658 or 445-133-1480. MANUAL Your Guide to a Healthy manual is now on-line. Visit [email or web address] to download your free copy documented in this encounter [facility] 02-03-2025 Progress note Formatting of t [...] RTO in 4 weeks Jocelyn Frazier APRN.CNM [facility] 02-03-2025 Miscellaneous Notes GAURAV-S: Constance De [...] well, no medication at this time. 6. TRMEAYNE (generalized anxiety disorder) -coping well, no medication at this time. PTL precautions reviewed and when to call RTO in 4 weeks Jocelyn Frazier APRN.CNM documented in this encounter [facility] 12-23-2024 Telephone encounter Note Faxed. Girma Garcia RN [facility] 12-23-2024 Miscellaneous Notes Faxed. Girma Garcia RN Written order received from [employer] for electric breast pump and accessories. Placed in [employer] inbox for signature. Girma Garcia RN documented in this encounter [facility] 12-22-2024 Telephone encounter Note Written order received from [employer] for electric breast pump and accessories. Placed in [employer] inbox for signature. Girma Garcia RN [facility] 12-15-2024 History of Presen t illness [...] 1 tablet by mouth once daily. omega 3-wdf-qxp-fish oil 1,000 mg (250 mg-750 mg)/5 mL [...] Past Histories independently gathered by the clinical clerical support and the remaining scribed note accurately describes [...] Demetria Bourgeois MA documented in this encounter [facility] 12-15-2024 Note HNO ID: [id number] Author: SHYAM JENSEN MD Service: ? Author [...] 1 tablet by mouth once daily. omega 7-fio-gju-fish oil 1,000 mg (250 mg-750 mg)/5 mL [...] Past Histories independently gathered by the clinical clerical support and the remaining scribed note accurately describes [...] 15, 2024 5:37 PM. Demetria Bourgeois MA [facility] 12-11-2024 Progress note Formatting of t his note might be different from the original. KJ - S: Constance denies LOF, contractions or vaginal bleeding. O: 13w0d, see flow sheet SENSITIVE EXAM: The sensitive examination was discussed with the Patient or Patient's Authorized Chemistry Technologist. As applicable, any other physician, advance practice provider, medical student, or other health professional student that will be observing or involved in the sensitive examination for educational or training purposes was discussed with the Patient or Authorized Chemistry Technologist. The Patient or Authorized Chemistry Technologist has agreed to proceed with the sensitive examination. (Sensitive examination includes inspection and/or palpation of the breasts, pelvis, prostate and anorectal regions). A/P: Assessment & Plan Multigravida of advanced maternal age in first trimester (HCC) 13wk US today Declines NIPT GBS bacteriuria Anatomy US scheduled Harriet Faustin MD [facility] 12-11-2024 Miscellaneous Notes KJ - S: Constance denies LOF, contractions or vaginal bleeding. O: 13w0d, see flow sheet SENSITIVE EXAM: The sensitive examination was discussed with the Patient or Patient's Authorized Chemistry Technologist. As applicable, any other physician, advance practice provider, medical student, or other health professional student that will be observing or involved in the sensitive examination for educational or training purposes was discussed with the Patient or Authorized Chemistry Technologist. The Patient or Authorized Chemistry Technologist has agreed to proceed with the sensitive examination. (Sensitive examination includes inspection and/or palpation of the breasts, pelvis, prostate and anorectal regions). A/P: Assessment & Plan Multigravida of advanced maternal age in first trimester (HCC) 13wk US today Declines NIPT GBS bacteriuria Anatomy US scheduled Harriet Faustin MD documented in this encounter [facility] 12-11-2024 Instructions Janeth Goodrich MA - 12/11/2024 2:17 PM EDT SEQUENTIAL SCREENINGS The [facility] offers sequential screenings for women who [...] It will require an appointment with our control technician. This is not an ultrasound performed [...] the above symptoms, contact our office at [phone] and ask to speak with a nurse. After hours, you can call doctors registry at [phone] OR call [facility] at [phone] and ask to have the doctor pulmonologist paged. If you consider this an emergency, dial 9-8-6 or go to your nearest emergency department. NEED HELP? Are you dealing with a violent or abusive relationship? Are you a victim of rape or sexual assult? Call [facility] ([place]) 24 hour Crisis Hotline: 767.252.4372 or 329-492-7024. MANUAL Your Guide to a Healthy manual is now on-line. Visit [email or web address] to download your free copy documented in this encounter [facility] 11-06-2024 Progress note Formatting of t his note might be different from the original. KJ - S: Patient seen urgently for spotting in . It lasted 2 days and has now resolved. Constance denies LOF or contractions. O: 8w0d, see flow sheet SENSITIVE EXAM: The sensitive examination was discussed with the Patient or Patient's Authorized Chemistry Technologist. As applicable, any other physician, advance practice provider, medical student, or other health professional student that will be observing or involved in the sensitive examination for educational or training purposes was discussed with the Patient or Authorized Chemistry Technologist. The Patient or Authorized Chemistry Technologist has agreed to proceed with the sensitive examination. (Sensitive examination includes inspection and/or palpation of the breasts, pelvis, prostate and anorectal regions). A/P: Assessment & Plan Supervision of high-risk of elderly multigravida 8 weeks gestation of TVUS shows active fetus with fca. Patient reassured. Follow up as scheduled or PRN. Harriet Faustin MD [facility] 11-06-2024 Miscellaneous Notes KJ - S: Patient seen urgently for spotting in . It lasted 2 days and has now resolved. Constance denies LOF or contractions. O: 8w0d, see flow sheet SENSITIVE EXAM: The sensitive examination was discussed with the Patient or Patient's Authorized Chemistry Technologist. As applicable, any other physician, advance practice provider, medical student, or other health professional student that will be observing or involved in the sensitive examination for educational or training purposes was discussed with the Patient or Authorized Chemistry Technologist. The Patient or Authorized Chemistry Technologist has agreed to proceed with the sensitive examination. (Sensitive examination includes inspection and/or palpation of the breasts, pelvis, prostate and anorectal regions). A/P: Assessment & Plan Supervision of high-risk of elderly multigravida 8 weeks gestation of TVUS shows active fetus with fca. Patient reassured. Follow up as scheduled or PRN. Harriet Faustin MD documented in this encounter [facility] 11-06-2024 Stephanie Cortez LPN - 11/06/2024 8:53 AM EST SEQUENTIAL SCREENINGS The [facility] offers sequential screenings for women who [...] It will require an appointment with our control technician. This is not an ultrasound performed [...] the above symptoms, contact our office at [phone] and ask to speak with a nurse. After hours, you can call [facility] registry at [phone] OR call [facility] at [phone] and ask to have the doctor pulmonologist paged. If you consider this an emergency, dial 3-1-6 or go to your nearest emergency department. NEED HELP? Are you dealing with a violent or abusive relationship? Are you a victim of rape or sexual assult? Call [facility] ([place]) 24 hour Crisis Hotline: 333.900.3942 or 702-694-0494. MANUAL Your Guide to a Healthy manual is now on-line. Visit [email or web address] to download your free copy documented in this encounter [facility] 11-03-2024 Telephone encounter Note Patient notified. Requested 3/5 or 3/6. Appointment scheduled. Rocio Larios RN [facility] 11-03-2024 Miscellaneous Notes Patient notified. Requested [...] Rosalba Arellano RN documented in this encounter [facility] 11-03-2024 Telephone encounter Note Follow up this week w/ any provider who can do a brief US and check FHTs. Moustapha Ramirez MD [facility] Work Phone: 11-03-2024 Telephone encounter Note [...] on 10/27/24. Please advise. Rosalba Arellano, MICHELE [facility] 10-30-2024 Telephone encounter Note Mallorie Trejo APRN.CNP 10/30/24 7:25 AM Note +GBS in urine, RX sent. Mallorie Trejo APRN.AUTO BUMPER STRAIGHTENER [facility] 10-30-2024 Miscellaneous Notes Mallorie Trejo APRN.CNP 10/30/24 7:25 AM Note +GBS in urine, RX sent. Mallorie Trejo APRN.CNP documented in this encounter [facility] 10-23-2024 Note HNO ID: [id number] Author: MALLORIE TREJO APRN.CNP Service: ? Author Type: Nurse Practitioner Type: Progress Notes Filed: 10/27/2024 16:19 Note Text: Patient declined distributor advertising material. INITIAL OB ASSESSMENT HPI: Constance is a [...] all that apply)? Centering (group care classes); Certified Anesthesiologist Assistant care Social History: Do you have any [...] Outpatient Medications Medication Sig Dispense Refill omega 7-tls-bmm-fish oil 1,000 mg (250 mg-750 mg)/5 mL [...] for: vaginal it (more content not included)... [facility] 10-23-2024 History of Presen t illness Narrative Patient declined distributor advertising material. INITIAL OB ASSESSMENT HPI: Constance is a [...] all that apply)? Centering (group care classes); Certified Anesthesiologist Assistant care Social History: Do you have any [...] Outpatient Medications Medication Sig Dispense Refill omega 1-xyg-yim-fish oil 1,000 mg (250 mg-750 mg)/5 mL [...] discussed with the Patient or Patient's Authorized Chemistry Technologist. As applicable, any other physician, advance practice provider, medical student, or other health professional student that will be observing or involved in the sensitive examination for educational or training purposes was discussed with the Patient or Authorized Chemistry Technologist. The Patient or Authorized Chemistry Technologist has agreed to proceed with the sensitive [...] Your guide to a health and the Speech Language Specialist. Reviewed midwifery and database design analyst services that are available. 2) Screening: Hemoglobin [...] Mallorie Trejo APRN.CNP documented in this encounter [facility] 10-23-2024 Instructions Ashlyn Asencio LPN - 10/23/2024 2:39 PM EST Please select the following link to access the [facility] Your Guide to a Healthy . [email or web address] Please select the following link to access the [facility] Your Guide to a Healthy . [email or web address] documented in this encounter [facility] 10-14-2024 Note HNO ID: [id number] Author: HARRIET FAUSTIN MD Service: ? Author Type: Physician Type: Progress Notes Filed: 10/14/2024 17:02 Note Text: Constance Clark is a 34 year old female who presents for problem visit. HPI: Patient presents with positive test. She was drinking alcohol but stopped with positive test. OB History Gravida1 Para1 Term0 Preterm0 AB0 Living1 SAB0 IAB0 Ectopic0 Multiple0 Live Births0 Comment: Open adoption Supervisor Aircraft Cleaning History LMP: LMP Unknown, IUD Age at Menarche: Age at First : Age at Menopause: Supervisor [employer] History Comments: Sexual Activity: Yes; Male Contraception: [...] Level: 3 - Low Harriet Faustin MD [facility] 10-14-2024 History of Presen t illness Narrative Constance Clark is a 34 year old female who presents for problem visit. HPI: Patient presents with positive test. She was drinking alcohol but stopped with positive test. OB History Gravida1 Para1 Term0 Preterm0 AB0 Living1 SAB0 IAB0 Ectopic0 Multiple0 Live Births0 Comment: Open adoption Supervisor Aircraft Cleaning History LMP: LMP Unknown, IUD Age at Menarche: Age at First : Age at Menopause: Supervisor Aircraft Cleaning History Comments: Sexual Activity: Yes; Male Contraception: [...] Harriet Faustin MD documented in this encounter [facility] 06-09-2024 History of Presen t illness Narrative Heat Treating Operator offered: Patient declines. Constance presents for removal [...] if not within 12 months. Mallorie Trejo APRN.AUTO BUMPER STRAIGHTENER documented in this encounter [facility] 06-05-2024 Instructions Zuleyka Velásquez MD - [...] glands, joint and muscle pain, weakness and Guillain-Sheyenne syndrome. documented in this encounter [facility] 06-02-2024 History of Presen t illness Narrative Patient declined distributor advertising material. Constance is a 33 year old who presents for an annual gynecologic exam without complaints. Menses: No menses - Mirena IUD. 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 As applicable, any other physician, advance practice provider, medical student, or other health professional student that will be observing or involved in the sensitive examination for educational or training purposes was discussed with the Patient or Authorized Chemistry Technologist. The Patient or Authorized Chemistry Technologist has agreed to proceed with the sensitive [...] external genitalia normal, normal Bartholin's glands, urethra, [place]'s glands, no vulvar lesions, no cervical lesions, [...] Zuleyka Velásquez DO documented in this encounter [facility] 04-04-2024 Telephone encounter Note Pt notified of same. Javier Iyer LPN [facility] 04-04-2024 Miscellaneous Notes Pt notified of same. Javier Iyer LPN Labs are all normal. Deborah Phelps PA-C documented in this encounter [facility] 04-04-2024 Telephone encounter Note Labs are all normal. Deborah Phelps PA-C [facility] 04-03-2024 History of Presen t illness [...] Deborah Phelps PA-C documented in this encounter [facility] 04-30-2023 History of Presen t illness [...] and post procedure documented in this encounter [facility] 04-04-2023 Miscellaneous Notes Patient notified of [...] Annabella Bob Ma documented in this encounter [facility] Evaluation note Diagnosis Serum total bilirubin elevated- Primary Jaundice, unspecified, not of [facility] Diagnosis Bilateral impacted cerumen- Primary Impacted cerumen [facility] Diagnosis Well adult exam- Primary Routine general medical examination at a health care facility TREMAYNE (generalized anxiety disorder) Generalized anxiety disorder Recurrent major depressive disorder, in remission (HCC) Encounter for lipid screening for cardiovascular disease Screening for lipoid disorders Screening for diabetes mellitus [facility] Encounter for gynecological examination (general) (routine) without abnormal findings- Primary Screening for cervical cancer Screening for malignant neoplasm of the cervix Desire for Unspecified procreative management IUD (intrauterine device) in place Presence of intrauterine contraceptive device [facility] Diagnosis Encounter for IUD removal- Primary Encounter for removal of intrauterine contraceptive device [facility] Diagnosis Missed menses- Primary Absence of menstruation [facility] Diagnosis Supervision of high-risk of elderly multigravida- Primary with uncertain dates, antepartum state, incidental Screen for STD (sexually transmitted disease) Screening examination for venereal disease 6 weeks gestation of state, incidental [facility] Diagnosis Supervision of high-risk of elderly multigravida- Primary 8 weeks gestation of state, incidental * Assessment & Plan Note - Harriet Faustin MD - 11/06/2024 9:21 AM ESTAssociated Problem(s): Supervision of high-risk of elderly multigravida [facility] Diagnosis Supervision of high-risk of elderly multigravida (HCC)- Primary Supervision of high-risk of elderly multigravida 8 weeks gestation of (HCC) state, incidental Multigravida of advanced maternal age in first trimester (HCC)- Primary GBS bacteriuria * Assessment & Plan Note - Harriet Faustin MD - 12/11/2024 2:44 PM EDTAssociated Problem(s): GBS bacteriuria [facility] Diagnosis Supervision of high-risk of elderly multigravida ([facility])- Primary Supervision of high-risk of elderly multigravida 8 weeks gestation of ([facility]) state, incidental Encounter for screening for malformation using ultrasound ([facility])- Primary 13 weeks gestation of ([facility]) state, incidental Encounter for (NT) nuchal translucency scan ([facility]) Other specified screening Multigravida of advanced maternal age in first trimester ([facility])- Primary GBS bacteriuria [facility] Diagnosis Supervision of high-risk of elderly multigravida ([facility])- Primary Supervision of high-risk of elderly multigravida 8 weeks gestation of ([facility]) state, incidental Multigravida of advanced maternal age in first trimester ([facility])- Primary GBS bacteriuria Plantar wart- Primary [facility]* Diagnosis Supervision of high-risk of elderly multigravida ([facility])- Primary Supervision of high-risk of elderly multigravida 8 weeks gestation of ([facility]) state, incidental Multigravida of advanced maternal age in first trimester ([facility])- Primary GBS bacteriuria AMA (advanced maternal age) multigravida 35+, second trimester ([facility])- Primary 6 weeks gestation of ([facility]) state, incidental Encounter for anatomic survey ([facility]) Encounter for anatomic survey [facility] Diagnosis Supervision of high-risk of elderly multigravida ([facility])- Primary Supervision of high-risk of elderly multigravida 8 weeks gestation of ([facility]) state, incidental Multigravida of advanced maternal age in first trimester ([facility])- Primary GBS bacteriuria Supervision of high-risk of elderly multigravida ([facility])- Primary Supervision of high-risk of elderly multigravida Multigravida of advanced maternal age in second trimester ([facility]) 20 weeks gestation of ([facility]) state, incidental GBS bacteriuria Recurrent major depressive disorder, in remission TREMAYNE (generalized anxiety disorder) Generalized anxiety disorder [facility] Diagnosis Supervision of high-risk of elderly multigravida ([facility])- Primary Supervision of high-risk of elderly multigravida 8 weeks gestation of ([facility]) state, incidental Multigravida of advanced maternal age in first trimester ([facility])- Primary GBS bacteriuria Screening for diabetes mellitus- Primary Supervision of high-risk of elderly multigravida ([facility]) Supervision of high-risk of elderly multigravida Multigravida of advanced maternal age in second trimester ([facility]) GBS bacteriuria TREMAYNE (generalized anxiety disorder) Generalized anxiety disorder Recurrent major depressive disorder, in remission 23 weeks gestation of ([facility]) state, incidental Multiparous Multiparity documented in this encounter [facility] note* Diagnosis Supervision of high-risk of elderly multigravida ([facility])- Primary Supervision of high-risk of elderly multigravida 8 weeks gestation of ([facility]) state, incidental Multigravida of advanced maternal age in first trimester ([facility])- Primary GBS bacteriuria Decreased movements in second trimester, single or unspecified fetus ([facility])- Primary documented in this encounter [facility] note* Diagnosis Supervision of high-risk of elderly multigravida ([facility])- Primary Supervision of high-risk of elderly multigravida 8 weeks gestation of ([facility]) state, incidental Multigravida of advanced maternal age in first trimester ([facility])- Primary GBS bacteriuria GBS bacteriuria- Primary Multigravida of advanced maternal age in second trimester ([facility]) 27 weeks gestation of ([facility]) state, incidental Need for vaccination Need for prophylactic vaccination and inoculation against unspecified single disease * Assessment & Plan Note - Harriet Faustin MD - 03/24/2025 3:57 PM EDTAssociated Problem(s): Supervision of high-risk of elderly multigravida ([facility]) * Assessment & Plan Note - Harriet Faustin MD - 03/24/2025 3:57 PM EDTAssociated Problem(s): Multigravida of advanced maternal age in second trimester ([facility]) documented in this encounter [facility] note* Diagnosis Supervision of high-risk of elderly multigravida ([facility])- Primary Supervision of high-risk of elderly multigravida 8 weeks gestation of ([facility]) state, incidental Multigravida of advanced maternal age in first trimester ([facility])- Primary GBS bacteriuria GBS bacteriuria- Primary Multigravida of advanced maternal age in second trimester ([facility]) 27 weeks gestation of ([facility]) state, incidental Need for vaccination Need for prophylactic vaccination and inoculation against unspecified single disease AMA (advanced maternal age) multigravida 35+, third trimester ([facility])- Primary 31 weeks gestation of ([facility]) state, incidental Supervision of high risk in third trimester ([facility]) Unspecified high-risk Supervision of high-risk of elderly multigravida ([facility]) Supervision of high-risk of elderly multigravida documented [facility] Diagnosis Supervision of high-risk of elderly multigravida ([facility])- Primary Supervision of high-risk of elderly multigravida 8 weeks gestation of ([facility]) state, incidental Multigravida of advanced maternal age in first trimester ([facility])- Primary GBS bacteriuria GBS bacteriuria- Primary Multigravida of advanced maternal age in second trimester ([facility]) 27 weeks gestation of ([facility]) state, incidental Need for vaccination Need for prophylactic vaccination and inoculation against unspecified single disease screening for malformation using ultrasonics ([facility])- Primary Encounter for routine screening for malformation using ultrasonics AMA (advanced maternal age) multigravida 35+, third trimester ([facility]) 33 weeks gestation of ([facility]) state, incidental documented in this [facility] Diagnosis Supervision of high-risk of elderly multigravida ([facility])- Primary Supervision of high-risk of elderly multigravida 8 weeks gestation of ([facility]) state, incidental Multigravida of advanced maternal age in first trimester ([facility])- Primary GBS bacteriuria GBS bacteriuria- Primary Multigravida of advanced maternal age in second trimester ([facility]) 27 weeks gestation of ([facility]) state, incidental Need for vaccination Need for prophylactic vaccination and inoculation against unspecified single disease GBS bacteriuria- Primary TREMAYNE (generalized anxiety disorder) Generalized anxiety disorder Recurrent major depressive disorder, in remission 23 weeks gestation of ([facility]) state, incidental Multiparous Multiparity Multigravida of advanced maternal age in second trimester ([facility]) M-Power Other specified complication, antepartum documented in this [facility] Diagnosis Supervision of high-risk of elderly multigravida ([facility])- Primary Supervision of high-risk of elderly multigravida 8 weeks gestation of ([facility]) state, incidental Multigravida of advanced maternal age in first trimester ([facility])- Primary GBS bacteriuria GBS bacteriuria- Primary Multigravida of advanced maternal age in second trimester ([facility]) 27 weeks gestation of ([facility]) state, incidental Need for vaccination Need for prophylactic vaccination and inoculation against unspecified single disease Multigravida of advanced maternal age in second trimester ([facility])- Primary 34 weeks gestation of ([facility]) state, incidental GBS bacteriuria AMA (advanced maternal age) multigravida 35+, third trimester ([facility]) documented in this encounter [facility] for referral (narrative)* Outpatient Procedure (Routine) - Authorized Specialty Diagnoses / Procedures Referred By Capo hatch Referred To Contact [facility] Diagnoses Desire for IUD (intrauterine device) in place Procedures REMOVE INTRAUTERINE DEVICE REMOVE INTRAUTERINE DEVICE Zuleyka Velásquez MD [address] [facility] [place] [address] [id number] [place] [address] Referral ID Status Reason Start Date Expiration Date Visits Requested Visits Authorized [id number] Authorized Auto-Generat ed Referral 06/02/2024 06/02/2025 1 1 [facility] for visit Narrative* Diagnostic Procedure Only (Routine) - Authorized Specialty Diagnoses / Procedures Referred By Capo t Referred To Contact [facility] Diagnoses 6 weeks gestation of ([facility]) Encounter for supervision of normal , unspecified, unspecified trimester Procedures OBSTETRIC ULTRASOUND WHI US PREG UTERUS AFTER 1ST TRIMEST GESTATION Mallorie Trejo APRN.GINA [address] [place] [address] Phone: tel: fax: [facility] [address] [place] [address] Referral ID Status Reason Start Date Expiration Date Visits Requested Visits Authorized [id number] Authorized Auto-Generate d Referral Patient Cleared - INN Insurance Found 11/18/2024 09/02/2025 20 20 [facility] for visit Narrative* Consult, Test, Treat (Routine) - Closed Specialty Diagnoses / Procedures Referred By Contac t Referred To Contact [facility] Diagnoses TREMAYNE (generalized anxiety disorder) Recurrent major depressive disorder, in remission 23 weeks gestation of (HCC) Procedures OFFICE/OUTPATIENT [facility] 60 MINUTES Jocelyn Frazier APRN.CN [address] [place] [address] Phone: tel: fax: Referral ID Status Reason Start Date Expiration Date V isits Requested Visits Authorized [id number] Closed PCP Requested Referral 02/24/2025 02/24/2026 [address] [facility] Summary Purpose Family History No Family [...] or prosecute any alcohol or drug abuse patient.[facility] the event this information is protected by the Federal Confidentiality of Alcohol and Drug Abuse Patient Records regulations: The Federal rules restrict any use of the information to criminally investigate or prosecute any alcohol or drug abuse patient.[facility] the event this information is protected by the Federal Confidentiality of Alcohol and Drug Abuse Patient Records regulations: The Federal rules restrict any use of the information to criminally investigate or prosecute any alcohol or drug abuse patient.[facility] the event this information is protected by the Federal Confidentiality of Alcohol and Drug Abuse Patient Records regulations: The Federal rules restrict any use of the information to criminally investigate or prosecute any alcohol or drug abuse patient.[facility]In the event this information is protected by the Federal Confidentiality of Alcohol and Drug Abuse Patient Records regulations: The Federal rules restrict any use of the information to criminally investigate or prosecute any alcohol or drug abuse patient.[facility] the event this information is protected by the Federal Confidentiality of Alcohol and Drug Abuse Patient Records regulations: The Federal rules restrict any use of the information to criminally investigate or prosecute any alcohol or drug abuse patient.[facility] the event this information is protected by the Federal Confidentiality of Alcohol and Drug Abuse Patient Records regulations: The Federal rules restrict any use of the information to criminally investigate or prosecute any alcohol or drug abuse patient.[facility] the event this information is protected by the Federal Confidentiality of Alcohol and Drug Abuse Patient Records regulations: The Federal rules restrict any use of the information to criminally investigate or prosecute any alcohol or drug abuse patient.[facility] the event this information is protected by the Federal Confidentiality of Alcohol and Drug Abuse Patient Records regulations: The Federal rules restrict any use of the information to criminally investigate or prosecute any alcohol or drug abuse patient.[facility] HospitalIn the event this information is protected by the Federal Confidentiality of Alcohol and Drug Abuse Patient Records regulations: The Federal rules restrict any use of the information to criminally investigate or prosecute any alcohol or drug abuse patient.[facility] HospitalIn the event this information is protected by the Federal Confidentiality of Alcohol and Drug Abuse Patient Records regulations: The Federal rules restrict any use of the information to criminally investigate or prosecute any alcohol or drug abuse patient.[facility] HospitalIn the event this information is protected by the Federal Confidentiality of Alcohol and Drug Abuse Patient Records regulations: The Federal rules restrict any use of the information to criminally investigate or prosecute any alcohol or drug abuse patient.[facility] HospitalIn the event this information is protected by the Federal Confidentiality of Alcohol and Drug Abuse Patient Records regulations: The Federal rules restrict any use of the information to criminally investigate or prosecute any alcohol or drug abuse patient.[facility] Hospital[facility] the event this information is protected by the Federal Confidentiality of Alcohol and Drug Abuse Patient Records regulations: The Federal rules restrict any use of the information to criminally investigate or prosecute any alcohol or drug abuse patient.[facility] HospitalIn the event this information is protected by the Federal Confidentiality of Alcohol and Drug Abuse Patient Records regulations: The Federal rules restrict any use of the information to criminally investigate or prosecute any alcohol or drug abuse patient.[facility] HospitalIn the event this information is protected by the Federal Confidentiality of Alcohol and Drug Abuse Patient Records regulations: The Federal rules restrict any use of the information to criminally investigate or prosecute any alcohol or drug abuse patient.[facility] HospitalIn the event this information is protected by the Federal Confidentiality of Alcohol and Drug Abuse Patient Records regulations: The Federal rules restrict any use of the information to criminally investigate or prosecute any alcohol or drug abuse patient.[facility] HospitalIn the event this information is protected by the Federal Confidentiality of Alcohol and Drug Abuse Patient Records regulations: The Federal rules restrict any use of the information to criminally investigate or prosecute any alcohol or drug abuse patient.[facility] HospitalIn the event this information is protected by the Federal Confidentiality of Alcohol and Drug Abuse Patient Records regulations: The Federal rules restrict any use of the information to criminally investigate or prosecute any alcohol or drug abuse patient.[facility] HospitalIn the event this information is protected by the Federal Confidentiality of Alcohol and Drug Abuse Patient Records regulations: The Federal rules restrict any use of the information to criminally investigate or prosecute any alcohol or drug abuse patient.[facility] HospitalIn the event this information is protected by the Federal Confidentiality of Alcohol and Drug Abuse Patient Records regulations: The Federal rules restrict any use of the information to criminally investigate or prosecute any alcohol or drug abuse patient.[facility] HospitalIn the event this information is protected by the Federal Confidentiality of Alcohol and Drug Abuse Patient Records regulations: The Federal rules restrict any use of the information to criminally investigate or prosecute any alcohol or drug abuse patient.[facility] HospitalIn the event this information is protected by the Federal Confidentiality of Alcohol and Drug Abuse Patient Records regulations: The Federal rules restrict any use of the information to criminally investigate or prosecute any alcohol or drug abuse patient.[facility] HospitalIn the event this information is protected by the Federal Confidentiality of Alcohol and Drug Abuse Patient Records regulations: The Federal rules restrict any use of the information to criminally investigate or prosecute any alcohol or drug abuse patient.[facility] HospitalIn the event this information is protected by the Federal Confidentiality of Alcohol and Drug Abuse Patient Records regulations: The Federal rules restrict any use of the information to criminally investigate or prosecute any alcohol or drug abuse patient.[facility] HospitalIn the event this information is protected by the Federal Confidentiality of Alcohol and Drug Abuse Patient Records regulations: The Federal rules restrict any use of the information to criminally investigate or prosecute any alcohol or drug abuse patient.[facility] HospitalIn the event this information is protected by the Federal Confidentiality of Alcohol and Drug Abuse Patient Records regulations: The Federal rules restrict any use of the information to criminally investigate or prosecute any alcohol or drug abuse patient.[facility] HospitalIn the event this information is protected by the Federal Confidentiality of Alcohol and Drug Abuse Patient Records regulations: The Federal rules restrict any use of the information to criminally investigate or prosecute any alcohol or drug abuse patient.[facility] HospitalIn the event this information is protected by the Federal Confidentiality of Alcohol and Drug Abuse Patient Records regulations: The Federal rules restrict any use of the information to criminally investigate or prosecute any alcohol or drug abuse patient.[facility] HospitalIn the event this information is protected by the Federal Confidentiality of Alcohol and Drug Abuse Patient Records regulations: The Federal rules restrict any use of the information to criminally investigate or prosecute any alcohol or drug abuse patient.[facility] Care Teams (unrecognized sec tion and content) Forensic Photographer Relationship Specialty Start Date End Date Alexander Ramirez MD [address] [place] [address] PCP - General Family Medicine 02/12/20 Forensic Photographer Relationship Specialty Start Date End Date Alexander Ramirez MD [address] [place], [place] [address] [phone] PCP - General Family Medicine 02/12/20 Forensic Photographer Relationship Specialty Start Date End Date Alexander Ramirez MD [address] [place] [address] PCP - General Family Medicine 02/12/20 Forensic Photographer Relationship Specialty Start Date End Date Alexander Ramirez MD [address] [place], [place] [address] [phone] PCP - General Family Medicine 02/12/20 Forensic Photographer Relationship Specialty Start Date End Date Alexander Ramirez MD [address] [place] [address] PCP - General Family Medicine 02/12/20 Forensic Photographer Relationship Specialty Start Date End Date Alexander Ramirez MD [address] [facility] [place] [address] PCP - General Family Medicine 02/12/20 Casi Hobson, MURPHY.AUTO BUMPER STRAIGHTENER [address] [place] [address] Loan Inspector Family Medicine 08/09/24 Deborah Phelps PA-C [address] [facility] [place] [address] Loan Inspector Family Medicine 08/09/24 Forensic Photographer Relationship Specialty Start Date End Date Alexander Ramirez MD [address] [facility] [place] [address] PCP - General Family Medicine 02/12/20 Casi Hobson, HULL MOLDER.AUTO BUMPER STRAIGHTENER [address] [place] [address] Loan Inspector Family Medicine 08/09/24 Deborah Phelps PA-C [address] [facility] [place] [address] Loan Inspector Family Medicine 08/09/24 Forensic Photographer Relationship Specialty Start Date End Date Alexander Ramirez MD [address] [facility] [place] [address] PCP - General Family Medicine 02/12/20 Casi Hobson, HULL MOLDER.AUTO BUMPER STRAIGHTENER [address] [place] [address] Loan Inspector Family Medicine 08/09/24 Deborah Phelps PA-C [address] [facility] [place] [address] Loan Inspector Family Medicine 08/09/24 Forensic Photographer Relationship Specialty Start Date End Date Alexander Rmairez MD [address] [place] [address] PCP - General Family Medicine 02/12/20 Casi Hobson, MURPHY.AUTO BUMPER STRAIGHTENER [address] [place] [address] Loan Inspector Family Medicine 08/09/24 Deborah Phelps PA-C [address] [place] [address] Loan Inspector Family Medicine 08/09/24 Forensic Photographer Relationship Specialty Start Date End Date Alexander Ramirez MD [address] [place] [address] PCP - General Family Medicine 02/12/20 Casi Hobson APRN.AUTO BUMPER STRAIGHTENER [address] [place] [address] Loan Inspector Family Medicine 08/09/24 Deborah Phelps PA-C [address] [place] [address] Loan Inspector Family Medicine 08/09/24 Forensic Photographer Relationship Specialty Start Date End Date Alexander Ramirez MD [address] [place] [address] PCP - General Family Medicine 02/12/20 Casi Hobson, HULL MOLDER.AUTO BUMPER STRAIGHTENER [address] [place] [address] Loan Inspector Family Medicine 08/09/24 Deborah Phelps PA-C [address] [place] [address] Loan Inspector Family Medicine 08/09/24 Forensic Photographer Relationship Specialty Start Date End Date Alexander Ramirez MD [address] [place] [address] PCP - General Family Medicine 02/12/20 Casi Hobson, HULL MOLDER.AUTO BUMPER STRAIGHTENER [address] [place] [address] Loan Inspector Family Medicine 08/09/24 Deborah Phelps PA-C [address] [place] [address] Loan Inspector Family Medicine 08/09/24 Forensic Photographer Relationship Specialty Start Date End Date Alexander Ramirez MD [address] [place] [address] PCP - General Family Medicine 02/12/20 Casi Hobson, HULL MOLDER.AUTO BUMPER STRAIGHTENER [address] [place] [address] Loan Inspector Family Medicine 08/09/24 Deborah Phelps PA-C [address] [place] [address] Loan Inspector Family Medicine 08/09/24 Forensic Photographer Relationship Specialty Start Date End Date Alexander Ramirez MD [address] [place] [address] PCP - General Family Medicine 02/12/20 Deborah Phelps PA-C [address] [place] [address] Loan Inspector Family Medicine 08/09/24 Forensic Photographer Relationship Specialty Start Date End Date Alexander Ramirez MD [address] [place] [address] PCP - General Family Medicine 02/12/20 Deborah Phelps PA-C [address] [place] [address] Loan Inspector Family Medicine 08/09/24 02/01/25 Casi Hobson APRN.AUTO BUMPER STRAIGHTENER [address] [place] [address] Loan Inspector Family Medicine 02/02/25 Deborah Phelps PA-C [address] [place] [address] Loan Inspector Family Medicine 02/02/25 Forensic Photographer Relationship Specialty Start Date End Date Alexander Ramirez MD [address] [place] [address] PCP - General Family Medicine 02/12/20 Casi Hobson APRN.AUTO BUMPER STRAIGHTENER [address] [place] [address] Loan Inspector Family Medicine 02/02/25 Deborah Phelps PA-C [address] [place] [address] Loan Inspector Family Medicine 02/02/25 Forensic Photographer Relationship Specialty Start Date End Date Alexander Ramirez MD [address] [place] [address] PCP - General Family Medicine 02/12/20 Casi Hobson APRN.AUTO BUMPER STRAIGHTENER [address] [place] [address] Loan Inspector Family Medicine 02/02/25 Deborah Phelps PA-C [address] [place] [address] Loan Inspector Family Medicine 02/02/25 Forensic Photographer Relationship Specialty Start Date End Date Alexander Ramirez MD [address] [place] [address] PCP - General Family Medicine 02/12/20 Casi Hobson APRN.AUTO BUMPER STRAIGHTENER [address] [place] [address] Loan Inspector Family Medicine 02/02/25 Deborah Phelps PA-C [address] [place] [address] Loan Inspector Family Medicine 02/02/25 Forensic Photographer Relationship Specialty Start Date End Date Alexander Ramirez MD [address] [place] [address] PCP - General Family Medicine 02/12/20 Casi Hobson, HULL MOLDER.AUTO BUMPER STRAIGHTENER [address] [place] [address] Loan Inspector Family Medicine 02/02/25 Deborah Phelps PA-C [address] [place] [address] Loan Inspector Family Medicine 02/02/25 Forensic Photographer Relationship Specialty Start Date End Date Alexander Ramirez MD [address] [facility] [place] [address] PCP - General Family Medicine 02/12/20 Casi Hobson, MURPHY.AUTO BUMPER STRAIGHTENER [address] [place] [address] Loan Inspector Family Medicine 02/02/25 Deborah Phelps PA-C [address] [facility] [place] [address] Loan Inspector Family Medicine 02/02/25 Forensic Photographer Relationship Specialty Start Date End Date Alexander Ramirez MD [address] [place] [address] PCP - General Family Medicine 02/12/20 Casi Hobson, MURPHY.AUTO BUMPER STRAIGHTENER [address] [place] [address] Loan Inspector Family Medicine 02/02/25 Deborah Phelps PA-C [address] [facility] [place] [address] Loan Inspector Family Medicine 02/02/25 Forensic Photographer Relationship Specialty Start Date End Date Alexander Ramirez MD [address] [facility] [place] [address] PCP - General Family Medicine 02/12/20 Casi Hobson HULL MOLDER.AUTO BUMPER STRAIGHTENER [address] [place] [address] Loan Inspector Family Medicine 02/02/25 Deborah Phelps PA-C [address] [facility] [place] [address] Loan Inspector Family Medicine 02/02/25 Forensic Photographer Relationship Specialty Start Date End Date Alexander Ramirez MD [address] [place] [address] PCP - General Family Medicine 02/12/20 Casi Hobson APRN.AUTO BUMPER STRAIGHTENER [address] [place] [address] Loan Inspector Family Medicine 02/02/25 Deborah Phelps PA-C [address] [place] [address] Loan Inspector Family Medicine 02/02/25 Forensic Photographer Relationship Specialty Start Date End Date Alexander Ramirez MD [address] [place] [address] PCP - General Family Medicine 02/12/20 Casi Hobson APRN.AUTO BUMPER STRAIGHTENER [address] [place] [address] Loan Inspector Family Medicine 02/02/25 Deborah Phelps PA-C [address] [place] [address] Loan Inspector Family Medicine 02/02/25 Forensic Photographer Relationship Specialty Start Date End Date Alexander Ramirez MD [address] [place] [address] PCP - General Family Medicine 02/12/20 Casi Hobson, MURPHY.AUTO BUMPER STRAIGHTENER [address] [place] [address] Loan Inspector Family Medicine 02/02/25 Deborah Phelps PA-C [address] [place], [place] [address] Loan Inspector Family Medicine 02/02/25 Forensic Photographer Relationship Specialty Start Date End Date Aelxander Ramirez MD [address] [place], [place] [address] PCP - General Family Medicine 02/12/20 Casi Hobson APRN.AUTO BUMPER STRAIGHTENER [address] [place], [place] [id number] [facility] Family [facility] 02/02/25 Deborah Phelps PA-C [address] [place], [place] [phone] Loan Inspector Family [facility] 02/02/25 INFORMATION SOURCE (unrecogn ized section and content) DATE CREATED AUTHOR 07/04/2023 [facility] DATE CREATED AUTHOR AUTHOR'S ORGANIZ ATION 05/08/2025 [facility] DATE CREATED AUTHOR AUTHOR'S ORGANIZ ATION 06/11/2025 [facility] DATE CREATED AUTHOR AUTHOR'S ORGANIZ ATION 06/20/2025 [facility] Reason for Visit (unrecogniz ed section and content) Reason Comments Physical Reason Comments Results Reason Comments Well Woman Reason Onset Date Comments IUD Removal 06/09/2024 Specialty Diagnoses / Procedures Referred By Capo t Referred To Contact [facility] Diagnoses Desire for IUD (intrauterine device) in place Procedures REMOVE INTRAUTERINE DEVICE REMOVE INTRAUTERINE DEVICE Zuleyka Velásquez MD [address] [place] [address] [facility] [address] [place] [address] Referral ID Status Reason Start Date Expiration Date V isits Requested Visits Authorized [id number] Closed Auto-Generate d Referral 06/02/2024 06/02/2025 1 1 Reason Comments Discussion Reason Comments Initial OB Visit Reason Comments Early OB Bleeding Reason Onset Date Comments Care 11/06/2024 Reason Onset Date Comments Care 12/11/2024 Reason Comments Wart Left foot Reason Comments Written order from Babylist for breast p ump Reason Comments US Specialty Diagnoses / Procedures Referred By Contac t Referred To Contact [facility] Diagnoses 6 weeks gestation of (HCC) Procedures OBSTETRIC ULTRASOUND WHI US PREG UTERUS AFTER 1ST TRIMEST GESTATION Mallorie Trejo APRN.CNP [address] [place] [address] Phone: tel: fax: [address] [address] Referral ID Status Reason Start Date Expiration Date V isits Requested Visits Authorized [id number] Closed Auto-Generate d Referral 01/16/2025 09/02/2025 1 1 Reason Onset Date Comments Care 02/24/2025 Reason Onset Date Comments Care 03/04/2025 Reason Onset Date Comments Care 03/24/2025 Reason Comments Care Coordination M-Power SchedulingLM attempt # 1 Reason Comments Care Coordination M-Power SchedulingLM attempt # 2 Specialty Diagnoses / Procedures Referred By Contac t Referred To Contact [facility] Diagnoses AMA (advanced maternal age) multigravida 35+, third trimester (HCC) 31 weeks gestation of (HCC) Procedures OBSTETRIC ULTRASOUND WHI US PREG UTERUS AFTER 1ST TRIMEST GESTATION Moustapha Ramirez MD [address] [place] [address] Phone: tel: fax: [address] [phone] Referral ID Status Reason Start Date Expiration Date V isits Requested Visits Authorized [id number] Closed Auto-Generate d Referral 04/22/2025 04/22/2026 1 [...] BE BASED ON THE PRIMARY CLINICAL RECORDS. [employer] [facility]. provides no warranty or guarantee of the accuracy or completeness of information in this document.
[2025-06-22] MEDS: Lactated Ringers 1,000 ML 50 ML IV (07:45)
[2025-06-22 08:31] LABS: Hematocrit 35.0 % (37-47); Hemoglobin 12.5 g/dL (12.0-15.0); Immature Granulocytes Count 0.070 X10^3/uL (0.0-0.0); Mean Corp Hgb Conc 35.7 g/dL (32-36); Mean Corpuscular Volume 92.3 fL (81-99); Mean Platelet Vol. 10.0 fl (6.2-12.0); NRBC Flagged by Analyzer 0 % (0-5); Platelet Count 262 K/mm3 (150-450); RBC Distribution Width CV 12.6 % (11.6-14.6); RBC Distribution Width SD 42.7 fl (35.1-43.9); Red Blood Count 3.79 M/mm3 (4.2-5.4); White Blood Count 8.3 K/mm3 (4.4-11.0)
[2025-06-22] MEDS: 0.9% Normal Saline Single 100 ML IV.SOLN. INTRA-UTER (08:41)
[2025-06-22] MEDS: Oxytocin 15 Units/NS 250ml 15 UNITS/250 ML IV.SOLN 2 UNITS IV (08:49)
[2025-06-22] MEDS: Penicillin G Pot 5,000,000 UNITS in 0.9% Normal Saline (100mL MB+) 100 ML 150 UNITS IV (08:49)
[2025-06-22 10:02] LABS: Syphilis Antibodies Nonreactive (Nonreactive)
[2025-06-22] MEDS: Penicillin G 3,000,000 Units 50 ML 100 UNITS IV (12:58)
--- NOTE | 2025-06-22 13:03 | HP.PCM.OB_ITS ---
HPI - General General Date of Admission: 06/22/25 Date of Service: 06/22/25 Chief Complaint: scheduled IOL HPI Narrative CARO DE SANTIAGO, is a 34 F who presents for scheduled elective IOL. [facility] Medical History (Updated 06/22/25 @ 13:[address] Mari Velásquez, DO) Depression Encounter for screening for COVID-19 Home Medications ?Medication ?Instructions ?Recorded ?Last Taken ?Type ergocalciferol (vitamin D2) 1,250 50,000 unit PO QWEEK vitamin 06/11/19 Unknown History mcg (50,000 unit) capsule escitalopram oxalate 10 mg tablet 10 mg PO DAILY [employer] 30 07/09/19 Unknown Rx days #30 tabs azithromycin 250 mg tablet See Rx Instructions PO .COM PLEX 05/16/21 Unknown Rx antibiotic #6 tabs benzonatate 100 mg capsule 200 mg (2 x 100 mg) PO TID PRN 05/16/21 Unknown Rx cough #30 caps vit no.95-ferrous 1 tab PO DAILY 06/22/25 History fumarate 28 mg-folic acid 800 mcg tablet () Allergy/AdvReac Type Severity Reaction Status Date / Time No Known Allergies Allergy Verified 06/22/25 07:30 Social History Smoking Status: Never smoker History Elective abortions Hx Para 1 Spontaneous abortions Hx # Term Pregnancies Ectopic pregnancies Hx # Pregnancies Multiple births # of living children NST FHR Rate Baby A FHR Category:: Category I Vital Signs Vital Signs Vital Signs: 06/22/25 07:35 06/22/25 07:35 06/22/25 07:35 Temperature Temperature Source Temporal Pulse Rate 80 Respiratory Rate Blood Pressure 112/70 BP Systolic 112 BP Diastolic 70 Pulse Ox 06/22/25 07:35 06/22/25 07:35 06/22/25 09:41 Temperature 97.1 F L Temperature Source Temporal Pulse Rate Respiratory Rate 16 Blood Pressure BP Systolic BP Diastolic Pulse Ox 06/22/25 09:41 06/22/25 09:41 06/22/25 09:41 Temperature Temperature Source Pulse Rate 72 Respiratory Rate 16 Blood Pressure 111/70 BP Systolic 111 BP Diastolic 70 Pulse Ox 06/22/25 09:41 06/22/25 10:41 06/22/25 10:41 Temperature 97.0 F L Temperature Source Temporal Pulse Rate Respiratory Rate 16 Blood Pressure BP Systolic BP Diastolic Pulse Ox 06/22/25 10:41 06/22/25 10:41 06/22/25 10:42 Temperature 98.4 F Temperature Source Pulse Rate Respiratory Rate Blood Pressure 89/53 L BP Systolic 89 BP Diastolic 53 Pulse Ox 94 06/22/25 10:42 06/22/25 10:42 06/22/25 11:32 Temperature Temperature Source Pulse Rate 74 Respiratory Rate Blood Pressure 107/59 L BP Systolic 107 BP Diastolic 59 Pulse Ox 95 06/22/25 11:32 06/22/25 11:33 06/22/25 11:33 Temperature Temperature Source Temporal Pulse Rate 62 Respiratory Rate 17 Blood Pressure BP Systolic BP Diastolic Pulse Ox 06/22/25 11:33 06/22/25 12:58 06/22/25 12:58 Temperature 97.3 F L Temperature Source Pulse Rate 77 Respiratory Rate Blood Pressure 118/74 BP Systolic 118 BP Diastolic 74 Pulse Ox 06/22/25 12:59 06/22/25 12:59 06/22/25 12:59 Temperature 97.2 F L Temperature Source Temporal Pulse Rate Respiratory Rate 17 Blood Pressure BP Systolic BP Diastolic Pulse Ox Weight Weight: 181 lb Body Mass Index (BMI) 31.0 Labs Labs Labs: Blood Type A POSITIVE Antibody Screen NEGATIVE Hct, (37-47) 35.0 % L Hgb, (12.0-15.0) 12.5 g/dL Syphilis Total Ab, (Nonreactive) Nonreactive Assessment & Plan (1) Advanced maternal age (AMA) in : (2) 40 weeks gestation of : (3) Elective induction of labor planned: PLAN: Intra cervical jerry placed in usual sterile fashion and filled with 30 cc saline. Cvx subsequently /-2, vertex. PCN for GBS + status. Pitocin per protocol. Pelvis adequate and EFW < 4500 grams. Patient plans unmedicated delivery. (4) GBS bacteriuria: (5) History of depression:
[2025-06-22] MEDS: Lactated Ringers 1,000 ML 999 ML IV (13:09)
--- NOTE | 2025-06-22 13:09 | PCM.PN.OB ---
Subjective Subjective Pt uncomfortable with ctx's. Objective Data Objective Data Vital Signs: Vital Signs Temp Pulse Resp BP Pulse Ox 97.2 F L 77 17 118/74 95 06/22/25 12:59 06/22/25 12:58 06/22/25 12:59 06/22/25 12:58 06/22/25 10:42 Weight: 181 lb Body Mass Index (BMI) 31.0 Intake & Output: Intake and Output for Last 24 Hours 06/20/25 06/21/25 06/22/25 23:59 23:59 23:59 Intake Total 115.90 / 115.90 Balance 115.90 / 115.90 Lab / Micro Data 06/22/25 07:45 Labs: Laboratory Results - last 24 hr 06/22/25 07:45: WBC 8.3, RBC 3.79 L, Hgb 12.5, Hct 35.0 L, MCV 92.3, MCH 33.0 H, MCHC 35.7, RDW Std Deviation 42.7, RDW Coeff of Carol 12.6, Plt Count 262, MPV 10.0, Immature Gran % (Auto) 0.800, Neut % (Auto) 67.4, Lymph % (Auto) 19.1, Canadian % (Auto) 11.0 H, Eos % (Auto) 1.5, Baso % (Auto) 0.2, Absolute Neuts (auto) 5.6, Absolute Lymphs (auto) 1.58, Nucleated RBC % 0, Syphilis Total Ab Nonreactive, Blood Type A POSITIVE, Antibody Screen NEGATIVE NST FHR Rate Baby A FHR Category:: Category I Assessment & Plan (1) Elective induction of labor planned: PLAN: Cvx /-1, head well applied. AROM performed for a small amount of clear fluid. Category 1 tracing. Cont current management.
[2025-06-22] MEDS: Lidocaine 1% (20 ml mdv) 20 ML Vial INFILT (14:08)
[2025-06-22] MEDS: Ketorolac 30 MG/ML Syringe IM (14:09)
[2025-06-22] MEDS: Oxytocin 15 Units/NS 250ml 15 UNITS/250 ML IV.SOLN 83 UNITS IV (14:23)
--- NOTE | 2025-06-22 14:41 | OB.VAGDELI_ITS ---
Assessment & Plan (1) History of depression: (2) GBS bacteriuria: (3) Elective induction of labor planned: (4) 40 weeks gestation of : (5) Advanced maternal age (AMA) in : (6) Second degree perineal laceration: (7) Vaginal delivery: Vaginal Delivery Maternal Presentation Maternal Presentation: Elective Induction Type of Induction: Pitocin, Rosenberg Bulb and Amniotomy Vaginal Delivery Information Procedure Performed: Spontaneous Vaginal Delivery Surgeon/Practitioner: Mari Velásquez Date of Procedure: 06/22/25 Pre-Procedure Diagnosis: 40 week gestation, elective IOL planned, AMA Post-Procedure Diagnosis: As above Type of anesthesia: None Estimated Blood Loss: 800 mL Findings Description of procedure: Patient was completed and pushing. The head of the infant was delivered in LAMAR position. A loose nuchal cord x 1 was reduced. The anterior shoulder was delivered with gentle downward traction, followed by the posterior shoulder and body without any excessive traction, force or delay. A vigorous VMI was delivered and placed on maternal abdomen. The cord was clamped and cut after a 60 second delay. The placenta was delivered with gentle traction and fundal massage just before 30 minutes after delivery of the infant. A second degree perineal laceration was repaired using 3-0 Vicryl after injection of local in usual fashion. Brisk bleeding was noted. The uterus was explored without retaine d placenta or membranes noted. Pitocin was already running. Methergine x 1and Hemabate x 1 were given, along with uterine massage. The fundus was then firm at U and bleeding scant. A vaginal sweep was performed. Sharp and sponge counts were correct. 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
[2025-06-23 00:15] VITALS: BP 93/52; PULSE 79; RESP 16; TEMP 36.4; O2SAT 99
[2025-06-23 04:05] VITALS: BP 86/51; PULSE 88; RESP 16; TEMP 36.3; O2SAT 98
[2025-06-23 06:06] LABS: Hematocrit 24.7 % (37-47); Hemoglobin 9.0 g/dL (12.0-15.0); Mean Corp Hgb Conc 36.4 g/dL (32-36); Mean Corpuscular Volume 93.9 fL (81-99); Mean Platelet Vol. 9.5 fl (6.2-12.0); Platelet Count 229 K/mm3 (150-450); RBC Distribution Width CV 12.8 % (11.6-14.6); RBC Distribution Width SD 43.9 fl (35.1-43.9); Red Blood Count 2.63 M/mm3 (4.2-5.4); White Blood Count 14.7 K/mm3 (4.4-11.0)
--- NOTE | 2025-06-23 07:20 | PN.OBGYN_ITS ---
Subjective Subjective Patient is doing well. Has been ambulating without any lightheadedness or dizziness. She denies chest pain or shortness of breath. Lochia has been normal. She has been ambulating and voiding without difficulty. Tolerating a diet without nausea or vomiting. Pain is well-controlled. She desires discharge today and feels well. Objective Data Objective Data Vital Signs: Vital Signs Temp Pulse Resp BP Pulse Ox O2 Del Method 97.4 F L 88 16 86/51 L 98 Room Air 06/23/25 04:05 06/23/25 04:05 06/23/25 04:05 06/23/25 04:05 06/23/25 04:05 06/23/25 04:05 Oxygen Delivery Method Room Air Weight: 181 lb Body Mass Index (BMI) 31.0 Intake & Output: Intake and Output for Last 24 Hours 06/21/25 06/22/25 06/23/25 23:59 23:59 23:59 Intake Total 2025.90 / 2025.90 Output Total 800 / 800 Balance 1225.90 / 1225.90 Lab / Micro Data 06/23/25 05:50 Labs: Laboratory Results - last 24 hr 06/22/25 07:45: WBC 8.3, RBC 3.79 L, Hgb 12.5, Hct 35.0 L, MCV 92.3, MCH 33.0 H, MCHC 35.7, RDW Std Deviation 42.7, RDW Coeff of Carol 12.6, Plt Count 262, MPV 10.0, Immature Gran % (Auto) 0.800, Neut % (Auto) 67.4, Lymph % (Auto) 19.1, M kenna % (Auto) 11.0 H, Eos % (Auto) 1.5, Baso % (Auto) 0.2, Absolute Neuts (auto) 5.6, Absolute Lymphs (auto) 1.58, Nucleated RBC % 0, Syphilis Total Ab Nonreactive, Blood Type A POSITIVE, Antibody Screen NEGATIVE 06/23/25 05:50: WBC 14.7 H, RBC 2.63 L, Hgb 9.0 L, Hct 24.7 L, MCV 93.9, MCH 34.2 H, MCHC 36.4 H, RDW Std Deviation 43.9, RDW Coeff of Carol 12.8, Plt Count 229, MPV 9.5 Physical Exam Const alert and no apparent distress General Appearance: comfortable HEENT normocephalic Resp normal respiratory effort GI soft to palpation GI Narrative: FF@U-1 Extremity normal to inspection Assessment & Plan (1) Vaginal delivery: PLAN: PPD#1 s/p . Doing well . Dicharge instructions reviewed. (2) Second degree perineal laceration: (3) Acute blood loss anemia: PLAN: Asymptomatic. Has iron supplement at home. Discussed taking every other day.
--- NOTE | 2025-06-23 07:25 | DCINST_ITS ---
Discharge Instructions DC O2, CPAP, BIPAP needs Home O2 Discharge instructions: No Dressing / Incision Discharge Activity: May Drive and May Shower May resume sexual activity in: 6 weeks Ice area for (Minutes): 15 Weight Bearing Status: Weight bearing as tolerated Dressing / Incision Call your doctor if you observe: Fever of 101 or Higher, Inability to urinate, Inability to have a bowel movement, Using more than 1 pad per hour, Shortness of breath, Dizziness, Swelling in the ankles, Chest pain, Increased palpitations (irregular heartbeat), Calf discomfort and Uncontrolled pain Cleanse incision/area with: Soap & Water Follow Up Care Please Follow Up With: Mari Velásquez DO When: 1 week early 6 week exam Test Results: Test results from this visit will be discussed in further detail at your follow- up appointment, if applicable. Discharge Plan Admission Admit Date/Time: 06/22/25 07:12 Primary Reason for Your Visit: delivery Attending Provider: Mari Velásquez Primary Care Provider: Deborah Phelps Instructions Patient Instructions: After a Vaginal Delivery (WP) Discharge Orders/Prescriptions Prescriptions: Continued PNV no.95-ferrous fumarate-FA [] 28 mg iron- 800 mcg tablet 1 tab PO DAILY Discontinued azithromycin 250 mg tablet See Rx Instructions PO .COMPLEX Qty: 6 0RF Rx Instructions: take 500 mg today (day 1), then 250 mg for 4 days (days 2-5) PO benzonatate 100 mg capsule 200 mg PO TID PRN (Reason: cough) Qty: 30 0RF escitalopram oxalate 10 MG tablet 10 mg PO DAILY 30 Days Qty: 30 1RF ergocalciferol (vitamin D2) 50,000 UNIT capsule 50,000 unit PO QWEEK Referrals / Follow Up: Deborah Phelps PA [Primary Care Provider, Medical] Disposition Disposition (needs filled in before D/C Order can be placed): Home, Self Care
[2025-06-23 08:40] VITALS: BP 92/56; PULSE 73; RESP 16; TEMP 36.7; O2SAT 100
--- NOTE | 2025-06-23 11:59 | CASEMGMT ---
Social Work Assessment Labor and Delivery Unit Patient Address: [address] [place] [address] Phone number: [phone] Date of Referral: 06/22/25 Time of Referral:? 2102 Referred By: Dr. Velásquez Date of Intervention: ??06/23/25 Time of Intervention:? 1119 Reason for Referral:? hx of depression Sw completed chart review and acknowledges social work consult. Sw presented to bedside and introduced self to mother of baby (MOB- Constance). While talking with MOB and completing assessment, father of baby (FOB- Jeremi) presented to bedside and participated in portion of conversation. History obtained from: medical records, MOB and FOB Household composition: Residing in the family home is MOB and FOB. baby to be included in residence when ready for discharge. MOB denies any problems or concerns with housing, stating that it is safe and secure. Patient's parent/guardian status:? ?Parents have been together for 5 years after meeting each other at a local [employer] and are . MOB denies any domestic violence or intimate partner violence. baby is first child for parents together. Medical History: ?COLETTE is 34 year old 2, para 1- now 2 following labor and delivery of . COLETTE received routine care during with [facility]. COLETTE presented to hospital for induction of labor and delivered baby via vaginal delivery on 06/22/25 at 40 weeks gestation. Baby boy, named Mu Noe was born weighing 8lb 1oz and had agpars of 8 and 9 at one and five minutes of life, respectfully. COLETTE is breast feeding and states that it is going well. Baby will be followed by Dr. Gutierrez for pediatric care. - COLETTE's first baby was born when MOB was 17 years old. COLETTE informed zac that she adopted out that child and does not have any contact with them. Educational Status:? Both parents graduated from high school, and COLETTE obtained her Bachelor's degree. No problems with reading, learning or comprehension. Financial Status: Both parents are gainfully employed outside of the home. 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 Infant Supplies:?? All necessary baby supplies obtained, including: car seat, safe sleep space, clothes, diapers and wipes. Childcare/Caregiver(s):? COLETTE reports that she will be the primary caregiver to baby along with FOApurva. When both parents are working they have arrangements made for childcare. Transportation:??Both parents have their drivers license and reliable means of transportation, no barriers. Programs/Agencies Involved: ??Parents are over income for financial assistance provided through community resources. Children Services/Legal Issues:?No history or prior involvement with children services. No issues or concerns warranting referral to be made at this time. ?? Behavioral Health Issues: ??Mental Health History:?FOB denies mental health history. COLETTE reports that she has been diagnosed with anxiety and depression. MOB states that she has not struggled with any symptoms of these diagnoses for several years. COLETTE states that she was previously prescribed citalopram to help her manage her mental health, but has not taken the medication for several years. COLETTE states that she felt good during her and denies feeling anxious, depressed or down. Per chart review, COLETTE does have history of suicidal ideation, MOB denies any thought of self harm prior to or during . ?? Substance Use History:?Parents deny substance use prior to and during . ? Family History:?No family history of substance use or significant mental health history. ? Drug Screens: ??No drug screens observed while completing chart review. Family/Social Stressors:? COLETTE reports that she is slightly worried about struggling with her mental health during this period. COLETTE states that she feels fine at this time. COLETTE informed zac that she adopted out her first baby, and because of that and her mental health history, she is aware that she is more at risk for experiencing depression/ anxiety. 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 COLETTE states that there are a lot of women in the group who have mothered second children and who she can talk to during this period who would understand what she is going through. Support Systems: COLETTE identifies FOB and friends as her biggest supports. Depression/Shaken Baby/Safe Sleeping:? Zac educated parents on signs and symptoms of baby blues and mood and anxiety disorders. Zac explained that COLETTE is more at risk for experiencing symptoms due to her mental health history. COLETTE reports that she is not prescribed medication at this time, and is not currently connected to a mental health professional, however is open to doing both if warranted. COLETTE reports that she does have women who she sees on a regular basis through the adoption support group that she helps to manage, who would be supportive of her parenting/ mothering after adoption. MOB states that she is slightly worried about what her mental health will look like during this time. Sw asked MOB what some of her coping skills look like, and if she and FOB have talked about things that FOB can to do to be supportive. FOB states that he would be able to recognize if MOB is struggling and he would know how to help and be supportive. MOB reports that she is also open to talking to a mental health support person, and has someone in mind. Sw educated parents on shaken baby prevention and ABCs of safe sleep. MOB asked if it is okay if baby does not sleep in their room. Sw explained to parents that it is recommended that the baby is sleeping in the same room as them for the first six months. MOB expressed understanding. ASSESSMENT: MOB and baby admitted following labor and delivery. MOB with mental health history of anxiety and depression. MOB is not currently prescribed any medication to help her manage her mental health and is not connected to any community mental health providers. This is also COLETTE's second child, however her first baby she adopted out and does not have contact/ involvement with. MOB open to understanding that she is more at risk for experiencing mood and anxiety disorder symptoms due to this as well as her mental health history. MOB reports that she is open with FOB regarding her mental health, and is also receptive to talking to a counselor if she is struggling. MOB and FOB talkative and receptive to meeting with sw. Nursing staff informed sw that parents were more reserved, however both parents appeared to be open and talkative with sw. MOB observed laying in bed comfortably and nursing baby following his circumcision. Baby was fussy, but MOB was able to get him to calm down while nursing. FOB was attentive to MOB when he returned to room following going to their car to get things in preparation for discharge. MOB and FOB asked appropriate questions. MOB talked openly about feeling like she does not know what she is doing as a first time parent. MOB states that she is giving herself rachel because she is learning as she goes and taking it one day at a time. MOB was in pleasant mood, smiling and engaged calmly throughout conversation. PLAN:? No other services requested or indicated. MOB and baby to be discharged when medically ready. Parents were provided literature regarding: signs and symptoms of baby blues and mood and anxiety disorders, Help Me Grow, shaken baby prevention, ABCs of safe sleep and a list of county resources that are available for them should any needs present themselves. Dawn Deshpande, LEATHER CUTTER, HEEL SANDER
[2025-06-23 13:45] VITALS: BP 107/69; PULSE 77; RESP 16; TEMP 36.4; O2SAT 97
--- NOTE | 2025-06-29 14:54 | NURSING ---
06/29/2025- called to do follow up phone call left voicemail
== END 2025-06-23 15:30 | disposition home or self-care (01) | DRG 806 ==
PROVIDERS: Admitting Provider Obstetrics & Gynecology; PCP Physician Assistant; Referring Provider Obstetrics & Gynecology; Visit Provider Obstetrics & Gynecology
DX: O99.344 Other mental disorders complicating childbirth (principal); Z37.0 Single live birth; D62 Acute posthemorrhagic anemia; O98.82 Other maternal infectious and parasitic diseases complicating childbirth; F32.A Depression, unspecified; O90.81 Anemia of the puerperium; B95.1 Streptococcus, group B, as the cause of diseases classified elsewhere; O70.1 Second degree perineal laceration during delivery; O69.81X0 Labor and delivery complicated by cord around neck, without compression, not applicable or unspecified; Z79.899 Other long term (current) drug therapy; Z3A.40 40 weeks gestation of pregnancy
CPT/HCPCS: 59050; 85025; 85027; 86780; 86850; 86900; 86901; 99221; G0378; J0675